=== PATIENT | female | born 1950 | race American Indian/Alaskan Native ===

== ENCOUNTER 2017-11-19 13:37 | Inpatient (IN) | payer MEDICARE ==
--- NOTE | 2017-11-19 14:22 | Emergency Department Report ---
History of Present Illness - General Chief Complaint: Psych Stated Complaint: POSS OVERDOSE Time Seen by Provider: 11/19/17 14:19 Source: patient Mode of arrival: Stretcher Limitations: Altered Mental Status - History of Present Illness Initial Comments: Patient is 67-year-old female presents to the emergency room with an overdose of venlafaxine. Patient currently hypotensive and altered mental status. Patient had A&O 1. Per ems patient took medications 2 days ago. Poison control toxicology called and discussed case with them. Recommendations received MD Complaint: intentional overdose -: Sudden How Overdose Was Discovered: called 911 (family called 911) Context: Intentional Overdose: relationship problems, financial issues Associated Symptoms: depression Treatments Prior to Arrival: oxygen - Related Data Allergies Allergy/AdvReac Type Severity Reaction Status Date / Time No Known Allergies Allergy Unverified 11/19/17 14:34 ED Review of Systems ROS: Stated complaint: POSS OVERDOSE Other details as noted in HPI Comment: Unobtainable due to pts medical conditions ED Past Medical Hx - Past Medical History Previous Medical History?: Yes Hx Psychiatric Treatment: Yes (depression) - Family History Family history: no significant - Social History Smoking Status: Never Smoker Substance Use Type: Other (unknown) ED Physical Exam - General Limitations: Altered Mental Status General appearance: alert, lethargic - Head Head exam: Present: atraumatic, normocephalic, normal inspection - Eye Eye exam: Present: normal appearance (arousable), PERRL Pupils: Present: normal accommodation - ENT ENT exam: Present: normal exam - Neck Neck exam: Present: normal inspection - Respiratory Respiratory exam: Present: normal lung sounds bilaterally. Absent: respiratory distress - Cardiovascular Cardiovascular Exam: Present: regular rate, normal rhythm. Absent: systolic murmur, diastolic murmur, rubs, gallop - GI/Abdominal GI/Abdominal exam: Present: soft, normal bowel sounds - Extremities Exam Extremities exam: Present: normal inspection - Back Exam Back exam: Present: normal inspection - Neurological Exam Neurological exam: Present: alert, oriented X3 - Psychiatric Psychiatric exam: Present: normal affect, normal mood - Skin Skin exam: Present: warm, dry, intact, normal color. Absent: rash ED Course Vital Signs 11/19/17 11/19/17 11/19/17 13:48 14:01 14:03 Temperature Pulse Rate 70 69 68 Respiratory 23 24 16 Rate Blood Pressure 60/23 70/43 O2 Sat by Pulse 95 96 Oximetry 11/19/17 11/19/17 11/19/17 14:30 14:35 15:00 Temperature 97.9 F Pulse Rate 68 81 Respiratory 20 14 Rate Blood Pressure 69/39 70/36 O2 Sat by Pulse 96 97 Oximetry 11/19/17 11/19/17 11/19/17 15:30 16:00 16:30 Temperature Pulse Rate 70 69 79 Respiratory 18 25 H 25 H Rate Blood Pressure 73/43 82/52 84/53 O2 Sat by Pulse 93 96 95 Oximetry 11/19/17 11/19/17 11/19/17 17:00 17:30 18:00 Temperature Pulse Rate 78 80 79 Respiratory 17 22 21 Rate Blood Pressure 71/53 81/50 72/47 O2 Sat by Pulse 97 96 97 Oximetry 11/19/17 11/19/17 18:30 19:00 Temperature Pulse Rate 79 87 Respiratory 25 H 28 H Rate Blood Pressure 79/48 88/55 O2 Sat by Pulse 97 94 Oximetry - Reevaluation(s) Reevaluation #1: Discussed with poison control and wet primer powder blender, Dr. Feliciano. Benjamin received and documented, orders placed 11/19/17 14:40 Reevaluation #2: Discussed case with Dr. Feliciano and patient unchanged. Epi drip to be added. Labs ordered 11/19/17 16:40 Reevaluation #3: BP improving. We'll keep map above 65 with epinephrine drip. We'll continue on bicarbonate drip in order to maintain a pH of 7.5-7.55 we'll be checked every [address] Feliciano's recommendations. Dr. Feliciano updated on case 11/19/17 19:00 Reevaluation #4: Social replaced due to multiple medications and drips. Central line placed without complication. We'll verify with x-ray 11/19/17 21:06 - Central Line Placement Right IJ Consent Obtained: verbal consent, emergent situation Time Out Performed: Yes Patient Placed on Monitor/Pulse Ox: Yes Prep: mask, gown, gloves Central Line Prep: Chlorhexidine scrub, sterile drapes applied Local Anesthesia Used: Lidocaine 1% Amount of Anesthesia Used (mls): 5 (mls) Ultrasound Used for Placement: Yes Central Line Lumen Inserted: triple Bloods Obtained for Lab: Yes Central Line Position: good blood return, all ports aspirated, flus, sutured in place with 2-0 Dressing Applied: Tegaderm Post Procedure X-Ray: tip of catheter in good p, other Patient Tolerated Procedure: well Complications: none Additional Comments: Line placed under sterile conditions with ultrasound without complication. ED Medical Decision Making - Lab Data Result diagrams: 11/19/17 17:02 11/19/17 15:15 - EKG Data -: EKG Interpreted by Me EKG shows normal: sinus rhythm Rate: normal - EKG Data Interpretation: other (prolonged QT and QRS) - Medical Decision Making Recommendations received from wet primer powder blender with poison control, Dr. Feliciano.. Dr. Feliciano recommends: epinephrine drip to support blood pressure. To assess of bicarbonate and repeat EKG. 2 g of mag sulfate. Check chemistry potassium low give potassium. Calcium low give calcium gluconate. After repeat EKG after 2 A of bicarbonate start a bicarbonate drip with 3 A of bicarbonate mixed in 1 L of D5 water at 150 mils per hour. Recommend ABG to be checked every 30 minutes and to keep the serum pH at 7.50-7.55... ICU admission. Per Dr. Feliciano Effexor cannot be dialyzed off @1800: Discussed case with hospitalist. Dr. Brown agreed to admit. All of wet primer powder blender recommendations given to Dr. Brown. Dr. Feliciano's contact info given to the hospitalist. - Differential Diagnosis od. [email or web address] Critical Care Time: Yes Critical care attestation.: If time is entered above; I have spent that time in minutes in the direct care of this critically ill patient, excluding procedure time. Critical Care Time: 90 minutes spent with patient for critical care time ED Disposition Clinical Impression: Hypotension, Overdose, Acute kidney failure, Hyperkalemia, Hypocalcemia Disposition: OP ADMIT IP TO THIS HOSP Is pt being admited?: Yes Does the pt Need Aspirin: No Condition: Critical Time of Disposition: 18:08
[2017-11-19] MEDS ORDERED: MAGNESIUM SULFATE 2GM/50ML 2 GM/50 ML BAG IV ONE (14:51)
[2017-11-19] MEDS ORDERED: SODIUM BICARBONATE IV ONE (15:00)
[2017-11-19 15:51] LABS: Albumin 3.1 g/dL (3.9-5); Calcium 7.8 mg/dL (8.4-10.2)
[2017-11-19] MEDS ORDERED: ADRENALIN ONE ×2 (17:18→20:30)
[2017-11-19 17:19] LABS: Basophils % (Auto) 0.1 % (0.0-1.8); Eosinophils % (Auto) 0.1 % (0.0-4.3); Hematocrit 33.9 % (30.3-42.9); Hemoglobin 11.2 gm/dl (10.1-14.3); Lymphocytes # (Auto) 0.4 K/mm3 (1.2-5.4); Mean Corpuscular HGB Conc 33 % (30-34); Mean Corpuscular Hemoglobin 30 pg (28-32); Mean Corpuscular Volume 90 fl (79-97); Monocytes # (Auto) 0.8 K/mm3 (0.0-0.8); Monocytes % (Auto) 7.8 % (0.0-7.3); Platelet Count 150 K/mm3 (140-440); Red Blood Count 3.78 M/mm3 (3.65-5.03); Red Cell Distribution Width 14.5 % (13.2-15.2)
[2017-11-19 17:26] LABS: Bilirubin,Urine NEG (Negative); Blood,Urine MOD (Negative); Color,Urine Yellow (Yellow); Hyaline Casts,Urine 9 /LPF; Mucus,Urine 1+ /HPF; Nitrite,Urine NEG (Negative); Urobilinogen,Urine < 2.0 mg/dL (<2.0)
[2017-11-19] MEDS ORDERED: ADRENALIN 8 MG in NACL 0.9% 250ML 242 ML IV ONE (17:30)
[2017-11-19] MEDS ORDERED: SODIUM BICARBONATE 150 MEQ in D5W 1,000 ML IV ONE (17:48)
[2017-11-19 17:59] LABS: Amphetamine Screen,Urine PRESUMPTIVE NEGATIVE; Benzodiazepines Screen,Urine PRESUMPTIVE NEGATIVE; Cannabinoid Screen,Urine PRESUMPTIVE NEGATIVE; Cocaine Screen,Urine PRESUMPTIVE NEGATIVE; Methadone Screen,Urine PRESUMPTIVE NEGATIVE; Opiate Screen,Urine PRESUMPTIVE NEGATIVE
[2017-11-19] MEDS ORDERED: CALCIUM GLUCONATE 1,000 MG in NACL 0.9% 100 ML IV ONE (18:30)
[2017-11-19] MEDS ORDERED: NACL 0.9% 1000 ML 1,000 ML IV ONE (19:03)
--- NOTE | 2017-11-19 19:56 | XRay Report ---
FINAL REPORT PROCEDURE: XR CHEST 1V AP TECHNIQUE: Chest radiograph anteroposterior view. CPT 89453 HISTORY: Medical Clearance Psych COMPARISON: No prior studies are available for comparison. FINDINGS: The heart is magnified although appears to be mildly enlarged. Diaphragms are elevated. There is hazy increased density overlying the lower half of the right lung. I suspect there is a layering effusion with adjacent atelectasis or infiltrate. There is some patchy alveolar density in the left base suggesting a small amount of atelectasis. Patient is rotated to the right. No acute bony abnormalities are seen. IMPRESSION: Abnormal increased density right hemithorax as described suggesting layering effusion with adjacent atelectasis or infiltrate. Small amount of atelectasis also suspected in the left base.. Mild cardiomegaly.
[2017-11-19] MEDS ORDERED: MILK OF MAGNESIA PO PRN ×2 (21:11)
[2017-11-19] MEDS ORDERED: ALUM-MAG HYDROX-SIMETH 200-200-20MG/5ML PO PRN (21:11)
[2017-11-19] MEDS ORDERED: DULCOLAX PR PRN ×2 (21:11)
[2017-11-19] MEDS ORDERED: MORPHINE IV PRN ×2 (21:11)
--- NOTE | 2017-11-19 21:11 | History and Physical Report ---
History of Present Illness Date of examination: 11/19/17 Date of admission: 11/19/17 Chief complaint: CC Effexor overdose History of present illness: History of Present Illness Patient is 67-year-old female presents to the emergency room with an overdose of venlafaxine. Patient currently hypotensive and altered mental status. Patient had A&O 1. Per ems patient took medications 2 days ago. Poison control toxicology called and discussed case with them. Recommendations received MD Complaint: intentional overdose -: Sudden How Overdose Was Discovered: called 911 (family called 911) Context: Intentional Overdose: relationship problems, financial issues Associated Symptoms: depression Treatments Prior to Arrival: oxygen ROS: Stated complaint: POSS OVERDOSE Other details as noted in HPI Comment: Unobtainable due to pts medical conditions - Past Medical History Previous Medical History?: Yes Hx Psychiatric Treatment: Yes (depression) - Family History Family history: no significant - Social History Smoking Status: Never Smoker Substance Use Type: Other (unknown) Medications and Allergies Allergies Allergy/AdvReac Type Severity Reaction Status Date / Time No Known Allergies Allergy Unverified 11/19/17 14:34 Active Meds: Active Medications Sodium Bicarbonate 150 meq/ (Dextrose) 1,150 mls @ 150 mls/hr IV ONCE.ED ONE Stop: 11/20/17 01:27 Last Admin: 11/19/17 19:02 Dose: 150 mls/hr Epinephrine 8 mg/ Sodium (Chloride) 250 mls @ 3.75 mls/hr IV ONCE.ED ONE; 2 MCG /MIN PRN Reason: Protocol Stop: 11/22/17 12:09 Last Admin: 11/19/17 18:26 Dose: 2 mcg/min, 3.75 mls/hr Exam - Constitutional Vitals: Temp Pulse Resp BP Pulse Ox 97.9 F 87 28 H 88/55 94 11/19/17 14:35 11/19/17 19:00 11/19/17 19:00 11/19/17 19:00 11/19/17 19:00 General appearance: Present: mild distress, well-nourished - EENT Eyes: Present: PERRL ENT: hearing intact, clear oral mucosa - Neck Neck: Present: supple, normal ROM - Respiratory Respiratory effort: normal Respiratory: bilateral: CTA - Cardiovascular Heart rate: 90 Rhythm: regular Heart Sounds: Present: S1 & S2. Absent: rub, click - Extremities Extremities: no ischemia, pulses intact, pulses symmetrical, No edema Peripheral Pulses: within normal limits - Abdominal General gastrointestinal: Present: soft, non-tender, non-distended, normal bowel sounds Female genitourinary: Present: normal - Integumentary Integumentary: Present: clear, warm, dry - Musculoskeletal Musculoskeletal: gait normal, strength equal bilaterally - Psychiatric Psychiatric: depressed, other (Altered sensorium) - Neurologic Neurologic: CNII-XII intact, moves all extremities Results - Labs CBC & Chem 7: 11/20/17 04:33 11/20/17 04:33 Labs: Laboratory Last Values WBC 9.9 K/mm3 (4.5-11.0) 11/19/17 17: RBC 3.78 M/mm3 (3.65-5.03) 11/19/17 17:02 Hgb 11.2 gm/dl (10.1-14.3) 11/19/17 17:02 Hct 33.9 % (30.3-42.9) 11/19/17 17:02 MCV 90 fl (79-97) 11/19/17 17:02 MCH 30 pg (28-32) 11/19/17 17:02 MCHC 33 % (30-34) 11/19/17 17:02 RDW 14.5 % (13.2-15.2) 11/19/17 17:02 Plt Count 150 K/mm3 (140-440) 11/19/17 17:02 Lymph % (Auto) 4.0 % (13.4-35.0) L 11/19/17 17:02 [place] % (Auto) 7.8 % (0.0-7.3) H 11/19/17 17:02 Eos % (Auto) 0.1 % (0.0-4.3) 11/19/17 17:02 Baso % (Auto) 0.1 % (0.0-1.8) 11/19/17 17:02 Lymph # 0.4 K/mm3 (1.2-5.4) L 11/19/17 17:02 [place] # 0.8 K/mm3 (0.0-0.8) 11/19/17 17:02 Eos # 0.0 K/mm3 (0.0-0.4) 11/19/17 17:02 Baso # 0.0 K/mm3 (0.0-0.1) 11/19/17 17:02 Seg Neutrophils % 88.0 % (40.0-70.0) H 11/19/17 17:02 Seg Neutrophils # 8.7 K/mm3 (1.8-7.7) H 11/19/17 17:02 POC ABG pH 7.330 (7.35-7.45) L 11/19/17 18:09 POC ABG pCO2 37.7 (35-45) 11/19/17 18:09 POC ABG pO2 88 (80-105) 11/19/17 18:09 POC ABG HCO3 19.9 11/19/17 18:09 POC ABG Total CO2 21 11/19/17 18:09 POC ABG O2 Sat 96 11/19/17 18:09 POC ABG Base Excess -6 11/19/17 18:09 VBG pH 7.286 (7.320-7.420) L 11/19/17 19:55 FiO2 3.5 % 11/19/17 18:09 Sodium 140 mmol/L (137-145) 11/19/17 15:15 Potassium 5.4 mmol/L (3.6-5.0) H 11/19/17 15:15 Chloride 100.0 mmol/L (98-107) 11/19/17 15:15 Carbon Dioxide 22 mmol/L (22-30) 11/19/17 15:15 Anion Gap 23 mmol/L 11/19/17 15:15 BUN 62 mg/dL (7-17) H 11/19/17 15:15 Creatinine 4.4 mg/dL (0.7-1.2) H 11/19/17 15:15 Estimated GFR 10 ml/min 11/19/17 15:15 BUN/Creatinine Ratio 14 % 11/19/17 15:15 Glucose 98 mg/dL (65-100) 11/19/17 15:15 Calcium 7.8 mg/dL (8.4-10.2) L 11/19/17 15:15 Total Bilirubin 0.20 mg/dL (0.1-1.2) 11/19/17 15:15 AST 21 units/L (5-40) 11/19/17 15:15 ALT 10 units/L (7-56) 11/19/17 15:15 Alkaline Phosphatase 109 units/L (35-129) 11/19/17 15:15 Total Protein 6.2 g/dL (6.3-8.2) L 11/19/17 15:15 Albumin 3.1 g/dL (3.9-5) L 11/19/17 15:15 Albumin/Globulin Ratio 1.0 % 11/19/17 15:15 Urine Color Yellow (Yellow) 11/19/17 16:45 Urine Turbidity Clear (Clear) 11/19/17 16:45 Urine pH 5.0 (5.0-7.0) 11/19/17 16:45 Ur Specific [place] 1.016 (1.003-1.030) 11/19/17 16:45 Urine Protein 30 mg/dl mg/dL (Negative) 11/19/17 16:45 Urine Glucose (UA) Neg mg/dL (Negative) 11/19/17 16:45 Urine Ketones Neg mg/dL (Negative) 11/19/17 16:45 Urine Blood Mod (Negative) 11/19/17 16:45 Urine Nitrite Neg (Negative) 11/19/17 16:45 Urine Bilirubin Neg (Negative) 11/19/17 16:45 Urine Urobilinogen < 2.0 mg/dL (<2.0) 11/19/17 16:45 Ur Leukocyte Esterase Neg (Negative) 11/19/17 16:45 Urine WBC (Auto) 1.0 /HPF (0.0-6.0) 11/19/17 16:45 Urine RBC (Auto) 1.0 /HPF (0.0-6.0) 11/19/17 16:45 U Epithel Cells (Auto) < 1.0 /HPF (0-13.0) 11/19/17 16:45 Hyaline Casts 9 /LPF 11/19/17 16:45 Urine Mucus 1+ /HPF 11/19/17 16:45 Salicylates < 0.3 mg/dL (2.8-20.0) L 11/19/17 15:15 Urine Opiates Screen Presumptive negative 11/19/17 16:45 Urine Methadone Screen Presumptive negative 11/19/17 16:45 Acetaminophen < 15.0 ug/mL (10.0-30.0) 01/26/18 15:15 Ur Barbiturates Screen Presumptive negative 11/19/17 16:45 Ur Phencyclidine Scrn Presumptive positive 11/19/17 16:45 Ur Amphetamines Screen Presumptive negative 11/19/17 16:45 U Benzodiazepines Scrn Presumptive negative 11/19/17 16:45 [place] 0.1 mmol/L (0.0-1.2) 11/19/17 15:15 Urine Cocaine Screen Presumptive negative 11/19/17 16:45 U Marijuana (THC) Screen Presumptive negative 11/19/17 16:45 Drugs of Abuse Note Disclamer 11/19/17 16:45 Plasma/Serum Alcohol < 0.01 gm% (0-0.07) 11/19/17 15:15 - Imaging and Cardiology EKG: report reviewed Chest x-ray: report reviewed (Abnl Rt opacity-effusion?) Assessment and Plan Assessment and plan: The high probability of a clinically significant, sudden or life threatening deterioration of the [Pulmonary, cadiac, renal] system(s) required my full and direct attention, intervention and personal management. The aggregate critical care time was [42] minutes. This time is in addition to time spent performing reported procedures but includes the following: [x] Data Review and interpretation [x] Patient assessment and monitoring of vital signs [x] Documentation [x] Medication orders and management Advance Directives: Yes (Full code) VTE prophylaxis?: Chemical Plan of care discussed with patient/family: Yes - Patient Problems (1) Overdose Current Visit: Yes Status: Acute Qualifiers: Encounter type: initial encounter Plan to address problem: Patient has taken unknown quantity of Effexor Poison control called Recommendations received from typesetting machine tender with poison control, Dr. Feliciano.. Dr. Feliciano recommends: epinephrine drip to support blood pressure. To assess of bicarbonate and repeat EKG. 2 g of mag sulfate. Check chemistry potassium low give potassium. Calcium low give calcium gluconate. After repeat EKG after 2 A of bicarbonate start a bicarbonate drip with 3 A of bicarbonate mixed in 1 L of D5 water at 150 mils per hour. Recommend ABG to be checked every 30 minutes and to keep the serum pH at 7.50-7.55... ICU admission. Per Dr. Feliciano Effexor cannot be dialyzed off (2) Acute kidney failure Current Visit: Yes Status: Acute Qualifiers: Acute renal failure type: with acute tubular necrosis Qualified Code(s): N17.0 - Acute kidney failure with tubular necrosis Plan to address problem: IV fluids for now (3) Hyperkalemia Current Visit: Yes Status: Acute Plan to address problem: Calcium gluconate and Bicarb given in ED,.Check Rpt K (4) Depression Current Visit: Yes Status: Chronic Qualifiers: Depression Type: major depressive disorder Active/Remission status: currently active Major depression episode severity: severe Psychotic features: without psychotic features Plan to address problem: Mental health consult (5) Suicide attempt by drug ingestion Current Visit: Yes Status: Acute Qualifiers: Encounter type: initial encounter Qualified Code(s): T50.902A - Poisoning by unspecified drugs, medicaments and biological substances, intentional self- harm, initial encounter Plan to address problem: MH/Psych consult (6) DVT prophylaxis Current Visit: Yes Status: Acute Plan to address problem: on Lovenox
[2017-11-19] MEDS ORDERED: SODIUM BICARBONATE FEEDTUBE PRN (21:21)
[2017-11-19] MEDS ORDERED: PANCREAZE DR 10,500 UNIT FEEDTUBE PRN (21:21)
[2017-11-19] MEDS ORDERED: SIMPLE SYRUP FEEDTUBE PRN ×2 (21:21)
--- NOTE | 2017-11-19 21:34 | XRay Report ---
FINAL REPORT PROCEDURE: XR CHEST 1V AP 2058 hours TECHNIQUE: Chest radiograph anteroposterior view. CPT 42261 HISTORY: line placement COMPARISON: Prior chest x-ray 11/19/2017 1945 hours FINDINGS: New right jugular central venous line in place. The tip projects in the mid SVC. There is no pneumothorax. Increased density in the right base suggesting layering effusion with adjacent atelectasis or infiltrate again visualize without interval change. A small amount of patchy alveolar density again seen in the left base. The heart is magnified although appears to be mildly enlarged. No acute bony abnormalities are seen. IMPRESSION: New right jugular central venous line. No evidence of pneumothorax. Stable pleural and parenchymal densities bilaterally. Stable mild cardiomegaly..
[2017-11-19 23:58] LABS: Calcium 7.2 mg/dL (8.4-10.2)
[2017-11-20] MEDS: PEPCID IV SCH ×2 (00:29→11:05)
[2017-11-20 05:19] LABS: Hematocrit 31.4 % (30.3-42.9); Hemoglobin 10.6 gm/dl (10.1-14.3); Lymphocytes # (Auto) 0.5 K/mm3 (1.2-5.4); Lymphocytes % (Auto) 4.5 % (13.4-35.0); Mean Corpuscular HGB Conc 34 % (30-34); Mean Corpuscular Hemoglobin 30 pg (28-32); Mean Corpuscular Volume 90 fl (79-97); Monocytes % (Auto) 9.2 % (0.0-7.3); Platelet Count 161 K/mm3 (140-440); Red Blood Count 3.49 M/mm3 (3.65-5.03)
[2017-11-20 05:27] LABS: Calcium 7.3 mg/dL (8.4-10.2)
[2017-11-20] MEDS ORDERED: SODIUM BICARBONATE 150 MEQ in D5W 1,000 ML IV SCH (08:00)
[2017-11-20] MEDS ORDERED: LOVENOX SUB-Q SCH (10:00)
--- NOTE | 2017-11-20 10:12 | Cat Scan Report ---
CT HEAD WITHOUT CONTRAST: 11/20/17 CLINICAL: Altered metal status. Medical clearance for psych. TECHNIQUE: 2.5-mm noncontrast scans. COMPARISON:None FINDINGS: The ventricles and sulci are normal for age.A 4 cm wedge-shaped hypodensity in the posterior right parietal lobe is consistent with chronic non-hemorrhagic infarct. However, minimal dilatation of the right occipital horn suggest that the infarct is probably a couple of months old. No other abnormal density. No hemorrhage, edema or extra-axial collection. The sinuses are clear. Normal orbits and soft tissues. The calvarium and skull base are intact. IMPRESSION: No acute change. Chronic right posterior parietal nonhemorrhagic infarct.
[2017-11-20] MEDS: LOVENOX SUB-Q SCH (11:04)
--- NOTE | 2017-11-20 11:44 | Consultation ---
History of Present Illness Consult date: 11/20/17 Requesting physician: JUAN CHENEY Reason for consult: other (Hypotensive, depression, overdose..critical care management) History of present illness: Patient is 67-year-old female presents to the emergency room with an overdose of venlafaxine. Patient currently hypotensive and altered mental status. Patient had A&O 1. Per ems patient took medications 2 days ago. Poison control toxicology called and discussed case with them. Recommendations received Patient was seen and examined. Vitals, labs, medications, chart reviewed. Currently on norepinephrine at 6mcg, right IJ CVC. She will moan and graon and will give monosyllabic answers, no eye contact. Complains of thirst. Complaint: intentional overdose -: Sudden How Overdose Was Discovered: called 911 (family called 911) Context: Intentional Overdose: relationship problems, financial issues Associated Symptoms: depression Treatments Prior to Arrival: oxygen ROS: Stated complaint: POSS OVERDOSE Comment: Unobtainable due to pts medical conditions - Past Medical History Previous Medical History?: Yes Hx Psychiatric Treatment: Yes (depression) - Family History Family history: no significant - Social History Smoking Status: Never Smoker Substance Use Type: Other (unknown) Medications and Allergies Allergies Allergy/AdvReac Type Severity Reaction Status Date / Time No Known Allergies Allergy Unverified 11/19/17 14:34 Home Medications Medication Instructions Recorded Confirmed Last Taken Type HYDROcodone/APAP 5-325 [[place] 1 - 2 each PO Q6HR PRN #15 tablet 01/09/15 Unknown Rx 5/325] Ibuprofen [Motrin 800 MG tab] 800 mg PO Q8H PRN #20 tablet 01/09/15 Unknown Rx Levofloxacin [Levaquin] 750 mg PO QDAY #10 tablet 01/09/15 Unknown Rx Promethazine [Phenergan] 25 mg PO Q6H PRN #20 tablet 01/09/15 Unknown Rx Active Meds: Active Medications Acetaminophen (Tylenol) 650 mg PO Q4H PRN PRN Reason: Pain MILD(1-3)/Fever >100.5/CHAO Al Hydrox/Mg Hydrox/Simethicone (Alum-Mag Hydrox-Simeth 803-370-85pb/5ml) 30 ml PO Q4H PRN PRN Reason: Indigestion Lipase/Protease/Amylase (Tatiana Rowell 10,500 Unit) 1 each FEEDTUBE PRN PRN PRN Reason: For Clogged Feeding Tube Bisacodyl (Dulcolax) 10 mg ND QDAY PRN PRN Reason: constipation unrelieved by MOM Enoxaparin Sodium (Lovenox) 30 mg SUB-Q QDAY ROM[place] Famotidine (Pepcid) 20 mg IV QDAY ROMAIN Last Admin: 11/20/17 00:29 Dose: 20 mg Epinephrine 8 mg/ Sodium (Chloride) 250 mls @ 3.75 mls/hr IV ONCE.ED ONE; 2 MCG /MIN PRN Reason: Protocol Stop: 11/22/17 12:09 Last Titration: 11/20/17 08:45 Dose: 3.2 mcg/min, 6 mls/hr Sodium Bicarbonate 150 meq/ (Dextrose) 1,150 mls @ 150 mls/hr IV DIRECT ROMAIN Stop: 11/21/17 11:00 Magnesium Hydroxide (Milk Of Magnesia) 30 ml PO Q4H PRN PRN Reason: Constipation Morphine Sulfate (Morphine) 2 mg IV Q4H PRN PRN Reason: Pain, Moderate (4-6) Ondansetron HCl (Zofran) 4 mg IV Q3H PRN PRN Reason: N/V unrelieved by Reglan Simple Syrup (Simple Syrup) 15 ml FEEDTUBE PRN PRN PRN Reason: Hypoglycemia Simple Syrup (Simple Syrup) 30 ml FEEDTUBE PRN PRN PRN Reason: Hypoglycemia Sodium Bicarbonate (Sodium Bicarbonate) 325 mg FEEDTUBE PRN PRN PRN Reason: For Clogged Feeding Tube Physical Examination Vital signs: Vital Signs Pulse Resp 70 23 11/19/17 13:48 11/19/17 13:48 General appearance: no acute distress, lethargic Eyes: non-icteric ENT: oropharynx dry Neck: supple, no lymphadenopathy, no JVD Effort: normal Ascultation: Bilateral: clear Cardiovascular: regular rate and rhythm Gastrointestinal: normoactive bowel sounds, soft, non-tender Integumentary: normal Extremities: no cyanosis, no edema, pink and warm, pulses normal, no ischemia or petechiae Musculoskeletal: no deformities non-focal exam, pupils equal and round depressed Results - Laboratory Findings CBC and BMP: 11/23/17 07:05 11/23/17 07:05 ABG POC ABG pH 7.330 (7.35-7.45) L 11/19/17 18:09 POC ABG pCO2 37.7 (35-45) 11/19/17 18:09 POC ABG pO2 88 (80-105) 11/19/17 18:09 POC ABG HCO3 19.9 11/19/17 18:09 POC ABG Total CO2 21 11/19/17 18:09 POC ABG O2 Sat 96 11/19/17 18:09 Abnormal lab findings: Abnormal Labs 11/19/17 11/19/17 11/19/17 15:15 15:15 17:02 RBC Lymph % (Auto) 4.0 L [place] % (Auto) 7.8 H Lymph # 0.4 L [place] # Seg Neutrophils % 88.0 H Seg Neutrophils # 8.7 H POC ABG pH VBG pH Potassium 5.4 H Carbon Dioxide BUN 62 H Creatinine 4.4 H Glucose Calcium 7.8 L Total Protein 6.2 L Albumin 3.1 L Salicylates < 0.3 L 11/19/17 11/19/17 11/19/17 18:09 19:55 23:31 RBC Lymph % (Auto) [place] % (Auto) Lymph # [place] # Seg Neutrophils % Seg Neutrophils # POC ABG pH 7.330 L VBG pH 7.286 L Potassium Carbon Dioxide BUN 61 H Creatinine 3.6 H Glucose 231 H Calcium 7.2 L Total Protein Albumin Salicylates 11/20/17 11/20/17 04:33 04:33 RBC 3.49 L Lymph % (Auto) 4.5 L [place] % (Auto) 9.2 H Lymph # 0.5 L [place] # 1.0 H Seg Neutrophils % 86.3 H Seg Neutrophils # 9.2 H POC ABG pH VBG pH Potassium Carbon Dioxide 21 L BUN 59 H Creatinine 3.1 H Glucose 247 H Calcium 7.3 L Total Protein 5.5 L Albumin 3.0 L Salicylates - Diagnostic Findings Chest x-ray: image reviewed (No acute infiltrates noted) Assessment and Plan - Patient Problems (1) Suicide attempt by drug ingestion Current Visit: Yes Status: Acute Qualifiers: Encounter type: initial encounter Qualified Code(s): T50.902A - Poisoning by unspecified drugs, medicaments and biological substances, intentional self- harm, initial encounter Plan to address problem: Monitor QT (2) Hypotension Current Visit: Yes Status: Acute Plan to address problem: Probably secondary to medication/overdose Volume resuscitate Get lactic acid levels Continue with vasopressor support, wean for MAP>65 (3) Acute kidney failure Current Visit: Yes Status: Acute Qualifiers: Acute renal failure type: with acute tubular necrosis Qualified Code(s): N17.0 - Acute kidney failure with tubular necrosis (4) Hyperkalemia Current Visit: Yes Status: Acute (5) Acute kidney injury Current Visit: Yes Status: Acute
[2017-11-20] MEDS ORDERED: PANCREAZE DR 10,500 UNIT FEEDTUBE PRN (12:10)
[2017-11-20] MEDS ORDERED: SODIUM BICARBONATE FEEDTUBE PRN (12:10)
[2017-11-20] MEDS ORDERED: SIMPLE SYRUP FEEDTUBE PRN ×2 (12:10)
--- NOTE | 2017-11-20 12:13 | Progress Note ---
Assessment and Plan Assessment and plan: SNRI Drug overdose. Patient has taken unknown quantity of Effexor. Poison control recommended epinephrine drip to support blood pressure. Bicarbonate drip. ABG should be checked every 30 minutes and to keep the serum pH at 7.50- 7.55. Magnesium and calcium were given. Hypotension. Etiology secondary to medication/overdose. Continued volume resuscitation and vasopressor support. Acute renal failure. Etiology secondary to ATN. Continue IV fluid hydration. Renal consultation pending. Hyperkalemia. Resolved. Follow-up BMP. Depression. Mental health consultation. Suicide attempt by drug ingestion. 1013. DVT prophylaxis. Continue Lovenox. History Interval history: Patient denies any complaints. Patient with flat affect Hospitalist Physical - Constitutional Vitals: Temp Pulse Resp BP Pulse Ox 97.9 F 87 22 88/55 94 11/19/17 14:35 11/19/17 19:00 11/19/17 21:30 11/19/17 19:00 11/19/17 19:00 General appearance: Present: no acute distress, well-nourished - EENT Eyes: Present: PERRL, EOM intact ENT: hearing intact, clear oral mucosa, dentition normal - Neck Neck: Present: supple, normal ROM - Respiratory Respiratory effort: normal Respiratory: bilateral: CTA - Cardiovascular Rhythm: regular Heart Sounds: Present: S1 & S2. Absent: gallop, rub - Extremities Extremities: no ischemia, No edema, Full ROM - Abdominal General gastrointestinal: soft, non-tender, non-distended, normal bowel sounds - Integumentary Integumentary: Present: clear, warm, dry - Neurologic Neurologic: CNII-XII intact, moves all extremities Results - Labs CBC & Chem 7: 11/20/17 04:33 11/20/17 04:33 Labs: Laboratory Last Values WBC 10.7 K/mm3 (4.5-11.0) 11/20/17 04:33 RBC 3.49 M/mm3 (3.65-5.03) L 11/20/17 04:33 Hgb 10.6 gm/dl (10.1-14.3) 11/20/17 04:33 Hct 31.4 % (30.3-42.9) 11/20/17 04:33 MCV 90 fl (79-97) 11/20/17 04:33 MCH 30 pg (28-32) 11/20/17 04:33 MCHC 34 % (30-34) 11/20/17 04:33 RDW 15.0 % (13.2-15.2) 11/20/17 04:33 Plt Count 161 K/mm3 (140-440) 11/20/17 04:33 Lymph % (Auto) 4.5 % (13.4-35.0) L 11/20/17 04:33 [place] % (Auto) 9.2 % (0.0-7.3) H 11/20/17 04:33 Eos % (Auto) 0.0 % (0.0-4.3) 11/20/17 04:33 Baso % (Auto) 0.0 % (0.0-1.8) 11/20/17 04:33 Lymph # 0.5 K/mm3 (1.2-5.4) L 11/20/17 04:33 [place] # 1.0 K/mm3 (0.0-0.8) H 11/20/17 04:33 Eos # 0.0 K/mm3 (0.0-0.4) 11/20/17 04:33 Baso # 0.0 K/mm3 (0.0-0.1) 11/20/17 04:33 Seg Neutrophils % 86.3 % (40.0-70.0) H 11/20/17 04:33 Seg Neutrophils # 9.2 K/mm3 (1.8-7.7) H 11/20/17 04:33 POC ABG pH 7.330 (7.35-7.45) L 11/19/17 18:09 POC ABG pCO2 37.7 (35-45) 11/19/17 18:09 POC ABG pO2 88 (80-105) 11/19/17 18:09 POC ABG HCO3 19.9 11/19/17 18:09 POC ABG Total CO2 21 11/19/17 18:09 POC ABG O2 Sat 96 11/19/17 18:09 POC ABG Base Excess -6 11/19/17 18:09 VBG pH 7.329 (7.320-7.420) 11/19/17 23:31 FiO2 3.5 % 11/19/17 18:09 Sodium 140 mmol/L (137-145) 11/20/17 04:33 Potassium 4.1 mmol/L (3.6-5.0) 11/20/17 04:33 Chloride 98.6 mmol/L (98-107) 11/20/17 04:33 Carbon Dioxide 21 mmol/L (22-30) L 11/20/17 04:33 Anion Gap 25 mmol/L 11/20/17 04:33 BUN 59 mg/dL (7-17) H 11/20/17 04:33 Creatinine 3.1 mg/dL (0.7-1.2) H 11/20/17 04:33 Estimated GFR 18 ml/min 11/20/17 04:33 BUN/Creatinine Ratio 19 % 11/20/17 04:33 Glucose 247 mg/dL (65-100) H 11/20/17 04:33 Calcium 7.3 mg/dL (8.4-10.2) L 11/20/17 04:33 Total Bilirubin 0.20 mg/dL (0.1-1.2) 11/20/17 04:33 AST 36 units/L (5-40) 11/20/17 04:33 ALT 13 units/L (7-56) 11/20/17 04:33 Alkaline Phosphatase 103 units/L (35-129) 11/20/17 04:33 Total Protein 5.5 g/dL (6.3-8.2) L 11/20/17 04:33 Albumin 3.0 g/dL (3.9-5) L 11/20/17 04:33 Albumin/Globulin Ratio 1.2 % 11/20/17 04:33 Urine Color Yellow (Yellow) 11/19/17 16:45 Urine Turbidity Clear (Clear) 11/19/17 16:45 Urine pH 5.0 (5.0-7.0) 11/19/17 16:45 Ur Specific [place] 1.016 (1.003-1.030) 11/19/17 16:45 Urine Protein 30 mg/dl mg/dL (Negative) 11/19/17 16:45 Urine Glucose (UA) Neg mg/dL (Negative) 11/19/17 16:45 Urine Ketones Neg mg/dL (Negative) 11/19/17 16:45 Urine Blood Mod (Negative) 11/19/17 16:45 Urine Nitrite Neg (Negative) 11/19/17 16:45 Urine Bilirubin Neg (Negative) 11/19/17 16:45 Urine Urobilinogen < 2.0 mg/dL (<2.0) 11/19/17 16:45 Ur Leukocyte Esterase Neg (Negative) 11/19/17 16:45 Urine WBC (Auto) 1.0 /HPF (0.0-6.0) 11/19/17 16:45 Urine RBC (Auto) 1.0 /HPF (0.0-6.0) 11/19/17 16:45 U Epithel Cells (Auto) < 1.0 /HPF (0-13.0) 11/19/17 16:45 Hyaline Casts 9 /LPF 11/19/17 16:45 Urine Mucus 1+ /HPF 11/19/17 16:45 Salicylates < 0.3 mg/dL (2.8-20.0) L 11/19/17 15:15 Urine Opiates Screen Presumptive negative 11/19/17 16:45 Urine Methadone Screen Presumptive negative 11/19/17 16:45 Acetaminophen < 15.0 ug/mL (10.0-30.0) 11/19/17 15:15 Ur Barbiturates Screen Presumptive negative 11/19/17 16:45 Ur Phencyclidine Scrn Presumptive positive 11/19/17 16:45 Ur Amphetamines Screen Presumptive negative 11/19/17 16:45 U Benzodiazepines Scrn Presumptive negative 11/19/17 16:45 [place] 0.1 mmol/L (0.0-1.2) 11/19/17 15:15 Urine Cocaine Screen Presumptive negative 11/19/17 16:45 U Marijuana (THC) Screen Presumptive negative 11/19/17 16:45 Drugs of Abuse Note Disclamer 11/19/17 16:45 Plasma/Serum Alcohol < 0.01 gm% (0-0.07) 11/19/17 15:15
--- NOTE | 2017-11-20 12:47 | Consultation ---
History of Present Illness - Reason for Consult Consult date: 11/20/17 acute renal failure, hypernatremia, metabolic acidosis - History of Present Illness The patient is 67-year-old AAF with unknown medical history presented to the emergency room with an overdose of venlafaxine. Patient is confused to give any history at this time. She is on epinephrine drip for hypotension. Per previous documentation patient took medication 2 days ago. Labs significant for potassium 5.4 and creatinine 4.4. Medications and Allergies Allergies Allergy/AdvReac Type Severity Reaction Status Date / Time No Known Allergies Allergy Unverified 11/19/17 14:34 Active Meds: Active Medications Acetaminophen (Tylenol) 650 mg PO Q4H PRN PRN Reason: Pain MILD(1-3)/Fever >100.5/CHAO Al Hydrox/Mg Hydrox/Simethicone (Alum-Mag Hydrox-Simeth [phone]/5ml) 30 ml PO Q4H PRN PRN Reason: Indigestion Lipase/Protease/Amylase (Pancremarisela Rowell 10,500 Unit) 1 each FEEDTUBE PRN PRN PRN Reason: For Clogged Feeding Tube Lipase/Protease/Amylase (Pancremarisela Dr 10,500 Unit) 1 each FEEDTUBE PRN PRN PRN Reason: For Clogged Feeding Tube Bisacodyl (Dulcolax) 10 mg SC QDAY PRN PRN Reason: constipation unrelieved by MOM Enoxaparin Sodium (Lovenox) 30 mg SUB-Q QDAY ROMAIN Famotidine (Pepcid) 20 mg IV QDAY ROMAIN Last Admin: 11/20/17 00:29 Dose: 20 mg Epinephrine 8 mg/ Sodium (Chloride) 250 mls @ 3.75 mls/hr IV ONCE.ED ONE; 2 MCG /MIN PRN Reason: Protocol Stop: 11/22/17 12:09 Last Titration: 11/20/17 08:45 Dose: 3.2 mcg/min, 6 mls/hr Sodium Bicarbonate 150 meq/ (Dextrose) 1,150 mls @ 150 mls/hr IV DIRECT ROMAIN Stop: 11/21/17 11:00 Sodium Chloride (Nacl 0.9% 1000 Ml) 1,000 mls @ 125 mls/hr IV DIRECT ROMAIN Magnesium Hydroxide (Milk Of Magnesia) 30 ml PO Q4H PRN PRN Reason: Constipation Morphine Sulfate (Morphine) 2 mg IV Q4H PRN PRN Reason: Pain, Moderate (4-6) Ondansetron HCl (Zofran) 4 mg IV Q3H PRN PRN Reason: N/V unrelieved by Reglan Simple Syrup (Simple Syrup) 15 ml FEEDTUBE PRN PRN PRN Reason: Hypoglycemia Simple Syrup (Simple Syrup) 30 ml FEEDTUBE PRN PRN PRN Reason: Hypoglycemia Simple Syrup (Simple Syrup) 15 ml FEEDTUBE PRN PRN PRN Reason: Hypoglycemia Simple Syrup (Simple Syrup) 30 ml FEEDTUBE PRN PRN PRN Reason: Hypoglycemia Sodium Bicarbonate (Sodium Bicarbonate) 325 mg FEEDTUBE PRN PRN PRN Reason: For Clogged Feeding Tube Sodium Bicarbonate (Sodium Bicarbonate) 325 mg FEEDTUBE PRN PRN PRN Reason: For Clogged Feeding Tube Review of Systems ROS unobtainable: due to mental status Exam - Vital Signs Vital signs: Vital Signs Pulse Resp 70 23 11/19/17 13:48 11/19/17 13:48 - General Appearance General appearance: well-developed, appears stated age, other (no distress) EENT: ATNC, PERRL, mucous membranes dry, hearing intact Neck: Present: neck supple, trachea midline Respiratory: Clear to Ascultation Heart: regular, S1S2, no murmurs Gastrointestinal: Present: normoactive bowel sounds. Absent: tenderness, distended Integumentary: no rash, warm and dry Neurologic: no focal deficit, no asterixis, confused, disoriented Musculoskeletal: Present: other (no edema) Results - Lab Results 11/21/17 05:34 11/21/17 05:34 Most recent lab results Calcium 7.3 mg/dL (8.4-10.2) L 11/20/17 04:33 - Image Kidney/bladder ultrasound: pending Assessment and Plan 1. Acute kdiney injury: Hemodynamically mediated ASHLEIGH in the setting of hypotension. Continue IV fluids. Urine studies and Renal US. 2. Hypotension: On Epinephrine infusion. 3. Hyperkalemia: Improved. 4. Drug overdose. 5. Suicidal attempt.
[2017-11-20] MEDS: NACL 0.9% 1000 ML 1,000 ML IV SCH (14:45)
[2017-11-20] MEDS ORDERED: MAGNESIUM SULFATE IV ONE (20:21)
[2017-11-20] MEDS ORDERED: CALCIUM GLUCONATE 2,000 MG in NACL 0.9% 100 ML IV ONE (20:58)
[2017-11-20] MEDS ORDERED: MAGNESIUM SULFATE 2GM/50ML 2 GM/50 ML BAG IV SCH (22:00)
[2017-11-21] MEDS ORDERED: CALCIUM CHLORIDE 2,000 MG in NACL 0.9% 100 ML IV ONE (04:55)
[2017-11-21 06:16] LABS: Hemoglobin 12.3 gm/dl (10.1-14.3); Mean Corpuscular HGB Conc 33 % (30-34); Mean Corpuscular Hemoglobin 29 pg (28-32); Mean Corpuscular Volume 87 fl (79-97); Platelet Count 149 K/mm3 (140-440); Red Blood Count 4.25 M/mm3 (3.65-5.03)
[2017-11-21 06:23] LABS: Magnesium 2.4 mg/dL (1.7-2.3)
[2017-11-21] MEDS: NACL 0.9% 1000 ML 1,000 ML IV SCH ×2 (07:45→22:42)
[2017-11-21 08:28] LABS: Band Neutrophils # (Manual) 3.4 K/mm3; Basophils % (Manual) 0 % (0.0-1.8); Eosinophils % (Manual) 0 % (0.0-4.3); Total Cells Counted 100
[2017-11-21 08:29] LABS: Platelet Estimate Consistent w Auto; Target Cells Few
--- NOTE | 2017-11-21 09:08 | Progress Note ---
Assessment and Plan 1. Acute kdiney injury: Hemodynamically mediated ASHLEIGH in the setting of hypotension. Continue IV fluids. Renal function is improving. Urine studies and Renal US. Baseline renal function is unknown. 2. Hypotension: BP is better. 3. Hyperkalemia: Improved. 4. Drug overdose. 5. Suicidal attempt. Subjective Date of service: 11/21/17 Interval history: Patient was seen and examined at the bedside. Objective - Vital Signs Vital signs: Vital Signs - 12hr 11/20/17 11/20/17 11/20/17 21:15 21:30 21:45 Pulse Rate 90 91 H 90 Respiratory 33 H 34 H 32 H Rate Blood Pressure 136/75 130/80 128/77 O2 Sat by Pulse 99 99 100 Oximetry 11/20/17 11/20/17 11/20/17 22:00 22:15 22:30 Pulse Rate 86 88 88 Respiratory 20 24 27 H Rate Blood Pressure 125/73 138/80 123/77 O2 Sat by Pulse 100 100 100 Oximetry 11/20/17 11/20/17 11/20/17 22:45 23:00 23:15 Pulse Rate 93 H 93 H 93 H Respiratory 28 H 24 24 Rate Blood Pressure 136/79 126/76 123/75 O2 Sat by Pulse 100 100 100 Oximetry 11/20/17 11/20/17 11/20/17 23:30 23:38 23:45 Pulse Rate 91 H 90 89 Respiratory 21 23 24 Rate Blood Pressure 129/77 120/72 O2 Sat by Pulse 99 92 96 Oximetry 11/21/17 11/21/17 11/21/17 00:00 00:15 00:30 Pulse Rate 87 90 92 H Respiratory 23 27 H 25 H Rate Blood Pressure 125/80 111/71 119/77 O2 Sat by Pulse 96 97 97 Oximetry 11/21/17 11/21/17 11/21/17 00:45 01:00 01:15 Pulse Rate 90 91 H 94 H Respiratory 26 H 29 H 22 Rate Blood Pressure 125/61 131/81 127/76 O2 Sat by Pulse 96 96 97 Oximetry 11/21/17 11/21/17 11/21/17 01:30 01:45 02:00 Pulse Rate 90 90 92 H Respiratory 24 23 26 H Rate Blood Pressure 129/82 134/77 135/77 O2 Sat by Pulse 98 96 96 Oximetry 11/21/17 11/21/1711/21/18 02:15 02:30 02:45 Pulse Rate 92 H 92 H 93 H Respiratory 29 H 19 25 H Rate Blood Pressure 131/75 133/77 127/78 O2 Sat by Pulse 97 96 97 Oximetry 11/21/17 11/21/17 11/21/17 03:00 03:15 03:30 Pulse Rate 92 H 90 91 H Respiratory 28 H 25 H 29 H Rate Blood Pressure 134/74 134/78 134/81 O2 Sat by Pulse 95 96 96 Oximetry 11/21/17 11/21/17 11/21/17 03:45 04:00 04:15 Pulse Rate 92 H 91 H 89 Respiratory 31 H 15 22 Rate Blood Pressure 130/68 132/82 130/83 O2 Sat by Pulse 97 97 98 Oximetry 11/21/17 11/21/17 11/21/17 04:30 04:45 05:00 Pulse Rate 88 91 H 90 Respiratory 20 14 15 Rate Blood Pressure 134/82 136/85 136/85 O2 Sat by Pulse 93 92 93 Oximetry 11/21/17 11/21/17 11/21/17 05:15 05:31 05:45 Pulse Rate 94 H 90 93 H Respiratory 21 23 16 Rate Blood Pressure 129/72 135/70 143/75 O2 Sat by Pulse 94 93 93 Oximetry 11/21/17 11/21/17 11/21/17 06:00 06:15 06:31 Pulse Rate 88 88 91 H Respiratory 22 22 13 Rate Blood Pressure 142/93 142/93 142/93 O2 Sat by Pulse 92 94 93 Oximetry - General Appearance General appearance: well-developed, appears stated age, other (no distress) EENT: ATNC, PERRL, mucous membranes dry, hearing intact Neck: supple Respiratory: Present: Clear to Ascultation Cardiology: regular, S1S2, no murmurs Gastrointestinal: normoactive bowel sounds, no tenderness, no distended Integumentary: no rash, warm and dry Neurologic: no focal deficit, no asterixis, confused, disoriented Musculoskeletal: other (no edema) - Lab 11/21/17 05:34 11/21/17 05:34 Most recent lab results Calcium 8.0 mg/dL (8.4-10.2) L 11/21/17 05:34 Phosphorus 2.90 mg/dL (2.5-4.5) 11/21/17 05:34 Magnesium 2.40 mg/dL (1.7-2.3) H 11/21/17 05:34
[2017-11-21] MEDS: ZOFRAN IV PRN ×2 (09:45→17:50)
[2017-11-21] MEDS: PEPCID IV SCH (11:00)
[2017-11-21] MEDS: LOVENOX SUB-Q SCH (11:00)
--- NOTE | 2017-11-21 11:57 | Ultrasound Report ---
FINAL REPORT EXAM: US RENAL BILAT HISTORY: Acute renal failure. TECHNIQUE: Renal ultrasound. PRIORS: None currently available. FINDINGS: RIGHT KIDNEY: 7.5 x 4.5 x 3.9 cm. Cortex measures 0.7 cm. Mildly echogenic no hydronephrosis. No distinct lesions. No stones. LEFT KIDNEY: 9.5 x 4.7 x 3.8 cm. Cortex measures 1.7 cm. Mildly echogenic no hydronephrosis. No distinct lesions. No stones. Spleen measures 10.5 x 9.1 x 7.2 cm and is hypoechoic with multiple echogenic foci. Fluid around the liver noted. Partially visualized liver is also heterogeneous. IMPRESSION: Mildly echogenic bilateral kidneys may be related to medical renal disease. Hypoechoic spleen with multiple echogenic foci. Nonspecific. Findings could represent chronic granulomatous disease or infiltrating lesion or edema. Small amount of ascites around the heterogeneous liver. Appearance of the liver could be related to hepatocellular disease or cirrhosis.
--- NOTE | 2017-11-21 13:23 | Progress Note ---
Assessment and Plan Assessment and plan: SNRI Drug overdose. Patient has taken unknown quantity of Effexor. Poison control recommended epinephrine drip to support blood pressure. Bicarbonate drip. ABG should be checked every 30 minutes and to keep the serum pH at 7.50- 7.55. Magnesium and calcium were given. Continue current plan as outlined by poison control Hypotension. Etiology secondary to medication/overdose. Continued volume resuscitation and vasopressor support. Acute renal failure. Improved. Etiology secondary to ASHLEIGH from hypertension. Continue IV fluid hydration. Nephrology following. Hyperkalemia. Resolved. Follow-up BMP. Depression. Mental health consultation. Suicide attempt by drug ingestion. 1013. DVT prophylaxis. Continue Lovenox. The high probability of a clinically significant, sudden or life threatening deterioration of the [hemodynamic and endocrine] system(s) required my full and direct attention, intervention and personal management. The aggregate critical care time was [32] minutes. This time is in addition to time spent performing reported procedures but includes the following: [x] Data Review and interpretation [x] Patient assessment and monitoring of vital signs [x] Documentation [x] Medication orders and management History Interval history: Patient denies any complaints. Patient with flat affect Hospitalist Physical - Constitutional Vitals: Temp Pulse Resp BP Pulse Ox 99.0 F 92 H 12 165/91 92 11/20/17 08:16 11/21/17 09:30 11/21/17 09:30 11/21/17 09:30 11/21/17 09:30 General appearance: Present: no acute distress, well-nourished - EENT Eyes: Present: PERRL, EOM intact ENT: hearing intact, clear oral mucosa, dentition normal - Neck Neck: Present: supple, normal ROM - Respiratory Respiratory effort: normal Respiratory: bilateral: CTA - Cardiovascular Rhythm: regular Heart Sounds: Present: S1 & S2. Absent: gallop, rub - Extremities Extremities: no ischemia, No edema, Full ROM - Abdominal General gastrointestinal: soft, non-tender, non-distended, normal bowel sounds - Integumentary Integumentary: Present: clear, warm, dry - Neurologic Neurologic: CNII-XII intact, moves all extremities Results - Labs CBC & Chem 7: 11/21/17 05:34 11/21/17 05:34 Labs: Laboratory Last Values WBC 5.3 K/mm3 (4.5-11.0) 11/21/17 05:34 RBC 4.25 M/mm3 (3.65-5.03) 11/21/17 05:34 Hgb 12.3 gm/dl (10.1-14.3) 11/21/17 05:34 Hct 37.0 % (30.3-42.9) 11/21/17 05:34 MCV 87 fl (79-97) 11/21/17 05:34 MCH 29 pg (28-32) 11/21/17 05:34 MCHC 33 % (30-34) 11/21/17 05:34 RDW 15.0 % (13.2-15.2) 11/21/17 05:34 Plt Count 149 K/mm3 (140-440) 11/21/17 05:34 Lymph % (Auto) 4.5 % (13.4-35.0) L 11/20/17 04:33 [place] % (Auto) Signal Intelligence/Electronic Warfare 11/21/17 05:34 Eos % (Auto) 0.0 % (0.0-4.3) 11/20/17 04:33 Baso % (Auto) 0.0 % (0.0-1.8) 11/20/17 04:33 Lymph # 0.5 K/mm3 (1.2-5.4) L 11/20/17 04:33 [place] # 1.0 K/mm3 (0.0-0.8) H 11/20/17 04:33 Eos # 0.0 K/mm3 (0.0-0.4) 11/20/17 04:33 Baso # 0.0 K/mm3 (0.0-0.1) 11/20/17 04:33 Add Manual Diff Complete 11/21/17 05:34 Total Counted 100 11/21/17 05:34 Seg Neutrophils % 86.3 % (40.0-70.0) H 11/20/17 04:33 Seg Neuts % (Manual) 19.0 % (40.0-70.0) L 11/21/17 05:34 Band Neutrophils % 65.0 % 11/21/17 05:34 Lymphocytes % (Manual) 5.0 % (13.4-35.0) L 11/21/17 05:34 Reactive Lymphs % (Man) 1.0 % 11/21/17 05:34 Monocytes % (Manual) 9.0 % (0.0-7.3) H 11/21/17 05:34 Eosinophils % (Manual) 0 % (0.0-4.3) 11/21/17 05:34 Basophils % (Manual) 0 % (0.0-1.8) 11/21/17 05:34 Metamyelocytes % 1.0 % 11/21/17 05:34 Myelocytes % 0 % 11/21/17 05:34 Promyelocytes % 0 % 11/21/17 05:34 Blast Cells % 0 % 11/21/17 05:34 Nucleated RBC % Not Reportable 11/21/17 05:34 Seg Neutrophils # 9.2 K/mm3 (1.8-7.7) H 11/20/17 04:33 Seg Neutrophils # Man 1.0 K/mm3 (1.8-7.7) L 11/21/17 05:34 Band Neutrophils # 3.4 K/mm3 11/21/17 05:34 Lymphocytes # (Manual) 0.3 K/mm3 (1.2-5.4) L 11/21/17 05:34 Abs React Lymphs (Man) 0.1 K/mm3 11/21/17 05:34 Monocytes # (Manual) 0.5 K/mm3 (0.0-0.8) 11/21/17 05:34 Eosinophils # (Manual) 0.0 K/mm3 (0.0-0.4) 11/21/17 05:34 Basophils # (Manual) 0.0 K/mm3 (0.0-0.1) 11/21/17 05:34 Metamyelocytes # 0.1 K/mm3 11/21/17 05:34 Myelocytes # 0.0 K/mm3 11/21/17 05:34 Promyelocytes # 0.0 K/mm3 11/21/17 05:34 Blast Cells # 0.0 K/mm3 11/21/17 05:34 WBC Morphology Not Reportable 11/21/17 05:34 Hypersegmented Neuts Not Reportable 11/21/17 05:34 Hyposegmented Neuts Not Reportable 11/21/17 05:34 Hypogranular Neuts Not Reportable 11/21/17 05:34 Smudge Cells Not Reportable 11/21/17 05:34 Toxic Granulation Not Reportable 11/21/17 05:34 Toxic Vacuolation Not Reportable 11/21/17 05:34 Dohle Bodies Not Reportable 11/21/17 05:34 Pelger-Huet Anomaly Not Reportable 11/21/17 05:34 [place] Rods Not Reportable 11/21/17 05:34 Platelet Estimate Consistent w auto 11/21/17 05:34 Clumped Platelets Not Reportable 11/21/17 05:34 Plt Clumps, EDTA Not Reportable 11/21/17 05:34 Large Platelets Not Reportable 11/21/17 05:34 Giant Platelets Not Reportable 11/21/17 05:34 Platelet Satelliting Not Reportable 11/21/17 05:34 Plt Morphology Comment Not Reportable 11/21/17 05:34 RBC Morphology Not Reportable 11/21/17 05:34 Dimorphic RBCs Not Reportable 11/21/17 05:34 Polychromasia Not Reportable 11/21/17 05:34 Hypochromasia Not Reportable 11/21/17 05:34 Poikilocytosis Not Reportable 11/21/17 05:34 Anisocytosis Not Reportable 11/21/17 05:34 Microcytosis Not Reportable 11/21/17 05:34 Macrocytosis Not Reportable 11/21/17 05:34 Spherocytes Not Reportable 11/21/17 05:34 Pappenheimer Bodies Not Reportable 11/21/17 05:34 Sickle Cells Not Reportable 11/21/17 05:34 Target Cells Few 11/21/17 05:34 Tear Drop Cells Not Reportable 11/21/17 05:34 Ovalocytes Not Reportable 11/21/17 05:34 Helmet Cells Not Reportable 11/21/17 05:34 [place] Bodies Not Reportable 11/21/17 05:34 [place] Rings Not Reportable 11/21/17 05:34 [place] Cells Not Reportable 11/21/17 05:34 Bite Cells Not Reportable 11/21/17 05:34 Crenated Cell Not Reportable 11/21/17 05:34 Elliptocytes Not Reportable 11/21/17 05:34 Acanthocytes (Spur) Not Reportable 11/21/17 05:34 Rouleaux Not Reportable 11/21/17 05:34 Hemoglobin C Crystals Not Reportable 11/21/17 05:34 Schistocytes Not Reportable 11/21/17 05:34 Malaria parasites Not Reportable 11/21/17 05:34 Bhupendra Bodies Not Reportable 11/21/17 05:34 Hem Pathologist Commnt No 11/21/17 05:34 POC ABG pH 7.330 (7.35-7.45) L 11/19/17 18:09 POC ABG pCO2 37.7 (35-45) 11/19/17 18:09 POC ABG pO2 88 (80-105) 11/19/17 18:09 POC ABG HCO3 19.9 11/19/17 18:09 POC ABG Total CO2 21 11/19/17 18:09 POC ABG O2 Sat 96 11/19/17 18:09 POC ABG Base Excess -6 11/19/17 18:09 VBG pH 7.329 (7.320-7.420) 11/19/17 23:31 FiO2 3.5 % 11/19/17 18:09 Sodium 141 mmol/L (137-145) 11/21/17 05:34 Potassium 4.2 mmol/L (3.6-5.0) 11/21/17 05:34 Chloride 99.1 mmol/L (98-107) 11/21/17 05:34 Carbon Dioxide 27 mmol/L (22-30) 11/21/17 05:34 Anion Gap 19 mmol/L 11/21/17 05:34 BUN 40 mg/dL (7-17) H 11/21/17 05:34 Creatinine 1.4 mg/dL (0.7-1.2) H D 11/21/17 05:34 Estimated GFR 46 ml/min 11/21/17 05:34 BUN/Creatinine Ratio 29 % 11/21/17 05:34 Glucose 91 mg/dL (65-100) 11/21/17 05:34 Osmolality 309 Mosm/kg 11/21/17 05:34 Calcium 8.0 mg/dL (8.4-10.2) L 11/21/17 05:34 Phosphorus 2.90 mg/dL (2.5-4.5) 11/21/17 05:34 Magnesium 2.40 mg/dL (1.7-2.3) H 11/21/17 05:34 Total Bilirubin 0.20 mg/dL (0.1-1.2) 11/20/17 04:33 AST 36 units/L (5-40) 11/20/17 04:33 ALT 13 units/L (7-56) 11/20/17 04:33 Alkaline Phosphatase 103 units/L (35-129) 11/20/17 04:33 Total Creatine Kinase 794 units/L (30-135) H 11/21/17 05:34 Total Protein 5.5 g/dL (6.3-8.2) L 11/20/17 04:33 Albumin 3.0 g/dL (3.9-5) L 11/20/17 04:33 Albumin/Globulin Ratio 1.2 % 11/20/17 04:33 Urine Color Yellow (Yellow) 11/19/17 16:45 Urine Turbidity Clear (Clear) 11/19/17 16:45 Urine pH 5.0 (5.0-7.0) 11/19/17 16:45 Ur Specific [place] 1.016 (1.003-1.030) 11/19/17 16:45 Urine Protein 30 mg/dl mg/dL (Negative) 11/19/17 16:45 Urine Glucose (UA) Neg mg/dL (Negative) 11/19/17 16:45 Urine Ketones Neg mg/dL (Negative) 11/19/17 16:45 Urine Blood Mod (Negative) 11/19/17 16:45 Urine Nitrite Neg (Negative) 11/19/17 16:45 Urine Bilirubin Neg (Negative) 11/19/17 16:45 Urine Urobilinogen < 2.0 mg/dL (<2.0) 11/19/17 16:45 Ur Leukocyte Esterase Neg (Negative) 11/19/17 16:45 Urine WBC (Auto) 1.0 /HPF (0.0-6.0) 11/19/17 16:45 Urine RBC (Auto) 1.0 /HPF (0.0-6.0) 11/19/17 16:45 U Epithel Cells (Auto) < 1.0 /HPF (0-13.0) 11/19/17 16:45 Hyaline Casts 9 /LPF 11/19/17 16:45 Urine Mucus 1+ /HPF 11/19/17 16:45 Salicylates < 0.3 mg/dL (2.8-20.0) L 11/19/17 15:15 Urine Opiates Screen Presumptive negative 11/19/17 16:45 Urine Methadone Screen Presumptive negative 11/19/17 16:45 Acetaminophen < 15.0 ug/mL (10.0-30.0) 11/19/17 15:15 Ur Barbiturates Screen Presumptive negative 11/19/17 16:45 Ur Phencyclidine Scrn Presumptive positive 11/19/17 16:45 Ur Amphetamines Screen Presumptive negative 11/19/17 16:45 U Benzodiazepines Scrn Presumptive negative 11/19/17 16:45 [place] 0.1 mmol/L (0.0-1.2) 11/19/17 15:15 Urine Cocaine Screen Presumptive negative 11/19/17 16:45 U Marijuana (THC) Screen Presumptive negative 11/19/17 16:45 Drugs of Abuse Note Disclamer 11/19/17 16:45 Plasma/Serum Alcohol < 0.01 gm% (0-0.07) 11/19/17 15:15
--- NOTE | 2017-11-21 17:04 | Progress Note ---
Assessment and Plan SNRI Drug overdose (Effexor). Hypotension Acute renal failure Hyperkalemia Depression Suicide attempt by drug ingestion - psych evaluation ongoing - continue volume resuscitation for ASHLEIGH - hypotension resolved - hyperkalemia resolved - GI & VTE prophylaxis ...re-evaluate in am & prn Subjective Date of service: 11/21/17 Principal diagnosis: Drug Overdose / Suicide Attempt; ASHLEIGH; Hyperkalemia Interval history: Patient seen today for: Drug Overdose / Suicide Attempt; ASHLEIGH; Hyperkalemia Seen and examined at bedside; 24 hour events reviewed; nursing and respiratory care staff consulted; no adverse overnight events reported to me; resting peacefully in bed; denbies acute chest pains or increased SOB; sitter in room; no emesis or overt aspiration Objective Vital Signs - 12hr 11/21/17 11/21/17 11/21/17 05:15 05:31 05:45 Pulse Rate 94 H 90 93 H Respiratory 21 23 16 Rate Blood Pressure 129/72 135/70 143/75 O2 Sat by Pulse 94 93 93 Oximetry 11/21/17 11/21/17 11/21/17 06:00 06:15 06:31 Pulse Rate 88 88 91 H Respiratory 22 22 13 Rate Blood Pressure 142/93 142/93 142/93 O2 Sat by Pulse 92 94 93 Oximetry 11/21/17 11/21/17 11/21/17 07:01 07:31 08:00 Pulse Rate 94 H 99 H 103 H Respiratory 20 17 16 Rate Blood Pressure 142/93 167/86 171/93 O2 Sat by Pulse 94 91 91 Oximetry 11/21/17 11/21/17 11/21/17 08:31 09:00 09:30 Pulse Rate 97 H 102 H 92 H Respiratory 21 26 H 12 Rate Blood Pressure 160/82 155/89 165/91 O2 Sat by Pulse 90 92 92 Oximetry 11/21/17 11/21/17 11/21/17 10:00 10:31 11:00 Pulse Rate 100 H 101 H 100 H Respiratory 13 16 21 Rate Blood Pressure 159/90 171/90 149/67 O2 Sat by Pulse 92 92 90 Oximetry 11/21/17 11/21/17 11/21/17 11:31 12:00 12:30 Pulse Rate 89 99 H 94 H Respiratory 25 H 27 H 22 Rate Blood Pressure 146/69 146/69 140/65 O2 Sat by Pulse 91 90 90 Oximetry 11/21/17 11/21/17 11/21/17 13:00 13:30 14:00 Pulse Rate 103 H 99 H 101 H Respiratory 25 H 26 H 23 Rate Blood Pressure 148/71 146/87 159/79 O2 Sat by Pulse 89 89 89 Oximetry 11/21/17 11/21/17 14:31 15:00 Pulse Rate 98 H 105 H Respiratory 20 23 Rate Blood Pressure 147/87 152/83 O2 Sat by Pulse 90 89 Oximetry Constitutional: no acute distress, alert Eyes: non-icteric ENT: oropharynx moist Neck: supple, no lymphadenopathy, no JVD, other (no thyromegaly) Effort: normal Ascultation: Bilateral: clear Percussion: Bilateral: not dull Cardiovascular: regular rate and rhythm Gastrointestinal: normoactive bowel sounds, soft, non-tender, non-distended Integumentary: normal Extremities: no cyanosis, no edema, pink and warm, pulses normal, no ischemia or petechiae Neurologic: normal mental status, non-focal exam, pupils equal and round, motor strength normal and Psychiatric: other (flat affect) CBC and BMP: 11/23/17 07:05 11/23/17 07:05 ABG, PT/INR, D-dimer: ABG POC ABG pH 7.330 (7.35-7.45) L 11/19/17 18:09 POC ABG pCO2 37.7 (35-45) 11/19/17 18:09 POC ABG pO2 88 (80-105) 11/19/17 18:09 POC ABG HCO3 19.9 11/19/17 18:09 POC ABG Total CO2 21 11/19/17 18:09 POC ABG O2 Sat 96 11/19/17 18:09 Abnormal lab findings: Abnormal Labs 11/19/17 11/19/17 11/19/17 15:15 15:15 17:02 RBC Lymph % (Auto) 4.0 L [place] % (Auto) 7.8 H Lymph # 0.4 L [place] # Seg Neutrophils % 88.0 H Seg Neuts % (Manual) Lymphocytes % (Manual) Monocytes % (Manual) Seg Neutrophils # 8.7 H Seg Neutrophils # Man Lymphocytes # (Manual) POC ABG pH VBG pH Potassium 5.4 H Carbon Dioxide BUN 62 H Creatinine 4.4 H Glucose Calcium 7.8 L Magnesium Total Creatine Kinase Total Protein 6.2 L Albumin 3.1 L Salicylates < 0.3 L 11/19/17 11/19/17 11/19/17 18:09 19:55 23:31 RBC Lymph % (Auto) [place] % (Auto) Lymph # [place] # Seg Neutrophils % Seg Neuts % (Manual) Lymphocytes % (Manual) Monocytes % (Manual) Seg Neutrophils # Seg Neutrophils # Man Lymphocytes # (Manual) POC ABG pH 7.330 L VBG pH 7.286 L Potassium Carbon Dioxide BUN 61 H Creatinine 3.6 H Glucose 231 H Calcium 7.2 L Magnesium Total Creatine Kinase Total Protein Albumin Salicylates 11/20/17 11/20/17 11/21/17 04:33 04:33 05:34 RBC 3.49 L Lymph % (Auto) 4.5 L [place] % (Auto) 9.2 H Lymph # 0.5 L [place] # 1.0 H Seg Neutrophils % 86.3 H Seg Neuts % (Manual) 19.0 L Lymphocytes % (Manual) 5.0 L Monocytes % (Manual) 9.0 H Seg Neutrophils # 9.2 H Seg Neutrophils # Man 1.0 L Lymphocytes # (Manual) 0.3 L POC ABG pH VBG pH Potassium Carbon Dioxide 21 L BUN 59 H Creatinine 3.1 H Glucose 247 H Calcium 7.3 L Magnesium Total Creatine Kinase Total Protein 5.5 L Albumin 3.0 L Salicylates 11/21/17 05:34 RBC Lymph % (Auto) [place] % (Auto) Lymph # [place] # Seg Neutrophils % Seg Neuts % (Manual) Lymphocytes % (Manual) Monocytes % (Manual) Seg Neutrophils # Seg Neutrophils # Man Lymphocytes # (Manual) POC ABG pH VBG pH Potassium Carbon Dioxide BUN 40 H Creatinine 1.4 H D Glucose Calcium 8.0 L Magnesium 2.40 H Total Creatine Kinase 794 H Total Protein Albumin Salicylates Chest x-ray: image reviewed
[2017-11-22] MEDS: ZOFRAN IV PRN ×2 (03:51→20:55)
[2017-11-22 05:52] LABS: Hematocrit 38.1 % (30.3-42.9); Hemoglobin 12.6 gm/dl (10.1-14.3); Mean Corpuscular HGB Conc 33 % (30-34); Mean Corpuscular Hemoglobin 29 pg (28-32); Mean Corpuscular Volume 89 fl (79-97); Platelet Count 151 K/mm3 (140-440); Red Cell Distribution Width 14.7 % (13.2-15.2)
[2017-11-22 06:03] LABS: Creatinine,Urine 103.7 mg/dL (0.1-20.0)
[2017-11-22 06:09] LABS: Albumin 2.9 g/dL (3.9-5); Calcium 8.5 mg/dL (8.4-10.2)
[2017-11-22 06:37] LABS: Anisocytosis 1+; Band Neutrophils # (Manual) 2.2 K/mm3; Basophils % (Manual) 0 % (0.0-1.8); Total Cells Counted 100
[2017-11-22 06:38] LABS: Dohle Bodies Rare; Large Platelets Rare; Ovalocytes Few; Stomatocytes Few
--- NOTE | 2017-11-22 09:10 | Progress Note ---
Assessment and Plan 1. Acute kdiney injury: Hemodynamically mediated ASHLEIGH in the setting of hypotension. Continue IV fluids. Renal function continue to improve. 2. Hypotension: BP is better. 3. Hyperkalemia: Improved. 4. Drug overdose. 5. Suicidal attempt. Subjective Date of service: 11/22/17 Interval history: Patient was seen and examined at the bedside. Objective - Vital Signs Vital signs: Vital Signs - 12hr 11/21/17 11/21/17 11/21/17 21:17 22:00 23:00 Temperature 98.3 F Pulse Rate 89 100 H Respiratory 20 18 Rate Blood Pressure 123/79 Blood Pressure [Left] O2 Sat by Pulse 90 96 Oximetry 11/22/17 11/22/17 11/22/17 00:21 04:51 08:31 Temperature 98.1 F 99.2 F 97.3 F L Pulse Rate 99 H 95 H 94 H Respiratory 20 20 18 Rate Blood Pressure 148/89 147/77 Blood Pressure 136/76 [Left] O2 Sat by Pulse 89 91 93 Oximetry - General Appearance General appearance: well-developed, appears stated age, other (no distress) EENT: ATNC, PERRL, mucous membranes dry, hearing intact, vision intact Neck: supple Respiratory: Present: Clear to Ascultation Cardiology: regular, S1S2, no murmurs Gastrointestinal: normoactive bowel sounds, no tenderness, no distended Integumentary: no rash, warm and dry Neurologic: no focal deficit, no asterixis, confused, disoriented Musculoskeletal: other (no edema) - Lab 11/22/17 Unknown 11/22/17 Unknown Most recent lab results Calcium 8.5 mg/dL (8.4-10.2) 11/22/17 Unknown Phosphorus 2.80 mg/dL (2.5-4.5) 11/22/17 Unknown Magnesium 2.40 mg/dL (1.7-2.3) H 11/21/17 05:34 Urine Creatinine 103.7 mg/dL (0.1-20.0) H 11/21/17 Unknown Urine Sodium 92 mmol/L 11/21/17 Unknown
--- NOTE | 2017-11-22 09:47 | Progress Note ---
Assessment and Plan Assessment and plan: SNRI Drug overdose. Patient has taken unknown quantity of Effexor. Hypotension. Resolved. Etiology secondary to medication/overdose. Acute renal failure. Improved. Etiology secondary to ASHLEIGH from hypertension. Continue IV fluid hydration. Nephrology following. Hyperkalemia. Resolved. Follow-up BMP. Depression. Mental health consultation. Suicide attempt by drug ingestion. 1013. Await psychiatric evaluation. DVT prophylaxis. Continue Lovenox. History Interval history: Patient denies any complaints. Patient with flat affect Hospitalist Physical - Constitutional Vitals: Temp Pulse Resp BP Pulse Ox 97.3 F L 94 H 18 136/76 93 11/22/17 08:31 11/22/17 08:31 11/22/17 08:31 11/22/17 08:31 11/22/17 08:31 General appearance: Present: no acute distress, well-nourished - EENT Eyes: Present: PERRL, EOM intact ENT: hearing intact, clear oral mucosa, dentition normal - Neck Neck: Present: supple, normal ROM - Respiratory Respiratory effort: normal Respiratory: bilateral: CTA - Cardiovascular Rhythm: regular Heart Sounds: Present: S1 & S2. Absent: gallop, rub - Extremities Extremities: no ischemia, No edema, Full ROM - Abdominal General gastrointestinal: soft, non-tender, non-distended, normal bowel sounds - Integumentary Integumentary: Present: clear, warm, dry - Neurologic Neurologic: CNII-XII intact, moves all extremities Results - Labs CBC & Chem 7: 11/22/17 Unknown 11/22/17 Unknown Labs: Laboratory Last Values WBC 5.4 K/mm3 (4.5-11.0) 11/22/17 Unknown RBC 4.30 M/mm3 (3.65-5.03) 11/22/17 Unknown Hgb 12.6 gm/dl (10.1-14.3) 11/22/17 Unknown Hct 38.1 % (30.3-42.9) 11/22/17 Unknown MCV 89 fl (79-97) 11/22/17 Unknown MCH 29 pg (28-32) 11/22/17 Unknown MCHC 33 % (30-34) 11/22/17 Unknown RDW 14.7 % (13.2-15.2) 11/22/17 Unknown Plt Count 151 K/mm3 (140-440) 11/22/17 Unknown Lymph % (Auto) 4.5 % (13.4-35.0) L 11/20/17 04:33 [place] % (Auto) Veterinary Livestock Inspector 11/21/17 05:34 Eos % (Auto) 0.0 % (0.0-4.3) 11/20/17 04:33 Baso % (Auto) 0.0 % (0.0-1.8) 11/20/17 04:33 Lymph # 0.5 K/mm3 (1.2-5.4) L 11/20/17 04:33 [place] # 1.0 K/mm3 (0.0-0.8) H 11/20/17 04:33 Eos # 0.0 K/mm3 (0.0-0.4) 11/20/17 04:33 Baso # 0.0 K/mm3 (0.0-0.1) 11/20/17 04:33 Add Manual Diff Complete 11/22/17 Unknown Total Counted 100 11/22/17 Unknown Seg Neutrophils % 86.3 % (40.0-70.0) H 11/20/17 04:33 Seg Neuts % (Manual) 41.0 % (40.0-70.0) 11/22/17 Unknown Band Neutrophils % 40.0 % 11/22/17 Unknown Lymphocytes % (Manual) 10.0 % (13.4-35.0) L 11/22/17 Unknown Reactive Lymphs % (Man) 0 % 11/22/17 Unknown Monocytes % (Manual) 6.0 % (0.0-7.3) 11/22/17 Unknown Eosinophils % (Manual) 2.0 % (0.0-4.3) 11/22/17 Unknown Basophils % (Manual) 0 % (0.0-1.8) 11/22/17 Unknown Metamyelocytes % 1.0 % 11/22/17 Unknown Myelocytes % 0 % 11/22/17 Unknown Promyelocytes % 0 % 11/22/17 Unknown Blast Cells % 0 % 11/22/17 Unknown Nucleated RBC % Not Reportable 11/22/17 Unknown Seg Neutrophils # 9.2 K/mm3 (1.8-7.7) H 11/20/17 04:33 Seg Neutrophils # Man 2.2 K/mm3 (1.8-7.7) 11/22/17 Unknown Band Neutrophils # 2.2 K/mm3 11/22/17 Unknown Lymphocytes # (Manual) 0.5 K/mm3 (1.2-5.4) L 11/22/17 Unknown Abs React Lymphs (Man) 0.0 K/mm3 11/22/17 Unknown Monocytes # (Manual) 0.3 K/mm3 (0.0-0.8) 11/22/17 Unknown Eosinophils # (Manual) 0.1 K/mm3 (0.0-0.4) 11/22/17 Unknown Basophils # (Manual) 0.0 K/mm3 (0.0-0.1) 11/22/17 Unknown Metamyelocytes # 0.1 K/mm3 11/22/17 Unknown Myelocytes # 0.0 K/mm3 11/22/17 Unknown Promyelocytes # 0.0 K/mm3 11/22/17 Unknown Blast Cells # 0.0 K/mm3 11/22/17 Unknown WBC Morphology Not Reportable 11/22/17 Unknown Hypersegmented Neuts Not Reportable 11/22/17 Unknown Hyposegmented Neuts Not Reportable 11/22/17 Unknown Hypogranular Neuts Not Reportable 11/22/17 Unknown Smudge Cells Not Reportable 11/22/17 Unknown Toxic Granulation Not Reportable 11/22/17 Unknown Toxic Vacuolation Not Reportable 11/22/17 Unknown Dohle Bodies Rare 11/22/17 Unknown Pelger-Huet Anomaly Not Reportable 11/22/17 Unknown Quinton Rods Not Reportable 11/22/17 Unknown Platelet Estimate Appears normal 11/22/17 Unknown Clumped Platelets Not Reportable 11/22/17 Unknown Plt Clumps, EDTA Not Reportable 11/22/17 Unknown Large Platelets Rare 11/22/17 Unknown Giant Platelets Not Reportable 11/22/17 Unknown Platelet Satelliting Not Reportable 11/22/17 Unknown Plt Morphology Comment Not Reportable 11/22/17 Unknown RBC Morphology Not Reportable 11/22/17 Unknown Dimorphic RBCs Not Reportable 11/22/17 Unknown Polychromasia Few 11/22/17 Unknown Hypochromasia Not Reportable 11/22/17 Unknown Poikilocytosis Not Reportable 11/22/17 Unknown Anisocytosis 1+ 11/22/17 Unknown Microcytosis Not Reportable 11/22/17 Unknown Macrocytosis Not Reportable 11/22/17 Unknown Spherocytes Not Reportable 11/22/17 Unknown Pappenheimer Bodies Not Reportable 11/22/17 Unknown Sickle Cells Not Reportable 11/22/17 Unknown Target Cells Not Reportable 11/22/17 Unknown Tear Drop Cells Not Reportable 11/22/17 Unknown Ovalocytes Few 11/22/17 Unknown Stomatocytes Few 11/22/17 Unknown Helmet Cells Not Reportable 11/22/17 Unknown Marquez-Channing Bodies Not Reportable 11/22/17 Unknown [place] Rings Not Reportable 11/22/17 Unknown Veteran Cells Not Reportable 11/22/17 Unknown Bite Cells Not Reportable 11/22/17 Unknown Crenated Cell Not Reportable 11/22/17 Unknown Elliptocytes Not Reportable 11/22/17 Unknown Acanthocytes (Spur) Not Reportable 11/22/17 Unknown Rouleaux Not Reportable 11/22/17 Unknown Hemoglobin C Crystals Not Reportable 11/22/17 Unknown Schistocytes Not Reportable 11/22/17 Unknown Malaria parasites Not Reportable 11/22/17 Unknown Bhupendra Bodies Not Reportable 11/22/17 Unknown Hem Pathologist Commnt No 11/22/17 Unknown POC ABG pH 7.330 (7.35-7.45) L 11/19/17 18:09 POC ABG pCO2 37.7 (35-45) 11/19/17 18:09 POC ABG pO2 88 (80-105) 11/19/17 18:09 POC ABG HCO3 19.9 11/19/17 18:09 POC ABG Total CO2 21 11/19/17 18:09 POC ABG O2 Sat 96 11/19/17 18:09 POC ABG Base Excess -6 11/19/17 18:09 VBG pH 7.329 (7.320-7.420) 11/19/17 23:31 FiO2 3.5 % 11/19/17 18:09 Sodium 145 mmol/L (137-145) 11/22/17 Unknown Potassium 4.0 mmol/L (3.6-5.0) 11/22/17 Unknown Chloride 100.4 mmol/L (98-107) 11/22/17 Unknown Carbon Dioxide 30 mmol/L (22-30) 11/22/17 Unknown Anion Gap 19 mmol/L 11/22/17 Unknown BUN 41 mg/dL (7-17) H 11/22/17 Unknown Creatinine 1.2 mg/dL (0.7-1.2) 11/22/17 Unknown Estimated GFR 55 ml/min 11/22/17 Unknown BUN/Creatinine Ratio 34 % 11/22/17 Unknown Glucose 91 mg/dL (65-100) 11/22/17 Unknown POC Glucose 89 (70-105) 11/21/17 17:15 Osmolality 309 Mosm/kg 11/21/17 05:34 Calcium 8.5 mg/dL (8.4-10.2) 11/22/17 Unknown Phosphorus 2.80 mg/dL (2.5-4.5) 11/22/17 Unknown Magnesium 2.40 mg/dL (1.7-2.3) H 11/21/17 05:34 Total Bilirubin 0.40 mg/dL (0.1-1.2) 11/22/17 Unknown AST 30 units/L (5-40) 11/22/17 Unknown ALT 18 units/L (7-56) 11/22/17 Unknown Alkaline Phosphatase 110 units/L (35-129) 11/22/17 Unknown Total Creatine Kinase 794 units/L (30-135) H 11/21/17 05:34 Total Protein 6.2 g/dL (6.3-8.2) L 11/22/17 Unknown Albumin 2.9 g/dL (3.9-5) L 11/22/17 Unknown Albumin/Globulin Ratio 0.9 % 11/22/17 Unknown Urine Color Yellow (Yellow) 11/19/17 16:45 Urine Turbidity Clear (Clear) 11/19/17 16:45 Urine pH 5.0 (5.0-7.0) 11/19/17 16:45 Ur Specific [place] 1.016 (1.003-1.030) 11/19/17 16:45 Urine Protein 30 mg/dl mg/dL (Negative) 11/19/17 16:45 Urine Glucose (UA) Neg mg/dL (Negative) 11/19/17 16:45 Urine Ketones Neg mg/dL (Negative) 11/19/17 16:45 Urine Blood Mod (Negative) 11/19/17 16:45 Urine Nitrite Neg (Negative) 11/19/17 16:45 Urine Bilirubin Neg (Negative) 11/19/17 16:45 Urine Urobilinogen < 2.0 mg/dL (<2.0) 11/19/17 16:45 Ur Leukocyte Esterase Neg (Negative) 11/19/17 16:45 Urine WBC (Auto) 1.0 /HPF (0.0-6.0) 11/19/17 16:45 Urine RBC (Auto) 1.0 /HPF (0.0-6.0) 11/19/17 16:45 U Epithel Cells (Auto) < 1.0 /HPF (0-13.0) 11/19/17 16:45 Hyaline Casts 9 /LPF 11/19/17 16:45 Urine Mucus 1+ /HPF 11/19/17 16:45 Urine Creatinine 103.7 mg/dL (0.1-20.0) H 11/21/17 Unknown Urine Sodium 92 mmol/L 11/21/17 Unknown Salicylates < 0.3 mg/dL (2.8-20.0) L 11/19/17 15:15 Urine Opiates Screen Presumptive negative 11/19/17 16:45 Urine Methadone Screen Presumptive negative 11/19/17 16:45 Acetaminophen < 15.0 ug/mL (10.0-30.0) 11/19/17 15:15 Ur Barbiturates Screen Presumptive negative 11/19/17 16:45 Ur Phencyclidine Scrn Presumptive positive 11/19/17 16:45 Ur Amphetamines Screen Presumptive negative 11/19/17 16:45 U Benzodiazepines Scrn Presumptive negative 11/19/17 16:45 [place] 0.1 mmol/L (0.0-1.2) 11/19/17 15:15 Urine Cocaine Screen Presumptive negative 11/19/17 16:45 U Marijuana (THC) Screen Presumptive negative 11/19/17 16:45 Drugs of Abuse Note Disclamer 11/19/17 16:45 Plasma/Serum Alcohol < 0.01 gm% (0-0.07) 11/19/17 15:15
--- NOTE | 2017-11-22 15:15 | Query- Renal Failure ---
Dear ____Noe Date:___11/22/17 Lactation Consultant/CDS:____Rohit Phone#:___[phone] Exercise your independent professional judgment when responding to query. Questions asked do not imply a particular answer is desired or expected. We greatly appreciate your clarification on this issue. Clinical Documentation States: 67 year old female was admitted on 11/19/17 The progress note (Dr. Liu) states " SNRI Drug overdose. Patient has taken unknown quantity of Effexor. Hypotension. Resolved. Etiology secondary to medication/overdose. Acute renal failure. Improved. Etiology secondary to ASHLEIGH from hypertension. Continue IV fluid hydration. Nephrology following. " The Nephrology progress note (Dr. Jack) " 1. Acute kdiney injury: Hemodynamically mediated ASHLEIGH in the setting of hypotension. " Clinical Findings Show: 11/19/17 11/21/17 11/22/17 Creatinine: 4.4 1.4 1.2 Please clarify if you mean: Acute Renal Failure with or due to: [ x] Tubular Necrosis [ ] Medullary Necrosis [ ] Vasomotor Nephropathy [ ] Shock Kidney [ ] Tubular Nephrosis [ ] Renal Tubular Stasis [ ] Cortical Necrosis [ ] Acute Renal Failure (unspecified) [ ] Lower Tubular Nephrosis [ ] Other: [ ] Not Applicable Present on Admission: [x ] Yes (Y) [ ] Clinically undeterminable (W) [ ] No (N) Please also document response in your Progress Notes and/or Discharge Summary and indicate if the condition was present on admission. MTDD
[2017-11-22] MEDS: LOVENOX SUB-Q SCH ×2 (18:14→18:15)
[2017-11-22] MEDS: PEPCID IV SCH (18:15)
--- NOTE | 2017-11-22 19:21 | Consultation ---
History of Present Illness - Reason for Consult Consult date: 11/22/17 Reason for consult: Mental Health Evaluation Requesting physician: MENG ARAMBULA III - Chief Complaint Chief complaint: "I did take Effexor to " - History of Present Psychiatric Illness Patient is 67-year-old AA female presents to the emergency room with an overdose of venlafaxine. Today the patient is calm during the assessment. She admitted to taking multiple Effexor pills to kill herself. She stated that she is still suicidal, but denies a plan. She stated that she is having life stressors, but was not willing to discuss with me. She was asked about previous suicide attempts, she stated, "I have attempted before." The patient was asked again about some of her stressors and she still refused not to discuss with me. She did rate her depression 10/10, with 10 being the worse. She stated being dx with depression years ago. She denies HI's and AVH's. She denies sleep disturbance and a poor appetite. She denies recreational drug use, but she is positive for PCP. She denies alcohol consumption (etoh). Medications and Allergies Allergies Allergy/AdvReac Type Severity Reaction Status Date / Time No Known Allergies Allergy Unverified 11/19/17 14:34 Active Meds: Active Medications Acetaminophen (Tylenol) 650 mg PO Q4H PRN PRN Reason: Pain MILD(1-3)/Fever >100.5/CHAO Al Hydrox/Mg Hydrox/Simethicone (Alum-Mag Hydrox-Simeth [phone]/5ml) 30 ml PO Q4H PRN PRN Reason: Indigestion Lipase/Protease/Amylase (Pancreazbrad Dr 10,500 Unit) 1 each FEEDTUBE PRN PRN PRN Reason: For Clogged Feeding Tube Bisacodyl (Dulcolax) 10 mg UT QDAY PRN PRN Reason: constipation unrelieved by MOM Enoxaparin Sodium (Lovenox) 40 mg SUB-Q QDAY@1000 [facility] Last Admin: 11/22/17 18:15 Dose: 40 mg Famotidine (Pepcid) 20 mg IV QDAY [facility] Last Admin: 11/22/17 18:15 Dose: 20 mg Sodium Chloride (Nacl 0.9% 1000 Ml) 1,000 mls @ 125 mls/hr IV DIRECT [facility] Last Admin: 11/21/17 22:42 Dose: 125 mls/hr Magnesium Hydroxide (Milk Of Magnesia) 30 ml PO Q4H PRN PRN Reason: Constipation Morphine Sulfate (Morphine) 2 mg IV Q4H PRN PRN Reason: Pain, Moderate (4-6) Ondansetron HCl (Zofran) 4 mg IV Q3H PRN PRN Reason: N/V unrelieved by Reglan Last Admin: 11/22/17 03:51 Dose: 4 mg Simple Syrup (Simple Syrup) 15 ml FEEDTUBE PRN PRN PRN Reason: Hypoglycemia Simple Syrup (Simple Syrup) 30 ml FEEDTUBE PRN PRN PRN Reason: Hypoglycemia Sodium Bicarbonate (Sodium Bicarbonate) 325 mg FEEDTUBE PRN PRN PRN Reason: For Clogged Feeding Tube Mental Status Exam - Vital signs Last Vital Signs Temp 98.9 F 11/22/17 15:27 Pulse 94 H 11/22/17 15:27 Resp 20 11/22/17 15:27 BP 137/73 11/22/17 15:27 Pulse Ox 92 11/22/17 15:27 - Exam Narrative exam: MSE: Appearance: calm Behavior: poor eye contact Speech: regular rate and tone Mood: "down" withdrawn Affect: congruent to mood Thought Process: limited Thought Content: denies HI's and AVH's Motor Activity: lying in bed Cognition: A/O x 3 Insight: variable Judgment: poor Results Result Diagrams: 11/22/17 Unknown 11/22/17 Unknown Abnormal lab results 11/21/17 11/22/17 11/22/17 Range/Units Unknown Unknown Unknown Lymphocytes % (Manual) 10.0 L (13.4-35.0) % Lymphocytes # (Manual) 0.5 L (1.2-5.4) K/mm3 BUN 41 H (7-17) mg/dL Total Protein 6.2 L (6.3-8.2) g/dL Albumin 2.9 L (3.9-5) g/dL Urine Creatinine 103.7 H (0.1-20.0) mg/dL All other labs normal. Assessment and Plan Assessment and plan: Impression: MDD, Severe Type. Today the patient is calm during the assessment. The patient endorses SI's. QTc 482 11/21/2017. DDx: R/O Bipolar DO Recommendation/Plan: Continue 1013 with placement to inpatient psy services once medically clear. Hold psychotropics medications at this time, the patient overdosed on Effexor prior to her admission.
[2017-11-22] MEDS: MORPHINE IV PRN (20:55)
[2017-11-23 07:45] LABS: Hematocrit 37.6 % (30.3-42.9); Hemoglobin 12.3 gm/dl (10.1-14.3); Mean Corpuscular HGB Conc 33 % (30-34); Mean Corpuscular Hemoglobin 30 pg (28-32); Mean Corpuscular Volume 91 fl (79-97); Platelet Count 134 K/mm3 (140-440); Red Blood Count 4.14 M/mm3 (3.65-5.03); Red Cell Distribution Width 14.5 % (13.2-15.2)
[2017-11-23 08:00] LABS: BUN/Creatinine Ratio 37; Blood Urea Nitrogen 33 mg/dL (7-17); Calcium 7.6 mg/dL (8.4-10.2); Hemolysis Index 7
--- NOTE | 2017-11-23 08:45 | Progress Note ---
Assessment and Plan 1. Acute kdiney injury: Hemodynamically mediated ASHLEIGH in the setting of hypotension. Renal function continue to improve. 2. Hypotension: BP is better. 3. Hyperkalemia: Improved. 4. Drug overdose. 5. Suicidal attempt. Subjective Date of service: 11/23/17 Interval history: Patient was seen and examined at the bedside. Objective - Vital Signs Vital signs: Vital Signs - 12hr 11/22/17 11/23/17 11/23/17 20:55 00:18 02:27 Temperature 97.7 F Pulse Rate 100 H 100 H Respiratory 20 13 Rate Blood Pressure 136/63 O2 Sat by Pulse 94 Oximetry 11/23/17 05:08 Temperature 97.8 F Pulse Rate 104 H Respiratory 16 Rate Blood Pressure 121/67 O2 Sat by Pulse 95 Oximetry - General Appearance General appearance: well-developed, appears stated age, other (no distress) EENT: ATNC, PERRL, mucous membranes moist Neck: supple Respiratory: Present: Clear to Ascultation Cardiology: regular, S1S2 Gastrointestinal: normoactive bowel sounds, no tenderness, no distended Integumentary: no rash, warm and dry Neurologic: no focal deficit, no asterixis, confused, disoriented Musculoskeletal: other (no edema) Psychiatric: cooperative - Lab 11/23/17 07:05 11/23/17 07:05 Most recent lab results Calcium 7.6 mg/dL (8.4-10.2) L 11/23/17 07:05 Phosphorus 2.80 mg/dL (2.5-4.5) 11/22/17 Unknown Magnesium 2.40 mg/dL (1.7-2.3) H 11/21/17 05:34 Urine Creatinine 103.7 mg/dL (0.1-20.0) H 11/21/17 Unknown Urine Sodium 92 mmol/L 11/21/17 Unknown
--- NOTE | 2017-11-23 10:06 | Progress Note ---
Subjective - Reason for Consult Consult date: 11/23/17 Reason for consult: Psychiatry Follow-up - Chief Complaint Chief complaint: "Chun" Patient is 67-year-old AA female presents to the emergency room with an overdose of venlafaxine. Today the patient is calm and cooperative during the assessment. She stated her reason for taking multiple Effexor pills "stem from" issues with her daughter and her boyfriend. She would only say, "I am tired of the situation." She admitted that she made a bad choice to take multiple pills. She denies SI/HI's and AVH's. Mental Status Exam - Vital signs Last Vital Signs Temp 97.8 F 11/23/17 05:08 Pulse 104 H 11/23/17 05:08 Resp 16 11/23/17 05:08 BP 121/67 11/23/17 05:08 Pulse Ox 95 11/23/17 05:08 - Exam Narrative exam: MSE: Appearance: calm, cooperative Behavior: regular eye contact Speech: regular rate and tone Mood: "okay" Affect: congruent to mood Thought Process: circumstantial Thought Content: denies SI/HI's and AVH's Motor Activity: lying in bed Cognition: A/O x 3 Insight: variable Judgment: variable Assessment and Plan Impression: MDD, Severe Type. Today the patient is calm during the assessment. The patient endorses SI's. QTc 482 11/21/2017. Possible family dynamic issues at home. DDx: R/O Bipolar DO Recommendation/Plan: Continue 1013 with placement to inpatient psy services once medically clear. Hold psychotropics medications at this time, the patient overdosed on Effexor prior to her admission. Discusses generalized coping skills with the patient.
--- NOTE | 2017-11-23 10:31 | Progress Note ---
Assessment and Plan Assessment and plan: SNRI Drug overdose. Patient took an unknown quantity of Effexor. Hypotension. Resolved. Etiology secondary to medication/overdose. Acute renal failure. Resolved. Etiology secondary to ASHLEIGH from hypotension. Continue IV fluid hydration. Nephrology following. Hyperkalemia. Resolved. Follow-up BMP. Depression. Psych following. Suicide attempt by drug ingestion. Continue 1013. Psych following. DVT prophylaxis. Continue Lovenox. History Interval history: Patient denies any complaints. Patient with flat affect Hospitalist Physical - Constitutional Vitals: Temp Pulse Resp BP Pulse Ox 97.8 F 104 H 16 121/67 95 11/23/17 05:08 11/23/17 05:08 11/23/17 05:08 11/23/17 05:08 11/23/17 05:08 General appearance: Present: no acute distress, well-nourished - EENT Eyes: Present: PERRL, EOM intact ENT: hearing intact, clear oral mucosa, dentition normal - Neck Neck: Present: supple, normal ROM - Respiratory Respiratory effort: normal Respiratory: bilateral: CTA - Cardiovascular Rhythm: regular Heart Sounds: Present: S1 & S2. Absent: gallop, rub - Extremities Extremities: no ischemia, No edema, Full ROM - Abdominal General gastrointestinal: soft, non-tender, non-distended, normal bowel sounds - Integumentary Integumentary: Present: clear, warm, dry - Neurologic Neurologic: CNII-XII intact, moves all extremities Results - Labs CBC & Chem 7: 11/23/17 07:05 11/23/17 07:05 Labs: Laboratory Last Values WBC 5.5 K/mm3 (4.5-11.0) 11/23/17 07:05 RBC 4.14 M/mm3 (3.65-5.03) 11/23/17 07:05 Hgb 12.3 gm/dl (10.1-14.3) 11/23/17 07:05 Hct 37.6 % (30.3-42.9) 11/23/17 07:05 MCV 91 fl (79-97) 11/23/17 07:05 MCH 30 pg (28-32) 11/23/17 07:05 MCHC 33 % (30-34) 11/23/17 07:05 RDW 14.5 % (13.2-15.2) 11/23/17 07:05 Plt Count 134 K/mm3 (140-440) L 11/23/17 07:05 Lymph % (Auto) 4.5 % (13.4-35.0) L 11/20/17 04:33 [place] % (Auto) [employer] 11/21/17 05:34 Eos % (Auto) 0.0 % (0.0-4.3) 11/20/17 04:33 Baso % (Auto) 0.0 % (0.0-1.8) 11/20/17 04:33 Lymph # 0.5 K/mm3 (1.2-5.4) L 11/20/17 04:33 [place] # 1.0 K/mm3 (0.0-0.8) H 11/20/17 04:33 Eos # 0.0 K/mm3 (0.0-0.4) 11/20/17 04:33 Baso # 0.0 K/mm3 (0.0-0.1) 11/20/17 04:33 Add Manual Diff Complete 11/22/17 Unknown Total Counted 100 11/22/17 Unknown Seg Neutrophils % 86.3 % (40.0-70.0) H 11/20/17 04:33 Seg Neuts % (Manual) 41.0 % (40.0-70.0) 11/22/17 Unknown Band Neutrophils % 40.0 % 11/22/17 Unknown Lymphocytes % (Manual) 10.0 % (13.4-35.0) L 11/22/17 Unknown Reactive Lymphs % (Man) 0 % 11/22/17 Unknown Monocytes % (Manual) 6.0 % (0.0-7.3) 11/22/17 Unknown Eosinophils % (Manual) 2.0 % (0.0-4.3) 11/22/17 Unknown Basophils % (Manual) 0 % (0.0-1.8) 11/22/17 Unknown Metamyelocytes % 1.0 % 11/22/17 Unknown Myelocytes % 0 % 11/22/17 Unknown Promyelocytes % 0 % 11/22/17 Unknown Blast Cells % 0 % 11/22/17 Unknown Nucleated RBC % Not Reportable 11/22/17 Unknown Seg Neutrophils # 9.2 K/mm3 (1.8-7.7) H 11/20/17 04:33 Seg Neutrophils # Man 2.2 K/mm3 (1.8-7.7) 11/22/17 Unknown Band Neutrophils # 2.2 K/mm3 11/22/17 Unknown Lymphocytes # (Manual) 0.5 K/mm3 (1.2-5.4) L 11/22/17 Unknown Abs React Lymphs (Man) 0.0 K/mm3 11/22/17 Unknown Monocytes # (Manual) 0.3 K/mm3 (0.0-0.8) 11/22/17 Unknown Eosinophils # (Manual) 0.1 K/mm3 (0.0-0.4) 11/22/17 Unknown Basophils # (Manual) 0.0 K/mm3 (0.0-0.1) 11/22/17 Unknown Metamyelocytes # 0.1 K/mm3 11/22/17 Unknown Myelocytes # 0.0 K/mm3 11/22/17 Unknown Promyelocytes # 0.0 K/mm3 11/22/17 Unknown Blast Cells # 0.0 K/mm3 11/22/17 Unknown WBC Morphology Not Reportable 11/22/17 Unknown Hypersegmented Neuts Not Reportable 11/22/17 Unknown Hyposegmented Neuts Not Reportable 11/22/17 Unknown Hypogranular Neuts Not Reportable 11/22/17 Unknown Smudge Cells Not Reportable 11/22/17 Unknown Toxic Granulation Not Reportable 11/22/17 Unknown Toxic Vacuolation Not Reportable 11/22/17 Unknown Dohle Bodies Rare 11/22/17 Unknown Pelger-Huet Anomaly Not Reportable 11/22/17 Unknown [place] Rods Not Reportable 11/22/17 Unknown Platelet Estimate Appears normal 11/22/17 Unknown Clumped Platelets Not Reportable 11/22/17 Unknown Plt Clumps, EDTA Not Reportable 11/22/17 Unknown Large Platelets Rare 11/22/17 Unknown Giant Platelets Not Reportable 11/22/17 Unknown Platelet Satelliting Not Reportable 11/22/17 Unknown Plt Morphology Comment Not Reportable 11/22/17 Unknown RBC Morphology Not Reportable 11/22/17 Unknown Dimorphic RBCs Not Reportable 11/22/17 Unknown Polychromasia Few 11/22/17 Unknown Hypochromasia Not Reportable 11/22/17 Unknown Poikilocytosis Not Reportable 11/22/17 Unknown Anisocytosis 1+ 11/22/17 Unknown Microcytosis Not Reportable 11/22/17 Unknown Macrocytosis Not Reportable 11/22/17 Unknown Spherocytes Not Reportable 11/22/17 Unknown Pappenheimer Bodies Not Reportable 11/22/17 Unknown Sickle Cells Not Reportable 11/22/17 Unknown Target Cells Not Reportable 11/22/17 Unknown Tear Drop Cells Not Reportable 11/22/17 Unknown Ovalocytes Few 11/22/17 Unknown Stomatocytes Few 11/22/17 Unknown Helmet Cells Not Reportable 11/22/17 Unknown [place] Bodies Not Reportable 11/22/17 Unknown [place] Rings Not Reportable 11/22/17 Unknown [place] Cells Not Reportable 11/22/17 Unknown Bite Cells Not Reportable 11/22/17 Unknown Crenated Cell Not Reportable 11/22/17 Unknown Elliptocytes Not Reportable 11/22/17 Unknown Acanthocytes (Spur) Not Reportable 11/22/17 Unknown Rouleaux Not Reportable 11/22/17 Unknown Hemoglobin C Crystals Not Reportable 11/22/17 Unknown Schistocytes Not Reportable 11/22/17 Unknown Malaria parasites Not Reportable 11/22/17 Unknown Bhupendra Bodies Not Reportable 11/22/17 Unknown Hem Pathologist Commnt No 11/22/17 Unknown POC ABG pH 7.330 (7.35-7.45) L 11/19/17 18:09 POC ABG pCO2 37.7 (35-45) 11/19/17 18:09 POC ABG pO2 88 (80-105) 11/19/17 18:09 POC ABG HCO3 19.9 11/19/17 18:09 POC ABG Total CO2 21 11/19/17 18:09 POC ABG O2 Sat 96 11/19/17 18:09 POC ABG Base Excess -6 11/19/17 18:09 VBG pH 7.329 (7.320-7.420) 11/19/17 23:31 FiO2 3.5 % 11/19/17 18:09 Sodium 146 mmol/L (137-145) H 11/23/17 07:05 Potassium 3.9 mmol/L (3.6-5.0) 11/23/17 07:05 Chloride 105.6 mmol/L (98-107) 11/23/17 07:05 Carbon Dioxide 26 mmol/L (22-30) 11/23/17 07:05 Anion Gap 18 mmol/L 11/23/17 07:05 BUN 33 mg/dL (7-17) H 11/23/17 07:05 Creatinine 0.9 mg/dL (0.7-1.2) 11/23/17 07:05 Estimated GFR > 60 ml/min 11/23/17 07:05 BUN/Creatinine Ratio 37 % 11/23/17 07:05 Glucose 78 mg/dL (65-100) 11/23/17 07:05 POC Glucose 89 (70-105) 11/21/17 17:15 Osmolality 309 Mosm/kg 11/21/17 05:34 Calcium 7.6 mg/dL (8.4-10.2) L 11/23/17 07:05 Phosphorus 2.80 mg/dL (2.5-4.5) 11/22/17 Unknown Magnesium 2.40 mg/dL (1.7-2.3) H 11/21/17 05:34 Total Bilirubin 0.40 mg/dL (0.1-1.2) 11/22/17 Unknown AST 30 units/L (5-40) 11/22/17 Unknown ALT 18 units/L (7-56) 11/22/17 Unknown Alkaline Phosphatase 110 units/L (35-129) 11/22/17 Unknown Total Creatine Kinase 794 units/L (30-135) H 11/21/17 05:34 Total Protein 6.2 g/dL (6.3-8.2) L 11/22/17 Unknown Albumin 2.9 g/dL (3.9-5) L 11/22/17 Unknown Albumin/Globulin Ratio 0.9 % 11/22/17 Unknown Urine Color Yellow (Yellow) 11/19/17 16:45 Urine Turbidity Clear (Clear) 11/19/17 16:45 Urine pH 5.0 (5.0-7.0) 11/19/17 16:45 Ur Specific [place] 1.016 (1.003-1.030) 11/19/17 16:45 Urine Protein 30 mg/dl mg/dL (Negative) 11/19/17 16:45 Urine Glucose (UA) Neg mg/dL (Negative) 11/19/17 16:45 Urine Ketones Neg mg/dL (Negative) 11/19/17 16:45 Urine Blood Mod (Negative) 11/19/17 16:45 Urine Nitrite Neg (Negative) 11/19/17 16:45 Urine Bilirubin Neg (Negative) 11/19/17 16:45 Urine Urobilinogen < 2.0 mg/dL (<2.0) 11/19/17 16:45 Ur Leukocyte Esterase Neg (Negative) 11/19/17 16:45 Urine WBC (Auto) 1.0 /HPF (0.0-6.0) 11/19/17 16:45 Urine RBC (Auto) 1.0 /HPF (0.0-6.0) 11/19/17 16:45 U Epithel Cells (Auto) < 1.0 /HPF (0-13.0) 11/19/17 16:45 Hyaline Casts 9 /LPF 11/19/17 16:45 Urine Mucus 1+ /HPF 11/19/17 16:45 Urine Creatinine 103.7 mg/dL (0.1-20.0) H 11/21/17 Unknown Urine Sodium 92 mmol/L 11/21/17 Unknown Salicylates < 0.3 mg/dL (2.8-20.0) L 11/19/17 15:15 Urine Opiates Screen Presumptive negative 11/19/17 16:45 Urine Methadone Screen Presumptive negative 11/19/17 16:45 Acetaminophen < 15.0 ug/mL (10.0-30.0) 11/19/17 15:15 Ur Barbiturates Screen Presumptive negative 11/19/17 16:45 Ur Phencyclidine Scrn Presumptive positive 11/19/17 16:45 Ur Amphetamines Screen Presumptive negative 11/19/17 16:45 U Benzodiazepines Scrn Presumptive negative 11/19/17 16:45 [place] 0.1 mmol/L (0.0-1.2) 11/19/17 15:15 Urine Cocaine Screen Presumptive negative 11/19/17 16:45 U Marijuana (THC) Screen Presumptive negative 11/19/17 16:45 Drugs of Abuse Note Disclamer 11/19/17 16:45 Plasma/Serum Alcohol < 0.01 gm% (0-0.07) 11/19/17 15:15
[2017-11-23 10:52] LABS: Basophils % (Manual) 0 % (0.0-1.8); Total Cells Counted 100
[2017-11-23 10:53] LABS: Band Neutrophils # (Manual) 0.6 K/mm3; Eosinophils % (Manual) 0 % (0.0-4.3)
[2017-11-23 10:55] LABS: Anisocytosis 1+
[2017-11-23] MEDS: LOVENOX SUB-Q SCH (11:47)
[2017-11-23] MEDS: NACL 0.45% 1000 ML 1,000 ML IV SCH (11:47)
[2017-11-23] MEDS: PEPCID IV SCH (11:48)
[2017-11-23] MEDS: MORPHINE IV PRN (18:08)
[2017-11-23] MEDS: ZOFRAN IV PRN (18:08)
--- NOTE | 2017-11-23 18:18 | Progress Note ---
Assessment and Plan SNRI Drug overdose (Effexor). Hypotension Acute renal failure Hyperkalemia Depression Suicide attempt by drug ingestion - psych evaluation ongoing - continue volume resuscitation for ASHLEIGH - hypotension resolved - hyperkalemia resolved - GI & VTE prophylaxis - Patient Problems (1) Suicide attempt by drug ingestion Current Visit: Yes Status: Acute Qualifiers: Encounter type: initial encounter Qualified Code(s): T50.902A - Poisoning by unspecified drugs, medicaments and biological substances, intentional self- harm, initial encounter (2) Hypotension Current Visit: Yes Status: Acute (3) Hyperkalemia Current Visit: Yes Status: Acute (4) Acute kidney injury Current Visit: Yes Status: Acute Subjective Date of service: 11/23/17 Principal diagnosis: Drug Overdose / Suicide Attempt; ASHLEIGH; Hyperkalemia Interval history: Patient seen today for: Drug Overdose / Suicide Attempt; ASHLEIGH; Hyperkalemia Seen and examined at bedside; 24 hour events reviewed; nursing and respiratory care staff consulted; no adverse overnight events reported to me; resting peacefully in bed; denies acute chest pains or increased SOB; sitter in room; no emesis or overt aspiration Objective - Exam Narrative Exam: Constitutional: no acute distress, alert Eyes: non-icteric ENT: oropharynx moist Neck: supple, no lymphadenopathy, no JVD, other (no thyromegaly) Effort: normal Ascultation: Bilateral: clear Percussion: Bilateral: not dull Cardiovascular: regular rate and rhythm Gastrointestinal: normoactive bowel sounds, soft, non-tender, non-distended Integumentary: normal Extremities: no cyanosis, no edema, pink and warm, pulses normal, no ischemia or petechiae Neurologic: normal mental status, non-focal exam, pupils equal and round, motor strength normal and Psychiatric: other (flat affect) Vital Signs - 12hr 11/23/17 11/23/17 09:21 10:00 Temperature 98.6 F Pulse Rate 102 H Pulse Rate [ 102 H Right Radial] Respiratory 18 18 Rate Blood Pressure 145/76 O2 Sat by Pulse 93 93 Oximetry Constitutional: no acute distress, lethargic Eyes: non-icteric ENT: oropharynx dry Neck: supple, no lymphadenopathy, no JVD Effort: normal Ascultation: Bilateral: clear Percussion: Bilateral: not dull Cardiovascular: regular rate and rhythm Gastrointestinal: normoactive bowel sounds, soft, non-tender Integumentary: normal Extremities: no cyanosis, no edema, pink and warm, pulses normal, no ischemia or petechiae Neurologic: non-focal exam, pupils equal and round Psychiatric: depressed CBC and BMP: 11/25/17 07:13 11/28/17 08:08 ABG, PT/INR, D-dimer: ABG POC ABG pH 7.330 (7.35-7.45) L 11/19/17 18:09 POC ABG pCO2 37.7 (35-45) 11/19/17 18:09 POC ABG pO2 88 (80-105) 11/19/17 18:09 POC ABG HCO3 19.9 11/19/17 18:09 POC ABG Total CO2 21 11/19/17 18:09 POC ABG O2 Sat 96 11/19/17 18:09 Abnormal lab findings: Abnormal Labs 11/19/17 11/19/17 11/19/17 15:15 15:15 17:02 RBC Plt Count Lymph % (Auto) 4.0 L [place] % (Auto) 7.8 H Lymph # 0.4 L [place] # Seg Neutrophils % 88.0 H Seg Neuts % (Manual) Lymphocytes % (Manual) Monocytes % (Manual) Seg Neutrophils # 8.7 H Seg Neutrophils # Man Lymphocytes # (Manual) POC ABG pH VBG pH Sodium Potassium 5.4 H Carbon Dioxide BUN 62 H Creatinine 4.4 H Glucose Calcium 7.8 L Magnesium Total Creatine Kinase Total Protein 6.2 L Albumin 3.1 L Urine Creatinine Salicylates < 0.3 L 11/19/17 11/19/17 11/19/17 18:09 19:55 23:31 RBC Plt Count Lymph % (Auto) [place] % (Auto) Lymph # [place] # Seg Neutrophils % Seg Neuts % (Manual) Lymphocytes % (Manual) Monocytes % (Manual) Seg Neutrophils # Seg Neutrophils # Man Lymphocytes # (Manual) POC ABG pH 7.330 L VBG pH 7.286 L Sodium Potassium Carbon Dioxide BUN 61 H Creatinine 3.6 H Glucose 231 H Calcium 7.2 L Magnesium Total Creatine Kinase Total Protein Albumin Urine Creatinine Salicylates 11/20/17 11/20/17 11/21/17 04:33 04:33 05:34 RBC 3.49 L Plt Count Lymph % (Auto) 4.5 L [place] % (Auto) 9.2 H Lymph # 0.5 L [place] # 1.0 H Seg Neutrophils % 86.3 H Seg Neuts % (Manual) 19.0 L Lymphocytes % (Manual) 5.0 L Monocytes % (Manual) 9.0 H Seg Neutrophils # 9.2 H Seg Neutrophils # Man 1.0 L Lymphocytes # (Manual) 0.3 L POC ABG pH VBG pH Sodium Potassium Carbon Dioxide 21 L BUN 59 H Creatinine 3.1 H Glucose 247 H Calcium 7.3 L Magnesium Total Creatine Kinase Total Protein 5.5 L Albumin 3.0 L Urine Creatinine Salicylates 11/21/17 11/21/17 11/22/17 05:34 Unknown Unknown RBC Plt Count Lymph % (Auto) [place] % (Auto) Lymph # [place] # Seg Neutrophils % Seg Neuts % (Manual) Lymphocytes % (Manual) 10.0 L Monocytes % (Manual) Seg Neutrophils # Seg Neutrophils # Man Lymphocytes # (Manual) 0.5 L POC ABG pH VBG pH Sodium Potassium Carbon Dioxide BUN 40 H Creatinine 1.4 H D Glucose Calcium 8.0 L Magnesium 2.40 H Total Creatine Kinase 794 H Total Protein Albumin Urine Creatinine 103.7 H Salicylates 11/22/17 11/23/17 11/23/17 Unknown 07:05 07:05 RBC Plt Count 134 L Lymph % (Auto) [place] % (Auto) Lymph # [place] # Seg Neutrophils % Seg Neuts % (Manual) 74.0 H Lymphocytes % (Manual) 13.0 L Monocytes % (Manual) Seg Neutrophils # Seg Neutrophils # Man Lymphocytes # (Manual) 0.7 L POC ABG pH VBG pH Sodium 146 H Potassium Carbon Dioxide BUN 41 H 33 H Creatinine Glucose Calcium 7.6 L Magnesium Total Creatine Kinase Total Protein 6.2 L Albumin 2.9 L Urine Creatinine Salicylates
[2017-11-24] MEDS: ZOFRAN IV PRN ×2 (00:40→17:50)
[2017-11-24] MEDS: NACL 0.45% 1000 ML 1,000 ML IV SCH ×2 (00:41→15:48)
[2017-11-24] MEDS: MORPHINE IV PRN ×2 (02:11→09:33)
[2017-11-24 06:26] LABS: Hematocrit 38.8 % (30.3-42.9); Hemoglobin 12.8 gm/dl (10.1-14.3); Mean Corpuscular HGB Conc 33 % (30-34); Mean Corpuscular Hemoglobin 30 pg (28-32); Mean Corpuscular Volume 90 fl (79-97); Platelet Count 120 K/mm3 (140-440); Red Blood Count 4.32 M/mm3 (3.65-5.03); Red Cell Distribution Width 14.6 % (13.2-15.2)
[2017-11-24 06:44] LABS: BUN/Creatinine Ratio 30; Blood Urea Nitrogen 24 mg/dL (7-17); Calcium 7.7 mg/dL (8.4-10.2); Hemolysis Index 5
[2017-11-24 08:47] LABS: Band Neutrophils # (Manual) 1.2 K/mm3; Basophils % (Manual) 0 % (0.0-1.8); Eosinophils % (Manual) 0 % (0.0-4.3); Total Cells Counted 100
[2017-11-24 08:48] LABS: Anisocytosis 1+; Platelet Estimate Consistent w Auto
--- NOTE | 2017-11-24 09:16 | Progress Note ---
Assessment and Plan 1. Acute kdiney injury: Hemodynamically mediated ASHLEIGH in the setting of hypotension. Renal function continue to improve. 2. Hypotension: BP is better. 3. Hyperkalemia: Improved. 4. Drug overdose. 5. Suicidal attempt. Subjective Date of service: 11/24/17 Principal diagnosis: Drug Overdose / Suicide Attempt; ASHLEIGH; Hyperkalemia Interval history: Patient was seen and examined at the bedside. Objective - Vital Signs Vital signs: Vital Signs - 12hr 11/23/17 11/23/17 11/24/17 22:00 23:56 02:11 Temperature 98.9 F Pulse Rate 108 H 60 Respiratory 18 20 Rate Blood Pressure 135/47 O2 Sat by Pulse 88 Oximetry 11/24/17 11/24/17 04:53 07:27 Temperature 98.1 F 100.5 F H Pulse Rate 57 L 89 Respiratory 18 20 Rate Blood Pressure 124/53 149/61 O2 Sat by Pulse 89 93 Oximetry - General Appearance General appearance: well-developed, appears stated age, other (no distress) EENT: ATNC, PERRL, hearing intact Neck: supple Respiratory: Present: Clear to Ascultation Cardiology: regular, S1S2, no murmurs Gastrointestinal: normoactive bowel sounds, no tenderness, no distended Integumentary: no rash, warm and dry Neurologic: no focal deficit, no asterixis, confused, disoriented Musculoskeletal: other (no edema) - Lab 11/24/17 05:38 11/24/17 05:38 Most recent lab results Calcium 7.7 mg/dL (8.4-10.2) L 11/24/17 05:38 Phosphorus 2.80 mg/dL (2.5-4.5) 11/22/17 Unknown Magnesium 2.40 mg/dL (1.7-2.3) H 11/21/17 05:34 Urine Creatinine 103.7 mg/dL (0.1-20.0) H 11/21/17 Unknown Urine Sodium 92 mmol/L 11/21/17 Unknown
[2017-11-24] MEDS: LOVENOX SUB-Q SCH (09:34)
[2017-11-24] MEDS: PEPCID IV SCH (09:34)
[2017-11-24] MEDS ORDERED: K-DUR PO NR (10:30)
--- NOTE | 2017-11-24 11:41 | Progress Note ---
Assessment and Plan Assessment and plan: Drug overdose. Patient took an unknown quantity of Effexor. Hypotension. Resolved. Etiology secondary to medication/overdose. Acute kidney injury, Resolved. Etiology secondary to ATN from hypotension. Continue IV fluid hydration. Nephrology following. Hyperkalemia. Resolved. Follow-up BMP. Depression. Psych following. Suicide attempt by drug ingestion. Continue 1013. Psych following. DVT prophylaxis. Continue Lovenox. History Interval history: suicidal, no chest pain Hospitalist Physical - Physical exam Narrative exam: GEN APPEARANCE : Not in acute distress, HEENT: Normocephalic, Atraumatic NECK : supple, no JVD LUNGS: Clear to auscultation bilaterally, no rales, no wheeze HEART: S1 and S2 regular, no murmurs, rubs or gallop, ABD: Soft, non tender, non distended, normal bowel sounds EXT:No edema, no clubbing, no cyanosis NEURO: Awake, alert, no focal signs Psych:depressed,suicidal - Constitutional Vitals: Temp Pulse Resp BP Pulse Ox 100.5 F H 89 20 149/61 93 11/24/17 07:27 11/24/17 07:27 11/24/17 07:27 11/24/17 07:27 11/24/17 07:27 General appearance: Present: no acute distress, well-nourished Results - Labs CBC & Chem 7: 11/24/17 05:38 11/24/17 05:38 Labs: Laboratory Last Values WBC 6.1 K/mm3 (4.5-11.0) 11/24/17 05:38 RBC 4.32 M/mm3 (3.65-5.03) 11/24/17 05:38 Hgb 12.8 gm/dl (10.1-14.3) 11/24/17 05:38 Hct 38.8 % (30.3-42.9) 11/24/17 05:38 MCV 90 fl (79-97) 11/24/17 05:38 MCH 30 pg (28-32) 11/24/17 05:38 MCHC 33 % (30-34) 11/24/17 05:38 RDW 14.6 % (13.2-15.2) 11/24/17 05:38 Plt Count 120 K/mm3 (140-440) L 11/24/17 05:38 Lymph % (Auto) 4.5 % (13.4-35.0) L 11/20/17 04:33 [place] % (Auto) [place] 11/21/17 05:34 Eos % (Auto) 0.0 % (0.0-4.3) 11/20/17 04:33 Baso % (Auto) 0.0 % (0.0-1.8) 11/20/17 04:33 Lymph # 0.5 K/mm3 (1.2-5.4) L 11/20/17 04:33 [place] # 1.0 K/mm3 (0.0-0.8) H 11/20/17 04:33 Eos # 0.0 K/mm3 (0.0-0.4) 11/20/17 04:33 Baso # 0.0 K/mm3 (0.0-0.1) 11/20/17 04:33 Add Manual Diff Complete 11/24/17 05:38 Total Counted 100 11/24/17 05:38 Seg Neutrophils % 86.3 % (40.0-70.0) H 11/20/17 04:33 Seg Neuts % (Manual) 72.0 % (40.0-70.0) H 11/24/17 05:38 Band Neutrophils % 19.0 % 11/24/17 05:38 Lymphocytes % (Manual) 4.0 % (13.4-35.0) L 11/24/17 05:38 Reactive Lymphs % (Man) 0 % 11/24/17 05:38 Monocytes % (Manual) 5.0 % (0.0-7.3) 11/24/17 05:38 Eosinophils % (Manual) 0 % (0.0-4.3) 11/24/17 05:38 Basophils % (Manual) 0 % (0.0-1.8) 11/24/17 05:38 Metamyelocytes % 0 % 11/24/17 05:38 Myelocytes % 0 % 11/24/17 05:38 Promyelocytes % 0 % 11/24/17 05:38 Blast Cells % 0 % 11/24/17 05:38 Nucleated RBC % Not Reportable 11/24/17 05:38 Seg Neutrophils # 9.2 K/mm3 (1.8-7.7) H 11/20/17 04:33 Seg Neutrophils # Man 4.4 K/mm3 (1.8-7.7) 11/24/17 05:38 Band Neutrophils # 1.2 K/mm3 11/24/17 05:38 Lymphocytes # (Manual) 0.2 K/mm3 (1.2-5.4) L 11/24/17 05:38 Abs React Lymphs (Man) 0.0 K/mm3 11/24/17 05:38 Monocytes # (Manual) 0.3 K/mm3 (0.0-0.8) 11/24/17 05:38 Eosinophils # (Manual) 0.0 K/mm3 (0.0-0.4) 11/24/17 05:38 Basophils # (Manual) 0.0 K/mm3 (0.0-0.1) 11/24/17 05:38 Metamyelocytes # 0.0 K/mm3 11/24/17 05:38 Myelocytes # 0.0 K/mm3 11/24/17 05:38 Promyelocytes # 0.0 K/mm3 11/24/17 05:38 Blast Cells # 0.0 K/mm3 11/24/17 05:38 WBC Morphology Not Reportable 11/24/17 05:38 Hypersegmented Neuts Not Reportable 11/24/17 05:38 Hyposegmented Neuts Not Reportable 11/24/17 05:38 Hypogranular Neuts Not Reportable 11/24/17 05:38 Smudge Cells Not Reportable 11/24/17 05:38 Toxic Granulation Not Reportable 11/24/17 05:38 Toxic Vacuolation Not Reportable 11/24/17 05:38 Dohle Bodies Not Reportable 11/24/17 05:38 Pelger-Huet Anomaly Not Reportable 11/24/17 05:38 [place] Rods Not Reportable 11/24/17 05:38 Platelet Estimate Consistent w auto 11/24/17 05:38 Clumped Platelets Not Reportable 11/24/17 05:38 Plt Clumps, EDTA Not Reportable 11/24/17 05:38 Large Platelets Not Reportable 11/24/17 05:38 Giant Platelets Not Reportable 11/24/17 05:38 Platelet Satelliting Not Reportable 11/24/17 05:38 Plt Morphology Comment Not Reportable 11/24/17 05:38 RBC Morphology Not Reportable 11/24/17 05:38 Dimorphic RBCs Not Reportable 11/24/17 05:38 Polychromasia Not Reportable 11/24/17 05:38 Hypochromasia Not Reportable 11/24/17 05:38 Poikilocytosis Not Reportable 11/24/17 05:38 Anisocytosis 1+ 11/24/17 05:38 Microcytosis Not Reportable 11/24/17 05:38 Macrocytosis Not Reportable 11/24/17 05:38 Spherocytes Not Reportable 11/24/17 05:38 Pappenheimer Bodies Not Reportable 11/24/17 05:38 Sickle Cells Not Reportable 11/24/17 05:38 Target Cells Not Reportable 11/24/17 05:38 Tear Drop Cells Not Reportable 11/24/17 05:38 Ovalocytes Not Reportable 11/24/17 05:38 Stomatocytes Few 11/22/17 Unknown Helmet Cells Not Reportable 11/24/17 05:38 [place] Bodies Not Reportable 11/24/17 05:38 [place] Rings Not Reportable 11/24/17 05:38 [place] Cells Not Reportable 11/24/17 05:38 Bite Cells Not Reportable 11/24/17 05:38 Crenated Cell Not Reportable 11/24/17 05:38 Elliptocytes Not Reportable 11/24/17 05:38 Acanthocytes (Spur) Not Reportable 11/24/17 05:38 Rouleaux Not Reportable 11/24/17 05:38 Hemoglobin C Crystals Not Reportable 11/24/17 05:38 Schistocytes Not Reportable 11/24/17 05:38 Malaria parasites Not Reportable 11/24/17 05:38 Bhupendra Bodies Not Reportable 11/24/17 05:38 Hem Pathologist Commnt No 11/24/17 05:38 POC ABG pH 7.330 (7.35-7.45) L 11/19/17 18:09 POC ABG pCO2 37.7 (35-45) 11/19/17 18:09 POC ABG pO2 88 (80-105) 11/19/17 18:09 POC ABG HCO3 19.9 11/19/17 18:09 POC ABG Total CO2 21 11/19/17 18:09 POC ABG O2 Sat 96 11/19/17 18:09 POC ABG Base Excess -6 11/19/17 18:09 VBG pH 7.329 (7.320-7.420) 11/19/17 23:31 FiO2 3.5 % 11/19/17 18:09 Sodium 141 mmol/L (137-145) 11/24/17 05:38 Potassium 3.6 mmol/L (3.6-5.0) 11/24/17 05:38 Chloride 99.0 mmol/L (98-107) 11/24/17 05:38 Carbon Dioxide 28 mmol/L (22-30) 11/24/17 05:38 Anion Gap 18 mmol/L 11/24/17 05:38 BUN 24 mg/dL (7-17) H 11/24/17 05:38 Creatinine 0.8 mg/dL (0.7-1.2) 11/24/17 05:38 Estimated GFR > 60 ml/min 11/24/17 05:38 BUN/Creatinine Ratio 30 % 11/24/17 05:38 Glucose 70 mg/dL (65-100) 11/24/17 05:38 POC Glucose 89 (70-105) 11/21/17 17:15 Osmolality 309 Mosm/kg 11/21/17 05:34 Calcium 7.7 mg/dL (8.4-10.2) L 11/24/17 05:38 Phosphorus 2.80 mg/dL (2.5-4.5) 11/22/17 Unknown Magnesium 2.40 mg/dL (1.7-2.3) H 11/21/17 05:34 Total Bilirubin 0.40 mg/dL (0.1-1.2) 11/22/17 Unknown AST 30 units/L (5-40) 11/22/17 Unknown ALT 18 units/L (7-56) 11/22/17 Unknown Alkaline Phosphatase 110 units/L (35-129) 11/22/17 Unknown Total Creatine Kinase 794 units/L (30-135) H 11/21/17 05:34 Total Protein 6.2 g/dL (6.3-8.2) L 11/22/17 Unknown Albumin 2.9 g/dL (3.9-5) L 11/22/17 Unknown Albumin/Globulin Ratio 0.9 % 11/22/17 Unknown Urine Color Yellow (Yellow) 11/19/17 16:45 Urine Turbidity Clear (Clear) 11/19/17 16:45 Urine pH 5.0 (5.0-7.0) 11/19/17 16:45 Ur Specific [place] 1.016 (1.003-1.030) 11/19/17 16:45 Urine Protein 30 mg/dl mg/dL (Negative) 11/19/17 16:45 Urine Glucose (UA) Neg mg/dL (Negative) 11/19/17 16:45 Urine Ketones Neg mg/dL (Negative) 11/19/17 16:45 Urine Blood Mod (Negative) 11/19/17 16:45 Urine Nitrite Neg (Negative) 11/19/17 16:45 Urine Bilirubin Neg (Negative) 11/19/17 16:45 Urine Urobilinogen < 2.0 mg/dL (<2.0) 11/19/17 16:45 Ur Leukocyte Esterase Neg (Negative) 11/19/17 16:45 Urine WBC (Auto) 1.0 /HPF (0.0-6.0) 11/19/17 16:45 Urine RBC (Auto) 1.0 /HPF (0.0-6.0) 11/19/17 16:45 U Epithel Cells (Auto) < 1.0 /HPF (0-13.0) 11/19/17 16:45 Hyaline Casts 9 /LPF 11/19/17 16:45 Urine Mucus 1+ /HPF 11/19/17 16:45 Urine Creatinine 103.7 mg/dL (0.1-20.0) H 11/21/17 Unknown Urine Sodium 92 mmol/L 11/21/17 Unknown Salicylates < 0.3 mg/dL (2.8-20.0) L 11/19/17 15:15 Urine Opiates Screen Presumptive negative 11/19/17 16:45 Urine Methadone Screen Presumptive negative 11/19/17 16:45 Acetaminophen < 15.0 ug/mL (10.0-30.0) 11/19/17 15:15 Ur Barbiturates Screen Presumptive negative 11/19/17 16:45 Ur Phencyclidine Scrn Presumptive positive 11/19/17 16:45 Ur Amphetamines Screen Presumptive negative 11/19/17 16:45 U Benzodiazepines Scrn Presumptive negative 11/19/17 16:45 [place] 0.1 mmol/L (0.0-1.2) 11/19/17 15:15 Urine Cocaine Screen Presumptive negative 11/19/17 16:45 U Marijuana (THC) Screen Presumptive negative 11/19/17 16:45 Drugs of Abuse Note Disclamer 11/19/17 16:45 Plasma/Serum Alcohol < 0.01 gm% (0-0.07) 11/19/17 15:15
[2017-11-24] MEDS: TYLENOL PO PRN ×2 (13:01→19:02)
[2017-11-24] MEDS ORDERED: CARDIZEM IV STA (14:47)
--- NOTE | 2017-11-24 14:48 | Event Note ---
Date: 11/24/17 Called to see for tachycardia. EKG shows rapid afib. Give Cardizem 20mg iv stat. Get echo. Consult cardiology. For fever , get blood cultures, UA, Urine culture
[2017-11-24 15:05] LABS: Bacteria,Urine 4+ /HPF (Negative); Bilirubin,Urine SM (Negative); Blood,Urine NEG (Negative); Color,Urine Yellow (Yellow); Mucus,Urine 3+ /HPF; Nitrite,Urine POS (Negative)
[2017-11-24 15:15] LABS: Ictotest,Urine Negative (Negative)
--- NOTE | 2017-11-24 15:42 | Consultation ---
History of Present Illness Consult date: 11/24/17 Consult reason: atrial fibrillation History of present illness: This is a 67yr old woman whom is admitted to this hospital 5 days ago with suicide attempt by drug overdose and acute kidney failure. Today, a cardiac consultation was requested for rapid tachycardia. A stat ECG demonstrates atrial flutter with a ventricular rate 182. Her blood pressure is stable. Patient denies a prior cardiac history. There is no prior cardiac workup. Patient denies chest pain, shortness of breath and palpitations. Patient also noted mildly febrile. WBC of 6.1. Medications and Allergies Allergies Allergy/AdvReac Type Severity Reaction Status Date / Time No Known Allergies Allergy Unverified 11/19/17 14:34 Home Medications Medication Instructions Recorded Confirmed Last Taken Type No Known Home Medications [No 11/24/17 11/24/17 Unknown History Reported Home Medications] Active Meds: Active Medications Acetaminophen (Tylenol) 650 mg PO Q4H PRN PRN Reason: Pain MILD(1-3)/Fever >100.5/CHAO Last Admin: 11/24/17 13:01 Dose: 650 mg Al Hydrox/Mg Hydrox/Simethicone (Alum-Mag Hydrox-Simeth [id number]/5ml) 30 ml PO Q4H PRN PRN Reason: Indigestion Last Admin: 11/22/17 20:55 Dose: 30 ml Lipase/Protease/Amylase (Pancreaze Dr 10,500 Unit) 1 each FEEDTUBE PRN PRN PRN Reason: For Clogged Feeding Tube Bisacodyl (Dulcolax) 10 mg [place] QDAY PRN PRN Reason: constipation unrelieved by MOM Enoxaparin Sodium (Lovenox) 40 mg SUB-Q QDAY@1000 [place] Last Admin: 11/24/17 09:34 Dose: 40 mg Famotidine (Pepcid) 20 mg PO DAILY [place] Sodium Chloride (Nacl 0.45% 1000 Ml) 1,000 mls @ 75 mls/hr IV DIRECT [place] Last Admin: 11/24/17 00:41 Dose: 75 mls/hr Diltiazem HCl (Cardizem/D5w 100mg/100ml) 100 mg in 100 mls @ 5 mls/hr IV TITR [place] PRN Reason: 5 MG/HR Magnesium Hydroxide (Milk Of Magnesia) 30 ml PO Q4H PRN PRN Reason: Constipation Morphine Sulfate (Morphine) 2 mg IV Q4H PRN PRN Reason: Pain, Moderate (4-6) Last Admin: 11/24/17 09:33 Dose: 2 mg Ondansetron HCl (Zofran) 4 mg IV Q3H PRN PRN Reason: N/V unrelieved by Reglan Last Admin: 11/24/17 00:40 Dose: 4 mg Simple Syrup (Simple Syrup) 15 ml FEEDTUBE PRN PRN PRN Reason: Hypoglycemia Simple Syrup (Simple Syrup) 30 ml FEEDTUBE PRN PRN PRN Reason: Hypoglycemia Sodium Bicarbonate (Sodium Bicarbonate) 325 mg FEEDTUBE PRN PRN PRN Reason: For Clogged Feeding Tube Physical Examination Vital Signs Pulse Resp 70 23 11/19/17 13:48 11/19/17 13:48 General appearance: no acute distress HEENT: Positive: PERRL Cardiac: Positive: irregularly irregular Lungs: Positive: Decreased Breath Sounds Neuro: Positive: Grossly Intact Results 11/24/17 05:38 11/24/17 05:38 CBC 11/24/17 Range/Units 05:38 WBC 6.1 (4.5-11.0) K/mm3 RBC 4.32 (3.65-5.03) M/mm3 Hgb 12.8 (10.1-14.3) gm/dl Hct 38.8 (30.3-42.9) % Plt Count 120 L (140-440) K/mm3 Comprehensive Metabolic Panel 11/24/17 Range/Units 05:38 Sodium 141 (137-145) mmol/L Potassium 3.6 (3.6-5.0) mmol/L Chloride 99.0 (98-107) mmol/L Carbon Dioxide 28 (22-30) mmol/L BUN 24 H (7-17) mg/dL Creatinine 0.8 (0.7-1.2) mg/dL Glucose 70 (65-100) mg/dL Calcium 7.7 L (8.4-10.2) mg/dL Assessment and Plan Rapid atrial flutter Suicide attempt by drug overdose Depression Acute renal failure UTI Plan: IV diltiazem for rate control. Check a TSH and Mag. Echocardiogram for LVEF assessment.
[2017-11-24] MEDS ORDERED: CARDIZEM/D5W 100MG/100ML 100 MG/100 ML BAG IV SCH (16:30)
--- NOTE | 2017-11-24 16:48 | Progress Note ---
Assessment and Plan SNRI Drug overdose (Effexor). Hypotension Acute renal failure Hyperkalemia Depression Suicide attempt by drug ingestion - psych evaluation ongoing - continue volume resuscitation for ASHLEIGH - hypotension resolved - hyperkalemia resolved - GI & VTE prophylaxis - Patient Problems (1) Suicide attempt by drug ingestion Current Visit: Yes Status: Acute Qualifiers: Encounter type: initial encounter Qualified Code(s): T50.902A - Poisoning by unspecified drugs, medicaments and biological substances, intentional self- harm, initial encounter (2) Hypotension Current Visit: Yes Status: Acute (3) Acute kidney failure Current Visit: Yes Status: Acute Qualifiers: Acute renal failure type: with acute tubular necrosis Qualified Code(s): N17.0 - Acute kidney failure with tubular necrosis (4) Hyperkalemia Current Visit: Yes Status: Acute (5) Acute kidney injury Current Visit: Yes Status: Acute Subjective Date of service: 11/24/17 Principal diagnosis: Drug Overdose / Suicide Attempt; ASHLEIGH; Hyperkalemia Interval history: Patient seen today for: Drug Overdose / Suicide Attempt; ASHLEIGH; Hyperkalemia Seen and examined at bedside; 24 hour events reviewed; nursing and respiratory care staff consulted; no adverse overnight events reported to me; resting peacefully in bed; denies acute chest pains or increased SOB; sitter in room; no emesis or overt aspiration Objective - Exam Narrative Exam: GEN APPEARANCE : Not in acute distress, HEENT: Normocephalic, Atraumatic NECK : supple, no JVD LUNGS: Clear to auscultation bilaterally, no rales, no wheeze HEART: S1 and S2 regular, no murmurs, rubs or gallop, ABD: Soft, non tender, non distended, normal bowel sounds EXT:No edema, no clubbing, no cyanosis NEURO: Awake, alert, no focal signs Vital Signs - 12hr 11/24/17 11/24/17 11/24/17 04:53 07:27 13:01 Temperature 98.1 F 100.5 F H Pulse Rate 57 L 89 Respiratory 18 20 22 Rate Blood Pressure 124/53 149/61 O2 Sat by Pulse 89 93 Oximetry 11/24/17 15:47 Temperature Pulse Rate 142 H Respiratory Rate Blood Pressure 141/78 O2 Sat by Pulse Oximetry Constitutional: no acute distress, lethargic Eyes: non-icteric ENT: oropharynx dry Neck: supple, no lymphadenopathy, no JVD Effort: normal Ascultation: Bilateral: clear Percussion: Bilateral: not dull Cardiovascular: regular rate and rhythm Gastrointestinal: normoactive bowel sounds, soft, non-tender Integumentary: normal Extremities: no cyanosis, no edema, pink and warm, pulses normal, no ischemia or petechiae Neurologic: non-focal exam, pupils equal and round Psychiatric: depressed CBC and BMP: 11/24/17 05:38 11/24/17 05:38 ABG, PT/INR, D-dimer: ABG POC ABG pH 7.330 (7.35-7.45) L 11/19/17 18:09 POC ABG pCO2 37.7 (35-45) 11/19/17 18:09 POC ABG pO2 88 (80-105) 11/19/17 18:09 POC ABG HCO3 19.9 11/19/17 18:09 POC ABG Total CO2 21 11/19/17 18:09 POC ABG O2 Sat 96 11/19/17 18:09 Abnormal lab findings: Abnormal Labs 11/19/17 11/19/17 11/19/17 15:15 15:15 17:02 RBC Plt Count Lymph % (Auto) 4.0 L [place] % (Auto) 7.8 H Lymph # 0.4 L [place] # Seg Neutrophils % 88.0 H Seg Neuts % (Manual) Lymphocytes % (Manual) Monocytes % (Manual) Seg Neutrophils # 8.7 H Seg Neutrophils # Man Lymphocytes # (Manual) POC ABG pH VBG pH Sodium Potassium 5.4 H Carbon Dioxide BUN 62 H Creatinine 4.4 H Glucose Calcium 7.8 L Magnesium Total Creatine Kinase Total Protein 6.2 L Albumin 3.1 L Urine WBC (Auto) Urine Creatinine Salicylates < 0.3 L 11/19/17 11/19/17 11/19/17 18:09 19:55 23:31 RBC Plt Count Lymph % (Auto) [place] % (Auto) Lymph # [place] # Seg Neutrophils % Seg Neuts % (Manual) Lymphocytes % (Manual) Monocytes % (Manual) Seg Neutrophils # Seg Neutrophils # Man Lymphocytes # (Manual) POC ABG pH 7.330 L VBG pH 7.286 L Sodium Potassium Carbon Dioxide BUN 61 H Creatinine 3.6 H Glucose 231 H Calcium 7.2 L Magnesium Total Creatine Kinase Total Protein Albumin Urine WBC (Auto) Urine Creatinine Salicylates 11/20/17 11/20/17 11/21/17 04:33 04:33 05:34 RBC 3.49 L Plt Count Lymph % (Auto) 4.5 L [place] % (Auto) 9.2 H Lymph # 0.5 L [place] # 1.0 H Seg Neutrophils % 86.3 H Seg Neuts % (Manual) 19.0 L Lymphocytes % (Manual) 5.0 L Monocytes % (Manual) 9.0 H Seg Neutrophils # 9.2 H Seg Neutrophils # Man 1.0 L Lymphocytes # (Manual) 0.3 L POC ABG pH VBG pH Sodium Potassium Carbon Dioxide 21 L BUN 59 H Creatinine 3.1 H Glucose 247 H Calcium 7.3 L Magnesium Total Creatine Kinase Total Protein 5.5 L Albumin 3.0 L Urine WBC (Auto) Urine Creatinine Salicylates 11/21/17 11/21/17 11/22/17 05:34 Unknown Unknown RBC Plt Count Lymph % (Auto) [place] % (Auto) Lymph # [place] # Seg Neutrophils % Seg Neuts % (Manual) Lymphocytes % (Manual) 10.0 L Monocytes % (Manual) Seg Neutrophils # Seg Neutrophils # Man Lymphocytes # (Manual) 0.5 L POC ABG pH VBG pH Sodium Potassium Carbon Dioxide BUN 40 H Creatinine 1.4 H D Glucose Calcium 8.0 L Magnesium 2.40 H Total Creatine Kinase 794 H Total Protein Albumin Urine WBC (Auto) Urine Creatinine 103.7 H Salicylates 11/22/17 11/23/17 11/23/17 Unknown 07:05 07:05 RBC Plt Count 134 L Lymph % (Auto) [place] % (Auto) Lymph # [place] # Seg Neutrophils % Seg Neuts % (Manual) 74.0 H Lymphocytes % (Manual) 13.0 L Monocytes % (Manual) Seg Neutrophils # Seg Neutrophils # Man Lymphocytes # (Manual) 0.7 L POC ABG pH VBG pH Sodium 146 H Potassium Carbon Dioxide BUN 41 H 33 H Creatinine Glucose Calcium 7.6 L Magnesium Total Creatine Kinase Total Protein 6.2 L Albumin 2.9 L Urine WBC (Auto) Urine Creatinine Salicylates 11/24/17 11/24/17 11/24/17 05:38 05:38 14:43 RBC Plt Count 120 L Lymph % (Auto) [place] % (Auto) Lymph # [place] # Seg Neutrophils % Seg Neuts % (Manual) 72.0 H Lymphocytes % (Manual) 4.0 L Monocytes % (Manual) Seg Neutrophils # Seg Neutrophils # Man Lymphocytes # (Manual) 0.2 L POC ABG pH VBG pH Sodium Potassium Carbon Dioxide BUN 24 H Creatinine Glucose Calcium 7.7 L Magnesium Total Creatine Kinase Total Protein Albumin Urine WBC (Auto) 10.0 H Urine Creatinine Salicylates
[2017-11-24] MEDS ORDERED: ROCEPHIN/NS 1 GM/50 ML 1 GM/50 ML BAG IV SCH (18:00)
[2017-11-24] MEDS ORDERED: LOPRESSOR IV PRN (18:09)
[2017-11-24] MEDS: cefTRIAXone 1 GM in NACL 0.9% 20 ML IV SCH (19:01)
[2017-11-24] MEDS ORDERED: CORDARONE 150 MG in D5W 100 ML IV ONE (19:09)
--- NOTE | 2017-11-24 23:19 | XRay Report ---
FINAL REPORT PROCEDURE: XR CHEST 1V AP TECHNIQUE: Chest radiograph anteroposterior view. CPT 01724 HISTORY: fever COMPARISON: 11/19/2017 FINDINGS: Heart: Normal. Mediastinum/Vessels: Normal. Lungs/Pleural space: Mild degree right pleural effusion is noted obscuring the underlying right lower lung. Subsegmental atelectatic changes noted in the left lung base. Left pleural space is clear.. Bony thorax: No acute osseous abnormality. Life support devices: A right jugular central line is noted terminating at the level of distal superior vena cava. IMPRESSION: Right pleural effusion obscuring right lower lung.
[2017-11-24] MEDS: CORDARONE PO SCH (23:40)
[2017-11-25] MEDS: TYLENOL PO PRN (00:38)
[2017-11-25] MEDS ORDERED: TYLENOL PO ONE (01:06)
[2017-11-25] MEDS: NACL 0.45% 1000 ML 1,000 ML IV SCH ×2 (05:35→22:45)
[2017-11-25] MEDS ORDERED: MAGNESIUM SULFATE 3 GM in NACL 0.9% 100 ML IV ONE (06:00)
[2017-11-25] MEDS: ZOFRAN IV PRN ×2 (06:56→12:08)
[2017-11-25 07:39] LABS: Hematocrit 37.2 % (30.3-42.9); Hemoglobin 12.3 gm/dl (10.1-14.3); Mean Corpuscular HGB Conc 33 % (30-34); Mean Corpuscular Hemoglobin 29 pg (28-32); Mean Corpuscular Volume 88 fl (79-97); Red Blood Count 4.23 M/mm3 (3.65-5.03); Red Cell Distribution Width 14.9 % (13.2-15.2)
[2017-11-25 07:48] LABS: Platelet Count 98 K/mm3 (140-440)
[2017-11-25 07:51] LABS: Calcium 7.5 mg/dL (8.4-10.2); Magnesium 1.5 mg/dL (1.7-2.3)
--- NOTE | 2017-11-25 08:58 | Progress Note ---
Assessment and Plan 1. Acute kdiney injury: Hemodynamically mediated ASHLEIGH in the setting of hypotension. New episode of ASHLEIGH is likely related to A.fib. Continue IV fluids. Monitor renal function. 2. Hypotension: BP is better. 3. Hyperkalemia: Improved. 4. Suicidal attempt with Drug overdose. 5. A.fib. Subjective Date of service: 11/25/17 Principal diagnosis: Drug Overdose / Suicide Attempt; ASHLEIGH; Hyperkalemia Interval history: Patient was seen and examined at the bedside. Developed A.fib with RVR. Objective - Vital Signs Vital signs: Vital Signs - 12hr 11/24/17 11/25/17 11/25/17 23:47 04:43 07:39 Temperature 102.9 F H 98.9 F 98.1 F Pulse Rate 77 64 Respiratory 24 22 18 Rate Blood Pressure 118/68 96/40 122/62 O2 Sat by Pulse 88 93 Oximetry - General Appearance General appearance: well-developed, well-nourished, appears stated age, other ( no distress) EENT: ATNC, PERRL, hearing intact, vision intact Neck: supple Respiratory: Present: Clear to Ascultation Cardiology: irregular, S1S2, no murmurs Gastrointestinal: normoactive bowel sounds, no tenderness, no distended Integumentary: no rash, warm and dry Neurologic: no focal deficit, no asterixis, disoriented Musculoskeletal: other (no edema) Psychiatric: mood/affect appropriate - Lab 11/25/17 07:13 11/26/17 04:00 Most recent lab results Calcium 7.5 mg/dL (8.4-10.2) L 11/25/17 07:13 Phosphorus 2.80 mg/dL (2.5-4.5) 11/22/17 Unknown Magnesium 1.50 mg/dL (1.7-2.3) L 11/25/17 07:13 Urine Creatinine 103.7 mg/dL (0.1-20.0) H 11/21/17 Unknown Urine Sodium 92 mmol/L 11/21/17 Unknown
[2017-11-25 09:48] LABS: Total Cells Counted 100
[2017-11-25 09:49] LABS: Basophils % (Manual) 0 % (0.0-1.8); Eosinophils % (Manual) 0 % (0.0-4.3)
[2017-11-25 09:50] LABS: Anisocytosis 1+; Band Neutrophils # (Manual) 2.2 K/mm3
[2017-11-25 09:51] LABS: Giant Platelets Rare; Large Platelets Few; Platelet Estimate Consistent w Auto
[2017-11-25 09:53] LABS: Basophilic Stippling Rare
[2017-11-25] MEDS ORDERED: VANCOMYCIN PHARMACY TO DOSE IV SCH (10:00)
[2017-11-25] MEDS: CORDARONE PO SCH ×2 (10:55→22:33)
[2017-11-25] MEDS: LOVENOX SUB-Q SCH (10:55)
[2017-11-25] MEDS: PEPCID PO SCH (10:55)
--- NOTE | 2017-11-25 11:54 | Progress Note ---
Assessment and Plan Paroxysmal atrial flutter, new onset reverted to sinus rhythm on oral amiodarone for suppression normal TSH Suicide attempt by drug overdose Depression Acute renal failure UTI Recommend: Replace magnesium Echocardiogram for LVEF assessment. Subjective Date of service: 11/25/17 Principal diagnosis: Drug Overdose / Suicide Attempt; ASHLEIGH; Hyperkalemia Interval history: Patient denies chest pain and shortness of breath. Objective Vital Signs Temp Pulse Pulse Resp BP Pulse Ox 11/25/17 07:39 98.1 F 64 18 122/62 93 11/25/17 04:43 98.9 F 77 22 96/40 88 11/24/17 23:47 102.9 F H 24 118/68 11/24/17 20:06 102.4 F H 69 22 120/76 96 11/24/17 16:39 102.0 F H 82 20 128/50 91 11/24/17 15:47 142 H 141/78 11/24/17 15:40 24 141/78 11/24/17 13:01 22 11/24/17 12:01 102.2 F H 121 H 20 153/74 89 11/24/17 12:00 120 H 121 H 24 93 11/24/17 11:57 102.2 F H 128 H 20 165/73 89 - Physical Examination General: No Apparent Distress HEENT: Positive: PERRL Neck: Positive: trachea midline Cardiac: Positive: Reg Rate and Rhythm Lungs: Positive: Decreased Breath Sounds Neuro: Positive: Grossly Intact Extremities: Absent: edema - Labs and Meds CBC 11/25/17 Range/Units 07:13 WBC 9.0 (4.5-11.0) K/mm3 RBC 4.23 (3.65-5.03) M/mm3 Hgb 12.3 (10.1-14.3) gm/dl Hct 37.2 (30.3-42.9) % Plt Count 98 L (140-440) K/mm3 Comprehensive Metabolic Panel 11/25/17 Range/Units 07:13 Sodium 137 (137-145) mmol/L Potassium 3.7 (3.6-5.0) mmol/L Chloride 94.3 L (98-107) mmol/L Carbon Dioxide 28 (22-30) mmol/L BUN 34 H (7-17) mg/dL Creatinine 1.7 H D (0.7-1.2) mg/dL Glucose 118 H (65-100) mg/dL Calcium 7.5 L (8.4-10.2) mg/dL - Imaging and Cardiology EKG: report reviewed
[2017-11-25] MEDS: VANCOMYCIN/NS 1 GM/250 ML 1 GM/250 ML BAG IV SCH (12:08)
--- NOTE | 2017-11-25 12:39 | Consultation ---
History of Present Illness - Reason for Consult Consult date: 11/25/17 fever Requesting physician: REJI MCCARTHY - History of Present Illness Patient is 67-year-old female presents to the emergency room with an overdose of venlafaxine. Now with fever and thrombocytopenia. Initial temperature was 97.9, HR 68, B/P 69/39, Cr 1.0, WBC 9.9, cr 4.4, Hgb 11.2, Plt 150 Microbiology: Blood cultures: 11/24 ngtd Urine cultures: 11/24 showed gram negative rods Current Antimicrobials: vancomycin 11/25 ceftriaxone 11/24 Previous Antimicrobials: Medications and Allergies Allergies Allergy/AdvReac Type Severity Reaction Status Date / Time clindamycin Allergy Rash Verified 11/25/17 13:29 Home Medications Medication Instructions Recorded Confirmed Last Taken Type No Known Home Medications [No 11/24/17 11/24/17 Unknown History Reported Home Medications] Active Meds: Active Medications Acetaminophen (Tylenol) 650 mg PO Q4H PRN PRN Reason: Pain MILD(1-3)/Fever >100.5/CHAO Last Admin: 11/25/17 00:38 Dose: 650 mg Al Hydrox/Mg Hydrox/Simethicone (Alum-Mag Hydrox-Simeth [phone]/5ml) 30 ml PO Q4H PRN PRN Reason: Indigestion Last Admin: 11/22/17 20:55 Dose: 30 ml Amiodarone HCl (Cordarone) 200 mg PO BID [facility] Last Admin: 11/25/17 10:55 Dose: 200 mg Lipase/Protease/Amylase (Pancreaze Dr 10,500 Unit) 1 each FEEDTUBE PRN PRN PRN Reason: For Clogged Feeding Tube Bisacodyl (Dulcolax) 10 mg [place] QDAY PRN PRN Reason: constipation unrelieved by MOM Enoxaparin Sodium (Lovenox) 40 mg SUB-Q QDAY@1000 [facility] Last Admin: 11/25/17 10:55 Dose: 40 mg Famotidine (Pepcid) 20 mg PO DAILY [facility] Last Admin: 11/25/17 10:55 Dose: 20 mg Sodium Chloride (Nacl 0.45% 1000 Ml) 1,000 mls @ 75 mls/hr IV DIRECT [facility] Last Admin: 11/25/17 05:35 Dose: 75 mls/hr Diltiazem HCl (Cardizem/D5w 100mg/100ml) 100 mg in 100 mls @ 5 mls/hr IV TITR [place] PRN Reason: 5 MG/HR Last Admin: 11/24/17 17:05 Dose: 5 mg/hr, 5 mls/hr Ceftriaxone Sodium 1 gm/ (Sodium Chloride) 20 mls @ 20 mls/10 min IV Q24H [facility] Last Admin: 11/24/17 19:01 Dose: 20 mls/10 min Vancomycin HCl (Vancomycin/Ns 1 Gm/250 Ml) 1 gm in 250 mls @ 125 mls/hr IV Q24H [facility] Last Admin: 11/25/17 12:08 Dose: 125 mls/hr Magnesium Hydroxide (Milk Of Magnesia) 30 ml PO Q4H PRN PRN Reason: Constipation Metoprolol Tartrate (Lopressor) 2.5 mg IV Q6HR PRN PRN Reason: HR>130 Morphine Sulfate (Morphine) 2 mg IV Q4H PRN PRN Reason: Pain, Moderate (4-6) Last Admin: 11/24/17 09:33 Dose: 2 mg Ondansetron HCl (Zofran) 4 mg IV Q3H PRN PRN Reason: N/V unrelieved by Reglan Last Admin: 11/25/17 12:08 Dose: 4 mg Simple Syrup (Simple Syrup) 15 ml FEEDTUBE PRN PRN PRN Reason: Hypoglycemia Simple Syrup (Simple Syrup) 30 ml FEEDTUBE PRN PRN PRN Reason: Hypoglycemia Sodium Bicarbonate (Sodium Bicarbonate) 325 mg FEEDTUBE PRN PRN PRN Reason: For Clogged Feeding Tube Vancomycin HCl (Vancomycin Pharmacy To Dose) 1 each IV PKCONSULT [facility] PRN Reason: Protocol Review of Systems All systems: negative Physical Examination - Physical Exam Narrative exam: General appearance: Alert in NAD, conversant Eyes: anicteric sclerae, moist conjunctivae; no lid-lag; PERRLA HENT: Atraumatic; oropharynx no thrush Neck: Trachea midline; supple, no thyromegaly or lymphadenopathy Lungs: CTAB CV: RRR s1 s2 Abdomen: Soft, non-tender; no masses or hepatosplenomegaly Extremities: No peripheral edema or extremity lymphadenopathy Skin: Normal temperature, turgor and texture; no rash, ulcers or subcutaneous nodules Psych: Deprssed, suicidal ideation Neuro: alert and oriented x 3. Moving all extermities Lines: No CVL / PICC - Constitutional Vitals: Vital Signs Temp Pulse Resp BP Pulse Ox 98.6 F 77 18 141/87 93 11/25/17 11:30 11/25/17 11:30 11/25/17 11:30 11/25/17 11:30 11/25/17 11:30 Temperature -Last 24 Hours Temperature 98.6 F Temperature 98.1 F Temperature 98.9 F Temperature 102.9 F Temperature 102.4 F Temperature 102.0 F Results - Labs CBC & Chem 7: 11/25/17 07:13 11/25/17 07:13 Labs: Abnormal lab results 11/24/17 11/24/17 11/25/17 Range/Units 14:43 17:37 07:13 Plt Count 98 L (140-440) K/mm3 Lymphocytes % (Manual) 3.0 L (13.4-35.0) % Nucleated RBC % 1.0 H (0.0-0.9) % Lymphocytes # (Manual) 0.3 L (1.2-5.4) K/mm3 Chloride (98-107) mmol/L BUN (7-17) mg/dL Creatinine (0.7-1.2) mg/dL Glucose (65-100) mg/dL Calcium (8.4-10.2) mg/dL Magnesium 1.40 L (1.7-2.3) mg/dL Urine WBC (Auto) 10.0 H (0.0-6.0) /HPF 11/25/17 Range/Units 07:13 Plt Count (140-440) K/mm3 Lymphocytes % (Manual) (13.4-35.0) % Nucleated RBC % (0.0-0.9) % Lymphocytes # (Manual) (1.2-5.4) K/mm3 Chloride 94.3 L (98-107) mmol/L BUN 34 H (7-17) mg/dL Creatinine 1.7 H D (0.7-1.2) mg/dL Glucose 118 H (65-100) mg/dL Calcium 7.5 L (8.4-10.2) mg/dL Magnesium 1.50 L (1.7-2.3) mg/dL Urine WBC (Auto) (0.0-6.0) /HPF Assessment and Plan Assessment: 1) SIRS: Not present on admission, manifested by fever, hypotension, tacycardis , and thrombocytopenis. Etiology ? Influenza ? asp pneumona 2) Presumed influenza: ? 3) Suicide attempt by drug ingestion. 4) Depression 5) ASHLEIGH; ?drug overdose 6) Paroxysmal atrial flutter: ?drug overdoes 7) Urine contamination - no overt UTI Plan: -if fever continues obtain CT chest r/o asp pna -follow-up blood cultures -check C-reactive protein (CRP) -check influenza antigen PCR in nasopharinx -continue ceftriaxone -start tamiflu -add zosyn -monitor fever -psych following, 1013 -droplet precaution to r/u influenza Thank you for your consultation Dr. Mccarthy, will follow up with you. Celso Diaz GAGGERMAN-C for Dr. Melanie Carpio MD Infectious Diseases Specialist [facility], [place], [facility] ([facility] [phone] O [phone]
[2017-11-25] MEDS ORDERED: CARDIZEM CD PO ONE (15:05)
--- NOTE | 2017-11-25 15:25 | Progress Note ---
Assessment and Plan Assessment and plan: Drug overdose. Patient took an unknown quantity of Effexor. Hypotension. Resolved. Etiology secondary to medication/overdose. Acute kidney injury, Resolved. Etiology secondary to ATN from hypotension. Continue IV fluid hydration. Nephrology following. Rapid afib. New onset afib. Started on Amiodarione, Cardizem. Cardiology following Hyperkalemia. Resolved. Follow-up BMP. Fever. Blood cultursdrawn. Started Ceftriaxone and Vancomycin. ID consulted Depression. Psych following. Suicide attempt by drug ingestion. Continue 1013. Psych following. DVT prophylaxis. Continue Lovenox. History Interval history: suicidal, no chest pain rapid afib 2 days ago fever Hospitalist Physical - Physical exam Narrative exam: GEN APPEARANCE : Not in acute distress, HEENT: Normocephalic, Atraumatic NECK : supple, no JVD LUNGS: Clear to auscultation bilaterally, no rales, no wheeze HEART: S1 and S2 regular, no murmurs, rubs or gallop, ABD: Soft, non tender, non distended, normal bowel sounds EXT:No edema, no clubbing, no cyanosis NEURO: Awake, alert, no focal signs Psych:depressed,suicidal - Constitutional Vitals: Temp Pulse Resp BP Pulse Ox 98.6 F 77 18 141/87 93 11/25/17 11:30 11/25/17 11:30 11/25/17 11:30 11/25/17 11:30 11/25/17 11:30 General appearance: Present: no acute distress, well-nourished Results - Labs CBC & Chem 7: 11/25/17 07:13 11/25/17 07:13 Labs: Laboratory Last Values WBC 9.0 K/mm3 (4.5-11.0) 11/25/17 07:13 RBC 4.23 M/mm3 (3.65-5.03) 11/25/17 07:13 Hgb 12.3 gm/dl (10.1-14.3) 11/25/17 07:13 Hct 37.2 % (30.3-42.9) 11/25/17 07:13 MCV 88 fl (79-97) 11/25/17 07:13 MCH 29 pg (28-32) 11/25/17 07:13 MCHC 33 % (30-34) 11/25/17 07:13 RDW 14.9 % (13.2-15.2) 11/25/17 07:13 Plt Count 98 K/mm3 (140-440) L 11/25/17 07:13 Lymph % (Auto) 4.5 % (13.4-35.0) L 11/20/17 04:33 [place] % (Auto) Business Analyst Intern 11/21/17 05:34 Eos % (Auto) 0.0 % (0.0-4.3) 11/20/17 04:33 Baso % (Auto) 0.0 % (0.0-1.8) 11/20/17 04:33 Lymph # 0.5 K/mm3 (1.2-5.4) L 11/20/17 04:33 [place] # 1.0 K/mm3 (0.0-0.8) H 11/20/17 04:33 Eos # 0.0 K/mm3 (0.0-0.4) 11/20/17 04:33 Baso # 0.0 K/mm3 (0.0-0.1) 11/20/17 04:33 Add Manual Diff Complete 11/24/17 05:38 Total Counted 100 11/25/17 07:13 Seg Neutrophils % 86.3 % (40.0-70.0) H 11/20/17 04:33 Seg Neuts % (Manual) 65 % (40.0-70.0) 11/25/17 07:13 Band Neutrophils % 25 % 11/25/17 07:13 Lymphocytes % (Manual) 3.0 % (13.4-35.0) L 11/25/17 07:13 Reactive Lymphs % (Man) 0 % 11/25/17 07:13 Monocytes % (Manual) 6.0 % (0.0-7.3) 11/25/17 07:13 Eosinophils % (Manual) 0 % (0.0-4.3) 11/25/17 07:13 Basophils % (Manual) 0 % (0.0-1.8) 11/25/17 07:13 Metamyelocytes % 1.0 % 11/25/17 07:13 Myelocytes % 0 % 11/25/17 07:13 Promyelocytes % 0 % 11/25/17 07:13 Blast Cells % 0 % 11/25/17 07:13 Nucleated RBC % 1.0 % (0.0-0.9) H 11/25/17 07:13 Seg Neutrophils # 9.2 K/mm3 (1.8-7.7) H 11/20/17 04:33 Seg Neutrophils # Man 5.8 K/mm3 (1.8-7.7) 11/25/17 07:13 Band Neutrophils # 2.2 K/mm3 11/25/17 07:13 Lymphocytes # (Manual) 0.3 K/mm3 (1.2-5.4) L 11/25/17 07:13 Abs React Lymphs (Man) 0.0 K/mm3 11/25/17 07:13 Monocytes # (Manual) 0.5 K/mm3 (0.0-0.8) 11/25/17 07:13 Eosinophils # (Manual) 0.0 K/mm3 (0.0-0.4) 11/25/17 07:13 Basophils # (Manual) 0.0 K/mm3 (0.0-0.1) 11/25/17 07:13 Metamyelocytes # 0.1 K/mm3 11/25/17 07:13 Myelocytes # 0.0 K/mm3 11/25/17 07:13 Promyelocytes # 0.0 K/mm3 11/25/17 07:13 Blast Cells # 0.0 K/mm3 11/25/17 07:13 WBC Morphology Not Reportable 11/25/17 07:13 Hypersegmented Neuts Not Reportable 11/25/17 07:13 Hyposegmented Neuts Not Reportable 11/25/17 07:13 Hypogranular Neuts Not Reportable 11/25/17 07:13 Smudge Cells Not Reportable 11/25/17 07:13 Toxic Granulation Not Reportable 11/25/17 07:13 Toxic Vacuolation Not Reportable 11/25/17 07:13 Dohle Bodies Not Reportable 11/25/17 07:13 Pelger-Huet Anomaly Not Reportable 11/25/17 07:13 [place]inton Rods Not Reportable 11/25/17 07:13 Platelet Estimate Consistent w auto 11/25/17 07:13 Clumped Platelets Not Reportable 11/25/17 07:13 Plt Clumps, EDTA Not Reportable 11/25/17 07:13 Large Platelets Few 11/25/17 07:13 Giant Platelets Rare 11/25/17 07:13 Platelet Satelliting Not Reportable 11/25/17 07:13 Plt Morphology Comment Not Reportable 11/25/17 07:13 RBC Morphology Not Reportable 11/25/17 07:13 Dimorphic RBCs Not Reportable 11/25/17 07:13 Polychromasia Few 11/25/17 07:13 Hypochromasia Not Reportable 11/25/17 07:13 Poikilocytosis Not Reportable 11/25/17 07:13 Basophilic Stippling Rare 11/25/17 07:13 Anisocytosis 1+ 11/25/17 07:13 Microcytosis Not Reportable 11/25/17 07:13 Macrocytosis Not Reportable 11/25/17 07:13 Spherocytes Not Reportable 11/25/17 07:13 Pappenheimer Bodies Not Reportable 11/25/17 07:13 Sickle Cells Not Reportable 11/25/17 07:13 Target Cells Not Reportable 11/25/17 07:13 Tear Drop Cells Not Reportable 11/25/17 07:13 Ovalocytes Not Reportable 11/25/17 07:13 Stomatocytes Few 11/22/17 Unknown Helmet Cells Not Reportable 11/25/17 07:13 [place] Bodies Not Reportable 11/25/17 07:13 Roby Rings Not Reportable 11/25/17 07:13 Elieser Cells Not Reportable 11/25/17 07:13 Bite Cells Not Reportable 11/25/17 07:13 Crenated Cell Not Reportable 11/25/17 07:13 Elliptocytes Not Reportable 11/25/17 07:13 Acanthocytes (Spur) Not Reportable 11/25/17 07:13 Rouleaux Not Reportable 11/25/17 07:13 Hemoglobin C Crystals Not Reportable 11/25/17 07:13 Schistocytes Not Reportable 11/25/17 07:13 Malaria parasites Not Reportable 11/25/17 07:13 Bhupendra Bodies Not Reportable 11/25/17 07:13 Hem Pathologist Commnt Not Reportable 11/25/17 07:13 POC ABG pH 7.330 (7.35-7.45) L 11/19/17 18:09 POC ABG pCO2 37.7 (35-45) 11/19/17 18:09 POC ABG pO2 88 (80-105) 11/19/17 18:09 POC ABG HCO3 19.9 11/19/17 18:09 POC ABG Total CO2 21 11/19/17 18:09 POC ABG O2 Sat 96 11/19/17 18:09 POC ABG Base Excess -6 11/19/17 18:09 VBG pH 7.329 (7.320-7.420) 11/19/17 23:31 FiO2 3.5 % 11/19/17 18:09 Sodium 137 mmol/L (137-145) 11/25/17 07:13 Potassium 3.7 mmol/L (3.6-5.0) 11/25/17 07:13 Chloride 94.3 mmol/L (98-107) L 11/25/17 07:13 Carbon Dioxide 28 mmol/L (22-30) 11/25/17 07:13 Anion Gap 18 mmol/L 11/25/17 07:13 BUN 34 mg/dL (7-17) H 11/25/17 07:13 Creatinine 1.7 mg/dL (0.7-1.2) H D 11/25/17 07:13 Estimated GFR 36 ml/min 11/25/17 07:13 BUN/Creatinine Ratio 20 % 11/25/17 07:13 Glucose 118 mg/dL (65-100) H 11/25/17 07:13 POC Glucose 89 (70-105) 11/21/17 17:15 Osmolality 309 Mosm/kg 11/21/17 05:34 Lactic Acid 1.40 mmol/L (0.7-2.0) 11/25/17 09:37 Calcium 7.5 mg/dL (8.4-10.2) L 11/25/17 07:13 Phosphorus 2.80 mg/dL (2.5-4.5) 11/22/17 Unknown Magnesium 1.50 mg/dL (1.7-2.3) L 11/25/17 07:13 Total Bilirubin 0.40 mg/dL (0.1-1.2) 11/22/17 Unknown AST 30 units/L (5-40) 11/22/17 Unknown ALT 18 units/L (7-56) 11/22/17 Unknown Alkaline Phosphatase 110 units/L (35-129) 11/22/17 Unknown Total Creatine Kinase 794 units/L (30-135) H 11/21/17 05:34 Total Protein 6.2 g/dL (6.3-8.2) L 11/22/17 Unknown Albumin 2.9 g/dL (3.9-5) L 11/22/17 Unknown Albumin/Globulin Ratio 0.9 % 11/22/17 Unknown TSH 1.290 mlU/mL (0.270-4.200) 11/24/17 17:37 Urine Color Yellow (Yellow) 11/24/17 14:43 Urine Turbidity Clear (Clear) 11/24/17 14:43 Urine pH 5.0 (5.0-7.0) 11/24/17 14:43 Ur Specific [place] 1.028 (1.003-1.030) 11/24/17 14:43 Urine Protein 100 mg/dl mg/dL (Negative) 11/24/17 14:43 Urine Glucose (UA) Neg mg/dL (Negative) 11/24/17 14:43 Urine Ketones 80 mg/dL (Negative) 11/24/17 14:43 Urine Blood Neg (Negative) 11/24/17 14:43 Urine Nitrite Pos (Negative) 11/24/17 14:43 Urine Bilirubin Sm (Negative) 11/24/17 14:43 Urine Ictotest Negative (Negative) 11/24/17 14:43 Urine Urobilinogen 2.0 mg/dL (<2.0) 11/24/17 14:43 Ur Leukocyte Esterase Tr (Negative) 11/24/17 14:43 Urine WBC (Auto) 10.0 /HPF (0.0-6.0) H 11/24/17 14:43 Urine RBC (Auto) 7.0 /HPF (0.0-6.0) 11/24/17 14:43 U Epithel Cells (Auto) 1.0 /HPF (0-13.0) 11/24/17 14:43 Urine Bacteria (Auto) 4+ /HPF (Negative) 11/24/17 14:43 Hyaline Casts 9 /LPF 11/19/17 16:45 Urine Mucus 3+ /HPF 11/24/17 14:43 Urine Creatinine 103.7 mg/dL (0.1-20.0) H 11/21/17 Unknown Urine Sodium 92 mmol/L 11/21/17 Unknown Salicylates < 0.3 mg/dL (2.8-20.0) L 11/19/17 15:15 Urine Opiates Screen Presumptive negative 11/19/17 16:45 Urine Methadone Screen Presumptive negative 11/19/17 16:45 Acetaminophen < 15.0 ug/mL (10.0-30.0) 11/19/17 15:15 Ur Barbiturates Screen Presumptive negative 11/19/17 16:45 Ur Phencyclidine Scrn Presumptive positive 11/19/17 16:45 Ur Amphetamines Screen Presumptive negative 11/19/17 16:45 U Benzodiazepines Scrn Presumptive negative 11/19/17 16:45 [place] 0.1 mmol/L (0.0-1.2) 11/19/17 15:15 Urine Cocaine Screen Presumptive negative 11/19/17 16:45 U Marijuana (THC) Screen Presumptive negative 11/19/17 16:45 Drugs of Abuse Note Disclamer 11/19/17 16:45 Plasma/Serum Alcohol < 0.01 gm% (0-0.07) 11/19/17 15:15
[2017-11-25] MEDS: XANAX PO PRN (16:16)
[2017-11-25] MEDS: cefTRIAXone 1 GM in NACL 0.9% 20 ML IV SCH (17:26)
[2017-11-25] MEDS: ZOSYN/NS 3.375GM/50ML 3.375 GM/50 ML BAG IV SCH (18:33)
--- NOTE | 2017-11-25 21:12 | Progress Note ---
Assessment and Plan Patient sleeping at this time.Not using her O2.Presently on room air . O2 saturation 93%. No acute respiratory distress. - Patient Problems (1) Hypotension Current Visit: Yes Status: Acute Plan to address problem: Blood pressure improved. Blood pressure at this time 121/72. (2) Overdose Current Visit: Yes Status: Acute Qualifiers: Encounter type: initial encounter Plan to address problem: Recommend to consult psychiatry. (3) Depression Current Visit: Yes Status: Acute Plan to address problem: Recommend to consult psychiatry (4) Acute kidney injury Current Visit: Yes Status: Acute Plan to address problem: Management as per nephrology. (5) Pleural effusion Current Visit: Yes Status: Acute Plan to address problem: Question of right pleural effusion. Obtaining ultrasound of chest. Subjective Date of service: 11/25/17 Principal diagnosis: Drug Overdose / Suicide Attempt; ASHLEIGH; Hyperkalemia Interval history: Patient sleeping at this time.Not using her O2.Presently on room air . O2 saturation 93%. No acute respiratory distress. Objective Vital Signs - 12hr 11/25/17 11/25/17 11/25/17 10:00 11:30 16:16 Temperature 98.6 F Pulse Rate 116 H 77 120 H Respiratory 18 Rate Blood Pressure 134/86 Blood Pressure 141/87 [Left] O2 Sat by Pulse 93 Oximetry 11/25/17 19:58 Temperature 98.9 F Pulse Rate 82 Respiratory 22 Rate Blood Pressure Blood Pressure 121/72 [Left] O2 Sat by Pulse Oximetry Constitutional: no acute distress, asleep Eyes: non-icteric ENT: oropharynx dry Neck: supple, no lymphadenopathy, no JVD Effort: normal Ascultation: Right: diminished breath sounds (Slightly diminished breath sounds right base.) Percussion: Bilateral: not dull Cardiovascular: regular rate and rhythm Gastrointestinal: normoactive bowel sounds, soft, non-tender Integumentary: normal Extremities: no cyanosis, no edema, pink and warm, pulses normal, no ischemia or petechiae Neurologic: non-focal exam, pupils equal and round Psychiatric: depressed CBC and BMP: 11/25/17 07:13 11/25/17 07:13 ABG, PT/INR, D-dimer: ABG POC ABG pH 7.330 (7.35-7.45) L 11/19/17 18:09 POC ABG pCO2 37.7 (35-45) 11/19/17 18:09 POC ABG pO2 88 (80-105) 11/19/17 18:09 POC ABG HCO3 19.9 11/19/17 18:09 POC ABG Total CO2 21 11/19/17 18:09 POC ABG O2 Sat 96 11/19/17 18:09 Abnormal lab findings: Abnormal Labs 11/19/17 11/19/17 11/19/17 15:15 15:15 17:02 RBC Plt Count Lymph % (Auto) 4.0 L [place] % (Auto) 7.8 H Lymph # 0.4 L [place] # Seg Neutrophils % 88.0 H Seg Neuts % (Manual) Lymphocytes % (Manual) Monocytes % (Manual) Nucleated RBC % Seg Neutrophils # 8.7 H Seg Neutrophils # Man Lymphocytes # (Manual) POC ABG pH VBG pH Sodium Potassium 5.4 H Chloride Carbon Dioxide BUN 62 H Creatinine 4.4 H Glucose Calcium 7.8 L Magnesium Total Creatine Kinase Total Protein 6.2 L Albumin 3.1 L Urine WBC (Auto) Urine Creatinine Salicylates < 0.3 L 11/19/17 11/19/17 11/19/17 18:09 19:55 23:31 RBC Plt Count Lymph % (Auto) [place] % (Auto) Lymph # [place] # Seg Neutrophils % Seg Neuts % (Manual) Lymphocytes % (Manual) Monocytes % (Manual) Nucleated RBC % Seg Neutrophils # Seg Neutrophils # Man Lymphocytes # (Manual) POC ABG pH 7.330 L VBG pH 7.286 L Sodium Potassium Chloride Carbon Dioxide BUN 61 H Creatinine 3.6 H Glucose 231 H Calcium 7.2 L Magnesium Total Creatine Kinase Total Protein Albumin Urine WBC (Auto) Urine Creatinine Salicylates 11/20/17 11/20/17 11/21/17 04:33 04:33 05:34 RBC 3.49 L Plt Count Lymph % (Auto) 4.5 L [place] % (Auto) 9.2 H Lymph # 0.5 L [place] # 1.0 H Seg Neutrophils % 86.3 H Seg Neuts % (Manual) 19.0 L Lymphocytes % (Manual) 5.0 L Monocytes % (Manual) 9.0 H Nucleated RBC % Seg Neutrophils # 9.2 H Seg Neutrophils # Man 1.0 L Lymphocytes # (Manual) 0.3 L POC ABG pH VBG pH Sodium Potassium Chloride Carbon Dioxide 21 L BUN 59 H Creatinine 3.1 H Glucose 247 H Calcium 7.3 L Magnesium Total Creatine Kinase Total Protein 5.5 L Albumin 3.0 L Urine WBC (Auto) Urine Creatinine Salicylates 11/21/17 11/21/17 11/22/17 05:34 Unknown Unknown RBC Plt Count Lymph % (Auto) [place] % (Auto) Lymph # [place] # Seg Neutrophils % Seg Neuts % (Manual) Lymphocytes % (Manual) 10.0 L Monocytes % (Manual) Nucleated RBC % Seg Neutrophils # Seg Neutrophils # Man Lymphocytes # (Manual) 0.5 L POC ABG pH VBG pH Sodium Potassium Chloride Carbon Dioxide BUN 40 H Creatinine 1.4 H D Glucose Calcium 8.0 L Magnesium 2.40 H Total Creatine Kinase 794 H Total Protein Albumin Urine WBC (Auto) Urine Creatinine 103.7 H Salicylates 11/22/17 11/23/17 11/23/17 Unknown 07:05 07:05 RBC Plt Count 134 L Lymph % (Auto) [place] % (Auto) Lymph # [place] # Seg Neutrophils % Seg Neuts % (Manual) 74.0 H Lymphocytes % (Manual) 13.0 L Monocytes % (Manual) Nucleated RBC % Seg Neutrophils # Seg Neutrophils # Man Lymphocytes # (Manual) 0.7 L POC ABG pH VBG pH Sodium 146 H Potassium Chloride Carbon Dioxide BUN 41 H 33 H Creatinine Glucose Calcium 7.6 L Magnesium Total Creatine Kinase Total Protein 6.2 L Albumin 2.9 L Urine WBC (Auto) Urine Creatinine Salicylates 11/24/17 11/24/17 11/24/17 05:38 05:38 14:43 RBC Plt Count 120 L Lymph % (Auto) [place] % (Auto) Lymph # [place] # Seg Neutrophils % Seg Neuts % (Manual) 72.0 H Lymphocytes % (Manual) 4.0 L Monocytes % (Manual) Nucleated RBC % Seg Neutrophils # Seg Neutrophils # Man Lymphocytes # (Manual) 0.2 L POC ABG pH VBG pH Sodium Potassium Chloride Carbon Dioxide BUN 24 H Creatinine Glucose Calcium 7.7 L Magnesium Total Creatine Kinase Total Protein Albumin Urine WBC (Auto) 10.0 H Urine Creatinine Salicylates 11/24/17 11/25/17 11/25/17 17:37 07:13 07:13 RBC Plt Count 98 L Lymph % (Auto) [place] % (Auto) Lymph # [place] # Seg Neutrophils % Seg Neuts % (Manual) Lymphocytes % (Manual) 3.0 L Monocytes % (Manual) Nucleated RBC % 1.0 H Seg Neutrophils # Seg Neutrophils # Man Lymphocytes # (Manual) 0.3 L POC ABG pH VBG pH Sodium Potassium Chloride 94.3 L Carbon Dioxide BUN 34 H Creatinine 1.7 H D Glucose 118 H Calcium 7.5 L Magnesium 1.40 L 1.50 L Total Creatine Kinase Total Protein Albumin Urine WBC (Auto) Urine Creatinine Salicylates Chest x-ray: report reviewed (Right pleural effusion.), image reviewed
[2017-11-25] MEDS ORDERED: ZOSYN/NS 4.5GM/100ML 4.5 GM/100 ML VIAL IV SCH (22:00)
[2017-11-25] MEDS: TAMIFLU PO SCH (22:33)
[2017-11-26] MEDS: ZOSYN/NS 3.375GM/50ML 3.375 GM/50 ML BAG IV SCH ×2 (02:16→10:13)
[2017-11-26 06:52] LABS: BUN/Creatinine Ratio 29; Blood Urea Nitrogen 32 mg/dL (7-17); Calcium 7.4 mg/dL (8.4-10.2); Hemolysis Index 6
--- NOTE | 2017-11-26 08:32 | Progress Note ---
Assessment and Plan 1. Acute kdiney injury: Recurrent ASHLEIGH. New episode of ASHLEIGH is likely related to A.fib and sepsis. Renal function is improving. Continue IV fluids. Monitor renal function. 2. Bacteremia. 3. Hypokalemia: Replete K. 4. Suicidal attempt with Drug overdose. 5. A.fib. Subjective Date of service: 11/26/17 Principal diagnosis: Drug Overdose / Suicide Attempt; ASHLEIGH; Hyperkalemia Interval history: Patient was seen and examined at the bedside. Feeling better. Objective - Vital Signs Vital signs: Vital Signs - 12hr 11/26/17 11/26/17 11/26/17 00:18 05:06 08:06 Temperature 98.2 F 98.4 F 97.9 F Pulse Rate 87 74 82 Respiratory 21 19 20 Rate Blood Pressure 119/69 Blood Pressure 132/83 116/62 [Left] O2 Sat by Pulse 94 98 93 Oximetry - General Appearance General appearance: well-developed, well-nourished, appears stated age, other ( no distress) EENT: ATNC, PERRL, mucous membranes moist, hearing intact, vision intact Neck: supple Respiratory: Present: Clear to Ascultation Cardiology: regular, S1S2, no murmurs Gastrointestinal: normoactive bowel sounds, no tenderness, no distended Integumentary: no rash, warm and dry Neurologic: no focal deficit, no asterixis, alert and oriented x3 Musculoskeletal: other (no edema) Psychiatric: mood/affect appropriate, cooperative - Lab 11/25/17 07:13 11/26/17 04:00 Most recent lab results Calcium 7.4 mg/dL (8.4-10.2) L 11/26/17 04:00 Phosphorus 2.80 mg/dL (2.5-4.5) 11/26/17 04:00 Magnesium 1.90 mg/dL (1.7-2.3) 11/26/17 04:00 Urine Creatinine 103.7 mg/dL (0.1-20.0) H 11/21/17 Unknown Urine Sodium 92 mmol/L 11/21/17 Unknown
[2017-11-26] MEDS: K-DUR PO SCH ×2 (10:11→14:30)
[2017-11-26] MEDS: CARDIZEM CD PO SCH (10:11)
[2017-11-26] MEDS: CORDARONE PO SCH ×2 (10:12→22:06)
[2017-11-26] MEDS: LOVENOX SUB-Q SCH (10:12)
[2017-11-26] MEDS: PEPCID PO SCH (10:12)
[2017-11-26] MEDS: MORPHINE IV PRN (10:12)
[2017-11-26] MEDS: TAMIFLU PO SCH (10:13)
--- NOTE | 2017-11-26 10:56 | Progress Note ---
Assessment and Plan Assessment and plan: Drug overdose. Patient took an unknown quantity of Effexor. Hypotension. Resolved. Etiology secondary to medication/overdose. Acute kidney injury, Resolved. Etiology secondary to ATN from hypotension. Continue IV fluid hydration. Nephrology following. Rapid afib. New onset afib. Started on Amiodarione, Cardizem. Cardiology following Hyperkalemia. Resolved. Follow-up BMP. Fever. Blood cultures drawn. Continue Zosyn, Ceftriaxone and Vancomycin. ID following. Sepsis. Blood cultures positive for Staph aureus Depression. Psych following. Suicide attempt by drug ingestion. Continue 1013. Psych following. DVT prophylaxis. Continue Lovenox. History Interval history: suicidal, no chest pain rapid afib few days ago fever subsiding Hospitalist Physical - Physical exam Narrative exam: GEN APPEARANCE : Not in acute distress, HEENT: Normocephalic, Atraumatic NECK : supple, no JVD LUNGS: Clear to auscultation bilaterally, no rales, no wheeze HEART: S1 and S2 regular, no murmurs, rubs or gallop, ABD: Soft, non tender, non distended, normal bowel sounds EXT:No edema, no clubbing, no cyanosis NEURO: Awake, alert, no focal signs Psych:depressed,suicidal - Constitutional Vitals: Temp Pulse Resp BP Pulse Ox 97.9 F 82 20 116/62 93 11/26/17 08:06 11/26/17 08:06 11/26/17 08:06 11/26/17 08:06 11/26/17 08:06 General appearance: Present: no acute distress, well-nourished Results - Labs CBC & Chem 7: 11/25/17 07:13 11/26/17 04:00 Labs: Laboratory Last Values WBC 9.0 K/mm3 (4.5-11.0) 11/25/17 07:13 RBC 4.23 M/mm3 (3.65-5.03) 11/25/17 07:13 Hgb 12.3 gm/dl (10.1-14.3) 11/25/17 07:13 Hct 37.2 % (30.3-42.9) 11/25/17 07:13 MCV 88 fl (79-97) 11/25/17 07:13 MCH 29 pg (28-32) 11/25/17 07:13 MCHC 33 % (30-34) 11/25/17 07:13 RDW 14.9 % (13.2-15.2) 11/25/17 07:13 Plt Count 98 K/mm3 (140-440) L 11/25/17 07:13 Lymph % (Auto) 4.5 % (13.4-35.0) L 11/20/17 04:33 [place] % (Auto) [place] 11/21/17 05:34 Eos % (Auto) 0.0 % (0.0-4.3) 11/20/17 04:33 Baso % (Auto) 0.0 % (0.0-1.8) 11/20/17 04:33 Lymph # 0.5 K/mm3 (1.2-5.4) L 11/20/17 04:33 [place] # 1.0 K/mm3 (0.0-0.8) H 11/20/17 04:33 Eos # 0.0 K/mm3 (0.0-0.4) 11/20/17 04:33 Baso # 0.0 K/mm3 (0.0-0.1) 11/20/17 04:33 Add Manual Diff Complete 11/24/17 05:38 Total Counted 100 11/25/17 07:13 Seg Neutrophils % 86.3 % (40.0-70.0) H 11/20/17 04:33 Seg Neuts % (Manual) 65 % (40.0-70.0) 11/25/17 07:13 Band Neutrophils % 25 % 11/25/17 07:13 Lymphocytes % (Manual) 3.0 % (13.4-35.0) L 11/25/17 07:13 Reactive Lymphs % (Man) 0 % 11/25/17 07:13 Monocytes % (Manual) 6.0 % (0.0-7.3) 11/25/17 07:13 Eosinophils % (Manual) 0 % (0.0-4.3) 11/25/17 07:13 Basophils % (Manual) 0 % (0.0-1.8) 11/25/17 07:13 Metamyelocytes % 1.0 % 11/25/17 07:13 Myelocytes % 0 % 11/25/17 07:13 Promyelocytes % 0 % 11/25/17 07:13 Blast Cells % 0 % 11/25/17 07:13 Nucleated RBC % 1.0 % (0.0-0.9) H 11/25/17 07:13 Seg Neutrophils # 9.2 K/mm3 (1.8-7.7) H 11/20/17 04:33 Seg Neutrophils # Man 5.8 K/mm3 (1.8-7.7) 11/25/17 07:13 Band Neutrophils # 2.2 K/mm3 11/25/17 07:13 Lymphocytes # (Manual) 0.3 K/mm3 (1.2-5.4) L 11/25/17 07:13 Abs React Lymphs (Man) 0.0 K/mm3 11/25/17 07:13 Monocytes # (Manual) 0.5 K/mm3 (0.0-0.8) 11/25/17 07:13 Eosinophils # (Manual) 0.0 K/mm3 (0.0-0.4) 11/25/17 07:13 Basophils # (Manual) 0.0 K/mm3 (0.0-0.1) 11/25/17 07:13 Metamyelocytes # 0.1 K/mm3 11/25/17 07:13 Myelocytes # 0.0 K/mm3 11/25/17 07:13 Promyelocytes # 0.0 K/mm3 11/25/17 07:13 Blast Cells # 0.0 K/mm3 11/25/17 07:13 WBC Morphology Not Reportable 11/25/17 07:13 Hypersegmented Neuts Not Reportable 11/25/17 07:13 Hyposegmented Neuts Not Reportable 11/25/17 07:13 Hypogranular Neuts Not Reportable 11/25/17 07:13 Smudge Cells Not Reportable 11/25/17 07:13 Toxic Granulation Not Reportable 11/25/17 07:13 Toxic Vacuolation Not Reportable 11/25/17 07:13 Dohle Bodies Not Reportable 11/25/17 07:13 Pelger-Huet Anomaly Not Reportable 11/25/17 07:13 [place] Rods Not Reportable 11/25/17 07:13 Platelet Estimate Consistent w auto 11/25/17 07:13 Clumped Platelets Not Reportable 11/25/17 07:13 Plt Clumps, EDTA Not Reportable 11/25/17 07:13 Large Platelets Few 11/25/17 07:13 Giant Platelets Rare 11/25/17 07:13 Platelet Satelliting Not Reportable 11/25/17 07:13 Plt Morphology Comment Not Reportable 11/25/17 07:13 RBC Morphology Not Reportable 11/25/17 07:13 Dimorphic RBCs Not Reportable 11/25/17 07:13 Polychromasia Few 11/25/17 07:13 Hypochromasia Not Reportable 11/25/17 07:13 Poikilocytosis Not Reportable 11/25/17 07:13 Basophilic Stippling Rare 11/25/17 07:13 Anisocytosis 1+ 11/25/17 07:13 Microcytosis Not Reportable 11/25/17 07:13 Macrocytosis Not Reportable 11/25/17 07:13 Spherocytes Not Reportable 11/25/17 07:13 Pappenheimer Bodies Not Reportable 11/25/17 07:13 Sickle Cells Not Reportable 11/25/17 07:13 Target Cells Not Reportable 11/25/17 07:13 Tear Drop Cells Not Reportable 11/25/17 07:13 Ovalocytes Not Reportable 11/25/17 07:13 Stomatocytes Few 11/22/17 Unknown Helmet Cells Not Reportable 11/25/17 07:13 Mar[place] Bodies Not Reportable 11/25/17 07:13 [place] Rings Not Reportable 11/25/17 07:13 Victor Cells Not Reportable 11/25/17 07:13 Bite Cells Not Reportable 11/25/17 07:13 Crenated Cell Not Reportable 11/25/17 07:13 Elliptocytes Not Reportable 11/25/17 07:13 Acanthocytes (Spur) Not Reportable 11/25/17 07:13 Rouleaux Not Reportable 11/25/17 07:13 Hemoglobin C Crystals Not Reportable 11/25/17 07:13 Schistocytes Not Reportable 11/25/17 07:13 Malaria parasites Not Reportable 11/25/17 07:13 Bhupendra Bodies Not Reportable 11/25/17 07:13 Hem Pathologist Commnt Not Reportable 11/25/17 07:13 POC ABG pH 7.330 (7.35-7.45) L 11/19/17 18:09 POC ABG pCO2 37.7 (35-45) 11/19/17 18:09 POC ABG pO2 88 (80-105) 11/19/17 18:09 POC ABG HCO3 19.9 11/19/17 18:09 POC ABG Total CO2 21 11/19/17 18:09 POC ABG O2 Sat 96 11/19/17 18:09 POC ABG Base Excess -6 11/19/17 18:09 VBG pH 7.329 (7.320-7.420) 11/19/17 23:31 FiO2 3.5 % 11/19/17 18:09 Sodium 138 mmol/L (137-145) 11/26/17 04:00 Potassium 3.2 mmol/L (3.6-5.0) L 11/26/17 04:00 Chloride 97.0 mmol/L (98-107) L 11/26/17 04:00 Carbon Dioxide 24 mmol/L (22-30) 11/26/17 04:00 Anion Gap 20 mmol/L 11/26/17 04:00 BUN 32 mg/dL (7-17) H 11/26/17 04:00 Creatinine 1.1 mg/dL (0.7-1.2) 11/26/17 04:00 Estimated GFR > 60 ml/min 11/26/17 04:00 BUN/Creatinine Ratio 29 % 11/26/17 04:00 Glucose 67 mg/dL (65-100) 11/26/17 04:00 POC Glucose 89 (70-105) 11/21/17 17:15 Osmolality 309 Mosm/kg 11/21/17 05:34 Lactic Acid 1.40 mmol/L (0.7-2.0) 11/25/17 09:37 Calcium 7.4 mg/dL (8.4-10.2) L 11/26/17 04:00 Phosphorus 2.80 mg/dL (2.5-4.5) 11/26/17 04:00 Magnesium 1.90 mg/dL (1.7-2.3) 11/26/17 04:00 Total Bilirubin 0.40 mg/dL (0.1-1.2) 11/22/17 Unknown AST 30 units/L (5-40) 11/22/17 Unknown ALT 18 units/L (7-56) 11/22/17 Unknown Alkaline Phosphatase 110 units/L (35-129) 11/22/17 Unknown Total Creatine Kinase 794 units/L (30-135) H 11/21/17 05:34 Total Protein 6.2 g/dL (6.3-8.2) L 11/22/17 Unknown Albumin 2.9 g/dL (3.9-5) L 11/22/17 Unknown Albumin/Globulin Ratio 0.9 % 11/22/17 Unknown TSH 1.290 mlU/mL (0.270-4.200) 11/24/17 17:37 Urine Color Yellow (Yellow) 11/24/17 14:43 Urine Turbidity Clear (Clear) 11/24/17 14:43 Urine pH 5.0 (5.0-7.0) 11/24/17 14:43 Ur Specific [place] 1.028 (1.003-1.030) 11/24/17 14:43 Urine Protein 100 mg/dl mg/dL (Negative) 11/24/17 14:43 Urine Glucose (UA) Neg mg/dL (Negative) 11/24/17 14:43 Urine Ketones 80 mg/dL (Negative) 11/24/17 14:43 Urine Blood Neg (Negative) 11/24/17 14:43 Urine Nitrite Pos (Negative) 11/24/17 14:43 Urine Bilirubin Sm (Negative) 11/24/17 14:43 Urine Ictotest Negative (Negative) 11/24/17 14:43 Urine Urobilinogen 2.0 mg/dL (<2.0) 11/24/17 14:43 Ur Leukocyte Esterase Tr (Negative) 11/24/17 14:43 Urine WBC (Auto) 10.0 /HPF (0.0-6.0) H 11/24/17 14:43 Urine RBC (Auto) 7.0 /HPF (0.0-6.0) 11/24/17 14:43 U Epithel Cells (Auto) 1.0 /HPF (0-13.0) 11/24/17 14:43 Urine Bacteria (Auto) 4+ /HPF (Negative) 11/24/17 14:43 Hyaline Casts 9 /LPF 11/19/17 16:45 Urine Mucus 3+ /HPF 11/24/17 14:43 Urine Creatinine 103.7 mg/dL (0.1-20.0) H 11/21/17 Unknown Urine Sodium 92 mmol/L 11/21/17 Unknown Salicylates < 0.3 mg/dL (2.8-20.0) L 11/19/17 15:15 Urine Opiates Screen Presumptive negative 11/19/17 16:45 Urine Methadone Screen Presumptive negative 11/19/17 16:45 Acetaminophen < 15.0 ug/mL (10.0-30.0) 11/19/17 15:15 Ur Barbiturates Screen Presumptive negative 11/19/17 16:45 Ur Phencyclidine Scrn Presumptive positive 11/19/17 16:45 Ur Amphetamines Screen Presumptive negative 11/19/17 16:45 U Benzodiazepines Scrn Presumptive negative 11/19/17 16:45 [place] 0.1 mmol/L (0.0-1.2) 11/19/17 15:15 Urine Cocaine Screen Presumptive negative 11/19/17 16:45 U Marijuana (THC) Screen Presumptive negative 11/19/17 16:45 Drugs of Abuse Note Disclamer 11/19/17 16:45 Plasma/Serum Alcohol < 0.01 gm% (0-0.07) 11/19/17 15:15
--- NOTE | 2017-11-26 11:20 | Progress Note ---
Assessment and Plan Paroxysmal atrial flutter, new onset reverted to sinus rhythm on oral amiodarone for suppression normal TSH Suicide attempt by drug overdose Depression Acute renal failure UTI Echocardiogram done today, results pending. Recommendations: Continue Cardizem and amiodarone for suppression of paroxysmal atrial fibrillation. Due to her depression, she appears to have poor understanding of her medical and cardiac status, and will be unreliable for long-term compliance with anticoagulation therapy. Subjective Date of service: 11/26/17 Principal diagnosis: Drug Overdose / Suicide Attempt; ASHLEIGH; Hyperkalemia Interval history: Patient denies chest pain and shortness of breath. Sinus rhythm on telemetry monitoring. Objective Vital Signs Temp Pulse Resp BP BP Pulse Ox 11/26/17 08:06 97.9 F 82 20 116/62 93 11/26/17 05:06 98.4 F 74 19 132/83 98 11/26/17 00:18 98.2 F 87 21 119/69 94 11/25/17 19:58 98.9 F 82 22 121/72 11/25/17 19:55 98.9 F 82 20 121/72 95 11/25/17 16:16 120 H 134/86 11/25/17 11:30 98.6 F 77 18 141/87 93 - Physical Examination General: No Apparent Distress Cardiac: Positive: Reg Rate and Rhythm Neuro: Positive: Grossly Intact Extremities: Absent: edema - Labs and Meds Comprehensive Metabolic Panel 11/26/17 Range/Units 04:00 Sodium 138 (137-145) mmol/L Potassium 3.2 L (3.6-5.0) mmol/L Chloride 97.0 L (98-107) mmol/L Carbon Dioxide 24 (22-30) mmol/L BUN 32 H (7-17) mg/dL Creatinine 1.1 (0.7-1.2) mg/dL Glucose 67 (65-100) mg/dL Calcium 7.4 L (8.4-10.2) mg/dL - Imaging and Cardiology EKG: report reviewed
--- NOTE | 2017-11-26 11:29 | Progress Note ---
Assessment and Plan Assessment: 1) Sepsis: Better. Etiology Staph septicemia 2) Staph aureus septicemia: ?source - central line ? MSSA or MSSA -blood cutures 11/24 showed Staph aureus 3) Suicide attempt by drug ingestion. 4) Depression 5) ASHLEIGH; ?drug overdose 6) Paroxysmal atrial flutter: ?drug overdoes 7) Urine contamination - no overt UTI Plan: -Remove central line -start vancomycin and cefazolin -stop ceftriaxone, tamiflu and zosyn -stop droplet precaution -start contact until MRSA is r/o I will round on Wednesday Thank you for your consultation Dr. Mccarthy, will follow up with you. ALEJANDRA UmanzorC for Dr. Melanie Carpio MD Infectious Diseases Specialist [facility] [phone] Subjective Date of service: 11/26/17 Principal diagnosis: Drug Overdose / Suicide Attempt; ASHLEIGH; Hyperkalemia Interval history: I want to go home, no fever Microbiology: Blood cultures: 11/24 staph aureus Urine cultures: 11/24 showed gram negative rods Current Antimicrobials: vancomycin 11/25 ceftriaxone 11/24 Previous Antimicrobials: Objective - Exam Narrative Exam: General appearance: Alert in NAD, conversant Eyes: anicteric sclerae, moist conjunctivae; no lid-lag; PERRLA HENT: Atraumatic; oropharynx no thrush Neck: Trachea midline; supple, no thyromegaly or lymphadenopathy Lungs: CTAB CV: RRR s1 s2 Abdomen: Soft, non-tender; no masses or hepatosplenomegaly Extremities: No peripheral edema or extremity lymphadenopathy Skin: Normal temperature, turgor and texture; no rash, ulcers or subcutaneous nodules Psych: Deprssed, suicidal ideation Neuro: alert and oriented x 3. Moving all extermities Lines: No CVL / PICC - Constitutional Vitals: Vital Signs Temp Pulse Resp BP Pulse Ox 97.9 F 82 20 116/62 93 11/26/17 08:06 11/26/17 08:06 11/26/17 08:06 11/26/17 08:06 11/26/17 08:06 Temperature -Last 24 Hours Temperature 97.9 F Temperature 98.4 F Temperature 98.2 F Temperature 98.9 F Temperature 98.9 F Temperature 98.6 F - Labs CBC & Chem 7: 11/25/17 07:13 11/26/17 04:00 Labs: Abnormal lab results 11/26/17 Range/Units 04:00 Potassium 3.2 L (3.6-5.0) mmol/L Chloride 97.0 L (98-107) mmol/L BUN 32 H (7-17) mg/dL Calcium 7.4 L (8.4-10.2) mg/dL
[2017-11-26] MEDS: VANCOMYCIN/NS 1 GM/250 ML 1 GM/250 ML BAG IV SCH (14:09)
[2017-11-26] MEDS ORDERED: ceFAZolin 2 GM in NACL 0.9% 100 ML IV SCH (15:15)
[2017-11-26] MEDS: ANCEF/STERILE WATER 2 GM/20 ML 2 GM/20 ML SYRINGE IV SCH ×2 (17:30→23:48)
[2017-11-26] MEDS ORDERED: ZOSYN/NS 3.375GM/50ML 3.375 GM/50 ML BAG IV SCH (18:00)
--- NOTE | 2017-11-26 18:00 | Progress Note ---
Assessment and Plan Patient awake, weak. Patient is on 3 litres O2. O2 saturation 94%. Still complaining some shortness of breath. - Patient Problems (1) Hypotension Current Visit: Yes Status: Acute Plan to address problem: Blood pressure improved. Blood pressure at this time 107/64. (2) Overdose Current Visit: Yes Status: Acute Qualifiers: Encounter type: initial encounter Plan to address problem: Recommend to consult psychiatry. (3) Depression Current Visit: Yes Status: Acute Plan to address problem: Recommend to consult psychiatry (4) Acute kidney injury Current Visit: Yes Status: Acute Plan to address problem: Management as per nephrology. (5) Pleural effusion Current Visit: Yes Status: Acute Plan to address problem: Question of right pleural effusion. Ultrasound of chest results pending. Subjective Date of service: 11/26/17 Principal diagnosis: Drug Overdose / Suicide Attempt; ASHLEIGH; Hyperkalemia Interval history: Patient awake, weak. Patient is on 3 litres O2. O2 saturation 94%. Still complaining some shortness of breath. Objective Vital Signs - 12hr 11/26/17 11/26/17 11/26/17 08:06 10:00 11:38 Temperature 97.9 F 98.4 F Pulse Rate 82 79 79 Respiratory 20 20 Rate Blood Pressure 114/69 Blood Pressure 116/62 [Left] O2 Sat by Pulse 93 94 Oximetry 11/26/17 15:34 Temperature 98.0 F Pulse Rate 74 Respiratory 20 Rate Blood Pressure 107/64 Blood Pressure [Left] O2 Sat by Pulse 94 Oximetry Constitutional: no acute distress, asleep Eyes: non-icteric ENT: oropharynx dry Neck: supple, no lymphadenopathy, no JVD Effort: normal Ascultation: Right: diminished breath sounds (Slightly diminished breath sounds right base.) Percussion: Bilateral: not dull Cardiovascular: regular rate and rhythm Gastrointestinal: normoactive bowel sounds, soft, non-tender Integumentary: normal Extremities: no cyanosis, no edema, pink and warm, pulses normal, no ischemia or petechiae Neurologic: non-focal exam, pupils equal and round Psychiatric: depressed CBC and BMP: 11/25/17 07:13 11/26/17 04:00 ABG, PT/INR, D-dimer: ABG POC ABG pH 7.330 (7.35-7.45) L 11/19/17 18:09 POC ABG pCO2 37.7 (35-45) 11/19/17 18:09 POC ABG pO2 88 (80-105) 11/19/17 18:09 POC ABG HCO3 19.9 11/19/17 18:09 POC ABG Total CO2 21 11/19/17 18:09 POC ABG O2 Sat 96 11/19/17 18:09 Abnormal lab findings: Abnormal Labs 11/19/17 11/19/17 11/19/17 15:15 15:15 17:02 RBC Plt Count Lymph % (Auto) 4.0 L [place] % (Auto) 7.8 H Lymph # 0.4 L [place] # Seg Neutrophils % 88.0 H Seg Neuts % (Manual) Lymphocytes % (Manual) Monocytes % (Manual) Nucleated RBC % Seg Neutrophils # 8.7 H Seg Neutrophils # Man Lymphocytes # (Manual) POC ABG pH VBG pH Sodium Potassium 5.4 H Chloride Carbon Dioxide BUN 62 H Creatinine 4.4 H Glucose Calcium 7.8 L Magnesium Total Creatine Kinase C-Reactive Protein Total Protein 6.2 L Albumin 3.1 L Urine WBC (Auto) Urine Creatinine Salicylates < 0.3 L 11/19/17 11/19/17 11/19/17 18:09 19:55 23:31 RBC Plt Count Lymph % (Auto) [place] % (Auto) Lymph # [place] # Seg Neutrophils % Seg Neuts % (Manual) Lymphocytes % (Manual) Monocytes % (Manual) Nucleated RBC % Seg Neutrophils # Seg Neutrophils # Man Lymphocytes # (Manual) POC ABG pH 7.330 L VBG pH 7.286 L Sodium Potassium Chloride Carbon Dioxide BUN 61 H Creatinine 3.6 H Glucose 231 H Calcium 7.2 L Magnesium Total Creatine Kinase C-Reactive Protein Total Protein Albumin Urine WBC (Auto) Urine Creatinine Salicylates 11/20/17 11/20/17 11/21/17 04:33 04:33 05:34 RBC 3.49 L Plt Count Lymph % (Auto) 4.5 L [place] % (Auto) 9.2 H Lymph # 0.5 L [place] # 1.0 H Seg Neutrophils % 86.3 H Seg Neuts % (Manual) 19.0 L Lymphocytes % (Manual) 5.0 L Monocytes % (Manual) 9.0 H Nucleated RBC % Seg Neutrophils # 9.2 H Seg Neutrophils # Man 1.0 L Lymphocytes # (Manual) 0.3 L POC ABG pH VBG pH Sodium Potassium Chloride Carbon Dioxide 21 L BUN 59 H Creatinine 3.1 H Glucose 247 H Calcium 7.3 L Magnesium Total Creatine Kinase C-Reactive Protein Total Protein 5.5 L Albumin 3.0 L Urine WBC (Auto) Urine Creatinine Salicylates 11/21/17 11/21/17 11/22/17 05:34 Unknown Unknown RBC Plt Count Lymph % (Auto) [place] % (Auto) Lymph # [place] # Seg Neutrophils % Seg Neuts % (Manual) Lymphocytes % (Manual) 10.0 L Monocytes % (Manual) Nucleated RBC % Seg Neutrophils # Seg Neutrophils # Man Lymphocytes # (Manual) 0.5 L POC ABG pH VBG pH Sodium Potassium Chloride Carbon Dioxide BUN 40 H Creatinine 1.4 H D Glucose Calcium 8.0 L Magnesium 2.40 H Total Creatine Kinase 794 H C-Reactive Protein Total Protein Albumin Urine WBC (Auto) Urine Creatinine 103.7 H Salicylates 11/22/17 11/23/17 11/23/17 Unknown 07:05 07:05 RBC Plt Count 134 L Lymph % (Auto) [place] % (Auto) Lymph # [place] # Seg Neutrophils % Seg Neuts % (Manual) 74.0 H Lymphocytes % (Manual) 13.0 L Monocytes % (Manual) Nucleated RBC % Seg Neutrophils # Seg Neutrophils # Man Lymphocytes # (Manual) 0.7 L POC ABG pH VBG pH Sodium 146 H Potassium Chloride Carbon Dioxide BUN 41 H 33 H Creatinine Glucose Calcium 7.6 L Magnesium Total Creatine Kinase C-Reactive Protein Total Protein 6.2 L Albumin 2.9 L Urine WBC (Auto) Urine Creatinine Salicylates 11/24/17 11/24/17 11/24/17 05:38 05:38 14:43 RBC Plt Count 120 L Lymph % (Auto) [place] % (Auto) Lymph # [place] # Seg Neutrophils % Seg Neuts % (Manual) 72.0 H Lymphocytes % (Manual) 4.0 L Monocytes % (Manual) Nucleated RBC % Seg Neutrophils # Seg Neutrophils # Man Lymphocytes # (Manual) 0.2 L POC ABG pH VBG pH Sodium Potassium Chloride Carbon Dioxide BUN 24 H Creatinine Glucose Calcium 7.7 L Magnesium Total Creatine Kinase C-Reactive Protein Total Protein Albumin Urine WBC (Auto) 10.0 H Urine Creatinine Salicylates 11/24/17 11/25/17 11/25/17 17:37 07:13 07:13 RBC Plt Count 98 L Lymph % (Auto) [place] % (Auto) Lymph # [place] # Seg Neutrophils % Seg Neuts % (Manual) Lymphocytes % (Manual) 3.0 L Monocytes % (Manual) Nucleated RBC % 1.0 H Seg Neutrophils # Seg Neutrophils # Man Lymphocytes # (Manual) 0.3 L POC ABG pH VBG pH Sodium Potassium Chloride 94.3 L Carbon Dioxide BUN 34 H Creatinine 1.7 H D Glucose 118 H Calcium 7.5 L Magnesium 1.40 L 1.50 L Total Creatine Kinase C-Reactive Protein Total Protein Albumin Urine WBC (Auto) Urine Creatinine Salicylates 11/26/17 11/26/17 04:00 04:00 RBC Plt Count Lymph % (Auto) [place] % (Auto) Lymph # [place] # Seg Neutrophils % Seg Neuts % (Manual) Lymphocytes % (Manual) Monocytes % (Manual) Nucleated RBC % Seg Neutrophils # Seg Neutrophils # Man Lymphocytes # (Manual) POC ABG pH VBG pH Sodium Potassium 3.2 L Chloride 97.0 L Carbon Dioxide BUN 32 H Creatinine Glucose Calcium 7.4 L Magnesium Total Creatine Kinase C-Reactive Protein 40.90 H Total Protein Albumin Urine WBC (Auto) Urine Creatinine Salicylates
[2017-11-26] MEDS: NACL 0.45% 1000 ML 1,000 ML IV SCH (18:23)
[2017-11-27 05:52] LABS: BUN/Creatinine Ratio 26; Blood Urea Nitrogen 18 mg/dL (7-17); Calcium 7.5 mg/dL (8.4-10.2); Hemolysis Index 9
[2017-11-27] MEDS ORDERED: SODIUM PHOSPHATE 30 MMOL in NACL 0.9% 500 ML 500 ML IV ONE (08:27)
[2017-11-27] MEDS ORDERED: MAGNESIUM SULFATE 3 GM in NACL 0.9% 100 ML IV ONE (08:27)
--- NOTE | 2017-11-27 09:30 | Ultrasound Report ---
ULTRASOUND CHEST History: Right pleural effusion. Findings: Grayscale ultrasound was utilized to evaluate for a right pleural effusion. The images demonstrate no evidence for pleural effusion on the right side. A small left pleural effusion is identified and estimated at 200 cc. Impression: Small left pleural effusion. No right pleural fluid is identified.
[2017-11-27] MEDS: ANCEF/STERILE WATER 2 GM/20 ML 2 GM/20 ML SYRINGE IV SCH ×2 (10:29→19:02)
[2017-11-27] MEDS: LOVENOX SUB-Q SCH (10:30)
[2017-11-27] MEDS: CORDARONE PO SCH ×2 (10:31→22:20)
[2017-11-27] MEDS: CARDIZEM CD PO SCH (10:32)
[2017-11-27] MEDS: PEPCID PO SCH (10:33)
--- NOTE | 2017-11-27 12:08 | Progress Note ---
Assessment and Plan Paroxysmal atrial flutter, new onset reverted to sinus rhythm on oral amiodarone for suppression normal TSH Suicide attempt by drug overdose Depression Acute renal failure UTI Recommendations: Continue Cardizem and amiodarone for suppression of paroxysmal atrial fibrillation - amiodarone can be stopped at time of hospital discharge. Due to her depression, she appears to have poor understanding of her medical and cardiac status, and will be unreliable for long-term compliance with anticoagulation therapy. Subjective Date of service: 11/27/17 Principal diagnosis: Drug Overdose / Suicide Attempt; ASHLEIGH; Hyperkalemia Interval history: No cardiac complaints Objective Vital Signs Temp Pulse Resp BP Pulse Ox 11/27/17 10:32 144/86 11/27/17 04:17 98.0 F 74 19 115/66 97 11/27/17 00:01 98.3 F 73 21 119/70 99 11/26/17 22:00 69 11/26/17 20:06 75 134/67 97 11/26/17 19:51 98.4 F 75 19 112/52 99 11/26/17 15:34 98.0 F 74 20 107/64 94 - Physical Examination General: No Apparent Distress HEENT: Positive: PERRL Neck: Positive: trachea midline Cardiac: Positive: Reg Rate and Rhythm Lungs: Positive: clear to auscultation Abdomen: Positive: Soft, Active Bowel Sounds Skin: Positive: Clear Extremities: Absent: edema - Labs and Meds Comprehensive Metabolic Panel 11/27/17 Range/Units 04:50 Sodium 137 (137-145) mmol/L Potassium 3.7 (3.6-5.0) mmol/L Chloride 98.8 (98-107) mmol/L Carbon Dioxide 23 (22-30) mmol/L BUN 18 H (7-17) mg/dL Creatinine 0.7 (0.7-1.2) mg/dL Glucose 63 L (65-100) mg/dL Calcium 7.5 L (8.4-10.2) mg/dL - Imaging and Cardiology EKG: report reviewed
--- NOTE | 2017-11-27 13:24 | Progress Note ---
Assessment and Plan SNRI Drug overdose (Effexor). Hypotension Acute renal failure Hyperkalemia Depression Suicide attempt by drug ingestion - psych evaluation ongoing - continue volume resuscitation for ASHLEIGH - hypotension resolved - hyperkalemia resolved - GI & VTE prophylaxis ...re-evaluate in am & prn Subjective Date of service: 11/27/17 Principal diagnosis: Drug Overdose / Suicide Attempt; ASHLEIGH; Hyperkalemia Interval history: Patient seen today for: Drug Overdose / Suicide Attempt; ASHLEIGH; Hyperkalemia Seen and examined at bedside; 24 hour events reviewed; nursing and respiratory care staff consulted; no adverse overnight events reported to me; resting peacefully in bed Objective Vital Signs - 12hr 11/27/17 11/27/17 04:17 10:32 Temperature 98.0 F Pulse Rate 74 Respiratory 19 Rate Blood Pressure 115/66 144/86 O2 Sat by Pulse 97 Oximetry Constitutional: no acute distress, asleep Eyes: non-icteric ENT: oropharynx dry Neck: supple, no lymphadenopathy, no JVD Effort: normal Ascultation: Right: diminished breath sounds (Slightly diminished breath sounds right base.), Bilateral: clear Percussion: Bilateral: not dull Cardiovascular: regular rate and rhythm Gastrointestinal: normoactive bowel sounds, soft, non-tender Integumentary: normal Extremities: no cyanosis, no edema, pink and warm, pulses normal, no ischemia or petechiae Neurologic: non-focal exam, pupils equal and round Psychiatric: depressed CBC and BMP: 11/25/17 07:13 11/27/17 04:50 ABG, PT/INR, D-dimer: ABG POC ABG pH 7.330 (7.35-7.45) L 11/19/17 18:09 POC ABG pCO2 37.7 (35-45) 11/19/17 18:09 POC ABG pO2 88 (80-105) 11/19/17 18:09 POC ABG HCO3 19.9 11/19/17 18:09 POC ABG Total CO2 21 11/19/17 18:09 POC ABG O2 Sat 96 11/19/17 18:09 Abnormal lab findings: Abnormal Labs 11/19/17 11/19/17 11/19/17 15:15 15:15 17:02 RBC Plt Count Lymph % (Auto) 4.0 L Armstrong % (Auto) 7.8 H Lymph # 0.4 L Armstrong # Seg Neutrophils % 88.0 H Seg Neuts % (Manual) Lymphocytes % (Manual) Monocytes % (Manual) Nucleated RBC % Seg Neutrophils # 8.7 H Seg Neutrophils # Man Lymphocytes # (Manual) POC ABG pH VBG pH Sodium Potassium 5.4 H Chloride Carbon Dioxide BUN 62 H Creatinine 4.4 H Glucose Calcium 7.8 L Phosphorus Magnesium Total Creatine Kinase C-Reactive Protein Total Protein 6.2 L Albumin 3.1 L Urine WBC (Auto) Urine Creatinine Salicylates < 0.3 L 11/19/17 11/19/17 11/19/17 18:09 19:55 23:31 RBC Plt Count Lymph % (Auto) [place] % (Auto) Lymph # Armstrong # Seg Neutrophils % Seg Neuts % (Manual) Lymphocytes % (Manual) Monocytes % (Manual) Nucleated RBC % Seg Neutrophils # Seg Neutrophils # Man Lymphocytes # (Manual) POC ABG pH 7.330 L VBG pH 7.286 L Sodium Potassium Chloride Carbon Dioxide BUN 61 H Creatinine 3.6 H Glucose 231 H Calcium 7.2 L Phosphorus Magnesium Total Creatine Kinase C-Reactive Protein Total Protein Albumin Urine WBC (Auto) Urine Creatinine Salicylates 11/20/17 11/20/17 11/21/17 04:33 04:33 05:34 RBC 3.49 L Plt Count Lymph % (Auto) 4.5 L [place] % (Auto) 9.2 H Lymph # 0.5 L Armstrong # 1.0 H Seg Neutrophils % 86.3 H Seg Neuts % (Manual) 19.0 L Lymphocytes % (Manual) 5.0 L Monocytes % (Manual) 9.0 H Nucleated RBC % Seg Neutrophils # 9.2 H Seg Neutrophils # Man 1.0 L Lymphocytes # (Manual) 0.3 L POC ABG pH VBG pH Sodium Potassium Chloride Carbon Dioxide 21 L BUN 59 H Creatinine 3.1 H Glucose 247 H Calcium 7.3 L Phosphorus Magnesium Total Creatine Kinase C-Reactive Protein Total Protein 5.5 L Albumin 3.0 L Urine WBC (Auto) Urine Creatinine Salicylates 11/21/17 11/21/17 11/22/17 05:34 Unknown Unknown RBC Plt Count Lymph % (Auto) [place] % (Auto) Lymph # Armstrong # Seg Neutrophils % Seg Neuts % (Manual) Lymphocytes % (Manual) 10.0 L Monocytes % (Manual) Nucleated RBC % Seg Neutrophils # Seg Neutrophils # Man Lymphocytes # (Manual) 0.5 L POC ABG pH VBG pH Sodium Potassium Chloride Carbon Dioxide BUN 40 H Creatinine 1.4 H D Glucose Calcium 8.0 L Phosphorus Magnesium 2.40 H Total Creatine Kinase 794 H C-Reactive Protein Total Protein Albumin Urine WBC (Auto) Urine Creatinine 103.7 H Salicylates 11/22/17 11/23/17 11/23/17 Unknown 07:05 07:05 RBC Plt Count 134 L Lymph % (Auto) [place] % (Auto) Lymph # Armstrong # Seg Neutrophils % Seg Neuts % (Manual) 74.0 H Lymphocytes % (Manual) 13.0 L Monocytes % (Manual) Nucleated RBC % Seg Neutrophils # Seg Neutrophils # Man Lymphocytes # (Manual) 0.7 L POC ABG pH VBG pH Sodium 146 H Potassium Chloride Carbon Dioxide BUN 41 H 33 H Creatinine Glucose Calcium 7.6 L Phosphorus Magnesium Total Creatine Kinase C-Reactive Protein Total Protein 6.2 L Albumin 2.9 L Urine WBC (Auto) Urine Creatinine Salicylates 11/24/17 11/24/17 11/24/17 05:38 05:38 14:43 RBC Plt Count 120 L Lymph % (Auto) [place] % (Auto) Lymph # Armstrong # Seg Neutrophils % Seg Neuts % (Manual) 72.0 H Lymphocytes % (Manual) 4.0 L Monocytes % (Manual) Nucleated RBC % Seg Neutrophils # Seg Neutrophils # Man Lymphocytes # (Manual) 0.2 L POC ABG pH VBG pH Sodium Potassium Chloride Carbon Dioxide BUN 24 H Creatinine Glucose Calcium 7.7 L Phosphorus Magnesium Total Creatine Kinase C-Reactive Protein Total Protein Albumin Urine WBC (Auto) 10.0 H Urine Creatinine Salicylates 11/24/17 11/25/17 11/25/17 17:37 07:13 07:13 RBC Plt Count 98 L Lymph % (Auto) [place] % (Auto) Lymph # Armstrong # Seg Neutrophils % Seg Neuts % (Manual) Lymphocytes % (Manual) 3.0 L Monocytes % (Manual) Nucleated RBC % 1.0 H Seg Neutrophils # Seg Neutrophils # Man Lymphocytes # (Manual) 0.3 L POC ABG pH VBG pH Sodium Potassium Chloride 94.3 L Carbon Dioxide BUN 34 H Creatinine 1.7 H D Glucose 118 H Calcium 7.5 L Phosphorus Magnesium 1.40 L 1.50 L Total Creatine Kinase C-Reactive Protein Total Protein Albumin Urine WBC (Auto) Urine Creatinine Salicylates 11/26/17 11/26/17 11/27/17 04:00 04:00 04:50 RBC Plt Count Lymph % (Auto) [place] % (Auto) Lymph # Armstrong # Seg Neutrophils % Seg Neuts % (Manual) Lymphocytes % (Manual) Monocytes % (Manual) Nucleated RBC % Seg Neutrophils # Seg Neutrophils # Man Lymphocytes # (Manual) POC ABG pH VBG pH Sodium Potassium 3.2 L Chloride 97.0 L Carbon Dioxide BUN 32 H 18 H Creatinine Glucose 63 L Calcium 7.4 L 7.5 L Phosphorus 2.00 L D Magnesium 1.40 L Total Creatine Kinase C-Reactive Protein 40.90 H Total Protein Albumin Urine WBC (Auto) Urine Creatinine Salicylates
--- NOTE | 2017-11-27 13:37 | Progress Note ---
Assessment and Plan ASHLEIGH - Resolved Prerenal Azotemia Lytes - Stable Vitals - Stable A fib - Mx per Cardiology Will sign off at this time. Thanks Subjective Date of service: 11/27/17 Principal diagnosis: Drug Overdose / Suicide Attempt; ASHLEIGH; Hyperkalemia Objective - Vital Signs Vital signs: Vital Signs - 12hr 11/27/17 11/27/17 04:17 10:32 Temperature 98.0 F Pulse Rate 74 Respiratory 19 Rate Blood Pressure 115/66 144/86 O2 Sat by Pulse 97 Oximetry - General Appearance General appearance: other (Awake & alert) Neck: no JVD Respiratory: Present: Clear to Ascultation Cardiology: regular, S1S2 Gastrointestinal: normal - Lab 11/25/17 07:13 11/27/17 04:50 Most recent lab results Calcium 7.5 mg/dL (8.4-10.2) L 11/27/17 04:50 Phosphorus 2.00 mg/dL (2.5-4.5) L D 11/27/17 04:50 Magnesium 1.40 mg/dL (1.7-2.3) L 11/27/17 04:50 Urine Creatinine 103.7 mg/dL (0.1-20.0) H 11/21/17 Unknown Urine Sodium 92 mmol/L 11/21/17 Unknown
--- NOTE | 2017-11-27 14:58 | Progress Note ---
Assessment and Plan Assessment and plan: Drug overdose. Patient took an unknown quantity of Effexor. She is on suicidal watch, 1:1 sitter. Hypotension. Resolved. Etiology secondary to medication/overdose. Acute kidney injury, Resolved. Etiology secondary to ATN from hypotension. Continue IV fluid hydration. Nephrology following. Rapid afib. New onset afib. Started on Amiodarione, Cardizem. Cardiology following Hyperkalemia. Resolved. Follow-up BMP. Hypophosphatemia. Replace IV and recheck tomorrow morning. Hypomagnesemia. Replace IV and recheck Fever. Blood cultures drawn. Continue Zosyn, Ceftriaxone and Vancomycin. ID following. Sepsis. Blood cultures positive for Staph aureus Depression. Psych following. Suicide attempt by drug ingestion. Continue 1013. Psych following. DVT prophylaxis. Continue Lovenox. History Interval history: suicidal, no chest pain rapid afib few days ago now converted to NSR no more fever x 2 days Hospitalist Physical - Physical exam Narrative exam: GEN APPEARANCE : Not in acute distress, HEENT: Normocephalic, Atraumatic NECK : supple, no JVD LUNGS: Clear to auscultation bilaterally, no rales, no wheeze HEART: S1 and S2 regular, no murmurs, rubs or gallop, ABD: Soft, non tender, non distended, normal bowel sounds EXT:No edema, no clubbing, no cyanosis NEURO: Awake, alert, no focal signs Psych:depressed,suicidal - Constitutional Vitals: Temp Pulse Resp BP Pulse Ox 98.0 F 74 19 144/86 97 11/27/17 04:17 11/27/17 04:17 11/27/17 04:17 11/27/17 10:32 11/27/17 04:17 General appearance: Present: no acute distress Results - Labs CBC & Chem 7: 11/25/17 07:13 11/27/17 04:50 Labs: Laboratory Last Values WBC 9.0 K/mm3 (4.5-11.0) 11/25/17 07:13 RBC 4.23 M/mm3 (3.65-5.03) 11/25/17 07:13 Hgb 12.3 gm/dl (10.1-14.3) 11/25/17 07:13 Hct 37.2 % (30.3-42.9) 11/25/17 07:13 MCV 88 fl (79-97) 11/25/17 07:13 MCH 29 pg (28-32) 11/25/17 07:13 MCHC 33 % (30-34) 11/25/17 07:13 RDW 14.9 % (13.2-15.2) 11/25/17 07:13 Plt Count 98 K/mm3 (140-440) L 11/25/17 07:13 Lymph % (Auto) 4.5 % (13.4-35.0) L 11/20/17 04:33 [place] % (Auto) Orthotics Prosthetics Technician 11/21/17 05:34 Eos % (Auto) 0.0 % (0.0-4.3) 11/20/17 04:33 Baso % (Auto) 0.0 % (0.0-1.8) 11/20/17 04:33 Lymph # 0.5 K/mm3 (1.2-5.4) L 11/20/17 04:33 [place] # 1.0 K/mm3 (0.0-0.8) H 11/20/17 04:33 Eos # 0.0 K/mm3 (0.0-0.4) 11/20/17 04:33 Baso # 0.0 K/mm3 (0.0-0.1) 11/20/17 04:33 Add Manual Diff Complete 11/24/17 05:38 Total Counted 100 11/25/17 07:13 Seg Neutrophils % 86.3 % (40.0-70.0) H 11/20/17 04:33 Seg Neuts % (Manual) 65 % (40.0-70.0) 11/25/17 07:13 Band Neutrophils % 25 % 11/25/17 07:13 Lymphocytes % (Manual) 3.0 % (13.4-35.0) L 11/25/17 07:13 Reactive Lymphs % (Man) 0 % 11/25/17 07:13 Monocytes % (Manual) 6.0 % (0.0-7.3) 11/25/17 07:13 Eosinophils % (Manual) 0 % (0.0-4.3) 11/25/17 07:13 Basophils % (Manual) 0 % (0.0-1.8) 11/25/17 07:13 Metamyelocytes % 1.0 % 11/25/17 07:13 Myelocytes % 0 % 11/25/17 07:13 Promyelocytes % 0 % 11/25/17 07:13 Blast Cells % 0 % 11/25/17 07:13 Nucleated RBC % 1.0 % (0.0-0.9) H 11/25/17 07:13 Seg Neutrophils # 9.2 K/mm3 (1.8-7.7) H 11/20/17 04:33 Seg Neutrophils # Man 5.8 K/mm3 (1.8-7.7) 11/25/17 07:13 Band Neutrophils # 2.2 K/mm3 11/25/17 07:13 Lymphocytes # (Manual) 0.3 K/mm3 (1.2-5.4) L 11/25/17 07:13 Abs React Lymphs (Man) 0.0 K/mm3 11/25/17 07:13 Monocytes # (Manual) 0.5 K/mm3 (0.0-0.8) 11/25/17 07:13 Eosinophils # (Manual) 0.0 K/mm3 (0.0-0.4) 11/25/17 07:13 Basophils # (Manual) 0.0 K/mm3 (0.0-0.1) 11/25/17 07:13 Metamyelocytes # 0.1 K/mm3 11/25/17 07:13 Myelocytes # 0.0 K/mm3 11/25/17 07:13 Promyelocytes # 0.0 K/mm3 11/25/17 07:13 Blast Cells # 0.0 K/mm3 11/25/17 07:13 WBC Morphology Not Reportable 11/25/17 07:13 Hypersegmented Neuts Not Reportable 11/25/17 07:13 Hyposegmented Neuts Not Reportable 11/25/17 07:13 Hypogranular Neuts Not Reportable 11/25/17 07:13 Smudge Cells Not Reportable 11/25/17 07:13 Toxic Granulation Not Reportable 11/25/17 07:13 Toxic Vacuolation Not Reportable 11/25/17 07:13 Dohle Bodies Not Reportable 11/25/17 07:13 Pelger-Huet Anomaly Not Reportable 11/25/17 07:13 [place] Rods Not Reportable 11/25/17 07:13 Platelet Estimate Consistent w auto 11/25/17 07:13 Clumped Platelets Not Reportable 11/25/17 07:13 Plt Clumps, EDTA Not Reportable 11/25/17 07:13 Large Platelets Few 11/25/17 07:13 Giant Platelets Rare 11/25/17 07:13 Platelet Satelliting Not Reportable 11/25/17 07:13 Plt Morphology Comment Not Reportable 11/25/17 07:13 RBC Morphology Not Reportable 11/25/17 07:13 Dimorphic RBCs Not Reportable 11/25/17 07:13 Polychromasia Few 11/25/17 07:13 Hypochromasia Not Reportable 11/25/17 07:13 Poikilocytosis Not Reportable 11/25/17 07:13 Basophilic Stippling Rare 11/25/17 07:13 Anisocytosis 1+ 11/25/17 07:13 Microcytosis Not Reportable 11/25/17 07:13 Macrocytosis Not Reportable 11/25/17 07:13 Spherocytes Not Reportable 11/25/17 07:13 Pappenheimer Bodies Not Reportable 11/25/17 07:13 Sickle Cells Not Reportable 11/25/17 07:13 Target Cells Not Reportable 11/25/17 07:13 Tear Drop Cells Not Reportable 11/25/17 07:13 Ovalocytes Not Reportable 11/25/17 07:13 Stomatocytes Few 11/22/17 Unknown Helmet Cells Not Reportable 11/25/17 07:13 [place] Bodies Not Reportable 11/25/17 07:13 [place] Rings Not Reportable 11/25/17 07:13 Elieser Cells Not Reportable 11/25/17 07:13 Bite Cells Not Reportable 11/25/17 07:13 Crenated Cell Not Reportable 11/25/17 07:13 Elliptocytes Not Reportable 11/25/17 07:13 Acanthocytes (Spur) Not Reportable 11/25/17 07:13 Rouleaux Not Reportable 11/25/17 07:13 Hemoglobin C Crystals Not Reportable 11/25/17 07:13 Schistocytes Not Reportable 11/25/17 07:13 Malaria parasites Not Reportable 11/25/17 07:13 Bhupendra Bodies Not Reportable 11/25/17 07:13 Hem Pathologist Commnt Not Reportable 11/25/17 07:13 POC ABG pH 7.330 (7.35-7.45) L 11/19/17 18:09 POC ABG pCO2 37.7 (35-45) 11/19/17 18:09 POC ABG pO2 88 (80-105) 11/19/17 18:09 POC ABG HCO3 19.9 11/19/17 18:09 POC ABG Total CO2 21 11/19/17 18:09 POC ABG O2 Sat 96 11/19/17 18:09 POC ABG Base Excess -6 11/19/17 18:09 VBG pH 7.329 (7.320-7.420) 11/19/17 23:31 FiO2 3.5 % 11/19/17 18:09 Sodium 137 mmol/L (137-145) 11/27/17 04:50 Potassium 3.7 mmol/L (3.6-5.0) 11/27/17 04:50 Chloride 98.8 mmol/L (98-107) 11/27/17 04:50 Carbon Dioxide 23 mmol/L (22-30) 11/27/17 04:50 Anion Gap 19 mmol/L 11/27/17 04:50 BUN 18 mg/dL (7-17) H 11/27/17 04:50 Creatinine 0.7 mg/dL (0.7-1.2) 11/27/17 04:50 Estimated GFR > 60 ml/min 11/27/17 04:50 BUN/Creatinine Ratio 26 % 11/27/17 04:50 Glucose 63 mg/dL (65-100) L 11/27/17 04:50 POC Glucose 89 (70-105) 11/21/17 17:15 Osmolality 309 Mosm/kg 11/21/17 05:34 Lactic Acid 1.40 mmol/L (0.7-2.0) 11/25/17 09:37 Calcium 7.5 mg/dL (8.4-10.2) L 11/27/17 04:50 Phosphorus 2.00 mg/dL (2.5-4.5) L D 11/27/17 04:50 Magnesium 1.40 mg/dL (1.7-2.3) L 11/27/17 04:50 Total Bilirubin 0.40 mg/dL (0.1-1.2) 11/22/17 Unknown AST 30 units/L (5-40) 11/22/17 Unknown ALT 18 units/L (7-56) 11/22/17 Unknown Alkaline Phosphatase 110 units/L (35-129) 11/22/17 Unknown Total Creatine Kinase 48 units/L (30-135) 11/27/17 04:50 C-Reactive Protein 40.90 mg/dL (0.00-1.30) H 11/26/17 04:00 Total Protein 6.2 g/dL (6.3-8.2) L 11/22/17 Unknown Albumin 2.9 g/dL (3.9-5) L 11/22/17 Unknown Albumin/Globulin Ratio 0.9 % 11/22/17 Unknown TSH 1.290 mlU/mL (0.270-4.200) 11/24/17 17:37 Urine Color Yellow (Yellow) 11/24/17 14:43 Urine Turbidity Clear (Clear) 11/24/17 14:43 Urine pH 5.0 (5.0-7.0) 11/24/17 14:43 Ur Specific [place] 1.028 (1.003-1.030) 11/24/17 14:43 Urine Protein 100 mg/dl mg/dL (Negative) 11/24/17 14:43 Urine Glucose (UA) Neg mg/dL (Negative) 11/24/17 14:43 Urine Ketones 80 mg/dL (Negative) 11/24/17 14:43 Urine Blood Neg (Negative) 11/24/17 14:43 Urine Nitrite Pos (Negative) 11/24/17 14:43 Urine Bilirubin Sm (Negative) 11/24/17 14:43 Urine Ictotest Negative (Negative) 11/24/17 14:43 Urine Urobilinogen 2.0 mg/dL (<2.0) 11/24/17 14:43 Ur Leukocyte Esterase Tr (Negative) 11/24/17 14:43 Urine WBC (Auto) 10.0 /HPF (0.0-6.0) H 11/24/17 14:43 Urine RBC (Auto) 7.0 /HPF (0.0-6.0) 11/24/17 14:43 U Epithel Cells (Auto) 1.0 /HPF (0-13.0) 11/24/17 14:43 Urine Bacteria (Auto) 4+ /HPF (Negative) 11/24/17 14:43 Hyaline Casts 9 /LPF 11/19/17 16:45 Urine Mucus 3+ /HPF 11/24/17 14:43 Urine Creatinine 103.7 mg/dL (0.1-20.0) H 11/21/17 Unknown Urine Sodium 92 mmol/L 11/21/17 Unknown Salicylates < 0.3 mg/dL (2.8-20.0) L 11/19/17 15:15 Urine Opiates Screen Presumptive negative 11/19/17 16:45 Urine Methadone Screen Presumptive negative 11/19/17 16:45 Acetaminophen < 15.0 ug/mL (10.0-30.0) 11/19/17 15:15 Ur Barbiturates Screen Presumptive negative 11/19/17 16:45 Ur Phencyclidine Scrn Presumptive positive 11/19/17 16:45 Ur Amphetamines Screen Presumptive negative 11/19/17 16:45 U Benzodiazepines Scrn Presumptive negative 11/19/17 16:45 [place] 0.1 mmol/L (0.0-1.2) 11/19/17 15:15 Urine Cocaine Screen Presumptive negative 11/19/17 16:45 U Marijuana (THC) Screen Presumptive negative 11/19/17 16:45 Drugs of Abuse Note Disclamer 11/19/17 16:45 Plasma/Serum Alcohol < 0.01 gm% (0-0.07) 11/19/17 15:15
[2017-11-28] MEDS: XANAX PO PRN (00:55)
[2017-11-28] MEDS: ANCEF/STERILE WATER 2 GM/20 ML 2 GM/20 ML SYRINGE IV SCH ×3 (00:55→17:00)
[2017-11-28] MEDS: NACL 0.45% 1000 ML 1,000 ML IV SCH ×2 (01:08→14:37)
[2017-11-28 08:59] LABS: BUN/Creatinine Ratio 15; Blood Urea Nitrogen 9 mg/dL (7-17); Calcium 7.5 mg/dL (8.4-10.2); Hemolysis Index 40
[2017-11-28] MEDS ORDERED: MAGNESIUM SULFATE 4GM/100ML 4 GM/100 ML BAG IV ONE (09:22)
[2017-11-28] MEDS: PEPCID PO SCH (10:00)
[2017-11-28] MEDS: LOVENOX SUB-Q SCH (10:00)
[2017-11-28] MEDS ORDERED: K-DUR PO SCH (10:00)
[2017-11-28] MEDS: CORDARONE PO SCH ×2 (10:00→21:28)
[2017-11-28] MEDS: CARDIZEM CD PO SCH (10:00)
[2017-11-28] MEDS: VANCOMYCIN/NS 1 GM/250 ML 1 GM/250 ML BAG IV SCH (13:00)
--- NOTE | 2017-11-28 13:28 | Progress Note ---
Assessment and Plan Assessment and plan: Drug overdose. Patient took an unknown quantity of Effexor. She is on suicidal watch, 1:1 sitter. Hypotension. Resolved. Etiology secondary to medication/overdose. Acute kidney injury, Resolved. Etiology secondary to ATN from hypotension. Continue IV fluid hydration. Nephrology following. Rapid afib. New onset afib. Now converted to NSR. Cont Amiodarione, Cardizem. Cardiology following Hyperkalemia. Resolved. Follow-up BMP. Hypophosphatemia. Resolved after replacement. Hypomagnesemia. Replace IV and recheck Fever due to sepsis. No more fever x 4 days. Continue Zosyn, Ceftriaxone and Vancomycin. ID following. Sepsis. Blood cultures positive for Staph aureus. On Cefazolin and Vancomycin Depression. Psych following. Suicide attempt by drug ingestion. Continue 1013. Psych following. DVT prophylaxis. Continue Lovenox. History Interval history: suicidal, no chest pain rapid afib few days ago now converted to NSR no more fever for several days Hospitalist Physical - Physical exam Narrative exam: GEN APPEARANCE : Not in acute distress, HEENT: Normocephalic, Atraumatic NECK : supple, no JVD LUNGS: Clear to auscultation bilaterally, no rales, no wheeze HEART: S1 and S2 regular, no murmurs, rubs or gallop, ABD: Soft, non tender, non distended, normal bowel sounds EXT:No edema, no clubbing, no cyanosis NEURO: Awake, alert, no focal signs Psych:depressed,suicidal - Constitutional Vitals: Temp Pulse Resp BP Pulse Ox 98.4 F 74 18 138/84 100 11/28/17 08:43 11/28/17 10:00 11/28/17 08:43 11/28/17 10:00 11/28/17 08:43 General appearance: Present: no acute distress Results - Labs CBC & Chem 7: 11/25/17 07:13 11/28/17 08:08 Labs: Laboratory Last Values WBC 9.0 K/mm3 (4.5-11.0) 11/25/17 07:13 RBC 4.23 M/mm3 (3.65-5.03) 11/25/17 07:13 Hgb 12.3 gm/dl (10.1-14.3) 11/25/17 07:13 Hct 37.2 % (30.3-42.9) 11/25/17 07:13 MCV 88 fl (79-97) 11/25/17 07:13 MCH 29 pg (28-32) 11/25/17 07:13 MCHC 33 % (30-34) 11/25/17 07:13 RDW 14.9 % (13.2-15.2) 11/25/17 07:13 Plt Count 98 K/mm3 (140-440) L 11/25/17 07:13 Lymph % (Auto) 4.5 % (13.4-35.0) L 11/20/17 04:33 [place] % (Auto) [employer] Examiner 11/21/17 05:34 Eos % (Auto) 0.0 % (0.0-4.3) 11/20/17 04:33 Baso % (Auto) 0.0 % (0.0-1.8) 11/20/17 04:33 Lymph # 0.5 K/mm3 (1.2-5.4) L 11/20/17 04:33 [place] # 1.0 K/mm3 (0.0-0.8) H 11/20/17 04:33 Eos # 0.0 K/mm3 (0.0-0.4) 11/20/17 04:33 Baso # 0.0 K/mm3 (0.0-0.1) 11/20/17 04:33 Add Manual Diff Complete 11/24/17 05:38 Total Counted 100 11/25/17 07:13 Seg Neutrophils % 86.3 % (40.0-70.0) H 11/20/17 04:33 Seg Neuts % (Manual) 65 % (40.0-70.0) 11/25/17 07:13 Band Neutrophils % 25 % 11/25/17 07:13 Lymphocytes % (Manual) 3.0 % (13.4-35.0) L 11/25/17 07:13 Reactive Lymphs % (Man) 0 % 11/25/17 07:13 Monocytes % (Manual) 6.0 % (0.0-7.3) 11/25/17 07:13 Eosinophils % (Manual) 0 % (0.0-4.3) 11/25/17 07:13 Basophils % (Manual) 0 % (0.0-1.8) 11/25/17 07:13 Metamyelocytes % 1.0 % 11/25/17 07:13 Myelocytes % 0 % 11/25/17 07:13 Promyelocytes % 0 % 11/25/17 07:13 Blast Cells % 0 % 11/25/17 07:13 Nucleated RBC % 1.0 % (0.0-0.9) H 11/25/17 07:13 Seg Neutrophils # 9.2 K/mm3 (1.8-7.7) H 11/20/17 04:33 Seg Neutrophils # Man 5.8 K/mm3 (1.8-7.7) 11/25/17 07:13 Band Neutrophils # 2.2 K/mm3 11/25/17 07:13 Lymphocytes # (Manual) 0.3 K/mm3 (1.2-5.4) L 11/25/17 07:13 Abs React Lymphs (Man) 0.0 K/mm3 11/25/17 07:13 Monocytes # (Manual) 0.5 K/mm3 (0.0-0.8) 11/25/17 07:13 Eosinophils # (Manual) 0.0 K/mm3 (0.0-0.4) 11/25/17 07:13 Basophils # (Manual) 0.0 K/mm3 (0.0-0.1) 11/25/17 07:13 Metamyelocytes # 0.1 K/mm3 11/25/17 07:13 Myelocytes # 0.0 K/mm3 11/25/17 07:13 Promyelocytes # 0.0 K/mm3 11/25/17 07:13 Blast Cells # 0.0 K/mm3 11/25/17 07:13 WBC Morphology Not Reportable 11/25/17 07:13 Hypersegmented Neuts Not Reportable 11/25/17 07:13 Hyposegmented Neuts Not Reportable 11/25/17 07:13 Hypogranular Neuts Not Reportable 11/25/17 07:13 Smudge Cells Not Reportable 11/25/17 07:13 Toxic Granulation Not Reportable 11/25/17 07:13 Toxic Vacuolation Not Reportable 11/25/17 07:13 Dohle Bodies Not Reportable 11/25/17 07:13 Pelger-Huet Anomaly Not Reportable 11/25/17 07:13 Quinton Rods Not Reportable 11/25/17 07:13 Platelet Estimate Consistent w auto 11/25/17 07:13 Clumped Platelets Not Reportable 11/25/17 07:13 Plt Clumps, EDTA Not Reportable 11/25/17 07:13 Large Platelets Few 11/25/17 07:13 Giant Platelets Rare 11/25/17 07:13 Platelet Satelliting Not Reportable 11/25/17 07:13 Plt Morphology Comment Not Reportable 11/25/17 07:13 RBC Morphology Not Reportable 11/25/17 07:13 Dimorphic RBCs Not Reportable 11/25/17 07:13 Polychromasia Few 11/25/17 07:13 Hypochromasia Not Reportable 11/25/17 07:13 Poikilocytosis Not Reportable 11/25/17 07:13 Basophilic Stippling Rare 11/25/17 07:13 Anisocytosis 1+ 11/25/17 07:13 Microcytosis Not Reportable 11/25/17 07:13 Macrocytosis Not Reportable 11/25/17 07:13 Spherocytes Not Reportable 11/25/17 07:13 Pappenheimer Bodies Not Reportable 11/25/17 07:13 Sickle Cells Not Reportable 11/25/17 07:13 Target Cells Not Reportable 11/25/17 07:13 Tear Drop Cells Not Reportable 11/25/17 07:13 Ovalocytes Not Reportable 11/25/17 07:13 Stomatocytes Few 11/22/17 Unknown Helmet Cells Not Reportable 11/25/17 07:13 Marquez-Lotsee Bodies Not Reportable 11/25/17 07:13 Miranda Rings Not Reportable 11/25/17 07:13 Elieser Cells Not Reportable 11/25/17 07:13 Bite Cells Not Reportable 11/25/17 07:13 Crenated Cell Not Reportable 11/25/17 07:13 Elliptocytes Not Reportable 11/25/17 07:13 Acanthocytes (Spur) Not Reportable 11/25/17 07:13 Rouleaux Not Reportable 11/25/17 07:13 Hemoglobin C Crystals Not Reportable 11/25/17 07:13 Schistocytes Not Reportable 11/25/17 07:13 Malaria parasites Not Reportable 11/25/17 07:13 Bhupendra Bodies Not Reportable 11/25/17 07:13 Hem Pathologist Commnt Not Reportable 11/25/17 07:13 POC ABG pH 7.330 (7.35-7.45) L 11/19/17 18:09 POC ABG pCO2 37.7 (35-45) 11/19/17 18:09 POC ABG pO2 88 (80-105) 11/19/17 18:09 POC ABG HCO3 19.9 11/19/17 18:09 POC ABG Total CO2 21 11/19/17 18:09 POC ABG O2 Sat 96 11/19/17 18:09 POC ABG Base Excess -6 11/19/17 18:09 VBG pH 7.329 (7.320-7.420) 11/19/17 23:31 FiO2 3.5 % 11/19/17 18:09 Sodium 140 mmol/L (137-145) 11/28/17 08:08 Potassium 3.5 mmol/L (3.6-5.0) L 11/28/17 08:08 Chloride 102.0 mmol/L (98-107) 11/28/17 08:08 Carbon Dioxide 23 mmol/L (22-30) 11/28/17 08:08 Anion Gap 19 mmol/L 11/28/17 08:08 BUN 9 mg/dL (7-17) 11/28/17 08:08 Creatinine 0.6 mg/dL (0.7-1.2) L 11/28/17 08:08 Estimated GFR > 60 ml/min 11/28/17 08:08 BUN/Creatinine Ratio 15 % 11/28/17 08:08 Glucose 105 mg/dL (65-100) H 11/28/17 08:08 POC Glucose 89 (70-105) 11/21/17 17:15 Osmolality 309 Mosm/kg 11/21/17 05:34 Lactic Acid 1.40 mmol/L (0.7-2.0) 11/25/17 09:37 Calcium 7.5 mg/dL (8.4-10.2) L 11/28/17 08:08 Phosphorus 2.70 mg/dL (2.5-4.5) D 11/28/17 08:08 Magnesium 1.10 mg/dL (1.7-2.3) L 11/28/17 08:08 Total Bilirubin 0.40 mg/dL (0.1-1.2) 11/22/17 Unknown AST 30 units/L (5-40) 11/22/17 Unknown ALT 18 units/L (7-56) 11/22/17 Unknown Alkaline Phosphatase 110 units/L (35-129) 11/22/17 Unknown Total Creatine Kinase 48 units/L (30-135) 11/27/17 04:50 C-Reactive Protein 40.90 mg/dL (0.00-1.30) H 11/26/17 04:00 Total Protein 6.2 g/dL (6.3-8.2) L 11/22/17 Unknown Albumin 2.9 g/dL (3.9-5) L 11/22/17 Unknown Albumin/Globulin Ratio 0.9 % 11/22/17 Unknown TSH 1.290 mlU/mL (0.270-4.200) 11/24/17 17:37 Urine Color Yellow (Yellow) 11/24/17 14:43 Urine Turbidity Clear (Clear) 11/24/17 14:43 Urine pH 5.0 (5.0-7.0) 11/24/17 14:43 Ur Specific [place] 1.028 (1.003-1.030) 11/24/17 14:43 Urine Protein 100 mg/dl mg/dL (Negative) 11/24/17 14:43 Urine Glucose (UA) Neg mg/dL (Negative) 11/24/17 14:43 Urine Ketones 80 mg/dL (Negative) 11/24/17 14:43 Urine Blood Neg (Negative) 11/24/17 14:43 Urine Nitrite Pos (Negative) 11/24/17 14:43 Urine Bilirubin Sm (Negative) 11/24/17 14:43 Urine Ictotest Negative (Negative) 11/24/17 14:43 Urine Urobilinogen 2.0 mg/dL (<2.0) 11/24/17 14:43 Ur Leukocyte Esterase Tr (Negative) 11/24/17 14:43 Urine WBC (Auto) 10.0 /HPF (0.0-6.0) H 11/24/17 14:43 Urine RBC (Auto) 7.0 /HPF (0.0-6.0) 11/24/17 14:43 U Epithel Cells (Auto) 1.0 /HPF (0-13.0) 11/24/17 14:43 Urine Bacteria (Auto) 4+ /HPF (Negative) 11/24/17 14:43 Hyaline Casts 9 /LPF 11/19/17 16:45 Urine Mucus 3+ /HPF 11/24/17 14:43 Urine Creatinine 103.7 mg/dL (0.1-20.0) H 11/21/17 Unknown Urine Sodium 92 mmol/L 11/21/17 Unknown Salicylates < 0.3 mg/dL (2.8-20.0) L 11/19/17 15:15 Urine Opiates Screen Presumptive negative 11/19/17 16:45 Urine Methadone Screen Presumptive negative 11/19/17 16:45 Acetaminophen < 15.0 ug/mL (10.0-30.0) 11/19/17 15:15 Ur Barbiturates Screen Presumptive negative 11/19/17 16:45 Ur Phencyclidine Scrn Presumptive positive 11/19/17 16:45 Ur Amphetamines Screen Presumptive negative 11/19/17 16:45 U Benzodiazepines Scrn Presumptive negative 11/19/17 16:45 [place] 0.1 mmol/L (0.0-1.2) 11/19/17 15:15 Urine Cocaine Screen Presumptive negative 11/19/17 16:45 U Marijuana (THC) Screen Presumptive negative 11/19/17 16:45 Drugs of Abuse Note Disclamer 11/19/17 16:45 Plasma/Serum Alcohol < 0.01 gm% (0-0.07) 11/19/17 15:15
--- NOTE | 2017-11-28 13:45 | Progress Note ---
Assessment and Plan Paroxysmal atrial flutter, new onset reverted to sinus rhythm on oral amiodarone for suppression normal TSH Suicide attempt by drug overdose Depression Acute renal failure UTI Recommendations: Continue Cardizem and amiodarone for suppression of paroxysmal atrial fibrillation - amiodarone can be stopped at time of hospital discharge. Due to her depression, she appears to have poor understanding of her medical and cardiac status, and will be unreliable for long-term compliance with anticoagulation therapy. Subjective Date of service: 11/28/17 Principal diagnosis: Drug Overdose / Suicide Attempt; ASHLEIGH; Hyperkalemia Interval history: No cardiac complaints Objective Vital Signs Temp Pulse Pulse Resp BP Pulse Ox 11/28/17 10:00 74 138/84 11/28/17 08:43 98.4 F 74 18 138/84 100 11/28/17 05:46 97.6 F 74 22 153/87 95 11/28/17 00:32 98.1 F 74 18 154/86 100 11/27/17 23:53 77 11/27/17 22:00 74 20 99 11/27/17 20:27 97.9 F 74 20 141/78 99 - Physical Examination General: No Apparent Distress HEENT: Positive: PERRL Neck: Positive: trachea midline Cardiac: Positive: Regular Rhythm. Negative: Audible Murmur Lungs: Positive: clear to auscultation, Normal Breath Sounds Abdomen: Positive: Soft, Active Bowel Sounds Skin: Positive: Clear Extremities: Absent: edema - Labs and Meds Comprehensive Metabolic Panel 11/28/17 Range/Units 08:08 Sodium 140 (137-145) mmol/L Potassium 3.5 L (3.6-5.0) mmol/L Chloride 102.0 (98-107) mmol/L Carbon Dioxide 23 (22-30) mmol/L BUN 9 (7-17) mg/dL Creatinine 0.6 L (0.7-1.2) mg/dL Glucose 105 H (65-100) mg/dL Calcium 7.5 L (8.4-10.2) mg/dL - Imaging and Cardiology EKG: report reviewed
--- NOTE | 2017-11-28 16:37 | Progress Note ---
Assessment and Plan Sepsis SNRI Drug overdose (Effexor). Hypotension( resolved) Acute renal failure( resolved) Hyperkalemia(resolved) Depression Suicide attempt by drug ingestion -complete antibiotics per ID -ccontinue to monitor hemodynamics closely -Psychiatry following -continue all supportive care - VTE prophylaxis - Patient Problems (1) Suicide attempt by drug ingestion Current Visit: Yes Status: Acute Qualifiers: Encounter type: initial encounter Qualified Code(s): T50.902A - Poisoning by unspecified drugs, medicaments and biological substances, intentional self- harm, initial encounter (2) Hypotension Current Visit: Yes Status: Acute (3) Hyperkalemia Current Visit: Yes Status: Acute (4) Acute kidney injury Current Visit: Yes Status: Acute Subjective Date of service: 11/28/17 Principal diagnosis: Drug Overdose / Suicide Attempt; ASHLEIGH; Hyperkalemia Interval history: Patient seen today for: Drug Overdose / Suicide Attempt; ASHLEIGH; Hyperkalemia Seen and examined at bedside; 24 hour events reviewed; nursing and respiratory care staff consulted; no adverse overnight events reported to me; resting peacefully in bed; denies acute chest pains or increased SOB; sitter in room; no emesis or overt aspiration Objective Vital Signs - 12hr 11/28/17 11/28/17 11/28/17 05:46 08:43 10:00 Temperature 97.6 F 98.4 F Pulse Rate 74 74 74 Respiratory 22 18 Rate Blood Pressure 153/87 138/84 138/84 O2 Sat by Pulse 95 100 Oximetry Constitutional: no acute distress, lethargic Eyes: non-icteric ENT: oropharynx dry Neck: supple, no lymphadenopathy, no JVD Effort: normal Ascultation: Right: diminished breath sounds (Slightly diminished breath sounds right base.), Bilateral: clear Percussion: Bilateral: not dull Cardiovascular: regular rate and rhythm Gastrointestinal: normoactive bowel sounds, soft, non-tender Integumentary: normal Extremities: no cyanosis, no edema, pink and warm, pulses normal, no ischemia or petechiae Neurologic: non-focal exam, pupils equal and round Psychiatric: depressed CBC and BMP: 11/25/17 07:13 11/28/17 08:08 ABG, PT/INR, D-dimer: ABG POC ABG pH 7.330 (7.35-7.45) L 11/19/17 18:09 POC ABG pCO2 37.7 (35-45) 11/19/17 18:09 POC ABG pO2 88 (80-105) 11/19/17 18:09 POC ABG HCO3 19.9 11/19/17 18:09 POC ABG Total CO2 21 11/19/17 18:09 POC ABG O2 Sat 96 11/19/17 18:09 Abnormal lab findings: Abnormal Labs 11/19/17 11/19/17 11/19/17 15:15 15:15 17:02 RBC Plt Count Lymph % (Auto) 4.0 L [place] % (Auto) 7.8 H Lymph # 0.4 L [place] # Seg Neutrophils % 88.0 H Seg Neuts % (Manual) Lymphocytes % (Manual) Monocytes % (Manual) Nucleated RBC % Seg Neutrophils # 8.7 H Seg Neutrophils # Man Lymphocytes # (Manual) POC ABG pH VBG pH Sodium Potassium 5.4 H Chloride Carbon Dioxide BUN 62 H Creatinine 4.4 H Glucose Calcium 7.8 L Phosphorus Magnesium Total Creatine Kinase C-Reactive Protein Total Protein 6.2 L Albumin 3.1 L Urine WBC (Auto) Urine Creatinine Salicylates < 0.3 L 11/19/17 11/19/17 11/19/17 18:09 19:55 23:31 RBC Plt Count Lymph % (Auto) [place] % (Auto) Lymph # [place] # Seg Neutrophils % Seg Neuts % (Manual) Lymphocytes % (Manual) Monocytes % (Manual) Nucleated RBC % Seg Neutrophils # Seg Neutrophils # Man Lymphocytes # (Manual) POC ABG pH 7.330 L VBG pH 7.286 L Sodium Potassium Chloride Carbon Dioxide BUN 61 H Creatinine 3.6 H Glucose 231 H Calcium 7.2 L Phosphorus Magnesium Total Creatine Kinase C-Reactive Protein Total Protein Albumin Urine WBC (Auto) Urine Creatinine Salicylates 11/20/17 11/20/17 11/21/17 04:33 04:33 05:34 RBC 3.49 L Plt Count Lymph % (Auto) 4.5 L [place] % (Auto) 9.2 H Lymph # 0.5 L [place] # 1.0 H Seg Neutrophils % 86.3 H Seg Neuts % (Manual) 19.0 L Lymphocytes % (Manual) 5.0 L Monocytes % (Manual) 9.0 H Nucleated RBC % Seg Neutrophils # 9.2 H Seg Neutrophils # Man 1.0 L Lymphocytes # (Manual) 0.3 L POC ABG pH VBG pH Sodium Potassium Chloride Carbon Dioxide 21 L BUN 59 H Creatinine 3.1 H Glucose 247 H Calcium 7.3 L Phosphorus Magnesium Total Creatine Kinase C-Reactive Protein Total Protein 5.5 L Albumin 3.0 L Urine WBC (Auto) Urine Creatinine Salicylates 11/21/17 11/21/17 11/22/17 05:34 Unknown Unknown RBC Plt Count Lymph % (Auto) [place] % (Auto) Lymph # [place] # Seg Neutrophils % Seg Neuts % (Manual) Lymphocytes % (Manual) 10.0 L Monocytes % (Manual) Nucleated RBC % Seg Neutrophils # Seg Neutrophils # Man Lymphocytes # (Manual) 0.5 L POC ABG pH VBG pH Sodium Potassium Chloride Carbon Dioxide BUN 40 H Creatinine 1.4 H D Glucose Calcium 8.0 L Phosphorus Magnesium 2.40 H Total Creatine Kinase 794 H C-Reactive Protein Total Protein Albumin Urine WBC (Auto) Urine Creatinine 103.7 H Salicylates 11/22/17 11/23/17 11/23/17 Unknown 07:05 07:05 RBC Plt Count 134 L Lymph % (Auto) [place] % (Auto) Lymph # [place] # Seg Neutrophils % Seg Neuts % (Manual) 74.0 H Lymphocytes % (Manual) 13.0 L Monocytes % (Manual) Nucleated RBC % Seg Neutrophils # Seg Neutrophils # Man Lymphocytes # (Manual) 0.7 L POC ABG pH VBG pH Sodium 146 H Potassium Chloride Carbon Dioxide BUN 41 H 33 H Creatinine Glucose Calcium 7.6 L Phosphorus Magnesium Total Creatine Kinase C-Reactive Protein Total Protein 6.2 L Albumin 2.9 L Urine WBC (Auto) Urine Creatinine Salicylates 11/24/17 11/24/17 11/24/17 05:38 05:38 14:43 RBC Plt Count 120 L Lymph % (Auto) [place] % (Auto) Lymph # [place] # Seg Neutrophils % Seg Neuts % (Manual) 72.0 H Lymphocytes % (Manual) 4.0 L Monocytes % (Manual) Nucleated RBC % Seg Neutrophils # Seg Neutrophils # Man Lymphocytes # (Manual) 0.2 L POC ABG pH VBG pH Sodium Potassium Chloride Carbon Dioxide BUN 24 H Creatinine Glucose Calcium 7.7 L Phosphorus Magnesium Total Creatine Kinase C-Reactive Protein Total Protein Albumin Urine WBC (Auto) 10.0 H Urine Creatinine Salicylates 11/24/17 11/25/17 11/25/17 17:37 07:13 07:13 RBC Plt Count 98 L Lymph % (Auto) [place] % (Auto) Lymph # [place] # Seg Neutrophils % Seg Neuts % (Manual) Lymphocytes % (Manual) 3.0 L Monocytes % (Manual) Nucleated RBC % 1.0 H Seg Neutrophils # Seg Neutrophils # Man Lymphocytes # (Manual) 0.3 L POC ABG pH VBG pH Sodium Potassium Chloride 94.3 L Carbon Dioxide BUN 34 H Creatinine 1.7 H D Glucose 118 H Calcium 7.5 L Phosphorus Magnesium 1.40 L 1.50 L Total Creatine Kinase C-Reactive Protein Total Protein Albumin Urine WBC (Auto) Urine Creatinine Salicylates 11/26/17 11/26/17 11/27/17 04:00 04:00 04:50 RBC Plt Count Lymph % (Auto) [place] % (Auto) Lymph # [place] # Seg Neutrophils % Seg Neuts % (Manual) Lymphocytes % (Manual) Monocytes % (Manual) Nucleated RBC % Seg Neutrophils # Seg Neutrophils # Man Lymphocytes # (Manual) POC ABG pH VBG pH Sodium Potassium 3.2 L Chloride 97.0 L Carbon Dioxide BUN 32 H 18 H Creatinine Glucose 63 L Calcium 7.4 L 7.5 L Phosphorus 2.00 L D Magnesium 1.40 L Total Creatine Kinase C-Reactive Protein 40.90 H Total Protein Albumin Urine WBC (Auto) Urine Creatinine Salicylates 11/28/17 08:08 RBC Plt Count Lymph % (Auto) [place] % (Auto) Lymph # [place] # Seg Neutrophils % Seg Neuts % (Manual) Lymphocytes % (Manual) Monocytes % (Manual) Nucleated RBC % Seg Neutrophils # Seg Neutrophils # Man Lymphocytes # (Manual) POC ABG pH VBG pH Sodium Potassium 3.5 L Chloride Carbon Dioxide BUN Creatinine 0.6 L Glucose 105 H Calcium 7.5 L Phosphorus Magnesium 1.10 L Total Creatine Kinase C-Reactive Protein Total Protein Albumin Urine WBC (Auto) Urine Creatinine Salicylates
[2017-11-29] MEDS: ANCEF/STERILE WATER 2 GM/20 ML 2 GM/20 ML SYRINGE IV SCH ×3 (00:30→18:25)
[2017-11-29] MEDS: VANCOMYCIN/NS 1 GM/250 ML 1 GM/250 ML BAG IV SCH ×2 (00:35→21:20)
[2017-11-29 06:31] LABS: BUN/Creatinine Ratio 10; Blood Urea Nitrogen 7 mg/dL (7-17); Calcium 7.6 mg/dL (8.4-10.2); Hemolysis Index 18
--- NOTE | 2017-11-29 10:37 | Progress Note ---
Assessment and Plan Paroxysmal atrial flutter, new onset reverted to sinus rhythm on oral diltiazem, aspirin and amiodarone. normal TSH Suicide attempt by drug overdose Depression Acute renal failure UTI Echocardiogram: normal LVEF with mild to moderate AR. Recommendations: Continue Cardizem and amiodarone for suppression of paroxysmal atrial fibrillation. Amiodarone can be stopped at time of hospital discharge. Due to her depression, she appears to have poor understanding of her medical and cardiac status, and will be unreliable for long-term compliance with anticoagulation therapy. Subjective Date of service: 11/29/17 Principal diagnosis: Drug Overdose / Suicide Attempt; ASHLEIGH; Hyperkalemia Interval history: Patient denies chest pain and shortness of breath. Sinus rhythm on telemetry monitoring. Objective Vital Signs Temp Pulse Resp BP BP BP Pulse Ox 11/29/17 08:30 97.5 F L 68 18 138/80 100 11/29/17 04:30 97.6 F 67 18 142/76 142/76 100 11/29/17 04:05 73 142/76 100 11/29/17 00:30 98.9 F 79 18 149/78 99 11/28/17 23:39 78 149/78 100 11/28/17 19:48 97.9 F 74 18 133/84 99 11/28/17 19:02 75 133/84 99 11/28/17 18:51 71 11/28/17 15:22 97.4 F L 77 18 126/81 98 - Physical Examination General: No Apparent Distress HEENT: Positive: PERRL Cardiac: Positive: Reg Rate and Rhythm Neuro: Positive: Grossly Intact Extremities: Absent: edema - Labs and Meds Comprehensive Metabolic Panel 11/29/17 Range/Units 05:10 Sodium 142 (137-145) mmol/L Potassium 3.5 L (3.6-5.0) mmol/L Chloride 103.1 (98-107) mmol/L Carbon Dioxide 24 (22-30) mmol/L BUN 7 (7-17) mg/dL Creatinine 0.7 (0.7-1.2) mg/dL Glucose 84 (65-100) mg/dL Calcium 7.6 L (8.4-10.2) mg/dL - Imaging and Cardiology EKG: report reviewed
--- NOTE | 2017-11-29 11:38 | Progress Note ---
Assessment and Plan Assessment: 1) Sepsis: Better. Etiology Staph septicemia 2) Staph aureus septicemia: ?source - central line ? MSSA or MSSA -blood cutures 11/24 showed Staph aureus -influenza A & B antigen negative -repeat blood cx 11/26 ngtd 3) Suicide attempt by drug ingestion. 4) Depression 5) ASHLEIGH; ?drug overdose 6) Paroxysmal atrial flutter: ?drug overdoes 7) Urine contamination - no overt UTI Plan: -continue vancomycin and cefazolin -start contact until MRSA is r/o -continue contact isolation Thank you for your consultation Dr. Mccarthy, will follow up with you. Celso Diaz NP-C for Dr. Melanie Carpio MD Infectious Diseases Specialist [facility] [phone] Subjective Date of service: 11/29/17 Principal diagnosis: Drug Overdose / Suicide Attempt; ASHLEIGH; Hyperkalemia Interval history: when can I go home, no fever Microbiology: Blood cultures: 11/24 staph aureus 11/26/ ngtd Urine cultures: 11/24 showed gram negative rods Current Antimicrobials: vancomycin 11/25 ceftriaxone 11/24 Previous Antimicrobials: Objective - Exam Narrative Exam: General appearance: Alert in NAD, conversant Eyes: anicteric sclerae, moist conjunctivae; no lid-lag; PERRLA HENT: Atraumatic; oropharynx no thrush Neck: Trachea midline; supple, no thyromegaly or lymphadenopathy Lungs: CTAB CV: RRR s1 s2 Abdomen: Soft, non-tender; no masses or hepatosplenomegaly Extremities: No peripheral edema or extremity lymphadenopathy Skin: Normal temperature, turgor and texture; no rash, ulcers or subcutaneous nodules Psych: Deprssed, suicidal ideation Neuro: alert and oriented x 3. Moving all extermities Lines: No CVL / PICC - Constitutional Vitals: Vital Signs Temp Pulse Resp BP Pulse Ox 97.5 F L 68 18 138/80 100 11/29/17 08:30 11/29/17 08:30 11/29/17 08:30 11/29/17 08:30 11/29/17 08:30 Temperature -Last 24 Hours Temperature 97.5 F Temperature 97.6 F Temperature 98.9 F Temperature 97.9 F Temperature 97.4 F - Labs CBC & Chem 7: 11/25/17 07:13 11/29/17 05:10 Labs: Abnormal lab results 11/29/17 Range/Units 05:10 Potassium 3.5 L (3.6-5.0) mmol/L Calcium 7.6 L (8.4-10.2) mg/dL
[2017-11-29] MEDS: CARDIZEM CD PO SCH (12:22)
[2017-11-29] MEDS: K-DUR PO SCH ×2 (12:22→18:27)
[2017-11-29] MEDS: LOVENOX SUB-Q SCH (12:23)
[2017-11-29] MEDS: CORDARONE PO SCH ×2 (12:24→21:34)
[2017-11-29] MEDS: PEPCID PO SCH (12:24)
--- NOTE | 2017-11-29 12:57 | Progress Note ---
Assessment and Plan Assessment and plan: Drug overdose. Patient took an unknown quantity of Effexor. She is on suicidal watch, 1:1 sitter. Hypotension. Resolved. Etiology secondary to medication/overdose. Acute kidney injury, Resolved. Etiology secondary to ATN from hypotension. Continue IV fluid hydration. Nephrology following. Rapid afib. New onset afib. Now converted to NSR. Cont Amiodarione, Cardizem. Cardiology following Hyperkalemia. Resolved. Follow-up BMP. Hypophosphatemia. Resolved after replacement. Hypomagnesemia. Replace IV and recheck Hypokalemia. Replace and recheck. Fever due to sepsis. No more fever x 4 days. Continue Zosyn, Ceftriaxone and Vancomycin. ID following. Sepsis. Blood cultures positive for Staph aureus. On Cefazolin and Vancomycin Depression. Psych following. Suicide attempt by drug ingestion. Continue 1013. Psych following. Generalized Weakness. Consult physical therapist. DVT prophylaxis. Continue Lovenox. History Interval history: suicidal, no chest pain rapid afib few days ago now converted to NSR no more fever for several days, Gen weakness Hospitalist Physical - Physical exam Narrative exam: GEN APPEARANCE : Not in acute distress, HEENT: Normocephalic, Atraumatic NECK : supple, no JVD LUNGS: Clear to auscultation bilaterally, no rales, no wheeze HEART: S1 and S2 regular, no murmurs, rubs or gallop, ABD: Soft, non tender, non distended, normal bowel sounds EXT:No edema, no clubbing, no cyanosis NEURO: Awake, alert, no focal signs Psych:depressed,suicidal - Constitutional Vitals: Temp Pulse Resp BP Pulse Ox 97.5 F L 68 18 138/80 100 11/29/17 08:30 11/29/17 08:30 11/29/17 08:30 11/29/17 08:30 11/29/17 08:30 General appearance: Present: no acute distress Results - Labs CBC & Chem 7: 11/25/17 07:13 11/29/17 05:10 Labs: Laboratory Last Values WBC 9.0 K/mm3 (4.5-11.0) 11/25/17 07:13 RBC 4.23 M/mm3 (3.65-5.03) 11/25/17 07:13 Hgb 12.3 gm/dl (10.1-14.3) 11/25/17 07:13 Hct 37.2 % (30.3-42.9) 11/25/17 07:13 MCV 88 fl (79-97) 11/25/17 07:13 MCH 29 pg (28-32) 11/25/17 07:13 MCHC 33 % (30-34) 11/25/17 07:13 RDW 14.9 % (13.2-15.2) 11/25/17 07:13 Plt Count 98 K/mm3 (140-440) L 11/25/17 07:13 Lymph % (Auto) 4.5 % (13.4-35.0) L 11/20/17 04:33 [place] % (Auto) Legal Editor 11/21/17 05:34 Eos % (Auto) 0.0 % (0.0-4.3) 11/20/17 04:33 Baso % (Auto) 0.0 % (0.0-1.8) 11/20/17 04:33 Lymph # 0.5 K/mm3 (1.2-5.4) L 11/20/17 04:33 [place] # 1.0 K/mm3 (0.0-0.8) H 11/20/17 04:33 Eos # 0.0 K/mm3 (0.0-0.4) 11/20/17 04:33 Baso # 0.0 K/mm3 (0.0-0.1) 11/20/17 04:33 Add Manual Diff Complete 11/24/17 05:38 Total Counted 100 11/25/17 07:13 Seg Neutrophils % 86.3 % (40.0-70.0) H 11/20/17 04:33 Seg Neuts % (Manual) 65 % (40.0-70.0) 11/25/17 07:13 Band Neutrophils % 25 % 11/25/17 07:13 Lymphocytes % (Manual) 3.0 % (13.4-35.0) L 11/25/17 07:13 Reactive Lymphs % (Man) 0 % 11/25/17 07:13 Monocytes % (Manual) 6.0 % (0.0-7.3) 11/25/17 07:13 Eosinophils % (Manual) 0 % (0.0-4.3) 11/25/17 07:13 Basophils % (Manual) 0 % (0.0-1.8) 11/25/17 07:13 Metamyelocytes % 1.0 % 11/25/17 07:13 Myelocytes % 0 % 11/25/17 07:13 Promyelocytes % 0 % 11/25/17 07:13 Blast Cells % 0 % 11/25/17 07:13 Nucleated RBC % 1.0 % (0.0-0.9) H 11/25/17 07:13 Seg Neutrophils # 9.2 K/mm3 (1.8-7.7) H 11/20/17 04:33 Seg Neutrophils # Man 5.8 K/mm3 (1.8-7.7) 11/25/17 07:13 Band Neutrophils # 2.2 K/mm3 11/25/17 07:13 Lymphocytes # (Manual) 0.3 K/mm3 (1.2-5.4) L 11/25/17 07:13 Abs React Lymphs (Man) 0.0 K/mm3 11/25/17 07:13 Monocytes # (Manual) 0.5 K/mm3 (0.0-0.8) 11/25/17 07:13 Eosinophils # (Manual) 0.0 K/mm3 (0.0-0.4) 11/25/17 07:13 Basophils # (Manual) 0.0 K/mm3 (0.0-0.1) 11/25/17 07:13 Metamyelocytes # 0.1 K/mm3 11/25/17 07:13 Myelocytes # 0.0 K/mm3 11/25/17 07:13 Promyelocytes # 0.0 K/mm3 11/25/17 07:13 Blast Cells # 0.0 K/mm3 11/25/17 07:13 WBC Morphology Not Reportable 11/25/17 07:13 Hypersegmented Neuts Not Reportable 11/25/17 07:13 Hyposegmented Neuts Not Reportable 11/25/17 07:13 Hypogranular Neuts Not Reportable 11/25/17 07:13 Smudge Cells Not Reportable 11/25/17 07:13 Toxic Granulation Not Reportable 11/25/17 07:13 Toxic Vacuolation Not Reportable 11/25/17 07:13 Dohle Bodies Not Reportable 11/25/17 07:13 Pelger-Huet Anomaly Not Reportable 11/25/17 07:13 [place] Rods Not Reportable 11/25/17 07:13 Platelet Estimate Consistent w auto 11/25/17 07:13 Clumped Platelets Not Reportable 11/25/17 07:13 Plt Clumps, EDTA Not Reportable 11/25/17 07:13 Large Platelets Few 11/25/17 07:13 Giant Platelets Rare 11/25/17 07:13 Platelet Satelliting Not Reportable 11/25/17 07:13 Plt Morphology Comment Not Reportable 11/25/17 07:13 RBC Morphology Not Reportable 11/25/17 07:13 Dimorphic RBCs Not Reportable 11/25/17 07:13 Polychromasia Few 11/25/17 07:13 Hypochromasia Not Reportable 11/25/17 07:13 Poikilocytosis Not Reportable 11/25/17 07:13 Basophilic Stippling Rare 11/25/17 07:13 Anisocytosis 1+ 11/25/17 07:13 Microcytosis Not Reportable 11/25/17 07:13 Macrocytosis Not Reportable 11/25/17 07:13 Spherocytes Not Reportable 11/25/17 07:13 Pappenheimer Bodies Not Reportable 11/25/17 07:13 Sickle Cells Not Reportable 11/25/17 07:13 Target Cells Not Reportable 11/25/17 07:13 Tear Drop Cells Not Reportable 11/25/17 07:13 Ovalocytes Not Reportable 11/25/17 07:13 Stomatocytes Few 11/22/17 Unknown Helmet Cells Not Reportable 11/25/17 07:13 Marquez-[place] Bodies Not Reportable 11/25/17 07:13 [place] Rings Not Reportable 11/25/17 07:13 [place] Cells Not Reportable 11/25/17 07:13 Bite Cells Not Reportable 11/25/17 07:13 Crenated Cell Not Reportable 11/25/17 07:13 Elliptocytes Not Reportable 11/25/17 07:13 Acanthocytes (Spur) Not Reportable 11/25/17 07:13 Rouleaux Not Reportable 11/25/17 07:13 Hemoglobin C Crystals Not Reportable 11/25/17 07:13 Schistocytes Not Reportable 11/25/17 07:13 Malaria parasites Not Reportable 11/25/17 07:13 Bhupendra Bodies Not Reportable 11/25/17 07:13 Hem Pathologist Commnt Not Reportable 11/25/17 07:13 POC ABG pH 7.330 (7.35-7.45) L 11/19/17 18:09 POC ABG pCO2 37.7 (35-45) 11/19/17 18:09 POC ABG pO2 88 (80-105) 11/19/17 18:09 POC ABG HCO3 19.9 11/19/17 18:09 POC ABG Total CO2 21 11/19/17 18:09 POC ABG O2 Sat 96 11/19/17 18:09 POC ABG Base Excess -6 11/19/17 18:09 VBG pH 7.329 (7.320-7.420) 11/19/17 23:31 FiO2 3.5 % 11/19/17 18:09 Sodium 142 mmol/L (137-145) 11/29/17 05:10 Potassium 3.5 mmol/L (3.6-5.0) L 11/29/17 05:10 Chloride 103.1 mmol/L (98-107) 11/29/17 05:10 Carbon Dioxide 24 mmol/L (22-30) 11/29/17 05:10 Anion Gap 18 mmol/L 11/29/17 05:10 BUN 7 mg/dL (7-17) 11/29/17 05:10 Creatinine 0.7 mg/dL (0.7-1.2) 11/29/17 05:10 Estimated GFR > 60 ml/min 11/29/17 05:10 BUN/Creatinine Ratio 10 % 11/29/17 05:10 Glucose 84 mg/dL (65-100) 11/29/17 05:10 POC Glucose 89 (70-105) 11/21/17 17:15 Osmolality 309 Mosm/kg 11/21/17 05:34 Lactic Acid 1.40 mmol/L (0.7-2.0) 11/25/17 09:37 Calcium 7.6 mg/dL (8.4-10.2) L 11/29/17 05:10 Phosphorus 2.60 mg/dL (2.5-4.5) 11/29/17 05:10 Magnesium 1.80 mg/dL (1.7-2.3) 11/29/17 05:10 Total Bilirubin 0.40 mg/dL (0.1-1.2) 11/22/17 Unknown AST 30 units/L (5-40) 11/22/17 Unknown ALT 18 units/L (7-56) 11/22/17 Unknown Alkaline Phosphatase 110 units/L (35-129) 11/22/17 Unknown Total Creatine Kinase 48 units/L (30-135) 11/27/17 04:50 C-Reactive Protein 40.90 mg/dL (0.00-1.30) H 11/26/17 04:00 Total Protein 6.2 g/dL (6.3-8.2) L 11/22/17 Unknown Albumin 2.9 g/dL (3.9-5) L 11/22/17 Unknown Albumin/Globulin Ratio 0.9 % 11/22/17 Unknown TSH 1.290 mlU/mL (0.270-4.200) 11/24/17 17:37 Urine Color Yellow (Yellow) 11/24/17 14:43 Urine Turbidity Clear (Clear) 11/24/17 14:43 Urine pH 5.0 (5.0-7.0) 11/24/17 14:43 Ur Specific [place] 1.028 (1.003-1.030) 11/24/17 14:43 Urine Protein 100 mg/dl mg/dL (Negative) 11/24/17 14:43 Urine Glucose (UA) Neg mg/dL (Negative) 11/24/17 14:43 Urine Ketones 80 mg/dL (Negative) 11/24/17 14:43 Urine Blood Neg (Negative) 11/24/17 14:43 Urine Nitrite Pos (Negative) 11/24/17 14:43 Urine Bilirubin Sm (Negative) 11/24/17 14:43 Urine Ictotest Negative (Negative) 11/24/17 14:43 Urine Urobilinogen 2.0 mg/dL (<2.0) 11/24/17 14:43 Ur Leukocyte Esterase Tr (Negative) 11/24/17 14:43 Urine WBC (Auto) 10.0 /HPF (0.0-6.0) H 11/24/17 14:43 Urine RBC (Auto) 7.0 /HPF (0.0-6.0) 11/24/17 14:43 U Epithel Cells (Auto) 1.0 /HPF (0-13.0) 11/24/17 14:43 Urine Bacteria (Auto) 4+ /HPF (Negative) 11/24/17 14:43 Hyaline Casts 9 /LPF 11/19/17 16:45 Urine Mucus 3+ /HPF 11/24/17 14:43 Urine Creatinine 103.7 mg/dL (0.1-20.0) H 11/21/17 Unknown Urine Sodium 92 mmol/L 11/21/17 Unknown Salicylates < 0.3 mg/dL (2.8-20.0) L 11/19/17 15:15 Urine Opiates Screen Presumptive negative 11/19/17 16:45 Urine Methadone Screen Presumptive negative 11/19/17 16:45 Acetaminophen < 15.0 ug/mL (10.0-30.0) 11/19/17 15:15 Ur Barbiturates Screen Presumptive negative 11/19/17 16:45 Ur Phencyclidine Scrn Presumptive positive 11/19/17 16:45 Ur Amphetamines Screen Presumptive negative 11/19/17 16:45 U Benzodiazepines Scrn Presumptive negative 11/19/17 16:45 [place] 0.1 mmol/L (0.0-1.2) 11/19/17 15:15 Urine Cocaine Screen Presumptive negative 11/19/17 16:45 U Marijuana (THC) Screen Presumptive negative 11/19/17 16:45 Drugs of Abuse Note Disclamer 11/19/17 16:45 Plasma/Serum Alcohol < 0.01 gm% (0-0.07) 11/19/17 15:15
[2017-11-29] MEDS ORDERED: FLEXERIL PO ONE (19:00)
[2017-11-29] MEDS: XANAX PO PRN (21:33)
[2017-11-30] MEDS: ANCEF/STERILE WATER 2 GM/20 ML 2 GM/20 ML SYRINGE IV SCH ×4 (00:42→23:32)
[2017-11-30] MEDS: CARDIZEM CD PO SCH (10:16)
[2017-11-30] MEDS: ECOTRIN PO SCH (10:16)
[2017-11-30] MEDS: LOVENOX SUB-Q SCH (10:18)
[2017-11-30] MEDS: PEPCID PO SCH (10:18)
[2017-11-30] MEDS: CORDARONE PO SCH ×2 (10:18→23:28)
--- NOTE | 2017-11-30 11:49 | Progress Note ---
Assessment and Plan Assessment: 1) Sepsis: Better. Etiology Staph septicemia 2) MSSA septicemia: ?source - central line ? -blood cutures 11/24 showed Staph aureus -influenza A & B antigen negative -repeat blood cx 11/26 neg 3) Suicide attempt by drug ingestion. 4) Depression 5) ASHLEIGH; ?drug overdose 6) Paroxysmal atrial flutter: ?drug overdoes 7) Urine contamination - no overt UTI Plan: -continue cefazolin -stop vancomycin -stop contact isolation -upon discharge will do cefazoline 2gm iv q 8hrs untill 12/09 -place PICC line we will sign off Thank you for your consultation Dr. Mccarthy, will follow up with you. MILTON Umanzor for Dr. Melanie Carpio MD Infectious Diseases Specialist [facility] ([facility]) M [phone] O [phone] Subjective Date of service: 11/30/17 Principal diagnosis: Drug Overdose / Suicide Attempt; ASHLEIGH; Hyperkalemia Interval history: I want to go home, no fever Microbiology: Blood cultures: 11/24 staph aureus 2/ ngtd Urine cultures: 11/24 showed gram negative rods Current Antimicrobials: vancomycin 11/25 ceftriaxone 11/24 Previous Antimicrobials: Objective - Exam Narrative Exam: General appearance: Alert in NAD, conversant Eyes: anicteric sclerae, moist conjunctivae; no lid-lag; PERRLA HENT: Atraumatic; oropharynx no thrush Neck: Trachea midline; supple, no thyromegaly or lymphadenopathy Lungs: CTAB CV: RRR s1 s2 Abdomen: Soft, non-tender; no masses or hepatosplenomegaly Extremities: Right AC very tender to touch with some swelling Skin: Normal temperature, turgor and texture; no rash, ulcers or subcutaneous nodules Psych: Deprssed, suicidal ideation Neuro: alert and oriented x 3. Moving all extermities Lines: No CVL / PICC - Constitutional Vitals: Vital Signs Temp Pulse Resp BP Pulse Ox 97.9 F 72 22 123/84 99 11/30/17 03:54 11/30/17 10:16 11/30/17 03:54 11/30/17 10:16 11/30/17 03:54 Temperature -Last 24 Hours Temperature 97.9 F Temperature 98.4 F Temperature 98.8 F Temperature 97.9 F Temperature 97.8 F - Labs CBC & Chem 7: 11/25/17 07:13 11/29/17 05:10
--- NOTE | 2017-11-30 12:52 | Progress Note ---
Assessment and Plan Assessment and plan: Drug overdose. Patient took an unknown quantity of Effexor. She is on suicidal watch, 1:1 sitter. Hypotension. Resolved. Etiology secondary to medication/overdose +/-sepsis. Acute kidney injury, Resolved. Etiology secondary to ATN from hypotension. Continue IV fluid hydration. Nephrology following. Rapid afib. New onset afib. Now converted to NSR. Cont Amiodarione, Cardizem. Cardiology following Hyperkalemia. Resolved. Follow-up BMP. Hypophosphatemia. Resolved after replacement. Hypomagnesemia. Replace IV and recheck Hypokalemia. Replace and recheck. Sepsis. Staph aureus septicemia. On Cefazolin and Vancomycin. -blood cutures 11/24 showed Staph aureus -influenza A & B antigen negative -repeat blood cx 11/26 ngtd Depression. Psych following. Suicide attempt by drug ingestion. Continue 1013. Psych following. Generalized Weakness. Consult physical therapist. DVT prophylaxis. Continue Lovenox. History Interval history: Patient denies any complaints. Patient with flat affect Hospitalist Physical - Constitutional Vitals: Temp Pulse Resp BP Pulse Ox 97.9 F 72 22 123/84 99 11/30/17 03:54 11/30/17 10:16 11/30/17 03:54 11/30/17 10:16 11/30/17 03:54 General appearance: Present: no acute distress - EENT Eyes: Present: PERRL, EOM intact ENT: hearing intact, clear oral mucosa, dentition normal - Neck Neck: Present: supple, normal ROM - Respiratory Respiratory effort: normal Respiratory: bilateral: CTA - Cardiovascular Rhythm: regular Heart Sounds: Present: S1 & S2. Absent: gallop, rub - Extremities Extremities: no ischemia, No edema, Full ROM - Abdominal General gastrointestinal: soft, non-tender, non-distended, normal bowel sounds - Integumentary Integumentary: Present: clear, warm, dry - Neurologic Neurologic: CNII-XII intact, moves all extremities Results - Labs CBC & Chem 7: 11/25/17 07:13 11/29/17 05:10 Labs: Laboratory Last Values WBC 9.0 K/mm3 (4.5-11.0) 11/25/17 07:13 RBC 4.23 M/mm3 (3.65-5.03) 11/25/17 07:13 Hgb 12.3 gm/dl (10.1-14.3) 11/25/17 07:13 Hct 37.2 % (30.3-42.9) 11/25/17 07:13 MCV 88 fl (79-97) 11/25/17 07:13 MCH 29 pg (28-32) 11/25/17 07:13 MCHC 33 % (30-34) 11/25/17 07:13 RDW 14.9 % (13.2-15.2) 11/25/17 07:13 Plt Count 98 K/mm3 (140-440) L 11/25/17 07:13 Lymph % (Auto) 4.5 % (13.4-35.0) L 11/20/17 04:33 [place] % (Auto) Pouncing Lathe Operator 11/21/17 05:34 Eos % (Auto) 0.0 % (0.0-4.3) 11/20/17 04:33 Baso % (Auto) 0.0 % (0.0-1.8) 11/20/17 04:33 Lymph # 0.5 K/mm3 (1.2-5.4) L 11/20/17 04:33 [place] # 1.0 K/mm3 (0.0-0.8) H 11/20/17 04:33 Eos # 0.0 K/mm3 (0.0-0.4) 11/20/17 04:33 Baso # 0.0 K/mm3 (0.0-0.1) 11/20/17 04:33 Add Manual Diff Complete 11/24/17 05:38 Total Counted 100 11/25/17 07:13 Seg Neutrophils % 86.3 % (40.0-70.0) H 11/20/17 04:33 Seg Neuts % (Manual) 65 % (40.0-70.0) 11/25/17 07:13 Band Neutrophils % 25 % 11/25/17 07:13 Lymphocytes % (Manual) 3.0 % (13.4-35.0) L 11/25/17 07:13 Reactive Lymphs % (Man) 0 % 11/25/17 07:13 Monocytes % (Manual) 6.0 % (0.0-7.3) 11/25/17 07:13 Eosinophils % (Manual) 0 % (0.0-4.3) 11/25/17 07:13 Basophils % (Manual) 0 % (0.0-1.8) 11/25/17 07:13 Metamyelocytes % 1.0 % 11/25/17 07:13 Myelocytes % 0 % 11/25/17 07:13 Promyelocytes % 0 % 11/25/17 07:13 Blast Cells % 0 % 11/25/17 07:13 Nucleated RBC % 1.0 % (0.0-0.9) H 11/25/17 07:13 Seg Neutrophils # 9.2 K/mm3 (1.8-7.7) H 11/20/17 04:33 Seg Neutrophils # Man 5.8 K/mm3 (1.8-7.7) 11/25/17 07:13 Band Neutrophils # 2.2 K/mm3 11/25/17 07:13 Lymphocytes # (Manual) 0.3 K/mm3 (1.2-5.4) L 11/25/17 07:13 Abs React Lymphs (Man) 0.0 K/mm3 11/25/17 07:13 Monocytes # (Manual) 0.5 K/mm3 (0.0-0.8) 11/25/17 07:13 Eosinophils # (Manual) 0.0 K/mm3 (0.0-0.4) 11/25/17 07:13 Basophils # (Manual) 0.0 K/mm3 (0.0-0.1) 11/25/17 07:13 Metamyelocytes # 0.1 K/mm3 11/25/17 07:13 Myelocytes # 0.0 K/mm3 11/25/17 07:13 Promyelocytes # 0.0 K/mm3 11/25/17 07:13 Blast Cells # 0.0 K/mm3 11/25/17 07:13 WBC Morphology Not Reportable 11/25/17 07:13 Hypersegmented Neuts Not Reportable 11/25/17 07:13 Hyposegmented Neuts Not Reportable 11/25/17 07:13 Hypogranular Neuts Not Reportable 11/25/17 07:13 Smudge Cells Not Reportable 11/25/17 07:13 Toxic Granulation Not Reportable 11/25/17 07:13 Toxic Vacuolation Not Reportable 11/25/17 07:13 Dohle Bodies Not Reportable 11/25/17 07:13 Pelger-Huet Anomaly Not Reportable 11/25/17 07:13 [place] Rods Not Reportable 11/25/17 07:13 Platelet Estimate Consistent w auto 11/25/17 07:13 Clumped Platelets Not Reportable 11/25/17 07:13 Plt Clumps, EDTA Not Reportable 11/25/17 07:13 Large Platelets Few 11/25/17 07:13 Giant Platelets Rare 11/25/17 07:13 Platelet Satelliting Not Reportable 11/25/17 07:13 Plt Morphology Comment Not Reportable 11/25/17 07:13 RBC Morphology Not Reportable 11/25/17 07:13 Dimorphic RBCs Not Reportable 11/25/17 07:13 Polychromasia Few 11/25/17 07:13 Hypochromasia Not Reportable 11/25/17 07:13 Poikilocytosis Not Reportable 11/25/17 07:13 Basophilic Stippling Rare 11/25/17 07:13 Anisocytosis 1+ 11/25/17 07:13 Microcytosis Not Reportable 11/25/17 07:13 Macrocytosis Not Reportable 11/25/17 07:13 Spherocytes Not Reportable 11/25/17 07:13 Pappenheimer Bodies Not Reportable 11/25/17 07:13 Sickle Cells Not Reportable 11/25/17 07:13 Target Cells Not Reportable 11/25/17 07:13 Tear Drop Cells Not Reportable 11/25/17 07:13 Ovalocytes Not Reportable 11/25/17 07:13 Stomatocytes Few 11/22/17 Unknown Helmet Cells Not Reportable 11/25/17 07:13 [place] Bodies Not Reportable 11/25/17 07:13 [place] Rings Not Reportable 11/25/17 07:13 [place] Cells Not Reportable 11/25/17 07:13 Bite Cells Not Reportable 11/25/17 07:13 Crenated Cell Not Reportable 11/25/17 07:13 Elliptocytes Not Reportable 11/25/17 07:13 Acanthocytes (Spur) Not Reportable 11/25/17 07:13 Rouleaux Not Reportable 11/25/17 07:13 Hemoglobin C Crystals Not Reportable 11/25/17 07:13 Schistocytes Not Reportable 11/25/17 07:13 Malaria parasites Not Reportable 11/25/17 07:13 Bhupendra Bodies Not Reportable 11/25/17 07:13 Hem Pathologist Commnt Not Reportable 11/25/17 07:13 POC ABG pH 7.330 (7.35-7.45) L 11/19/17 18:09 POC ABG pCO2 37.7 (35-45) 11/19/17 18:09 POC ABG pO2 88 (80-105) 11/19/17 18:09 POC ABG HCO3 19.9 11/19/17 18:09 POC ABG Total CO2 21 11/19/17 18:09 POC ABG O2 Sat 96 11/19/17 18:09 POC ABG Base Excess -6 11/19/17 18:09 VBG pH 7.329 (7.320-7.420) 11/19/17 23:31 FiO2 3.5 % 11/19/17 18:09 Sodium 142 mmol/L (137-145) 11/29/17 05:10 Potassium 3.5 mmol/L (3.6-5.0) L 11/29/17 05:10 Chloride 103.1 mmol/L (98-107) 11/29/17 05:10 Carbon Dioxide 24 mmol/L (22-30) 11/29/17 05:10 Anion Gap 18 mmol/L 11/29/17 05:10 BUN 7 mg/dL (7-17) 11/29/17 05:10 Creatinine 0.7 mg/dL (0.7-1.2) 11/29/17 05:10 Estimated GFR > 60 ml/min 11/29/17 05:10 BUN/Creatinine Ratio 10 % 11/29/17 05:10 Glucose 84 mg/dL (65-100) 11/29/17 05:10 POC Glucose 89 (70-105) 11/21/17 17:15 Osmolality 309 Mosm/kg 11/21/17 05:34 Lactic Acid 1.40 mmol/L (0.7-2.0) 11/25/17 09:37 Calcium 7.6 mg/dL (8.4-10.2) L 11/29/17 05:10 Phosphorus 2.60 mg/dL (2.5-4.5) 11/29/17 05:10 Magnesium 1.80 mg/dL (1.7-2.3) 11/29/17 05:10 Total Bilirubin 0.40 mg/dL (0.1-1.2) 11/22/17 Unknown AST 30 units/L (5-40) 11/22/17 Unknown ALT 18 units/L (7-56) 11/22/17 Unknown Alkaline Phosphatase 110 units/L (35-129) 11/22/17 Unknown Total Creatine Kinase 48 units/L (30-135) 11/27/17 04:50 C-Reactive Protein 40.90 mg/dL (0.00-1.30) H 11/26/17 04:00 Total Protein 6.2 g/dL (6.3-8.2) L 11/22/17 Unknown Albumin 2.9 g/dL (3.9-5) L 11/22/17 Unknown Albumin/Globulin Ratio 0.9 % 11/22/17 Unknown TSH 1.290 mlU/mL (0.270-4.200) 11/24/17 17:37 Urine Color Yellow (Yellow) 11/24/17 14:43 Urine Turbidity Clear (Clear) 11/24/17 14:43 Urine pH 5.0 (5.0-7.0) 11/24/17 14:43 Ur Specific [place] 1.028 (1.003-1.030) 11/24/17 14:43 Urine Protein 100 mg/dl mg/dL (Negative) 11/24/17 14:43 Urine Glucose (UA) Neg mg/dL (Negative) 11/24/17 14:43 Urine Ketones 80 mg/dL (Negative) 11/24/17 14:43 Urine Blood Neg (Negative) 11/24/17 14:43 Urine Nitrite Pos (Negative) 11/24/17 14:43 Urine Bilirubin Sm (Negative) 11/24/17 14:43 Urine Ictotest Negative (Negative) 11/24/17 14:43 Urine Urobilinogen 2.0 mg/dL (<2.0) 11/24/17 14:43 Ur Leukocyte Esterase Tr (Negative) 11/24/17 14:43 Urine WBC (Auto) 10.0 /HPF (0.0-6.0) H 11/24/17 14:43 Urine RBC (Auto) 7.0 /HPF (0.0-6.0) 11/24/17 14:43 U Epithel Cells (Auto) 1.0 /HPF (0-13.0) 11/24/17 14:43 Urine Bacteria (Auto) 4+ /HPF (Negative) 11/24/17 14:43 Hyaline Casts 9 /LPF 11/19/17 16:45 Urine Mucus 3+ /HPF 11/24/17 14:43 Urine Creatinine 103.7 mg/dL (0.1-20.0) H 11/21/17 Unknown Urine Sodium 92 mmol/L 11/21/17 Unknown Salicylates < 0.3 mg/dL (2.8-20.0) L 11/19/17 15:15 Urine Opiates Screen Presumptive negative 11/19/17 16:45 Urine Methadone Screen Presumptive negative 11/19/17 16:45 Acetaminophen < 15.0 ug/mL (10.0-30.0) 11/19/17 15:15 Ur Barbiturates Screen Presumptive negative 11/19/17 16:45 Ur Phencyclidine Scrn Presumptive positive 11/19/17 16:45 Ur Amphetamines Screen Presumptive negative 11/19/17 16:45 U Benzodiazepines Scrn Presumptive negative 11/19/17 16:45 [place] 0.1 mmol/L (0.0-1.2) 11/19/17 15:15 Urine Cocaine Screen Presumptive negative 11/19/17 16:45 U Marijuana (THC) Screen Presumptive negative 11/19/17 16:45 Drugs of Abuse Note Disclamer 11/19/17 16:45 Plasma/Serum Alcohol < 0.01 gm% (0-0.07) 11/19/17 15:15
--- NOTE | 2017-11-30 12:52 | Progress Note ---
Subjective - Reason for Consult Consult date: 11/30/17 Reason for consult: Psychiatry Follow-up - Chief Complaint Chief complaint: "How are you" Patient is 67-year-old AA female presents to the emergency room with an overdose of venlafaxine. Today the patient is calm and cooperative during the assessment. She stated she plan to follow up with her psychiatrist Dr Jeronimo once discharged. She stated that she made a "stupid" decision when she took multiple pills. She stated that she has much to live for. She denies SI/HI's and AVH's. She stated that her daughter along with her boyfriend plan to move out before she is discharged from the hospital. She stated that her daughter and her boyfriend is her issue (family dynamics). Mental Status Exam - Vital signs Last Vital Signs Temp 97.9 F 11/30/17 03:54 Pulse 72 11/30/17 10:16 Resp 22 11/30/17 03:54 BP 123/84 11/30/17 10:16 Pulse Ox 99 11/30/17 03:54 - Exam Narrative exam: MSE: Appearance: calm, cooperative Behavior: regular eye contact Speech: regular rate and tone Mood: "okay" Affect: congruent to mood Thought Process: linear Thought Content: denies SI/HI's and AVH's Motor Activity: lying in bed Cognition: A/O x 3 Insight: appropriate Judgment: appropriate Assessment and Plan Impression: MDD, Severe Type. Today the patient is calm during the assessment. Possible family dynamic issues at home. The patient is no threat to self. DDx: R/O Bipolar DO I. This screening and assessment is based on information collected from the following sources: II. SUICIDE RISK SCREENING (within last 30 days): A.) Suicidal thoughts/behaviors: yes SUICIDE RISK ASSESSMENT III. FACTORS THAT INCREASE RISK: A.) Demographic and Substance Use Factors: Recreational drugs use "sometimes." B.) Current/Recent Factors (within past 3 months): Psychosocial/Environmental Factors: Family Dynamics Physical Illness: Other Medical Comorbidities Cognitive/Psychological Factors: None C.) Historical Factors: None D.) Diagnostic/Symptom/Treatment Factors: None E.) Acute Risk Factor Severity (DESC; MILD/MOD/SEVERE): Mild Other factors for this individual that increase risk: None IV. FACTORS THAT DECREASE RISK: Resilience/Protective Factors: Patient want to decrease her stress reference her family Other factors for this individual that decrease risk: Patient denies a desire to harm self V. Clinician's Formulation of Risk and Determination of level of Care: This is a 67-year-old female who was experiencing family dynamic issues. The patient took multiple Effexor pills to ease her stress. She stated that she wanted to kill herself to get away from all the stress she was experiencing with her family. She stated that she should have handled the situation differently. She stated that she will follow-up with outpatient/rehab services once discharged. She stated that her recreational dug use and coping with stress is a priority. Since being hospitalized the patient has consistently denied the desire to harm herself. Additionally, she has become insightful about how to better address her current issues. Patient is not impaired by substance. She is able to take care of her ADLs and is not at imminent risk of harm to self or others. Consequently, it is the opinion of the treatment team that the patient is at low risk of suicide and does not meet criteria to continue an involuntary psychiatric hold. Estimation of Imminent Risk: Low due to the above explanation. Determination of Level of Care based on Suicide Risk: Outpatient follow-up. Narrative description of clinical reasoning. (This must be completed on all patients): . Plan and Interventions based on Suicide Risk: This patient will likely be stepped down to an outpatient mental health center in the community upon discharge and follow-up within 7 days of her discharge from the hospital. VII. Discharge/After Hours Support Plan: Patient can return back to the ER, call 911 or crisis line if symptoms of depression, anxiety, suicidality return. Recommendation/Plan: The 1013 has and will not be extended. The patient can follow-up with her psychiatrist Dr Jeronimo for outpatient psy services. Discussed the importance to abstain from recreational drug use. Discussed generalized coping skills with the patient.
--- NOTE | 2017-11-30 14:30 | Progress Note ---
Assessment and Plan Paroxysmal atrial flutter, new onset reverted to sinus rhythm on oral diltiazem, aspirin and amiodarone. Determined not a candidate for long-term oral anticoagulation due to depression and suicidal ideation. normal TSH Suicide attempt by drug overdose Depression Acute renal failure UTI Echocardiogram: normal LVEF with mild to moderate AR. Recommendations: Continue Cardizem and amiodarone for suppression of paroxysmal atrial fibrillation. Amiodarone can be stopped at time of hospital discharge. Stable cardiac garrett. Subjective Date of service: 11/30/17 Principal diagnosis: Drug Overdose / Suicide Attempt; ASHLEIGH; Hyperkalemia Interval history: Patient denies chest pain and shortness of breath. Sinus rhythm on telemetry monitoring. Objective Vital Signs Temp Pulse Resp BP BP Pulse Ox 11/30/17 10:16 72 123/84 11/30/17 03:54 97.9 F 72 22 123/84 99 11/30/17 00:28 98.4 F 80 22 140/70 100 11/29/17 22:00 80 11/29/17 19:26 98.8 F 82 20 166/77 97 11/29/17 16:44 97.9 F 71 18 157/89 100 - Physical Examination General: No Apparent Distress HEENT: Positive: PERRL Neck: Positive: trachea midline Cardiac: Positive: Reg Rate and Rhythm Neuro: Positive: Grossly Intact Extremities: Absent: edema - Imaging and Cardiology EKG: report reviewed
[2017-11-30] MEDS: XANAX PO PRN (20:09)
[2017-12-01] MEDS: MORPHINE IV PRN (04:30)
[2017-12-01] MEDS: CARDIZEM CD PO SCH (10:21)
[2017-12-01] MEDS: ECOTRIN PO SCH (10:21)
[2017-12-01] MEDS: PEPCID PO SCH (10:22)
[2017-12-01] MEDS: CORDARONE PO SCH ×2 (10:22→21:45)
[2017-12-01] MEDS: LOVENOX SUB-Q SCH (10:22)
--- NOTE | 2017-12-01 12:42 | Progress Note ---
Assessment and Plan Assessment: 1) Sepsis: resolved. Etiology Staph septicemia 2) MSSA septicemia: ?source - central line ? -blood cutures 11/24 showed MSSA -influenza A & B antigen negative -repeat blood cx 11/26 neg 3) Suicide attempt by drug ingestion. 4) Depression 5) ASHLEIGH; ?drug overdose - resolved 6) Paroxysmal atrial flutter: ?drug overdoes 7) Urine contamination - no overt UTI Plan: -continue cefazolin -upon discharge will do cefazolin 2gm iv q 8hrs untill 12/09. manager target orders placed -place PICC line will sign off Thank you for your consultation Dr Liu, will follow up with you Melanie Angulo Subjective Date of service: 12/01/17 Principal diagnosis: Drug Overdose / Suicide Attempt; ASHLEIGH; Hyperkalemia Interval history: Microbiology: Blood cultures: 11/24 MSSA 11/26 neg Urine cultures: 11/24 E coli resis to cipro/lev Current Antimicrobials: cefazolin Previous Antimicrobials: vancomycin 11/25 ceftriaxone 11/24 Objective - Exam Narrative Exam: General appearance: Alert in NAD, conversant Eyes: anicteric sclerae, moist conjunctivae; no lid-lag; PERRLA HENT: Atraumatic; oropharynx clear with moist mucous membranes and no mucosal ulcerations/no oral thrush; normal hard and soft palate. Normal external ears. Neck: Trachea midline; supple, no thyromegaly or lymphadenopathy Lungs: CTA CV: RRR, no murmurs Abdomen: Soft, non-tender; no masses or hepatosplenomegaly Extremities: left arm AC fossa tenderness and erythema Skin: Normal temperature, turgor and texture; no rash, ulcers or subcutaneous nodules Psych: Appropriate affect, alert and oriented to person, place and time. Neuro: alert and oriented x 3. Moving all extermities Lines: No CVL / PICC - Constitutional Vitals: Vital Signs Temp Pulse Resp BP Pulse Ox 98.0 F 72 20 117/51 97 12/01/17 03:57 12/01/17 04:37 12/01/17 03:57 12/01/17 03:57 12/01/17 03:57 Temperature -Last 24 Hours Temperature 98.0 F Temperature 98.4 F Temperature 98.3 F Temperature 98.2 F - Labs CBC & Chem 7: 11/25/17 07:13 11/29/17 05:10
--- NOTE | 2017-12-01 13:49 | XRay Report ---
AP CHEST: HISTORY: Right arm PICC placement A right arm PICC has been inserted which terminates at the cavoatrial junction. Hazy opacity overlying the right lung base could represent atelectasis or effusion. The right upper lobe and left lung are clear. Heart size is within normal limits. IMPRESSION: Adequate placement of a right arm PICC.
[2017-12-01] MEDS: XANAX PO PRN (21:45)
--- NOTE | 2017-12-02 11:08 | Discharge Summary ---
Providers - Providers Date of Admission: 11/19/17 21:11 Date of discharge: 12/02/17 Attending physician: NEHA BROWN 11/19/17 21:11 Consult to Dietitian/Nutrition [CONS] Routine Physician Instructions: Reason For Exam: Reason for Consult: Write/Manage Tube Feeding Consult to Physician [CONS] Routine Consulting Provider: DISHA SALGUERO Reason For Exam: Overdose Place consult to:: Dr. Salguero Notified:: Answering Service Phone number called:: [phone] Was contact made?: Yes If yes, spoke with:: Dr. Salguero Time called:: 00:19 11/19/17 21:21 Consult to Dietitian/Nutrition [CONS] Routine Physician Instructions: Assess nutrtn needs, initiate, modify, manage TF Reason For Exam: Reason for Consult: Write/Manage Tube Feeding Reason for Consult: Write/Manage Tube Feeding 11/20/17 07:57 Consult to Mental Health [CONS] Routine Reason For Exam: overdose-effexor Place consult to:: anders Notified:: margret Time called:: 08:29 11/20/17 08:05 Consult to Physician [CONS] Routine Consulting Provider: KYM MARIN Reason For Exam: ASHLEIGH Place consult to:: nephrology Notified:: y If yes, spoke with:: LAMONTE Dinero Time called:: 08:25 11/22/17 09:47 Speech Therapy Evaluation and Treat [CONS] Urgent Reason For Exam: failed swallow screen in ED 11/25/17 07:53 Consult to Physician [CONS] Routine Consulting Provider: MELANIE FLORES Reason For Exam: fever Place consult to:: Dr. Angulo Notified:: Preet RN Phone number called:: Was contact made?: Yes If yes, spoke with:: Guillaume service Time called:: 09:46 11/29/17 09:45 Physical Therapy Evaluation and Treat [CONS] Routine Comment: Reason For Exam: Gen weakness 11/30/17 14:26 Consult to PICC Line RN [CONS] Stat Reason For Exam: IV antibiotics Type Line:: PICC 11/30/17 14:27 Consult to Case Management [CONS] Stat Services Needed at Discharge: Other Notified:: enterprise application analyst Additional Physician Instructions: [facility]- NPI# [id number] ([facility]) Melanie Angulo MD M [phone] O [phone] OUTPATIENT PARENTERAL ANTIBIOTIC THERAPY ORDERS Diagnoses:MSSA septicemia Antimicrobial administration: cefazolin 2gm iv q 8hrs until 12/09 Lines: PICC Lab monitoring: CBC, CMP, CRP once a week preferly on Wednesday morning. Please fax results to [phone] and call [phone] for critical lab results. Melanie Angulo Date: 11/30/17 Primary care physician: IT SALES REPRESENTATIVE Hospitalization Reason for admission: drug od Condition: Critical Hospital course: The patient is 67-year-old AAF with unknown medical history presented to the emergency room with an overdose of venlafaxine. Patient was confused on admission. Pt. was admitted with shock secondary to OD and +/- sepsis etiology. Pt. also with dx of ASHLEIGH/ARf --Etiology secondary to ATN from hypotension. She was treated with epinephrine drip and IVF hydration for hypotension which was later weaned off. Admission labs significant for potassium 5.4 and creatinine 4.4. Renal function returned to ml throughout hospitalization. Pt. was seen by critical care, nephrology, and psychiatry on admission. Pt. also had other complications during hospital stay with dx of afib with RVR evaluated by Cardiology. Patient's atrial flutter resolved on amiodarone and Cardizem and she is now in a stable sinus rhythm. Cards layton thart Due to her depression, she appears to have poor understanding of her medical and cardiac status, and will be unreliable for long-term compliance with anticoagulation therapy. Pt. also seen later by ID for Sepsis Not present on admission, manifested by fever, hypotension, tacycardia, and thrombocytopenia. Etiology ? Influenza ? asp pneumona. Sepsis later resolved and etiology was noted to be secondary to Staph septicemia. Blood cutures 11/24 showed MSSA, influenza A & B antigen negative and then repeat blood cx 11/26 negative. ID recommended cefazolin 2gm iv q 8hrs untill 12/09. CM arranged for abx. With regards to suicidal attempt, the 1013 has and was not extended by psychiatry. The patient can follow-up with her psychiatrist Dr Jeronimo for outpatient psy services per Psych recommendations. Psych services discussed the importance to abstain from recreational drug use. Discussed generalized coping skills with the patient. Dedicated d/c time 48 minutes Disposition: DC-01 TO HOME OR SELFCARE Time spent for discharge: 48 - Discharge Diagnoses (1) Afib Status: Acute (2) Sepsis Status: Acute (3) Staphylococcus aureus bacteremia Status: Acute (4) Acute kidney injury Status: Acute (5) Depression Status: Acute (6) Hypotension Status: Acute (7) Overdose Status: Acute Qualifiers: Encounter type: initial encounter (8) Suicide attempt by drug ingestion Status: Acute Qualifiers: Encounter type: initial encounter Qualified Code(s): T50.902A - Poisoning by unspecified drugs, medicaments and biological substances, intentional self- harm, initial encounter (9) Depression Status: Chronic Qualifiers: Depression Type: major depressive disorder Active/Remission status: currently active Major depression episode severity: severe Psychotic features: without psychotic features Core Measure Documentation - Palliative Care Palliative Care/ Comfort Measures: Not Applicable - Core Measures Any of the following diagnoses?: none Exam - Constitutional Vitals: Temp Pulse Resp BP Pulse Ox 98.3 F 84 18 129/66 96 12/02/17 04:51 12/01/17 23:34 12/02/17 04:51 12/02/17 04:51 12/01/17 23:34 General appearance: Present: no acute distress, well-nourished - EENT Eyes: Present: PERRL ENT: hearing intact, clear oral mucosa - Neck Neck: Present: supple, normal ROM - Respiratory Respiratory effort: normal Respiratory: bilateral: CTA - Cardiovascular Heart Sounds: Present: S1 & S2. Absent: rub, click - Extremities Extremities: pulses symmetrical, No edema Peripheral Pulses: within normal limits - Abdominal General gastrointestinal: Present: soft, non-tender, non-distended, normal bowel sounds Female genitourinary: Present: normal - Integumentary Integumentary: Present: clear, warm, dry - Musculoskeletal Musculoskeletal: gait normal, strength equal bilaterally - Psychiatric Psychiatric: appropriate mood/affect, intact judgment & insight - Neurologic Neurologic: CNII-XII intact, moves all extremities Plan Activity: no restrictions Weight Bearing Status: Full Weight Bearing Diet: regular Special Instructions: home health RN Follow up with: PRIMARY CARE, [Primary Care Provider] - 7 Days MELANIE FLORES MD [Staff Physician] - 7 Days DAVIDE EDWARDS MD [Staff Physician] - 7 Days KYM MARIN MD [Staff Physician] - 7 Days Prescriptions: ALPRAZolam [Xanax TAB] 0.25 mg PO Q8H PRN #30 tablet PRN Reason: Anxiety Aspirin EC [Aspirin Enteric Coated TAB] 325 mg PO QDAY #30 tablet ceFAZolin SODIUM IN 0.9 % NACL [Cefazolin 2 G/100 ml-0.9% NaCl] 2 gm IV Q8HR 7 Days #21 plast..bag Diltiazem Cd [Cardizem CD] 120 mg PO QDAY #30 capsule Famotidine [Pepcid] 20 mg PO DAILY #30 tablet
[2017-12-02] MEDS: CARDIZEM CD PO SCH (12:07)
[2017-12-02] MEDS: ECOTRIN PO SCH (12:07)
[2017-12-02] MEDS: PEPCID PO SCH (12:07)
[2017-12-02] MEDS: LOVENOX SUB-Q SCH (12:13)
[2017-12-02] MEDS: ANCEF/STERILE WATER 2 GM/20 ML 2 GM/20 ML SYRINGE IV SCH ×4 (12:13→21:35)
--- NOTE | 2017-12-02 14:57 | Progress Note ---
Assessment and Plan Patient awake, resting on room air.. O2 saturation 98%. No acute respiratory distress. - Patient Problems (1) Hypotension Current Visit: Yes Status: Acute Plan to address problem: Blood pressure improved. Blood pressure at this time 150/90. (2) Overdose Current Visit: Yes Status: Acute Qualifiers: Encounter type: initial encounter Plan to address problem: Recommend to consult psychiatry. (3) Depression Current Visit: Yes Status: Acute Plan to address problem: Recommend to consult psychiatry (4) Acute kidney injury Current Visit: Yes Status: Acute Plan to address problem: Management as per nephrology. (5) Pleural effusion Current Visit: Yes Status: Acute Plan to address problem: Ultrasound of chest reported no right pleural effusion. Small left pleural effusion. Subjective Date of service: 12/02/17 Principal diagnosis: Drug Overdose / Suicide Attempt; ASHLEIGH; Hyperkalemia Interval history: Patient awake, resting on room air.. O2 saturation 98%. No acute respiratory distress. Objective Vital Signs - 12hr 12/02/17 12/02/17 12/02/17 04:51 07:49 11:12 Temperature 98.3 F 98.0 F 98.2 F Pulse Rate 82 81 Respiratory 18 20 18 Rate Blood Pressure 129/66 101/62 151/90 O2 Sat by Pulse 95 98 Oximetry 12/02/17 12:07 Temperature Pulse Rate 90 Respiratory Rate Blood Pressure 151/90 O2 Sat by Pulse Oximetry Constitutional: no acute distress, alert Eyes: non-icteric ENT: oropharynx dry Neck: supple, no lymphadenopathy, no JVD Effort: normal Ascultation: Right: diminished breath sounds (Slightly diminished breath sounds right base.) Percussion: Bilateral: not dull Cardiovascular: regular rate and rhythm Gastrointestinal: normoactive bowel sounds, soft, non-tender Integumentary: normal Extremities: no cyanosis, no edema, pink and warm, pulses normal, no ischemia or petechiae Neurologic: non-focal exam, pupils equal and round Psychiatric: depressed CBC and BMP: 11/25/17 07:13 11/29/17 05:10 ABG, PT/INR, D-dimer: ABG POC ABG pH 7.330 (7.35-7.45) L 11/19/17 18:09 POC ABG pCO2 37.7 (35-45) 11/19/17 18:09 POC ABG pO2 88 (80-105) 11/19/17 18:09 POC ABG HCO3 19.9 11/19/17 18:09 POC ABG Total CO2 21 11/19/17 18:09 POC ABG O2 Sat 96 11/19/17 18:09 Abnormal lab findings: Abnormal Labs 11/19/17 11/19/17 11/19/17 15:15 15:15 17:02 RBC Plt Count Lymph % (Auto) 4.0 L Kaufman % (Auto) 7.8 H Lymph # 0.4 L Kaufman # Seg Neutrophils % 88.0 H Seg Neuts % (Manual) Lymphocytes % (Manual) Monocytes % (Manual) Nucleated RBC % Seg Neutrophils # 8.7 H Seg Neutrophils # Man Lymphocytes # (Manual) POC ABG pH VBG pH Sodium Potassium 5.4 H Chloride Carbon Dioxide BUN 62 H Creatinine 4.4 H Glucose Calcium 7.8 L Phosphorus Magnesium Total Creatine Kinase C-Reactive Protein Total Protein 6.2 L Albumin 3.1 L Urine WBC (Auto) Urine Creatinine Salicylates < 0.3 L 11/19/17 11/19/17 11/19/17 18:09 19:55 23:31 RBC Plt Count Lymph % (Auto) Kaufman % (Auto) Lymph # [place]man # Seg Neutrophils % Seg Neuts % (Manual) Lymphocytes % (Manual) Monocytes % (Manual) Nucleated RBC % Seg Neutrophils # Seg Neutrophils # Man Lymphocytes # (Manual) POC ABG pH 7.330 L VBG pH 7.286 L Sodium Potassium Chloride Carbon Dioxide BUN 61 H Creatinine 3.6 H Glucose 231 H Calcium 7.2 L Phosphorus Magnesium Total Creatine Kinase C-Reactive Protein Total Protein Albumin Urine WBC (Auto) Urine Creatinine Salicylates 11/20/17 11/20/17 11/21/17 04:33 04:33 05:34 RBC 3.49 L Plt Count Lymph % (Auto) 4.5 L Kaufman % (Auto) 9.2 H Lymph # 0.5 L [place]aufman # 1.0 H Seg Neutrophils % 86.3 H Seg Neuts % (Manual) 19.0 L Lymphocytes % (Manual) 5.0 L Monocytes % (Manual) 9.0 H Nucleated RBC % Seg Neutrophils # 9.2 H Seg Neutrophils # Man 1.0 L Lymphocytes # (Manual) 0.3 L POC ABG pH VBG pH Sodium Potassium Chloride Carbon Dioxide 21 L BUN 59 H Creatinine 3.1 H Glucose 247 H Calcium 7.3 L Phosphorus Magnesium Total Creatine Kinase C-Reactive Protein Total Protein 5.5 L Albumin 3.0 L Urine WBC (Auto) Urine Creatinine Salicylates 11/21/17 11/21/17 11/22/17 05:34 Unknown Unknown RBC Plt Count Lymph % (Auto) Kaufman % (Auto) Lymph # [place]man # Seg Neutrophils % Seg Neuts % (Manual) Lymphocytes % (Manual) 10.0 L Monocytes % (Manual) Nucleated RBC % Seg Neutrophils # Seg Neutrophils # Man Lymphocytes # (Manual) 0.5 L POC ABG pH VBG pH Sodium Potassium Chloride Carbon Dioxide BUN 40 H Creatinine 1.4 H D Glucose Calcium 8.0 L Phosphorus Magnesium 2.40 H Total Creatine Kinase 794 H C-Reactive Protein Total Protein Albumin Urine WBC (Auto) Urine Creatinine 103.7 H Salicylates 11/22/17 11/23/17 11/23/17 Unknown 07:05 07:05 RBC Plt Count 134 L Lymph % (Auto) Kaufman % (Auto) Lymph # [place]man # Seg Neutrophils % Seg Neuts % (Manual) 74.0 H Lymphocytes % (Manual) 13.0 L Monocytes % (Manual) Nucleated RBC % Seg Neutrophils # Seg Neutrophils # Man Lymphocytes # (Manual) 0.7 L POC ABG pH VBG pH Sodium 146 H Potassium Chloride Carbon Dioxide BUN 41 H 33 H Creatinine Glucose Calcium 7.6 L Phosphorus Magnesium Total Creatine Kinase C-Reactive Protein Total Protein 6.2 L Albumin 2.9 L Urine WBC (Auto) Urine Creatinine Salicylates 11/24/17 11/24/17 11/24/17 05:38 05:38 14:43 RBC Plt Count 120 L Lymph % (Auto) Kaufman % (Auto) Lymph # [place] # Seg Neutrophils % Seg Neuts % (Manual) 72.0 H Lymphocytes % (Manual) 4.0 L Monocytes % (Manual) Nucleated RBC % Seg Neutrophils # Seg Neutrophils # Man Lymphocytes # (Manual) 0.2 L POC ABG pH VBG pH Sodium Potassium Chloride Carbon Dioxide BUN 24 H Creatinine Glucose Calcium 7.7 L Phosphorus Magnesium Total Creatine Kinase C-Reactive Protein Total Protein Albumin Urine WBC (Auto) 10.0 H Urine Creatinine Salicylates 11/24/17 11/25/17 11/25/17 17:37 07:13 07:13 RBC Plt Count 98 L Lymph % (Auto) K[place]man % (Auto) Lymph # [place] # Seg Neutrophils % Seg Neuts % (Manual) Lymphocytes % (Manual) 3.0 L Monocytes % (Manual) Nucleated RBC % 1.0 H Seg Neutrophils # Seg Neutrophils # Man Lymphocytes # (Manual) 0.3 L POC ABG pH VBG pH Sodium Potassium Chloride 94.3 L Carbon Dioxide BUN 34 H Creatinine 1.7 H D Glucose 118 H Calcium 7.5 L Phosphorus Magnesium 1.40 L 1.50 L Total Creatine Kinase C-Reactive Protein Total Protein Albumin Urine WBC (Auto) Urine Creatinine Salicylates 11/26/17 11/26/17 11/27/17 04:00 04:00 04:50 RBC Plt Count Lymph % (Auto) K[place]man % (Auto) Lymph # [place] # Seg Neutrophils % Seg Neuts % (Manual) Lymphocytes % (Manual) Monocytes % (Manual) Nucleated RBC % Seg Neutrophils # Seg Neutrophils # Man Lymphocytes # (Manual) POC ABG pH VBG pH Sodium Potassium 3.2 L Chloride 97.0 L Carbon Dioxide BUN 32 H 18 H Creatinine Glucose 63 L Calcium 7.4 L 7.5 L Phosphorus 2.00 L D Magnesium 1.40 L Total Creatine Kinase C-Reactive Protein 40.90 H Total Protein Albumin Urine WBC (Auto) Urine Creatinine Salicylates 11/28/17 11/29/17 08:08 05:10 RBC Plt Count Lymph % (Auto) [place]man % (Auto) Lymph # [place] # Seg Neutrophils % Seg Neuts % (Manual) Lymphocytes % (Manual) Monocytes % (Manual) Nucleated RBC % Seg Neutrophils # Seg Neutrophils # Man Lymphocytes # (Manual) POC ABG pH VBG pH Sodium Potassium 3.5 L 3.5 L Chloride Carbon Dioxide BUN Creatinine 0.6 L Glucose 105 H Calcium 7.5 L 7.6 L Phosphorus Magnesium 1.10 L Total Creatine Kinase C-Reactive Protein Total Protein Albumin Urine WBC (Auto) Urine Creatinine Salicylates Chest x-ray: report reviewed (Repoted right pleural effusion or atelectasis.), image reviewed
[2017-12-02] MEDS: XANAX PO PRN (22:22)
[2017-12-02] MEDS: ceFAZolin 2 GM in NACL 0.9% 20 ML IV SCH (23:06)
--- NOTE | 2017-12-03 10:01 | Event Note ---
Date: 12/03/17 The pt. d/c was held because of questionable suicide ideations per Nursing.
--- NOTE | 2017-12-03 10:05 | Discharge Summary ---
Providers - Providers Date of Admission: 11/19/17 21:11 Date of discharge: 12/03/17 Attending physician: NEHA BROWN 11/19/17 21:11 Consult to Dietitian/Nutrition [CONS] Routine Physician Instructions: Reason For Exam: Reason for Consult: Write/Manage Tube Feeding Consult to Physician [CONS] Routine Consulting Provider: DISHA SALGUERO Reason For Exam: Overdose Place consult to:: Dr. Salguero Notified:: Answering Service Phone number called:: [phone] Was contact made?: Yes If yes, spoke with:: Dr. Salguero Time called:: 00:19 11/19/17 21:21 Consult to Dietitian/Nutrition [CONS] Routine Physician Instructions: Assess nutrtn needs, initiate, modify, manage TF Reason For Exam: Reason for Consult: Write/Manage Tube Feeding Reason for Consult: Write/Manage Tube Feeding 11/20/17 07:57 Consult to Mental Health [CONS] Routine Reason For Exam: overdose-effexor Place consult to:: anders Notified:: margret Time called:: 08:29 11/20/17 08:05 Consult to Physician [CONS] Routine Consulting Provider: KYM MARIN Reason For Exam: ASHLEIGH Place consult to:: nephrology Notified:: y If yes, spoke with:: LAMONTE Dinero Time called:: 08:25 11/22/17 09:47 Speech Therapy Evaluation and Treat [CONS] Urgent Reason For Exam: failed swallow screen in ED 11/25/17 07:53 Consult to Physician [CONS] Routine Consulting Provider: MELANIE FLORES Reason For Exam: fever Place consult to:: Dr. Angulo Notified:: Preet RN Phone number called:: Was contact made?: Yes If yes, spoke with:: Bevanswering service Time called:: 09:46 11/29/17 09:45 Physical Therapy Evaluation and Treat [CONS] Routine Comment: Reason For Exam: Gen weakness 11/30/17 14:26 Consult to PICC Line RN [CONS] Stat Reason For Exam: IV antibiotics Type Line:: PICC 11/30/17 14:27 Consult to Case Management [CONS] Stat Services Needed at Discharge: Other Notified:: coupon collection clerk Additional Physician Instructions: [facility]- NPI# [id number] ([facility]) Melanie Angulo MD M [phone] O [phone] OUTPATIENT PARENTERAL ANTIBIOTIC THERAPY ORDERS Diagnoses:MSSA septicemia Antimicrobial administration: cefazolin 2gm iv q 8hrs until 12/09 Lines: PICC Lab monitoring: CBC, CMP, CRP once a week preferly on Wednesday morning. Please fax results to [phone] and call [phone] for critical lab results. Melanie Angulo Date: 11/30/17 Primary care physician: RETAIL REPRESENTATIVE Hospitalization Condition: Critical Hospital course: The patient is 67-year-old AAF with unknown medical history presented to the emergency room with an overdose of venlafaxine. Patient was confused on admission. Pt. was admitted with shock secondary to OD and +/- sepsis etiology. Pt. also with dx of ASHLEIGH/ARf --Etiology secondary to ATN from hypotension. She was treated with epinephrine drip and IVF hydration for hypotension which was later weaned off. Admission labs significant for potassium 5.4 and creatinine 4.4. Renal function returned to ml throughout hospitalization. Pt. was seen by critical care, nephrology, and psychiatry on admission. Pt. also had other complications during hospital stay with dx of afib with RVR evaluated by Cardiology. Patient's atrial flutter resolved on amiodarone and Cardizem and she is now in a stable sinus rhythm. Cards layton thart Due to her depression, she appears to have poor understanding of her medical and cardiac status, and will be unreliable for long-term compliance with anticoagulation therapy. Pt. also seen later by ID for Sepsis Not present on admission, manifested by fever, hypotension, tacycardia, and thrombocytopenia. Etiology ? Influenza ? asp pneumona. Sepsis later resolved and etiology was noted to be secondary to Staph septicemia. Blood cutures 11/24 showed MSSA, influenza A & B antigen negative and then repeat blood cx 11/26 negative. ID recommended cefazolin 2gm iv q 8hrs untill 12/09. CM arranged for abx. With regards to suicidal attempt, the 1013 has and was not extended by psychiatry. The patient can follow-up with her psychiatrist Dr Jeronimo for outpatient psy services per Psych recommendations. Psych services discussed the importance to abstain from recreational drug use. Discussed generalized coping skills with the patient. The d/c was held on 12/02 for questionable suidide ideations per Nursing. Pt. re-evaluated by Psych and per their report-- Pt presented arrogant and agitated; Pt stated that she told the nurse that she felt like dying because sometimes she does; she gets tired of life but she doesn 't have any intent to self harm. Pt reports regretting going home; she's very angry. Psych Explained to pt that she has to deal with her life issues head-on and make an appt to see Dr. Jaime elkins, otherwise, pt is malingering to avoid discharging. Pt should be discharged once medically cleared. SDM--per Psych recommendations. Therefore d/c today. D/C time 32 minutes Disposition: - TO HOME OR SELFCARE - Discharge Diagnoses (1) Afib Status: Acute (2) Sepsis Status: Acute (3) Staphylococcus aureus bacteremia Status: Acute (4) Acute kidney injury Status: Acute (5) Depression Status: Acute (6) Hypotension Status: Acute (7) Overdose Status: Acute Qualifiers: Encounter type: initial encounter (8) Suicide attempt by drug ingestion Status: Acute Qualifiers: Encounter type: initial encounter Qualified Code(s): T50.902A - Poisoning by unspecified drugs, medicaments and biological substances, intentional self- harm, initial encounter (9) Depression Status: Chronic Qualifiers: Depression Type: major depressive disorder Active/Remission status: currently active Major depression episode severity: severe Psychotic features: without psychotic features Core Measure Documentation - Palliative Care Palliative Care/ Comfort Measures: Not Applicable - Core Measures Any of the following diagnoses?: none Exam - Constitutional Vitals: Temp Pulse Resp BP Pulse Ox 98.0 F 82 18 114/68 100 12/03/17 05:01 12/03/17 05:01 12/03/17 05:01 12/03/17 05:01 12/03/17 05:01 General appearance: Present: no acute distress, well-nourished - EENT Eyes: Present: PERRL ENT: hearing intact, clear oral mucosa - Neck Neck: Present: supple, normal ROM - Respiratory Respiratory effort: normal Respiratory: bilateral: CTA - Cardiovascular Heart Sounds: Present: S1 & S2. Absent: rub, click - Extremities Extremities: pulses symmetrical, No edema Peripheral Pulses: within normal limits - Abdominal General gastrointestinal: Present: soft, non-tender, non-distended, normal bowel sounds Female genitourinary: Present: normal - Integumentary Integumentary: Present: clear, warm, dry - Musculoskeletal Musculoskeletal: gait normal, strength equal bilaterally - Psychiatric Psychiatric: appropriate mood/affect, intact judgment & insight - Neurologic Neurologic: CNII-XII intact, moves all extremities Plan Activity: no restrictions Weight Bearing Status: Full Weight Bearing Follow up with: DAVIDE EDWARDS MD [Staff Physician] - 7 Days MELANIE FLORES MD [Staff Physician] - 7 Days PRIMARY CARE, [Primary Care Provider] - 7 Days KYM MARIN MD [Staff Physician] - 7 Days Prescriptions: ALPRAZolam [Xanax TAB] 0.25 mg PO Q8H PRN #30 tablet PRN Reason: Anxiety Aspirin EC [Aspirin Enteric Coated TAB] 325 mg PO QDAY #30 tablet ceFAZolin SODIUM IN 0.9 % NACL [Cefazolin 2 G/100 ml-0.9% NaCl] 2 gm IV Q8HR 7 Days #21 plast..bag Diltiazem Cd [Cardizem CD] 120 mg PO QDAY #30 capsule Famotidine [Pepcid] 20 mg PO DAILY #30 tablet
[2017-12-03] MEDS: ceFAZolin 2 GM in NACL 0.9% 20 ML IV SCH (11:44)
[2017-12-03] MEDS: LOVENOX SUB-Q SCH (11:47)
[2017-12-03] MEDS: PEPCID PO SCH (11:48)
[2017-12-03] MEDS: CARDIZEM CD PO SCH (11:48)
[2017-12-03] MEDS: ECOTRIN PO SCH (11:49)
[2017-12-03 11:51] VITALS: BP 124/72
== END 2017-12-03 16:45 | disposition home or self-care (01) | DRG 917 ==
LOC: ED 13:37 → CC1 21:11 → EEVIPCON 21:11 → 4A 11-21 19:48
PROVIDERS: ADMIT Internal Medicine; ATTEND Hospitalist
PROC: 4A033R1 Measurement of Arterial Saturation, Peripheral, Percutaneous Approach (ICD-10-PCS; principal; 2017-11-19)
PROC: 05HM33Z Insertion of Infusion Device into Right Internal Jugular Vein, Percutaneous Approach (ICD-10-PCS; 2017-11-19)
PROC: B543ZZA Ultrasonography of Right Jugular Veins, Guidance (ICD-10-PCS; 2017-11-19)
DX: T43.212A Poisoning by selective serotonin and norepinephrine reuptake inhibitors, intentional self-harm, initial encounter (principal); A41.9 Sepsis, unspecified organism; N17.0 Acute kidney failure with tubular necrosis; I48.92 Unspecified atrial flutter; N39.0 Urinary tract infection, site not specified; J90 Pleural effusion, not elsewhere classified; E87.5 Hyperkalemia; T14.91XA Suicide attempt, initial encounter; Z88.8 Allergy status to other drugs, medicaments and biological substances; F32.9 Major depressive disorder, single episode, unspecified; E83.51 Hypocalcemia; E83.42 Hypomagnesemia; E83.39 Other disorders of phosphorus metabolism; I48.91 Unspecified atrial fibrillation; Y92.89 Other specified places as the place of occurrence of the external cause
CPT/HCPCS: 36415; 70450; 71045; 76604; 76770; 80048; 80053; 80178; 80307; 80320; 81001; 82140; 82550; 82570; 82803; 82805; 82962; 83735; 83930; 84100; 84300; 84443; 85007; 85025; 86140; 86403; 87040; 87076; 87086; 87186; 87400; 93005; 93010; 93306; 96365; 96375; 99291; 99292; G0480; G8978-GP; G8979-GP; G8996-GN; G8997-GN; G8998-GN; J0171; J0282; J0610; J0690; J0696; J1650; J2270; J2405; J2543; J3370; J3475; J7030; J7040; J7050; J7070

== ENCOUNTER 2018-02-15 16:55 | Inpatient (IN) | payer MEDICARE ==
[2018-02-15 20:13] LABS: Hemoglobin 7.2 gm/dl (10.1-14.3); Mean Corpuscular HGB Conc 29 % (30-34); Mean Corpuscular Hemoglobin 28 pg (28-32); Mean Corpuscular Volume 98 fl (79-97); Platelet Count 262 K/mm3 (140-440); Red Blood Count 2.55 M/mm3 (3.65-5.03); Red Cell Distribution Width 18.5 % (13.2-15.2)
[2018-02-15 21:09] LABS: Alanine Aminotransferase 7 units/L (7-56); BUN/Creatinine Ratio 32; Blood Urea Nitrogen 73 mg/dL (7-17); Hemolysis Index 0
[2018-02-15 21:13] LABS: Basophils % (Manual) 0 % (0.0-1.8); Myelocytes # (Manual) 0.1 K/mm3; Total Cells Counted 100
[2018-02-15 21:14] LABS: Anisocytosis Few; Platelet Estimate Consistent w Auto; Poikilocytosis Few
[2018-02-15] MEDS ORDERED: NACL 0.9% 1000 ML 1,000 ML ONE (21:32)
[2018-02-15] MEDS ORDERED: NACL 0.9% 1000 ML 1,000 ML IV ONE ×2 (21:43→22:59)
--- NOTE | 2018-02-15 21:53 | Cat Scan Report ---
FINAL REPORT PROCEDURE: CT HEAD/BRAIN WO CON TECHNIQUE: Computerized tomography of the head was performed without contrast material. HISTORY: Dizziness COMPARISON: No prior studies are available for comparison. FINDINGS: There is encephalomalacia in the right posterior parietal lobe. There is no CT evidence of intracranial mass, hemorrhage, acute territorial infarction, or hydrocephalus. The intracranial arteries are symmetric in density. Calvarium is intact. Visualized paranasal sinuses and mastoids are aerated. IMPRESSION: No CT evidence of acute intracranial abnormality. There is encephalomalacia in the right posterior parietal lobe, compatible with chronic ischemia
[2018-02-15] MEDS ORDERED: NACL 0.9% 500 ML 500 ML IV ONE (23:15)
--- NOTE | 2018-02-15 23:18 | Emergency Department Report ---
HPI - General Chief Complaint: Weakness Time Seen by Provider: 02/15/18 22:27 - HPI HPI: The patient's is a 67-year-old female who presents for evaluation of generalized weakness. The patient reports constant severe generalized weakness since this morning, greater than 8 hours prior to my evaluation, exacerbated with activity or exertion, improved with rest. The patient denies fever, headache, neck pain, chest pain, hematemesis, vaginal bleeding, blood in the stool, paresthesias, focal motor weakness, blurry vision, ear pain, tinnitus, hemoptysis, dyspnea, abdominal pain. ED Past Medical Hx - Past Medical History Hx Hypertension: Yes (non-compliant w/ meds) Hx Diabetes: Yes (non-compliant w/ meds) Hx Deep Vein Thrombosis: No Hx Arthritis: Yes Hx Seizures: Yes Hx Psychiatric Treatment: Yes (suicidal) Hx COPD: Yes Additional medical history: recently had PICC line removed - Surgical History Hx Pacemaker: No Hx Internal Defibrillator: No Additional Surgical History: Knee surgery, hip surgery - Social History Smoking Status: Current Every Day Smoker - Medications Home Medications: Home Medications Medication Instructions Recorded Confirmed Last Taken Type Quetiapine Fumarate [Seroquel] 2 tab PO QHS 11/05/17 01/31/18 Unknown History Venlafaxine [Effexor] 75 mg PO BID 11/05/17 01/31/18 Unknown History Rivaroxaban [Xarelto] 20 mg PO QDAY #185 tab 11/06/17 01/31/18 Unknown Rx ALPRAZolam [Xanax TAB] 0.25 mg PO Q8H PRN #30 tablet 12/02/17 01/31/18 Unknown Rx Aspirin EC [Aspirin Enteric Coated 325 mg PO QDAY #30 tablet 12/02/17 01/31/18 Unknown Rx TAB] Diltiazem Cd [Cardizem CD] 120 mg PO QDAY #30 capsule 12/02/17 01/31/18 Unknown Rx Famotidine [Pepcid] 20 mg PO DAILY #30 tablet 12/02/17 01/31/18 Unknown Rx ED Review of Systems ROS: Stated complaint: LIGHT HEADED/DIZZY Other details as noted in HPI Constitutional: reports weakness denies: fever ENT: denies: throat or neck pain Respiratory: denies: cough, shortness of breath Cardiovascular: denies: chest pain Endocrine: denies unexplained weight loss or gain Gastrointestinal: denies: abdominal pain, nausea Genitourinary: denies: dysuria Musculoskeletal: denies: leg swelling Skin: denies: rash Neurological: denies: headache Hematological/Lymphatic: denies: easy bleeding or easy bruising Psych: denies sadness or hopelessness Physical Exam - Physical Exam Vital Signs: Vital Signs 02/15/18 02/15/18 16:59 21:09 Temperature 98.9 F Pulse Rate 70 92 H Respiratory 18 18 Rate Blood Pressure 155/111 Blood Pressure 80/46 [Left] O2 Sat by Pulse 98 99 Oximetry Physical Exam: General: well-nourished, well-developed, no acute distress Head: Normocephalic, atraumatic Eyes: normal sclera ENT: Mucous membranes are pale and dry Neck: No neck stiffness, no cervical adenopathy Respiratory: Breath sounds equal bilaterally, no wheezing, rales, or rhonchi Cardio: S1 and S2 present, no murmurs, rubs, gallops, capillary refill is delayed Abdomen: Normoactive bowel sounds, soft abdomen, no rigidity, no guarding or rebound tenderness Chest WALL/Back: No tenderness to palpation of the chest wall, no CVA tenderness with percussion : no blood on rectal exam Musc: No pitting edema Skin: No rash Neuro: no facial drooping, normal speech Psych: Normal affect ED Course Vital Signs 02/15/18 02/15/18 16:59 21:09 Temperature 98.9 F Pulse Rate 70 92 H Respiratory 18 18 Rate Blood Pressure 155/111 Blood Pressure 80/46 [Left] O2 Sat by Pulse 98 99 Oximetry ED Medical Decision Making - Lab Data Result diagrams: 02/15/18 19:54 02/15/18 19:54 - Medical Decision Making The patient was seen and examined by myself. The patient is placed on a mid level provider and continuous pulse ox. On initial evaluation, the patient was found to be in no distress. Evaluation orders were placed. The patient is given 1 L normal saline fluid bolus. Lab results revealed elevated BUN of 70, elevated creatinine of 3.2, mildly elevated potassium level of 5.1, and low hemoglobin of 7.2, decreased from patient baseline of 10. Fecal occult is negative. As patient's tachycardia with a significant drop in hemoglobin, the patient received blood transfusion. One unit of PRBCs is ordered. The on-call hospitalist service was contacted. They agreed to admit the patient for further treatment and close monitoring. The ED admit order was placed. The patient was admitted in guarded condition. Critical care attestation.: If time is entered above; I have spent that time in minutes in the direct care of this critically ill patient, excluding procedure time. ED Disposition Clinical Impression: Acute blood loss anemia, Severe anemia, Anemia requiring transfusions, Hypovolemic shock, Generalized weakness, Acute hyperkalemia Acute on chronic kidney failure Qualifiers: Acute renal failure type: unspecified Chronic kidney disease stage: unspecified stage Qualified Code(s): N17.9 - Acute kidney failure, unspecified; N18.9 - Chronic kidney disease, unspecified Disposition: -09 OP ADMIT IP TO THIS HOSP Is pt being admited?: Yes Does the pt Need Aspirin: Yes Condition: Serious Referrals: PRIMARY CARE, [Primary Care Provider] - 3-5 Days Time of Disposition: 22:42
--- NOTE | 2018-02-15 23:58 | History and Physical Report ---
History of Present Illness Date of examination: 02/15/18 History of present illness: 8-year-old woman with a history of hypertension, seizure, depression comes emergency room because today she felt weak and dizzy. An hour ago she started having pain in her epigastric area which she stayed his gas because she ate some cabbage. She describes the pain as sharp, intermittent in nature lasting for a few minutes, intensity 3/10, no radiation, no nausea vomiting, diaphoresis , palpitation or shortness of breath. No NSAID use, black stool or hematochezia. Recent admission reviewed, patient had acute renal failure, her hemoglobin dropped but rebounded Review of systems Constitutional: no weight loss, chills Ears, eyes, nose, mouth and throat: no nasal congestion, no nasal discharge, no sinus pressure, no vision change, no red eye. Neck: No neck pain or rigidity. Cardiovascular: no chest pain, palpitations Respiratory: No cough, shortness of breath Gastrointestinal: no abdominal pain, hematochezia Genitourinary : no dysuria, frequency , no hematuria Musculoskeletal: no joint swelling or muscle ache Integumentary: no rash, no pruritis Neurological: no parathesias, no numbness, no focal weakness Endocrine: no cold or heat intolerance, no polyuria or polydipsia Hematologic/Lymphatic: no easy bruising, no easy bleeding, no gland swelling Allergic/Immunologic: no urticaria, no angioedema. PAST MEDICAL HISTORY: hypertension, seizure, depression PAST SURGICAL HISTORY: None SOCIAL HISTORY: Smokes half pack a day, no alcohol or drugs FAMILY HISTORY: Hypertension Medications and Allergies Allergies Allergy/AdvReac Type Severity Reaction Status Date / Time clindamycin AdvReac Unknown Verified 02/15/18 16:59 Home Medications Medication Instructions Recorded Confirmed Last Taken Type Quetiapine Fumarate [Seroquel] 2 tab PO QHS 11/05/17 01/31/18 Unknown History Venlafaxine [Effexor] 75 mg PO BID 11/05/17 01/31/18 Unknown History Rivaroxaban [Xarelto] 20 mg PO QDAY #185 tab 11/06/17 01/31/18 Unknown Rx ALPRAZolam [Xanax TAB] 0.25 mg PO Q8H PRN #30 tablet 12/02/17 01/31/18 Unknown Rx Aspirin EC [Aspirin Enteric Coated 325 mg PO QDAY #30 tablet 12/02/17 01/31/18 Unknown Rx TAB] Diltiazem Cd [Cardizem CD] 120 mg PO QDAY #30 capsule 12/02/17 01/31/18 Unknown Rx Famotidine [Pepcid] 20 mg PO DAILY #30 tablet 12/02/17 01/31/18 Unknown Rx Active Meds: Active Medications Sodium Chloride (Nacl 0.9% 1000 Ml) 1,000 mls @ 999 mls/hr IV BOLUS ONE Stop: 02/15/18 23:59 Last Admin: 02/15/18 23:02 Dose: 999 mls/hr Exam - Physical Exam Narrative exam: Gen. appearance: Patient lying in bed, no apparent distress HEENT: Normocephalic, atraumatic, pupils equally round and reactive to light, extraocular movement intact, and no sclericterus,. No JVD or thyromegaly or nodule,neck supple, no carotid bruit ,mucous membranes moist, no exudate or erythema Heart: S1, S2, regular rate and rhythm Lungs: Clear to auscultation bilaterally, breathing comfortable Abdomen: Positive bowel sounds, nontender, nondistended, no organomegaly Extremity: No edema, cyanosis, clubbing Skin: No rash, nodules, warm, dry Neuro: Oriented 3, cranial nerves II-12 intact, speech is fluent, motor and sensory intact Rectal: Brown stool, heme negative - Constitutional Vitals: Temp Pulse Resp BP Pulse Ox 98.9 F 92 H 18 80/46 99 02/15/18 16:59 02/15/18 21:09 02/15/18 21:09 02/15/18 21:09 02/15/18 21:09 Results - Labs CBC & Chem 7: 02/15/18 19:54 02/15/18 19:54 Labs: Abnormal lab results 02/15/18 02/15/18 Range/Units 19:54 19:54 RBC 2.55 L (3.65-5.03) M/mm3 Hgb 7.2 L (10.1-14.3) gm/dl Hct 25.0 L (30.3-42.9) % MCV 98 H (79-97) fl MCHC 29 L (30-34) % RDW 18.5 H (13.2-15.2) % Sodium 135 L (137-145) mmol/L Potassium 5.1 H (3.6-5.0) mmol/L Carbon Dioxide 19 L (22-30) mmol/L BUN 73 H (7-17) mg/dL Creatinine 2.3 H (0.7-1.2) mg/dL - Imaging and Cardiology CT Scan - head: report reviewed Assessment and Plan Assessment Acute renal failure Blood loss anemia Hypertension Depression plan Admit to medicine Start IV fluid, monitor kidney function, check urinalysis Consult renal, transfuse pack red blood cells DVT prophylaxis, check cardiac enzymes, ultrasound kidneys
[2018-02-16] MEDS ORDERED: ALUM-MAG HYDROX-SIMETH 200-200-20MG/5ML PO ONE (00:20)
[2018-02-16] MEDS ORDERED: ZOFRAN IV PRN (00:44)
[2018-02-16] MEDS ORDERED: TYLENOL PO PRN (00:44)
[2018-02-16] MEDS ORDERED: SODIUM CHLORIDE FLUSH SYRINGE 10 ML IV PRN (00:44)
[2018-02-16] MEDS ORDERED: NACL 0.9% 1000 ML 1,000 ML ONE (01:55)
[2018-02-16] MEDS: NACL 0.9% 1000 ML 1,000 ML IV SCH (02:00)
[2018-02-16] MEDS ORDERED: NACL 0.9% 500 ML 500 ML ONE (02:57)
[2018-02-16 05:39] LABS: Creatine Kinase MB 1.3 ng/mL (0.0-4.0)
--- NOTE | 2018-02-16 08:31 | Ultrasound Report ---
ULTRASOUND RENAL BILATERAL HISTORY: Acute renal failure. COMPARISON: 02/01/18. TECHNIQUE: transabdominal ultrasound with color Doppler interrogation. FINDINGS: The right kidney measures 8.8cm. Right renal cortex: 1.0cm. The left kidney measures 9.5cm. Left renal cortex: 1.6cm. The right kidney is mildly atrophic and echogenic consistent with chronic renal parenchymal disease. The left kidney is normal size and echogenicity. There is no evidence for cystic disease, mass, calculus or hydronephrosis. The bladder is empty. IMPRESSION: Slightly atrophic right kidney as described. Unremarkable left kidney. No change since 02/01/18.
--- NOTE | 2018-02-16 09:06 | Consultation ---
History of Present Illness - Reason for Consult Consult date: 02/16/18 acute renal failure, hyperkalemia - History of Present Illness The patient is a 67 YO AAF with history significant for HTN, Type 2 DM, OA, Seizure Disorder, COPD, Bipolar Disorder, Tobacco use and Medical noncompliance who presented to ER with dizziness and feeling weakness for the past few days. Patient is poor historian. Dizziness is mostly orthostatic. She also reports epigastric pain, decreased appetite and decreased PO intake. In the ER she was hypotensive with systolic BP in the 80's. She was found to have Acute kidney injury with creatinine of 2.3 and anemia with Hb 7.2. Patient denies fever, chills, CP, N, V, D, dysuria, hematuria, skin rash or cough. She continues to smoke about 1/2 pack of cigarettes. Of note she was treated for ASHLEIGH in Oct 2017 and 2 weeks ago. Past History Past Medical History: diabetes, hypertension Medications and Allergies Allergies Allergy/AdvReac Type Severity Reaction Status Date / Time clindamycin AdvReac Unknown Verified 02/15/18 16:59 Home Medications Medication Instructions Recorded Confirmed Last Taken Type Quetiapine Fumarate [Seroquel] 2 tab PO QHS 11/05/17 02/16/18 02/15/18 History Rivaroxaban [Xarelto] 20 mg PO QDAY #185 tab 11/06/17 02/16/18 02/15/18 Rx Aspirin EC [Aspirin Enteric Coated 325 mg PO QDAY #30 tablet 12/02/17 02/16/18 02/15/18 Rx TAB] Albuterol Sulfate [Ventolin HFA] 2 puff IH Q4H PRN 02/16/18 02/16/18 02/15/18 History Lisinopril/Hydrochlorothiazide 1 tab PO QDAY 02/16/18 02/16/18 02/15/18 History [Zestoretic 10-12.5 mg] OXcarbazepine [Trileptal] 150 mg PO BID 02/16/18 02/16/18 02/15/18 History Venlafaxine HCl [Effexor Xr] 300 mg PO QAM 02/16/18 02/16/18 02/15/18 History Active Meds: Active Medications Acetaminophen (Tylenol) 650 mg PO Q4H PRN PRN Reason: Pain MILD(1-3)/Fever >100.5/CHAO Sodium Chloride (Nacl 0.9% 1000 Ml) 1,000 mls @ 150 mls/hr IV DIRECT ROMAIN Last Admin: 02/16/18 02:00 Dose: 150 mls/hr Ondansetron HCl (Zofran) 4 mg IV Q8H PRN PRN Reason: Nausea And Vomiting Sodium Chloride (Sodium Chloride Flush Syringe 10 Ml) 10 ml IV BID ROMAIN Sodium Chloride (Sodium Chloride Flush Syringe 10 Ml) 10 ml IV PRN PRN PRN Reason: LINE FLUSH Review of Systems Constitutional: weight loss, anorexia, weakness, poor appetite, no weight gain, no fever, no chills Ears, nose, mouth and throat: no epistaxis Breasts: deferred Cardiovascular: high blood pressure, no chest pain, no orthopnea, no edema, no syncope, no lightheadedness, no shortness of breath, no leg edema Respiratory: no cough, no hemoptysis, no shortness of breath, no dyspnea on exertion, no home oxygen Gastrointestinal: abdominal pain, no nausea, no vomiting, no diarrhea, no hematemesis, no melena, no jaundice Genitourinary Female: no dysuria, no hematuria Rectal: no bleeding Musculoskeletal: muscle weakness, no redness of joints, no muscle cramps Integumentary: no rash, no wounds Neurological: no seizures, no syncope, no convulsions, no double vision, no loss of vision, no paralysis Psychiatric: change in appetite Endocrine: weight change Exam - Vital Signs Vital signs: Vital Signs Temp Pulse Resp BP Pulse Ox 98.9 F 70 18 155/111 98 02/15/18 16:59 02/15/18 16:59 02/15/18 16:59 02/15/18 16:59 02/15/18 16:59 - General Appearance General appearance: well-developed, appears stated age, other (no distress) EENT: ATNC, PERRL, mucous membranes moist, hearing intact, vision intact Neck: Present: neck supple, trachea midline Respiratory: Clear to Ascultation Heart: regular, S1S2, no murmurs Gastrointestinal: Present: normoactive bowel sounds. Absent: tenderness, distended Integumentary: no rash, warm and dry Neurologic: no focal deficit, no asterixis, alert and oriented x3 Musculoskeletal: Present: other (no edema) Psychiatric: mood/affect appropriate, cooperative Results - Lab Results 02/16/18 14:53 02/16/18 13:00 Most recent lab results Calcium 9.0 mg/dL (8.4-10.2) 02/15/18 19:54 - Image Kidney/bladder ultrasound: pending Assessment and Plan 1. Acute kidney injury: Vasomotor / hemodynamically mediated ASHLEIGH in the setting of volume depletion / hypotension. Renal function is better. Continue IV fluids. 2. Mild hyperkalemia: Kayexalate ordered. 3. Volume depletion. 4. Anemia.
[2018-02-16] MEDS ORDERED: PROAIR IH PRN (13:07)
--- NOTE | 2018-02-16 13:07 | Progress Note ---
Assessment and Plan Assessment and plan: --Anemia; probably secondary to coagulopathy due to Xeralto Received 1 unit PRBC transfusion, repeat hemoglobin 6.5 Transfuse 2 additional PRBC, stool for occult blood GI consultation --Acute kidney injury; secondary to vasomotor nephropathy Closely monitor renal function, avoid nephrotoxic medications, nephrology consulted --Hypertension; well controlled, continue current antihypertensives When necessary medications --History of DVT on Xeralto Hold Xeralto in view of anemia --Paroxysmal A. fib; now patient is in sinus Continue to monitor,hold xeralto --DVT prophylaxis; SCDs Plan of care discussed with the patient and her nurse We'll downgrade the patient to [facility] unit History Interval history: Patient seen and examined, medical records reviewed Admitted with symptomatic anemia, with hemoglobin of 7.2 received 1 unit of PRBC, post transfusion hemoglobin 6.5 No external evidence of bleeding The patient is on Xeralto for lower extremity DVT Patient complains of mild dizziness weakness Vital signs reviewed Hospitalist Physical - Constitutional Vitals: Temp Pulse Resp BP Pulse Ox 98.5 F 88 16 102/62 98 02/16/18 03:15 02/16/18 06:16 02/16/18 07:01 02/16/18 06:16 02/16/18 07:01 General appearance: Present: no acute distress, well-nourished, other (pale) - EENT Eyes: Present: PERRL, EOM intact - Neck Neck: Present: supple, normal ROM - Respiratory Respiratory effort: normal Respiratory: bilateral: diminished, negative: rales, rhonchi, wheezing - Cardiovascular Rhythm: regular Heart Sounds: Present: S1 & S2 - Extremities Extremities: no ischemia, No edema - Abdominal General gastrointestinal: soft, non-tender, non-distended, normal bowel sounds - Integumentary Integumentary: Present: clear, warm - Psychiatric Psychiatric: appropriate mood/affect, cooperative - Neurologic Neurologic: CNII-XII intact, moves all extremities Results - Labs CBC & Chem 7: 02/16/18 14:53 02/16/18 13:00 Labs: Laboratory Last Values WBC 7.4 K/mm3 (4.5-11.0) 02/15/18 19:54 RBC 2.55 M/mm3 (3.65-5.03) L 02/15/18 19:54 Hgb 7.2 gm/dl (10.1-14.3) L 02/15/18 19:54 Hct 25.0 % (30.3-42.9) L 02/15/18 19:54 MCV 98 fl (79-97) H 02/15/18 19:54 MCH 28 pg (28-32) 02/15/18 19:54 MCHC 29 % (30-34) L 02/15/18 19:54 RDW 18.5 % (13.2-15.2) H 02/15/18 19:54 Plt Count 262 K/mm3 (140-440) 02/15/18 19:54 Add Manual Diff Complete 02/15/18 19:54 Total Counted 100 02/15/18 19:54 Seg Neuts % (Manual) 64.0 % (40.0-70.0) 02/15/18 19:54 Band Neutrophils % 0 % 02/15/18 19:54 Lymphocytes % (Manual) 29.0 % (13.4-35.0) 02/15/18 19:54 Reactive Lymphs % (Man) 0 % 02/15/18 19:54 Monocytes % (Manual) 4.0 % (0.0-7.3) 02/15/18 19:54 Eosinophils % (Manual) 1.0 % (0.0-4.3) 02/15/18 19:54 Basophils % (Manual) 0 % (0.0-1.8) 02/15/18 19:54 Metamyelocytes % 0 % 02/15/18 19:54 Myelocytes % 2.0 % 02/15/18 19:54 Promyelocytes % 0 % 02/15/18 19:54 Blast Cells % 0 % 02/15/18 19:54 Nucleated RBC % Not Reportable 02/15/18 19:54 Seg Neutrophils # Man 4.7 K/mm3 (1.8-7.7) 02/15/18 19:54 Band Neutrophils # 0.0 K/mm3 02/15/18 19:54 Lymphocytes # (Manual) 2.1 K/mm3 (1.2-5.4) 02/15/18 19:54 Abs React Lymphs (Man) 0.0 K/mm3 02/15/18 19:54 Monocytes # (Manual) 0.3 K/mm3 (0.0-0.8) 02/15/18 19:54 Eosinophils # (Manual) 0.1 K/mm3 (0.0-0.4) 02/15/18 19:54 Basophils # (Manual) 0.0 K/mm3 (0.0-0.1) 02/15/18 19:54 Metamyelocytes # 0.0 K/mm3 02/15/18 19:54 Myelocytes # 0.1 K/mm3 02/15/18 19:54 Promyelocytes # 0.0 K/mm3 02/15/18 19:54 Blast Cells # 0.0 K/mm3 02/15/18 19:54 WBC Morphology Not Reportable 02/15/18 19:54 Hypersegmented Neuts Not Reportable 02/15/18 19:54 Hyposegmented Neuts Not Reportable 02/15/18 19:54 Hypogranular Neuts Not Reportable 02/15/18 19:54 Smudge Cells Not Reportable 02/15/18 19:54 Toxic Granulation Not Reportable 02/15/18 19:54 Toxic Vacuolation Not Reportable 02/15/18 19:54 Dohle Bodies Not Reportable 02/15/18 19:54 Pelger-Huet Anomaly Not Reportable 02/15/18 19:54 [place] Rods Not Reportable 02/15/18 19:54 Platelet Estimate Consistent w auto 02/15/18 19:54 Clumped Platelets Not Reportable 02/15/18 19:54 Plt Clumps, EDTA Not Reportable 02/15/18 19:54 Large Platelets Not Reportable 02/15/18 19:54 Giant Platelets Not Reportable 02/15/18 19:54 Platelet Satelliting Not Reportable 02/15/18 19:54 Plt Morphology Comment Not Reportable 02/15/18 19:54 RBC Morphology Not Reportable 02/15/18 19:54 Dimorphic RBCs Not Reportable 02/15/18 19:54 Polychromasia Not Reportable 02/15/18 19:54 Hypochromasia Not Reportable 02/15/18 19:54 Poikilocytosis Few 02/15/18 19:54 Anisocytosis Few 02/15/18 19:54 Microcytosis Not Reportable 02/15/18 19:54 Macrocytosis Not Reportable 02/15/18 19:54 Spherocytes Not Reportable 02/15/18 19:54 Pappenheimer Bodies Not Reportable 02/15/18 19:54 Sickle Cells Not Reportable 02/15/18 19:54 Target Cells Not Reportable 02/15/18 19:54 Tear Drop Cells Not Reportable 02/15/18 19:54 Ovalocytes Not Reportable 02/15/18 19:54 Helmet Cells Not Reportable 02/15/18 19:54 Marquez-[place] Bodies Not Reportable 02/15/18 19:54 [place] Rings Not Reportable 02/15/18 19:54 [place] Cells Not Reportable 02/15/18 19:54 Bite Cells Not Reportable 02/15/18 19:54 Crenated Cell Not Reportable 02/15/18 19:54 Elliptocytes Not Reportable 02/15/18 19:54 Acanthocytes (Spur) Not Reportable 02/15/18 19:54 Rouleaux Not Reportable 02/15/18 19:54 Hemoglobin C Crystals Not Reportable 02/15/18 19:54 Schistocytes Not Reportable 02/15/18 19:54 Malaria parasites Not Reportable 02/15/18 19:54 Bhupendra Bodies Not Reportable 02/15/18 19:54 Hem Pathologist Commnt No 02/15/18 19:54 Sodium 135 mmol/L (137-145) L 02/15/18 19:54 Potassium 5.1 mmol/L (3.6-5.0) H 02/15/18 19:54 Chloride 99.2 mmol/L (98-107) 02/15/18 19:54 Carbon Dioxide 19 mmol/L (22-30) L 02/15/18 19:54 Anion Gap 22 mmol/L 02/15/18 19:54 BUN 73 mg/dL (7-17) H 02/15/18 19:54 Creatinine 2.3 mg/dL (0.7-1.2) H 02/15/18 19:54 Estimated GFR 26 ml/min 02/15/18 19:54 BUN/Creatinine Ratio 32 % 02/15/18 19:54 Glucose 93 mg/dL (65-100) 02/15/18 19:54 Calcium 9.0 mg/dL (8.4-10.2) 02/15/18 19:54 Total Bilirubin < 0.20 mg/dL (0.1-1.2) 02/15/18 19:54 AST 12 units/L (5-40) 02/15/18 19:54 ALT 7 units/L (7-56) 02/15/18 19:54 Alkaline Phosphatase 110 units/L (35-129) 02/15/18 19:54 Total Creatine Kinase 48 units/L (30-135) 02/16/18 04:27 CK-MB (CK-2) 1.3 ng/mL (0.0-4.0) 02/16/18 04:27 CK-MB (CK-2) Rel Index 2.7 (0-4) 02/16/18 04:27 Troponin T < 0.010 ng/mL (0.00-0.029) 02/16/18 04:27 NT-Pro-B Natriuret Pep 257.4 pg/mL (0-900) 02/15/18 19:54 Total Protein 6.5 g/dL (6.3-8.2) 02/15/18 19:54 Albumin 4.0 g/dL (3.9-5) 02/15/18 19:54 Albumin/Globulin Ratio 1.6 % 02/15/18 19:54 Blood Type O POSITIVE 02/15/18 23:01 Antibody Screen Negative 02/15/18 23:01 Crossmatch See Detail 02/15/18 23:01
[2018-02-16] MEDS ORDERED: PROVENTIL IH PRN (13:16)
[2018-02-16 13:53] LABS: BUN/Creatinine Ratio 49; Blood Urea Nitrogen 54 mg/dL (7-17); Calcium 7.6 mg/dL (8.4-10.2); Hemolysis Index 43
[2018-02-16 13:54] LABS: Creatine Kinase MB 1.5 ng/mL (0.0-4.0)
[2018-02-16 15:05] LABS: Hematocrit 20.1 % (30.3-42.9); Hemoglobin 6.5 gm/dl (10.1-14.3)
[2018-02-16] MEDS ORDERED: D50W (25GM) Syringe IV ONE (15:12)
[2018-02-16] MEDS ORDERED: KIONEX PO ONE (16:00)
[2018-02-16] MEDS ORDERED: NACL 0.9% 500 ML 500 ML IV ONE (17:00)
[2018-02-16] MEDS ORDERED: NACL 0.9% 500 ML 500 ML IV SCH (17:00)
[2018-02-16] MEDS ORDERED: EFFEXOR XR PO ONE (17:39)
[2018-02-16] MEDS ORDERED: EFFEXOR ONE (17:55)
[2018-02-16] MEDS ORDERED: KIONEX ONE (17:56)
[2018-02-16] MEDS: SODIUM CHLORIDE FLUSH SYRINGE 10 ML IV SCH ×2 (18:40→23:10)
[2018-02-16] MEDS ORDERED: ALUM-MAG HYDROX-SIMETH 200-200-20MG/5ML PO PRN (19:51)
[2018-02-16] MEDS ORDERED: QUETIAPINE FUMARATE PO SCH (22:00)
[2018-02-16] MEDS: PROTONIX IV SCH (23:09)
[2018-02-16] MEDS: TRILEPTAL PO SCH (23:10)
[2018-02-17] MEDS ORDERED: NACL 0.9% 1000 ML 1,000 ML IV ONE (02:26)
--- NOTE | 2018-02-17 06:00 | Progress Note ---
Assessment and Plan 1. Acute kidney injury: Vasomotor / hemodynamically mediated ASHLEIGH in the setting of volume depletion / hypotension. Renal function is better. Continue IV fluids. 2. Mild hyperkalemia: Improved. 3. Volume depletion. 4. Anemia: PRBC. Subjective Date of service: 02/17/18 Interval history: Patient was seen and examined at the bedside. Doing ok. Objective - Vital Signs Vital signs: Vital Signs - 12hr 02/16/18 02/16/18 02/17/18 20:20 21:39 01:18 Temperature 99.2 F 98.2 F Pulse Rate 105 H 96 H Respiratory 20 18 20 Rate Blood Pressure 74/41 Blood Pressure 123/45 [Left] O2 Sat by Pulse 98 96 Oximetry 02/17/18 02/17/18 02/17/18 01:33 02:03 02:33 Temperature 98.2 F 98.3 F 98.3 F Pulse Rate 95 H 96 H 91 H Respiratory 20 20 20 Rate Blood Pressure 77/43 76/43 83/49 Blood Pressure [Left] O2 Sat by Pulse Oximetry 02/17/18 02/17/18 03:03 03:33 Temperature 99.0 F 98.8 F Pulse Rate 99 H 88 Respiratory 20 20 Rate Blood Pressure 97/52 78/42 Blood Pressure [Left] O2 Sat by Pulse Oximetry - General Appearance General appearance: well-developed, appears stated age, other (no distress) EENT: ATNC, PERRL, mucous membranes dry, hearing intact, vision intact Neck: supple Respiratory: Present: Clear to Ascultation Cardiology: regular, S1S2, no murmurs Gastrointestinal: normoactive bowel sounds, no tenderness, no distended Integumentary: no rash, warm and dry Neurologic: no focal deficit, no asterixis Musculoskeletal: other (no edema) Psychiatric: mood/affect appropriate, cooperative - Lab 02/19/18 10:54 02/19/18 05:28 Most recent lab results Calcium 7.6 mg/dL (8.4-10.2) L D 02/16/18 13:00
[2018-02-17 08:23] LABS: Mucus,Urine FEW /HPF
[2018-02-17 08:29] LABS: Bacteria,Urine 1+ /HPF (Negative); Bilirubin,Urine NEG (Negative); Blood,Urine LG (Negative); Color,Urine Yellow (Yellow); Protein,Urine <15 mg/dL mg/dL (Negative); Urobilinogen,Urine < 2.0 mg/dL (<2.0)
[2018-02-17] MEDS: EFFEXOR XR PO SCH (09:37)
[2018-02-17] MEDS: TRILEPTAL PO SCH ×2 (09:39→21:33)
[2018-02-17] MEDS: SODIUM CHLORIDE FLUSH SYRINGE 10 ML IV SCH ×2 (09:40→21:32)
[2018-02-17] MEDS: PROTONIX IV SCH ×2 (09:40→21:33)
[2018-02-17] MEDS ORDERED: NON-FORMULARY (Lisinopril/Hydrochlorothiazide [Zestoretic 10-12.5 Mg] 1 TAB) PO SCH (10:00)
[2018-02-17] MEDS ORDERED: ZESTRIL PO SCH (10:00)
[2018-02-17] MEDS ORDERED: VENLAFAXINE HCL 300 MG PO SCH (10:00)
[2018-02-17] MEDS ORDERED: HCTZ PO SCH (10:00)
--- NOTE | 2018-02-17 10:12 | Gastroenterology Consultation ---
History of Present Illness - Reason for Consult Consult date: 02/17/18 anemia Requesting physician: SHIVANI VILLAREAL - History of Present Illness Patient is a 67 y/o female with PMH of HTN, DM, arthritis, seizure, bipolar disorder, COPD, medication non-compliance, and hx of DVT (on xarelto at home with last dose 2 days ago) who presented to ED with c/o weakness and dizziness. She was found to be anemic on admission with H/H 7.2/25.0 to which GI has been consulted. This morning pt was resting in bed w/o acute distress and family at bedside. She reports no previous hx of anemia. Has had no active signs of bleeding such as hematemesis, melena, or hematochezia. BM yesterday with brown stool. Admits to a recent increase in burping/gas and a gradual wt loss of approximately 30lbs over the past year due to family stress but denies fever, CP , SOB, abd pain, N/V, heartburn, regurgitation, dysphagia, odynophagia, diarrhea , or constipation. Takes daily ASA. No hx of PUD. No previous EGD/colonoscopy. No Fhx of GI cancers. Past History Past Medical History: arthritis, COPD, diabetes, hypertension, seizures, other ( bipolar disorder) Past Surgical History: Other (hip, knee) Social history: smoking Family history: diabetes, hypertension Medications and Allergies Allergies Allergy/AdvReac Type Severity Reaction Status Date / Time clindamycin AdvReac Unknown Verified 02/15/18 16:59 Home Medications Medication Instructions Recorded Confirmed Last Taken Type Quetiapine Fumarate [Seroquel] 2 tab PO QHS 11/05/17 02/16/18 02/15/18 History Rivaroxaban [Xarelto] 20 mg PO QDAY #185 tab 11/06/17 02/16/18 02/15/18 Rx Aspirin EC [Aspirin Enteric Coated 325 mg PO QDAY #30 tablet 12/02/17 02/16/18 02/15/18 Rx TAB] Albuterol Sulfate [Ventolin HFA] 2 puff IH Q4H PRN 02/16/18 02/16/18 02/15/18 History Lisinopril/Hydrochlorothiazide 1 tab PO QDAY 02/16/18 02/16/18 02/15/18 History [Zestoretic 10-12.5 mg] OXcarbazepine [Trileptal] 150 mg PO BID 02/16/18 02/16/18 02/15/18 History Venlafaxine HCl [Effexor Xr] 300 mg PO QAM 02/16/18 02/16/18 02/15/18 History Active Meds: Active Medications Acetaminophen (Tylenol) 650 mg PO Q4H PRN PRN Reason: Pain MILD(1-3)/Fever >100.5/CHAO Al Hydrox/Mg Hydrox/Simethicone (Alum-Mag Hydrox-Simeth [id number]/5ml) 15 ml PO Q4H PRN PRN Reason: Indigestion Last Admin: 02/16/18 20:18 Dose: 15 ml Albuterol (Proventil) 2.5 mg IH Q4HRT PRN PRN Reason: Shortness Of Breath Sodium Chloride (Nacl 0.9% 1000 Ml) 1,000 mls @ 150 mls/hr IV DIRECT [facility] Last Admin: 02/16/18 02:00 Dose: 150 mls/hr Ondansetron HCl (Zofran) 4 mg IV Q8H PRN PRN Reason: Nausea And Vomiting Oxcarbazepine (Trileptal) 150 mg PO BID [facility] Last Admin: 02/17/18 09:39 Dose: 150 mg Pantoprazole Sodium (Protonix) 40 mg IV BID [facility] Last Admin: 02/17/18 09:40 Dose: 40 mg Quetiapine Fumarate (Seroquel) 600 mg PO QHS [facility] Last Admin: 02/16/18 23:09 Dose: 600 mg Sodium Chloride (Sodium Chloride Flush Syringe 10 Ml) 10 ml IV BID [facility] Last Admin: 02/17/18 09:40 Dose: 10 ml Sodium Chloride (Sodium Chloride Flush Syringe 10 Ml) 10 ml IV PRN PRN PRN Reason: LINE FLUSH Venlafaxine HCl (Effexor Xr) 150 mg PO QDAY [facility] Last Admin: 02/17/18 09:37 Dose: 150 mg Review of Systems - Review of Systems All systems: negative Constitutional: weight loss, weakness, other (dizziness) Gastrointestinal: belching, excessive gas Exam - Constitutional Vital Signs: Temp Pulse Resp BP Pulse Ox 98.8 F 88 16 110/58 99 02/17/18 07:10 02/17/18 07:10 02/17/18 07:10 02/17/18 07:10 02/17/18 07:10 General appearance: no acute distress - EENT Eyes: PERRL, EOM intact ENT: hearing intact - Respiratory Respiratory: bilateral: CTA - Cardiovascular Rhythm: regular Heart Sounds: Present: S1 & S2 - Gastrointestinal General gastrointestinal: Present: soft, non-tender, non-distended, normal bowel sounds - Integumentary Integumentary: Present: warm, dry - Neurologic Neurological: alert and oriented x3 - Labs CBC & Chem 7: 02/16/18 14:53 02/16/18 13:00 Lab Results: Laboratory Results - last 24 hr 02/15/18 02/16/18 02/16/18 23:01 13:00 13:00 Hgb Hct Sodium 135 L Potassium 5.2 H Chloride 106.4 Carbon Dioxide 18 L Anion Gap 16 BUN 54 H Creatinine 1.1 D Estimated GFR > 60 BUN/Creatinine Ratio 49 Glucose 90 Calcium 7.6 L D Total Creatine Kinase 51 CK-MB (CK-2) 1.5 CK-MB (CK-2) Rel Index 2.9 Troponin T < 0.010 Urine Color Urine Turbidity Urine pH Ur Specific [place] Urine Protein Urine Glucose (UA) Urine Ketones Urine Blood Urine Nitrite Ur Reducing Substances Urine Bilirubin Urine Ictotest Urine Urobilinogen Ur Leukocyte Esterase Urine WBC (Auto) Urine RBC (Auto) U Epithel Cells (Auto) Urine Bacteria (Auto) Urine Mucus Blood Type O POSITIVE Antibody Screen Negative Crossmatch See Detail 02/16/18 02/17/18 14:53 07:49 Hgb 6.5 L Hct 20.1 L Sodium Potassium Chloride Carbon Dioxide Anion Gap BUN Creatinine Estimated GFR BUN/Creatinine Ratio Glucose Calcium Total Creatine Kinase CK-MB (CK-2) CK-MB (CK-2) Rel Index Troponin T Urine Color Yellow Urine Turbidity Clear Urine pH 7.0 Ur Specific [place] 1.006 Urine Protein <15 mg/dl Urine Glucose (UA) >=500 Urine Ketones Neg Urine Blood Lg Urine Nitrite Neg Ur Reducing Substances Not Reportable Urine Bilirubin Neg Urine Ictotest Not Reportable Urine Urobilinogen < 2.0 Ur Leukocyte Esterase Tr Urine WBC (Auto) 2.0 Urine RBC (Auto) 1.0 U Epithel Cells (Auto) 2.0 Urine Bacteria (Auto) 1+ Urine Mucus Few Blood Type Antibody Screen Crossmatch Assessment and Plan 1.anemia -HGB 6.5 (trending down)- 1 unit PRBCs transfusing -continue to monitor H/H and transfuse as needed -hold blood thinning medications (last dose of xarelto 2 days ago) -pt is currently HD stable with no active signs of bleeding -etiology unclear -will schedule for an EGD/colonoscopy tomorrow -clear liquid diet then NPO after MN -INR in am -continue PPI and supportive care -will follow
[2018-02-17] MEDS ORDERED: GOLYTELY PO NR (11:30)
[2018-02-17 15:46] LABS: Basophils % (Auto) 0.4 % (0.0-1.8); Eosinophils % (Auto) 0.7 % (0.0-4.3); Hematocrit 28.8 % (30.3-42.9); Hemoglobin 9.4 gm/dl (10.1-14.3); Lymphocytes # (Auto) 1.3 K/mm3 (1.2-5.4); Lymphocytes % (Auto) 22.2 % (13.4-35.0); Mean Corpuscular HGB Conc 33 % (30-34); Mean Corpuscular Hemoglobin 29 pg (28-32); Mean Corpuscular Volume 89 fl (79-97); Monocytes # (Auto) 0.4 K/mm3 (0.0-0.8); Monocytes % (Auto) 6.7 % (0.0-7.3); Platelet Count 179 K/mm3 (140-440); Red Blood Count 3.26 M/mm3 (3.65-5.03); Red Cell Distribution Width 15.7 % (13.2-15.2)
[2018-02-17 16:06] LABS: BUN/Creatinine Ratio 43; Blood Urea Nitrogen 43 mg/dL (7-17); Hemolysis Index 25
--- NOTE | 2018-02-17 18:40 | Progress Note ---
Assessment and Plan Assessment and plan: --Anemia; probably secondary to coagulopathy due to Xeralto Xeralto held, received total of 3 units of PRBC, Hb improved to 9.4 Heme-positive stool, GI consulted for possible endoscopy --Acute kidney injury; secondary to vasomotor nephropathy; resolved Closely monitor renal function, avoid nephrotoxic medications, nephrology consulted --Hypertension; well controlled, continue current antihypertensives When necessary medications --History of DVT on Xeralto Hold Xeralto in view of anemia --Paroxysmal A. fib; now patient is in sinus Continue to monitor,hold xeralto --DVT prophylaxis; SCDs, no pharmacologic anticoagulation in view of anemia Heme-positive stool Follow GI evaluation and recommendations Plan of care discussed with the patient and her nurse History Interval history: Patient seen and examined medical records reviewed Patient received total of 3 units of PRBC Heme positive stool, requested GI consultation Patient complains of generalized weakness No external evidence of bleeding Vital signs reviewed Hospitalist Physical - Constitutional Vitals: Temp Pulse Resp BP Pulse Ox 99.8 F H 105 H 18 117/45 100 02/17/18 14:39 02/17/18 15:00 02/17/18 14:39 02/17/18 14:39 02/17/18 14:39 General appearance: Present: no acute distress, well-nourished, other (pale) - EENT Eyes: Present: PERRL, EOM intact - Neck Neck: Present: supple, normal ROM - Respiratory Respiratory effort: normal Respiratory: negative: rales, rhonchi, wheezing - Cardiovascular Rhythm: regular Heart Sounds: Present: S1 & S2 - Extremities Extremities: no ischemia, No edema - Abdominal General gastrointestinal: soft, non-tender, non-distended, normal bowel sounds - Integumentary Integumentary: Present: clear, warm - Psychiatric Psychiatric: appropriate mood/affect, cooperative - Neurologic Neurologic: moves all extremities Results - Labs CBC & Chem 7: 02/17/18 15:32 02/17/18 15:32 Labs: Laboratory Last Values WBC 5.9 K/mm3 (4.5-11.0) 02/17/18 15:32 RBC 3.26 M/mm3 (3.65-5.03) L 02/17/18 15:32 Hgb 9.4 gm/dl (10.1-14.3) L 02/17/18 15:32 Hct 28.8 % (30.3-42.9) L D 02/17/18 15:32 MCV 89 fl (79-97) 02/17/18 15:32 MCH 29 pg (28-32) 02/17/18 15:32 MCHC 33 % (30-34) 02/17/18 15:32 RDW 15.7 % (13.2-15.2) H 02/17/18 15:32 Plt Count 179 K/mm3 (140-440) 02/17/18 15:32 Lymph % (Auto) 22.2 % (13.4-35.0) 02/17/18 15:32 [place] % (Auto) 6.7 % (0.0-7.3) 02/17/18 15:32 Eos % (Auto) 0.7 % (0.0-4.3) 02/17/18 15:32 Baso % (Auto) 0.4 % (0.0-1.8) 02/17/18 15:32 Lymph # 1.3 K/mm3 (1.2-5.4) 02/17/18 15:32 [place] # 0.4 K/mm3 (0.0-0.8) 02/17/18 15:32 Eos # 0.0 K/mm3 (0.0-0.4) 02/17/18 15:32 Baso # 0.0 K/mm3 (0.0-0.1) 02/17/18 15:32 Add Manual Diff Complete 02/15/18 19:54 Total Counted 100 02/15/18 19:54 Seg Neutrophils % 70.0 % (40.0-70.0) 02/17/18 15:32 Seg Neuts % (Manual) 64.0 % (40.0-70.0) 02/15/18 19:54 Band Neutrophils % 0 % 02/15/18 19:54 Lymphocytes % (Manual) 29.0 % (13.4-35.0) 02/15/18 19:54 Reactive Lymphs % (Man) 0 % 02/15/18 19:54 Monocytes % (Manual) 4.0 % (0.0-7.3) 02/15/18 19:54 Eosinophils % (Manual) 1.0 % (0.0-4.3) 02/15/18 19:54 Basophils % (Manual) 0 % (0.0-1.8) 02/15/18 19:54 Metamyelocytes % 0 % 02/15/18 19:54 Myelocytes % 2.0 % 02/15/18 19:54 Promyelocytes % 0 % 02/15/18 19:54 Blast Cells % 0 % 02/15/18 19:54 Nucleated RBC % Not Reportable 02/15/18 19:54 Seg Neutrophils # 4.1 K/mm3 (1.8-7.7) 02/17/18 15:32 Seg Neutrophils # Man 4.7 K/mm3 (1.8-7.7) 02/15/18 19:54 Band Neutrophils # 0.0 K/mm3 02/15/18 19:54 Lymphocytes # (Manual) 2.1 K/mm3 (1.2-5.4) 02/15/18 19:54 Abs React Lymphs (Man) 0.0 K/mm3 02/15/18 19:54 Monocytes # (Manual) 0.3 K/mm3 (0.0-0.8) 02/15/18 19:54 Eosinophils # (Manual) 0.1 K/mm3 (0.0-0.4) 02/15/18 19:54 Basophils # (Manual) 0.0 K/mm3 (0.0-0.1) 02/15/18 19:54 Metamyelocytes # 0.0 K/mm3 02/15/18 19:54 Myelocytes # 0.1 K/mm3 02/15/18 19:54 Promyelocytes # 0.0 K/mm3 02/15/18 19:54 Blast Cells # 0.0 K/mm3 02/15/18 19:54 WBC Morphology Not Reportable 02/15/18 19:54 Hypersegmented Neuts Not Reportable 02/15/18 19:54 Hyposegmented Neuts Not Reportable 02/15/18 19:54 Hypogranular Neuts Not Reportable 02/15/18 19:54 Smudge Cells Not Reportable 02/15/18 19:54 Toxic Granulation Not Reportable 02/15/18 19:54 Toxic Vacuolation Not Reportable 02/15/18 19:54 Dohle Bodies Not Reportable 02/15/18 19:54 Pelger-Huet Anomaly Not Reportable 02/15/18 19:54 Quinton Rods Not Reportable 02/15/18 19:54 Platelet Estimate Consistent w auto 02/15/18 19:54 Clumped Platelets Not Reportable 02/15/18 19:54 Plt Clumps, EDTA Not Reportable 02/15/18 19:54 Large Platelets Not Reportable 02/15/18 19:54 Giant Platelets Not Reportable 02/15/18 19:54 Platelet Satelliting Not Reportable 02/15/18 19:54 Plt Morphology Comment Not Reportable 02/15/18 19:54 RBC Morphology Not Reportable 02/15/18 19:54 Dimorphic RBCs Not Reportable 02/15/18 19:54 Polychromasia Not Reportable 02/15/18 19:54 Hypochromasia Not Reportable 02/15/18 19:54 Poikilocytosis Few 02/15/18 19:54 Anisocytosis Few 02/15/18 19:54 Microcytosis Not Reportable 02/15/18 19:54 Macrocytosis Not Reportable 02/15/18 19:54 Spherocytes Not Reportable 02/15/18 19:54 Pappenheimer Bodies Not Reportable 02/15/18 19:54 Sickle Cells Not Reportable 02/15/18 19:54 Target Cells Not Reportable 02/15/18 19:54 Tear Drop Cells Not Reportable 02/15/18 19:54 Ovalocytes Not Reportable 02/15/18 19:54 Helmet Cells Not Reportable 02/15/18 19:54 [place] Bodies Not Reportable 02/15/18 19:54 [place] Rings Not Reportable 02/15/18 19:54 [place] Cells Not Reportable 02/15/18 19:54 Bite Cells Not Reportable 02/15/18 19:54 Crenated Cell Not Reportable 02/15/18 19:54 Elliptocytes Not Reportable 02/15/18 19:54 Acanthocytes (Spur) Not Reportable 02/15/18 19:54 Rouleaux Not Reportable 02/15/18 19:54 Hemoglobin C Crystals Not Reportable 02/15/18 19:54 Schistocytes Not Reportable 02/15/18 19:54 Malaria parasites Not Reportable 02/15/18 19:54 Bhupendra Bodies Not Reportable 02/15/18 19:54 Hem Pathologist Commnt No 02/15/18 19:54 Sodium 139 mmol/L (137-145) 02/17/18 15:32 Potassium 4.6 mmol/L (3.6-5.0) 02/17/18 15:32 Chloride 108.1 mmol/L (98-107) H 02/17/18 15:32 Carbon Dioxide 19 mmol/L (22-30) L 02/17/18 15:32 Anion Gap 17 mmol/L 02/17/18 15:32 BUN 43 mg/dL (7-17) H 02/17/18 15:32 Creatinine 1.0 mg/dL (0.7-1.2) 02/17/18 15:32 Estimated GFR > 60 ml/min 02/17/18 15:32 BUN/Creatinine Ratio 43 % 02/17/18 15:32 Glucose 104 mg/dL (65-100) H 02/17/18 15:32 Calcium 8.0 mg/dL (8.4-10.2) L 02/17/18 15:32 Total Bilirubin < 0.20 mg/dL (0.1-1.2) 02/15/18 19:54 AST 12 units/L (5-40) 02/15/18 19:54 ALT 7 units/L (7-56) 02/15/18 19:54 Alkaline Phosphatase 110 units/L (35-129) 02/15/18 19:54 Total Creatine Kinase 51 units/L (30-135) 02/16/18 13:00 CK-MB (CK-2) 1.5 ng/mL (0.0-4.0) 02/16/18 13:00 CK-MB (CK-2) Rel Index 2.9 (0-4) 02/16/18 13:00 Troponin T < 0.010 ng/mL (0.00-0.029) 02/16/18 13:00 NT-Pro-B Natriuret Pep 257.4 pg/mL (0-900) 02/15/18 19:54 Total Protein 6.5 g/dL (6.3-8.2) 02/15/18 19:54 Albumin 4.0 g/dL (3.9-5) 02/15/18 19:54 Albumin/Globulin Ratio 1.6 % 02/15/18 19:54 Urine Color Yellow (Yellow) 02/17/18 07:49 Urine Turbidity Clear (Clear) 02/17/18 07:49 Urine pH 7.0 (5.0-7.0) 02/17/18 07:49 Ur Specific [place] 1.006 (1.003-1.030) 02/17/18 07:49 Urine Protein <15 mg/dl mg/dL (Negative) 02/17/18 07:49 Urine Glucose (UA) >=500 mg/dL (Negative) 02/17/18 07:49 Urine Ketones Neg mg/dL (Negative) 02/17/18 07:49 Urine Blood Lg (Negative) 02/17/18 07:49 Urine Nitrite Neg (Negative) 02/17/18 07:49 Ur Reducing Substances Not Reportable 02/17/18 07:49 Urine Bilirubin Neg (Negative) 02/17/18 07:49 Urine Ictotest Not Reportable 02/17/18 07:49 Urine Urobilinogen < 2.0 mg/dL (<2.0) 02/17/18 07:49 Ur Leukocyte Esterase Tr (Negative) 02/17/18 07:49 Urine WBC (Auto) 2.0 /HPF (0.0-6.0) 02/17/18 07:49 Urine RBC (Auto) 1.0 /HPF (0.0-6.0) 02/17/18 07:49 U Epithel Cells (Auto) 2.0 /HPF (0-13.0) 02/17/18 07:49 Urine Bacteria (Auto) 1+ /HPF (Negative) 02/17/18 07:49 Urine Mucus Few /HPF 02/17/18 07:49 Blood Type O POSITIVE 02/15/18 23:01 Antibody Screen Negative 02/15/18 23:01 Crossmatch See Detail 02/15/18 23:01
[2018-02-18 07:49] LABS: INR 1.04 (0.87-1.13)
[2018-02-18] MEDS: PROTONIX IV SCH (09:16)
[2018-02-18] MEDS: SODIUM CHLORIDE FLUSH SYRINGE 10 ML IV SCH ×2 (09:16→22:07)
[2018-02-18] MEDS: EFFEXOR XR PO SCH (09:22)
[2018-02-18] MEDS: TRILEPTAL PO SCH ×2 (09:22→22:08)
--- NOTE | 2018-02-18 12:30 | Progress Note ---
Assessment and Plan [facility]SHLE[facility] - Continue IVF & f/u resolving Prenal Azotemia Hypotension - F/u off BP meds Lytes - F/u labs Subjective Date of service: 02/18/18 Interval history: Pt for Colonoscopy today Objective - Vital Signs Vital signs: Vital Signs - 12hr 02/18/18 02/18/18 02/18/18 07:00 07:03 10:00 Temperature 98.6 F Pulse Rate 94 H 92 H Respiratory 16 16 Rate Blood Pressure 118/61 [Left] O2 Sat by Pulse 97 Oximetry - General Appearance General appearance: other (Awake & alert) EENT: PERRL Neck: no JVD Respiratory: Present: Clear to Ascultation Cardiology: regular, S1S2 Gastrointestinal: normal Neurologic: no focal deficit Psychiatric: mood/affect appropriate - Lab 02/17/18 15:32 02/17/18 15:32 Most recent lab results Calcium 8.0 mg/dL (8.4-10.2) L 02/17/18 15:32
[2018-02-18] MEDS ORDERED: WATER FOR IRRIG STERILE ONE (13:02)
[2018-02-18] MEDS ORDERED: WATER FOR IRRIG STERILE IR ONE (13:02)
--- NOTE | 2018-02-18 13:37 | Anesthesia Consultation ---
Anesthesia Consult and Med Hx Date of service: 02/18/18 - Airway Anesthetic Teeth Evaluation: Poor (broken back tooth), Caps (#8) ROM Head & Neck: Adequate Mental/Hyoid Distance: Adequate Mallampati Class: Class II Intubation Access Assessment: Probably Good - Pre-Operative Health Status ASA Pre-Surgery Classification: ASA3 Proposed Anesthetic Plan: MAC - Pulmonary Hx Smoking: Yes (1/2 pack/day) COPD: Yes - Cardiovascular System Hx Hypertension: Yes (non-compliant w/ meds) Hx Pacemaker: No Hx Internal Defibrillator: No Hx Peripheral Vascular Disease: Yes (h/o DVT) - Central Nervous System Hx Seizures: Yes (last over 1 year ago) Hx Psychiatric Problems: Yes (schizophrenea, suicidal thoughts, depression) - Gastrointestinal Hx Ulcer: No (acute blood loss) - Hematic Hx Anemia: Yes - Other Systems Hx Substance Use: Yes
--- NOTE | 2018-02-18 13:40 | Anesthesia Day of Surgery ---
Anesthesia Day of Surgery - Day of Surgery Patient Examined: Yes Patient H&P Reviewed: Yes Patient is NPO: Yes
[2018-02-18] MEDS ORDERED: DIPRIVAN 10 MG/ML IV ONE ×2 (14:13)
[2018-02-18] MEDS ORDERED: NACL 0.9% 1000 ML 1,000 ML ONE (14:18)
[2018-02-18] MEDS ORDERED: INFANTS' GAS RELIEF PO ONE ×2 (14:35→14:37)
--- NOTE | 2018-02-18 14:53 | Post Operative Note ---
Pre-op diagnosis: Blood loss anemia Post-op diagnosis: other (Gastritis, hiatal hernia, hemorrhoids, fair prep) Findings: 1. Moderate erosive gastritis (cold bx) 2. Medium hiatal hernia 3. Upper GI tract otherwise normal 4. Fair prep of the colon with semi-liquid stool residue throughout 5. Internal hemorrhoids, Grade II Procedure: EGD with cold biopsy, Colonoscopy Anesthesia: MAC Surgeon: ALTAGRACIA GALDAMEZ Estimated blood loss: minimal Pathology: list (1. Gastric antrum) Specimen disposition: to lab Condition: stable Disposition: floor (Recs: 1. Protonix and MVI daily therapy. 2. D/C daily aspirin. 3. Hold xarelto until 02/21/2018. 4. Advance diet, and OK to d/c if hct stable. 5. Patient should avoid all other NSAIDs as an outpatient. 6. Consider repeat colonoscopy +/- capsule as an outpatient.)
[2018-02-18] MEDS ORDERED: PROTONIX PO SCH (15:00)
[2018-02-18] MEDS ORDERED: THERAGRAN-M Tab PO SCH (15:00)
[2018-02-18] MEDS: THERAGRAN-M Tab PO SCH (16:23)
[2018-02-18] MEDS: NACL 0.9% 1000 ML 1,000 ML IV SCH (16:24)
--- NOTE | 2018-02-18 19:41 | Progress Note ---
Assessment and Plan Assessment and plan: --Heme positive stool/anemia s/p EGD and colonoscopy; 1. Moderate erosive gastritis (cold bx) 2. Medium hiatal hernia 3. Upper GI tract otherwise normal 4. Fair prep of the colon with semi-liquid stool residue throughout 5. Internal hemorrhoids, Grade II Advised no NSAIDs, continue to hold Xeralto until 02/21/2018, follow GI upon discharge --Anemia; due to GI bleeding, probably due to see Dr. Diop held, received total of 3 units of PRBC, Hb improved to 9.4 --Acute kidney injury; secondary to vasomotor nephropathy; resolved Closely monitor renal function, avoid nephrotoxic medications, nephrology consulted --Hypertension; well controlled, continue current antihypertensives When necessary medications --History of DVT on Xeralto Hold Xeralto until 02/21/2018 --Paroxysmal A. fib; now patient is in sinus Continue to monitor,hold xeralto --Ongoing tobacco use; smoking cessation counseling done, advised nicotine patch as needed --DVT prophylaxis; SCDs Possible discharge tomorrow if stable History Interval history: Patient seen and examined medical records reviewed Patient status post EGD, findings noted No new episodes of bleeding Alert awake oriented 3 Vital signs reviewed Hospitalist Physical - Constitutional Vitals: Temp Pulse Resp BP Pulse Ox 98.2 F 87 13 139/83 100 02/18/18 14:43 02/18/18 15:23 02/18/18 15:23 02/18/18 15:23 02/18/18 15:23 General appearance: Present: no acute distress, well-nourished - EENT Eyes: Present: PERRL, EOM intact - Neck Neck: Present: supple, normal ROM - Respiratory Respiratory effort: normal Respiratory: negative: rales, rhonchi, wheezing - Cardiovascular Rhythm: regular Heart Sounds: Present: S1 & S2 - Extremities Extremities: no ischemia, No edema - Abdominal General gastrointestinal: soft, non-tender, non-distended, normal bowel sounds - Integumentary Integumentary: Present: clear, warm - Psychiatric Psychiatric: appropriate mood/affect, cooperative - Neurologic Neurologic: CNII-XII intact, moves all extremities Results - Labs CBC & Chem 7: 02/17/18 15:32 02/17/18 15:32 Labs: Laboratory Last Values WBC 5.9 K/mm3 (4.5-11.0) 02/17/18 15:32 RBC 3.26 M/mm3 (3.65-5.03) L 02/17/18 15:32 Hgb 9.4 gm/dl (10.1-14.3) L 02/17/18 15:32 Hct 28.8 % (30.3-42.9) L D 02/17/18 15: MCV 89 fl (79-97) 02/17/18 15: MCH 29 pg (28-32) 02/17/18 15: MCHC 33 % (30-34) 02/17/18 15: RDW 15.7 % (13.2-15.2) H 02/17/18 15:32 Plt Count 179 K/mm3 (140-440) 02/17/18 15:32 Lymph % (Auto) 22.2 % (13.4-35.0) 02/17/18 15:32 [place] % (Auto) 6.7 % (0.0-7.3) 02/17/18 15: Eos % (Auto) 0.7 % (0.0-4.3) 02/17/18 15:32 Baso % (Auto) 0.4 % (0.0-1.8) 02/17/18 15:32 Lymph # 1.3 K/mm3 (1.2-5.4) 02/17/18 15:32 [place] # 0.4 K/mm3 (0.0-0.8) 02/17/18 15: Eos # 0.0 K/mm3 (0.0-0.4) 02/17/18 15: Baso # 0.0 K/mm3 (0.0-0.1) 02/17/18 15:32 Add Manual Diff Complete 02/15/18 19:54 Total Counted 100 02/15/18 19:54 Seg Neutrophils % 70.0 % (40.0-70.0) 02/17/18 15:32 Seg Neuts % (Manual) 64.0 % (40.0-70.0) 02/15/18 19:54 Band Neutrophils % 0 % 02/15/18 19:54 Lymphocytes % (Manual) 29.0 % (13.4-35.0) 02/15/18 19:54 Reactive Lymphs % (Man) 0 % 02/15/18 19:54 Monocytes % (Manual) 4.0 % (0.0-7.3) 02/15/18 19:54 Eosinophils % (Manual) 1.0 % (0.0-4.3) 02/15/18 19:54 Basophils % (Manual) 0 % (0.0-1.8) 02/15/18 19:54 Metamyelocytes % 0 % 02/15/18 19:54 Myelocytes % 2.0 % 02/15/18 19:54 Promyelocytes % 0 % 02/15/18 19:54 Blast Cells % 0 % 02/15/18 19:54 Nucleated RBC % Not Reportable 02/15/18 19:54 Seg Neutrophils # 4.1 K/mm3 (1.8-7.7) 02/17/18 15:32 Seg Neutrophils # Man 4.7 K/mm3 (1.8-7.7) 02/15/18 19:54 Band Neutrophils # 0.0 K/mm3 02/15/18 19:54 Lymphocytes # (Manual) 2.1 K/mm3 (1.2-5.4) 02/15/18 19:54 Abs React Lymphs (Man) 0.0 K/mm3 02/15/18 19:54 Monocytes # (Manual) 0.3 K/mm3 (0.0-0.8) 02/15/18 19:54 Eosinophils # (Manual) 0.1 K/mm3 (0.0-0.4) 02/15/18 19:54 Basophils # (Manual) 0.0 K/mm3 (0.0-0.1) 02/15/18 19:54 Metamyelocytes # 0.0 K/mm3 02/15/18 19:54 Myelocytes # 0.1 K/mm3 02/15/18 19:54 Promyelocytes # 0.0 K/mm3 02/15/18 19:54 Blast Cells # 0.0 K/mm3 02/15/18 19:54 WBC Morphology Not Reportable 02/15/18 19:54 Hypersegmented Neuts Not Reportable 02/15/18 19:54 Hyposegmented Neuts Not Reportable 02/15/18 19:54 Hypogranular Neuts Not Reportable 02/15/18 19:54 Smudge Cells Not Reportable 02/15/18 19:54 Toxic Granulation Not Reportable 02/15/18 19:54 Toxic Vacuolation Not Reportable 02/15/18 19:54 Dohle Bodies Not Reportable 02/15/18 19:54 Pelger-Huet Anomaly Not Reportable 02/15/18 19:54 [place] Rods Not Reportable 02/15/18 19:54 Platelet Estimate Consistent w auto 02/15/18 19:54 Clumped Platelets Not Reportable 02/15/18 19:54 Plt Clumps, EDTA Not Reportable 02/15/18 19:54 Large Platelets Not Reportable 02/15/18 19:54 Giant Platelets Not Reportable 02/15/18 19:54 Platelet Satelliting Not Reportable 02/15/18 19:54 Plt Morphology Comment Not Reportable 02/15/18 19:54 RBC Morphology Not Reportable 02/15/18 19:54 Dimorphic RBCs Not Reportable 02/15/18 19:54 Polychromasia Not Reportable 02/15/18 19:54 Hypochromasia Not Reportable 02/15/18 19:54 Poikilocytosis Few 02/15/18 19:54 Anisocytosis Few 02/15/18 19:54 Microcytosis Not Reportable 02/15/18 19:54 Macrocytosis Not Reportable 02/15/18 19:54 Spherocytes Not Reportable 02/15/18 19:54 Pappenheimer Bodies Not Reportable 02/15/18 19:54 Sickle Cells Not Reportable 02/15/18 19:54 Target Cells Not Reportable 02/15/18 19:54 Tear Drop Cells Not Reportable 02/15/18 19:54 Ovalocytes Not Reportable 02/15/18 19:54 Helmet Cells Not Reportable 02/15/18 19:54 [place] Bodies Not Reportable 02/15/18 19:54 [place] Rings Not Reportable 02/15/18 19:54 [place] Cells Not Reportable 02/15/18 19:54 Bite Cells Not Reportable 02/15/18 19:54 Crenated Cell Not Reportable 02/15/18 19:54 Elliptocytes Not Reportable 02/15/18 19:54 Acanthocytes (Spur) Not Reportable 02/15/18 19:54 Rouleaux Not Reportable 02/15/18 19:54 Hemoglobin C Crystals Not Reportable 02/15/18 19:54 Schistocytes Not Reportable 02/15/18 19:54 Malaria parasites Not Reportable 02/15/18 19:54 Bhupendra Bodies Not Reportable 02/15/18 19:54 Hem Pathologist Commnt No 02/15/18 19:54 PT 14.1 Sec. (12.2-14.9) 02/18/18 07:18 INR 1.04 (0.87-1.13) 02/18/18 07:18 Sodium 139 mmol/L (137-145) 02/17/18 15:32 Potassium 4.6 mmol/L (3.6-5.0) 02/17/18 15:32 Chloride 108.1 mmol/L (98-107) H 02/17/18 15:32 Carbon Dioxide 19 mmol/L (22-30) L 02/17/18 15:32 Anion Gap 17 mmol/L 02/17/18 15:32 BUN 43 mg/dL (7-17) H 02/17/18 15:32 Creatinine 1.0 mg/dL (0.7-1.2) 02/17/18 15:32 Estimated GFR > 60 ml/min 02/17/18 15:32 BUN/Creatinine Ratio 43 % 02/17/18 15:32 Glucose 104 mg/dL (65-100) H 02/17/18 15:32 Calcium 8.0 mg/dL (8.4-10.2) L 02/17/18 15:32 Total Bilirubin < 0.20 mg/dL (0.1-1.2) 02/15/18 19:54 AST 12 units/L (5-40) 02/15/18 19:54 ALT 7 units/L (7-56) 02/15/18 19:54 Alkaline Phosphatase 110 units/L (35-129) 02/15/18 19:54 Total Creatine Kinase 51 units/L (30-135) 02/16/18 13:00 CK-MB (CK-2) 1.5 ng/mL (0.0-4.0) 02/16/18 13:00 CK-MB (CK-2) Rel Index 2.9 (0-4) 02/16/18 13:00 Troponin T < 0.010 ng/mL (0.00-0.029) 02/16/18 13:00 NT-Pro-B Natriuret Pep 257.4 pg/mL (0-900) 02/15/18 19:54 Total Protein 6.5 g/dL (6.3-8.2) 02/15/18 19:54 Albumin 4.0 g/dL (3.9-5) 02/15/18 19:54 Albumin/Globulin Ratio 1.6 % 02/15/18 19:54 Urine Color Yellow (Yellow) 02/17/18 07:49 Urine Turbidity Clear (Clear) 02/17/18 07:49 Urine pH 7.0 (5.0-7.0) 02/17/18 07:49 Ur Specific [place] 1.006 (1.003-1.030) 02/17/18 07:49 Urine Protein <15 mg/dl mg/dL (Negative) 02/17/18 07:49 Urine Glucose (UA) >=500 mg/dL (Negative) 02/17/18 07:49 Urine Ketones Neg mg/dL (Negative) 02/17/18 07:49 Urine Blood Lg (Negative) 02/17/18 07:49 Urine Nitrite Neg (Negative) 02/17/18 07:49 Ur Reducing Substances Not Reportable 02/17/18 07:49 Urine Bilirubin Neg (Negative) 02/17/18 07:49 Urine Ictotest Not Reportable 02/17/18 07:49 Urine Urobilinogen < 2.0 mg/dL (<2.0) 02/17/18 07:49 Ur Leukocyte Esterase Tr (Negative) 02/17/18 07:49 Urine WBC (Auto) 2.0 /HPF (0.0-6.0) 02/17/18 07:49 Urine RBC (Auto) 1.0 /HPF (0.0-6.0) 02/17/18 07:49 U Epithel Cells (Auto) 2.0 /HPF (0-13.0) 02/17/18 07:49 Urine Bacteria (Auto) 1+ /HPF (Negative) 02/17/18 07:49 Urine Mucus Few /HPF 02/17/18 07:49 Blood Type O POSITIVE 02/15/18 23:01 Antibody Screen Negative 02/15/18 23:01 Crossmatch See Detail 02/15/18 23:01
--- NOTE | 2018-02-18 21:13 | Operative Report ---
PROCEDURE PERFORMED: Esophagogastroduodenoscopy with cold biopsy and colonoscopy. PREOPERATIVE DIAGNOSES: Symptomatic anemia and heme positive stools. POSTOPERATIVE DIAGNOSES: Gastritis, hiatal hernia, fair preparation of the colon, hemorrhoids. ENDOSCOPIST: Reynold Christie M.D. INSTRUMENT: V[employer] video endoscope. MEDICATIONS: MAC anesthesia by [facility]. COMPLICATIONS: No apparent complications. ESTIMATED BLOOD LOSS: Minimal. SPECIMENS: Gastric antrum to rule out gastritis. IMPLANTS: None. ASSISTANTS: None. CONDITION AT COMPLETION: Stable. TECHNIQUE: The patient was informed of the risks and benefits of the procedure. She signed the informed consent to proceed. She was placed in left lateral decubitus position. The above sedative medications were given. Her vital signs remained stable throughout the procedure. The endoscope was advanced from the mouth to the second portion of the duodenum under direct visualization. At that point, the bowel was insufflated and the endoscope was slowly withdrawn. The bed was then rotated and the colonoscope was advanced from the anus to the cecum under direct visualization. The cecum was identified by the appendiceal orifice and the ileocecal valve. At that point, the bowel was insufflated and the endoscope was slowly withdrawn. The quality of preparation was only fair and there was a moderate amount of semi-liquid stool throughout the entire colon. FINDINGS: 1. Moderate erosive gastritis, status post cold biopsy of the antrum. 2. Medium size hiatal hernia. 3. Otherwise, normal upper gastrointestinal tract. 4. Fair preparation only of the colon with semi-liquid stool residue throughout. 5. Internal hemorrhoids, grade 2. RECOMMENDATIONS: 1. Protonix and multivitamin daily therapy. 2. Discontinue daily aspirin. 3. Hold Xarelto until 02/21/2018. 4. The patient should avoid all other nonsteroidal anti-inflammatory drugs as an outpatient. 5. Advance diet and okay to discharge home if the patient's hematocrit is stable. 6. Consider a repeat colonoscopy and/or a capsule endoscopy as an outpatient, pending her laboratory results. JOB# [id number] SAVANNAH/NTS
[2018-02-19 06:00] LABS: BUN/Creatinine Ratio 25; Blood Urea Nitrogen 20 mg/dL (7-17); Calcium 8.4 mg/dL (8.4-10.2); Hemolysis Index 2
[2018-02-19] MEDS ORDERED: MAGNESIUM SULFATE 4GM/100ML 4 GM/100 ML BAG IV ONE (09:01)
[2018-02-19] MEDS: EFFEXOR XR PO SCH (09:25)
[2018-02-19] MEDS: SODIUM CHLORIDE FLUSH SYRINGE 10 ML IV SCH (09:25)
[2018-02-19] MEDS: TRILEPTAL PO SCH (09:25)
[2018-02-19] MEDS: THERAGRAN-M Tab PO SCH (09:26)
[2018-02-19] MEDS ORDERED: PROTONIX PO SCH (10:00)
--- NOTE | 2018-02-19 11:03 | Gastroenterology Progress Note ---
Assessment and Plan GI"stable overnight w/o GI complaints - GD w/ gastritis, colon benign - awaiting h/h today - if h/h stable ok to d/c from GI standpoint on PPI qd and restart anti- platelet agents - f/u 1-2 wks as outpt - will sign off call if needed Subjective Date of service: 02/19/18 Interval history: - no GI complaints overnight Objective - Constitutional Vitals: Temp Pulse Resp BP Pulse Ox 98.9 F 88 20 103/63 99 02/19/18 07:23 02/19/18 07:23 02/19/18 07:23 02/19/18 07:23 02/19/18 07:23 General appearance: no acute distress - Respiratory Respiratory: bilateral: CTA - Gastrointestinal General gastrointestinal: Present: soft, non-tender, non-distended - Labs CBC & Chem 7: 02/17/18 15:32 02/19/18 05:28 Labs: Laboratory Results - last 24 hr 02/19/18 05:28 Sodium 138 Potassium 4.5 Chloride 105.2 Carbon Dioxide 23 Anion Gap 14 BUN 20 H Creatinine 0.8 Estimated GFR > 60 BUN/Creatinine Ratio 25 Glucose 84 Calcium 8.4 Phosphorus 3.40 Magnesium 1.30 L
--- NOTE | 2018-02-19 12:56 | Progress Note ---
Assessment and Plan ASHLEIGH - Resolved Prenal Azotemia, d/c IVF Hypotension - F/u off BP meds Lytes - Replenish Mg Will sign off at this time. Thanks Subjective Date of service: 02/19/18 Interval history: Feeling fine. No complaint Objective - Vital Signs Vital signs: Vital Signs - 12hr 02/19/18 02/19/18 02:26 07:23 Temperature 98.7 F 98.9 F Pulse Rate 92 H 88 Respiratory 18 20 Rate Blood Pressure 107/53 103/63 O2 Sat by Pulse 97 99 Oximetry - General Appearance General appearance: other (Awake & alert) EENT: PERRL Neck: no JVD Respiratory: Present: Clear to Ascultation Cardiology: regular, S1S2 Gastrointestinal: normal - Lab 02/17/18 15:32 02/19/18 05:28 Most recent lab results Calcium 8.4 mg/dL (8.4-10.2) 02/19/18 05:28 Phosphorus 3.40 mg/dL (2.5-4.5) 02/19/18 05:28 Magnesium 1.30 mg/dL (1.7-2.3) L 02/19/18 05:28
[2018-02-19 13:15] LABS: Hematocrit 21.6 % (30.3-42.9); Hemoglobin 7.3 gm/dl (10.1-14.3)
[2018-02-19 15:26] VITALS: BP 132/59
--- NOTE | 2018-02-19 16:05 | Discharge Summary ---
Providers - Providers Date of Admission: 02/15/18 23:57 Date of discharge: 02/19/18 Attending physician: SHIVANI VILLAREAL 02/16/18 00:44 Consult to Physician [CONS] Routine Comment: spoke to Kunal @ [facility] @ 08:42- [facility] Consulting Provider: KYM MARIN Physician Instructions: Reason For Exam: arf 02/16/18 16:39 Consult to Physician [CONS] Routine Comment: Consulting Provider: ALTAGRACIA GALDAMEZ Physician Instructions: Reason For Exam: symptomatic severe anemia/on xeralto Primary care physician: [employer] Hospitalization Condition: Serious Hospital course: --Heme positive stool/anemia s/p EGD and colonoscopy; 1. Moderate erosive gastritis (cold bx) 2. Medium hiatal hernia 3. Upper GI tract otherwise normal 4. Fair prep of the colon with semi-liquid stool residue throughout 5. Internal hemorrhoids, Grade II Advised no NSAIDs, continue to hold Xeralto until 02/21/2018, follow GI upon discharge --Anemia; due to GI bleeding, probably due to see Dr. Diop held, received total of 3 units of PRBC, Hb improved to 9.4 --Acute kidney injury; secondary to vasomotor nephropathy; resolved Closely monitor renal function, avoid nephrotoxic medications, nephrology consulted --Hypertension; well controlled, continue current antihypertensives When necessary medications --History of DVT on Xeralto Hold Xeralto until 02/21/2018 --Paroxysmal A. fib; now patient is in sinus Continue to monitor,hold xeralto --Ongoing tobacco use; smoking cessation counseling done, advised nicotine patch as needed Disposition: - TO HOME OR SELFCARE Time spent for discharge: 32 min Core Measure Documentation - Palliative Care Palliative Care/ Comfort Measures: Not Applicable - Core Measures Any of the following diagnoses?: none Exam - Constitutional Vitals: Temp Pulse Resp BP Pulse Ox 99.2 F 95 H 18 132/59 96 02/19/18 13:45 02/19/18 13:45 02/19/18 13:45 02/19/18 13:45 02/19/18 13:45 General appearance: Present: no acute distress, well-nourished - EENT Eyes: Present: PERRL, EOM intact - Neck Neck: Present: supple, normal ROM - Respiratory Respiratory effort: normal Respiratory: negative: rales, rhonchi, wheezing - Cardiovascular Rhythm: regular Heart Sounds: Present: S1 & S2 - Extremities Extremities: no ischemia, No edema - Abdominal General gastrointestinal: Present: soft, non-tender, non-distended, normal bowel sounds - Integumentary Integumentary: Present: clear, warm - Musculoskeletal Musculoskeletal: strength equal bilaterally - Psychiatric Psychiatric: appropriate mood/affect, cooperative - Neurologic Neurologic: CNII-XII intact, moves all extremities Plan Activity: no restrictions Diet: regular Additional Instructions: Hold Xeralto until 02/21/2018, may resume on 2017 if no bleeding episodes. Do not take aspirin. Do not take NSAIDs or other pain medications. Follow GI in 1 week. Smoking cessation counseling, advised to quit tobacco use. Quit cocaine use Follow up with: PRIMARY CAREMD [Primary Care Provider] - 3-5 Days ALTAGRACIA GALDAMEZ MD [Staff Physician] - 7 Days Prescriptions: Ferrous Sulfate [Feosol 325 MG tab] 325 mg PO BID #60 tablet Multivitamin Tab W-MINERAL [Multiple Vitamin/Mineral (Theragran M)] 1 each PO QDAY #30 tablet Pantoprazole [Protonix TAB] 40 mg PO QDAY #30 tablet
== END 2018-02-19 18:01 | disposition home or self-care (01) | DRG 377 ==
LOC: ED 16:55 → 4A 23:57 → 2B-ACE 02-16 16:12
PROVIDERS: ADMIT Internal Medicine; ATTEND Internal Medicine
PROC: 30233N1 Transfusion of Nonautologous Red Blood Cells into Peripheral Vein, Percutaneous Approach (ICD-10-PCS; principal; 2018-02-16)
PROC: 0DJD8ZZ Inspection of Lower Intestinal Tract, Via Natural or Artificial Opening Endoscopic (ICD-10-PCS; 2018-02-18)
PROC: 0DB78ZX Excision of Stomach, Pylorus, Via Natural or Artificial Opening Endoscopic, Diagnostic (ICD-10-PCS; 2018-02-18)
DX: K29.71 Gastritis, unspecified, with bleeding (principal); N17.0 Acute kidney failure with tubular necrosis; D62 Acute posthemorrhagic anemia; E87.5 Hyperkalemia; I48.0 Paroxysmal atrial fibrillation; Z88.8 Allergy status to other drugs, medicaments and biological substances; J44.9 Chronic obstructive pulmonary disease, unspecified; Z79.82 Long term (current) use of aspirin; F17.200 Nicotine dependence, unspecified, uncomplicated; I12.9 Hypertensive chronic kidney disease with stage 1 through stage 4 chronic kidney disease, or unspecified chronic kidney disease; E11.22 Type 2 diabetes mellitus with diabetic chronic kidney disease; N18.9 Chronic kidney disease, unspecified; Z82.49 Family history of ischemic heart disease and other diseases of the circulatory system; G40.909 Epilepsy, unspecified, not intractable, without status epilepticus; F31.9 Bipolar disorder, unspecified; Z91.19 Patient's noncompliance with other medical treatment and regimen; I95.9 Hypotension, unspecified; F20.9 Schizophrenia, unspecified; K44.9 Diaphragmatic hernia without obstruction or gangrene; K64.8 Other hemorrhoids; Z71.6 Tobacco abuse counseling; D64.9 Anemia, unspecified; T45.515A Adverse effect of anticoagulants, initial encounter; Y92.9 Unspecified place or not applicable
CPT/HCPCS: 36415; 70450; 76770; 80048; 80053; 81001; 82270; 82550; 82553; 83735; 83880; 84100; 84484; 85007; 85014; 85018; 85025; 85610; 86850; 86900; 86901; 86920; 88305; 88342; 93005; 93010; 96360; 96361; 99285; C9113; J2704; J3475; J7030; J7040; P9016

== ENCOUNTER 2022-06-11 13:13 | Inpatient (IN) | payer MEDICARE ==
[2022-06-11] MEDS: MELATONIN 5 MG TAB PO PRN (22:42)
[2022-06-11 23:23] LABS: Basophils % (Auto) 0.4 % (0.0-1.8); Hematocrit 45.1 % (30.3-42.9); Lymphocytes # (Auto) 1.5 K/mm3 (1.2-5.4); Lymphocytes % (Auto) 34.3 % (13.4-35.0); Mean Corpuscular HGB Conc 33 % (30-34); Mean Corpuscular Volume 87 fl (79-97); Monocytes # (Auto) 0.3 K/mm3 (0.0-0.8); Monocytes % (Auto) 7.8 % (0.0-7.3); Platelet Count 141 K/mm3 (140-440); Red Blood Count 5.18 M/mm3 (3.65-5.03); Red Cell Distribution Width 18.5 % (13.2-15.2)
[2022-06-11 23:36] LABS: Alanine Aminotransferase 12 units/L (7-56); BUN/Creatinine Ratio 21; Blood Urea Nitrogen 17 mg/dL (7-17); Calcium 8.9 mg/dL (8.4-10.2); Chol/HDL Ratio 2.98 %; HDL Cholesterol 74 mg/dL (40-59); Hemolysis Index 5; LDL Cholesterol,Direct 125 mg/dL (50-130)
--- NOTE | 2022-06-12 09:16 | History and Physical Report ---
GP History & Physical - History of Present Illness Date of admission: 06/11/22 Date of Examination: 06/12/22 Reason for Admission: Danger to self, Danger to others, Failure of Outpatient Treatment Chief Complaint: suicidal ideation/homicidal History of Present Illness: The patient is a 72 year old female with history of bipolar, schizophrenia and dementia who is admitted for stabilization. The patient presented to the ED with suicidal ideation with a plan to overdose on her meds. Patient resides with her daughter and her boyfriend which per note, triggered this current episode. The patient was seen today. She is calm, and cooperative. She reports having an argument with her daughter; she states " I don't like my daughter's boyfriend." The patient reports being followed by a psychiatrist and states she is compliant with psychotropic medications. The patient denies being depressed, denies suicidal/homicidal ideation and denies hallucinations. PAST PSYCHIATRIC HISTORY: Diagnoses: bipolar, schizophrenia, dementia Suicide attempts or Self-harm behavior: Denies Prior psychiatric hospitalizations: Denies Substance Abuse history: Denies Previous psychiatric medications tried: Unable to recall Outpatient treatment: Yes PAST MEDICAL HISTORY: Family Psychiatric History None reported or documented SOCIAL HISTORY Marital Status: Living Arrangements: Lives with daughter Employment Status: Retired Access to guns/weapons: Denies Education: 12th grade History of Abuse: Denies Legal History: Denies REVIEW OF SYSTEMS Constitutional: Negative for weight loss ENT: Negative for stridor Respiratory: Negative for cough or hemoptysis All other systems reviewed and are negative MENTAL STATUS General Appearance and Behavior: age appropriate, good eye contact, cooperative, calm, pleasant Cooperation: Cooperative Psychomotor Behavior: within normal limits Mood: Calm/ tired Affect and affective range: Congruent with stated mood Thought Process: goal oriented Thought Content: reality oriented Speech: Normal volume and Regular rate and rhythm Suicidal Ideation: Denies Homicidal Ideation: Denies HI Hallucinations:Denies Delusions: None elicited Impulse Control: Fair Insight and Judgment: Good Memory: Good Attention: Attentive Orientation: alert and oriented X4 Diagnosis: Bipolar Treatment Plan Patient will be admitted for inpatient psychiatric evaluation, medication adjustment and close monitoring The patient's behavior, mood, sleep and appetite will be closely monitored. Patient will be enrolled in individual and group therapeutic sessions and encouraged to attend. Patient will be provided with a safe and structured environment. Patient's physical health needs will be addressed by the Hospitalist. Hospitalist Consulted Labs including CBC, CMP, Lipid profile and Hemoglobin A1C ordered Social Assessment will be completed and the Medical Social Worker will work with patient and family to ensure a suitable and safe disposition Medication adjustment will be made as clinically indicated Usual Wellness [facility]/Preservation: -Continue home meds The patient agreed on the treatment plan, understood the risk, benefit, alternative treatment, potential consequence of no treatment, and gave informed consent. Legal Status: voluntary Reaction to Hospitalization: Accepting Medications and Allergies Medications and Allergies Allergies Allergy/AdvReac Type Severity Reaction Status Date / Time lamotrigine Allergy Unknown Unverified 06/11/22 18:41 Sulfa (Sulfonamide Allergy Unknown Unverified 06/11/22 18:41 Antibiotics) clindamycin AdvReac Unknown Verified 02/15/18 16:59 Home Medications Medication Instructions Recorded Confirmed Last Taken Type Quetiapine Fumarate [SEROquel] 2 tab PO QHS 11/05/17 06/11/22 02/15/18 History Albuterol Sulfate [Ventolin HFA] 2 puff IH Q4H PRN 02/16/18 06/11/22 02/15/18 History Lisinopril/Hydrochlorothiazide 1 tab PO QDAY 02/16/18 06/11/22 02/15/18 History [Zestoretic 10-12.5 mg] OXcarbazepine [Trileptal] 150 mg PO BID 02/16/18 06/11/22 02/15/18 History Venlafaxine HCl [Effexor Xr] 300 mg PO QAM 02/16/18 06/11/22 02/15/18 History Ferrous Sulfate [Feosol 325 MG tab] 325 mg PO BID #60 tablet 02/19/18 06/11/22 Unknown Rx Multivitamin Tab W-MINERAL 1 each PO QDAY #30 tablet 02/19/18 06/11/22 Unknown Rx [Multiple Vitamin/Mineral (Theragran M)] Pantoprazole [Protonix TAB] 40 mg PO QDAY #30 tablet 02/19/18 06/11/22 Unknown Rx Active Meds: Active Medications Melatonin (Melatonin 5 Mg Tab) 5 mg PO QHS PRN PRN Reason: Sleep Last Admin: 06/11/22 22:42 Dose: 5 mg Results - Results Labs/Vitals: Laboratory Last Values WBC 4.3 K/mm3 (4.5-11.0) L 06/11/22 22:48 RBC 5.18 M/mm3 (3.65-5.03) H 06/11/22 22:48 Hgb 15.0 gm/dl (10.1-14.3) H 06/11/22 22:48 Hct 45.1 % (30.3-42.9) H 06/11/22 22:48 MCV 87 fl (79-97) 06/11/22 22:48 MCH 29 pg (28-32) 06/11/22 22:48 MCHC 33 % (30-34) 06/11/22 22:48 RDW 18.5 % (13.2-15.2) H 06/11/22 22:48 Plt Count 141 K/mm3 (140-440) 06/11/22 22:48 Lymph % (Auto) 34.3 % (13.4-35.0) 06/11/22 22:48 [place] % (Auto) 7.8 % (0.0-7.3) H 06/11/22 22:48 Eos % (Auto) 1.0 % (0.0-4.3) 06/11/22 22:48 Baso % (Auto) 0.4 % (0.0-1.8) 06/11/22 22:48 Lymph # (Auto) 1.5 K/mm3 (1.2-5.4) 06/11/22 22:48 [place] # (Auto) 0.3 K/mm3 (0.0-0.8) 06/11/22 22:48 Eos # (Auto) 0.0 K/mm3 (0.0-0.4) 06/11/22 22:48 Baso # (Auto) 0.0 K/mm3 (0.0-0.1) 06/11/22 22:48 Seg Neutrophils % 56.5 % (40.0-70.0) 06/11/22 22:48 Seg Neutrophils # 2.4 K/mm3 (1.8-7.7) 06/11/22 22:48 Sodium 143 mmol/L (137-145) 06/11/22 22:48 Potassium 4.0 mmol/L (3.6-5.0) 06/11/22 22:48 Chloride 104.6 mmol/L (98-107) 06/11/22 22:48 Carbon Dioxide 26 mmol/L (22-30) 06/11/22 22:48 Anion Gap 16 mmol/L 06/11/22 22:48 BUN 17 mg/dL (7-17) 06/11/22 22:48 Creatinine 0.8 mg/dL (0.6-1.2) 06/11/22 22:48 Estimated GFR > 60 ml/min 06/11/22 22:48 BUN/Creatinine Ratio 21 % 06/11/22 22:48 Glucose 120 mg/dL (65-100) H 06/11/22 22:48 Hemoglobin A1c 6.3 % (4-6) H 06/11/22 22:48 Calcium 8.9 mg/dL (8.4-10.2) 06/11/22 22:48 Total Bilirubin 0.30 mg/dL (0.1-1.2) 06/11/22 22:48 AST 22 units/L (5-40) 06/11/22 22:48 ALT 12 units/L (7-56) 06/11/22 22:48 Alkaline Phosphatase 91 units/L (35-129) 06/11/22 22:48 Total Protein 7.2 g/dL (6.3-8.2) 06/11/22 22:48 Albumin 4.0 g/dL (3.9-5) 06/11/22 22:48 Albumin/Globulin Ratio 1.3 % 06/11/22 22:48 Triglycerides 102 mg/dL (2-149) 06/11/22 22:48 Cholesterol 221 mg/dL (50-199) H 06/11/22 22:48 LDL Cholesterol Direct 125 mg/dL (50-130) 06/11/22 22:48 HDL Cholesterol 74 mg/dL (40-59) H 06/11/22 22:48 Cholesterol/HDL Ratio 2.98 % 06/11/22 22:48 TSH 2.740 mlU/mL (0.270-4.200) 06/11/22 22:48 Last Vital Signs Temp 98.7 F 06/11/22 21:10 Pulse 87 06/11/22 21:10 Resp 17 06/11/22 21:10 BP 158/87 06/11/22 21:10 Pulse Ox 95 06/11/22 21:10 Physical Examination - Constitutional Vitals: Vital Signs Temp Pulse Resp BP Pulse Ox 98.7 F 87 17 158/87 95 06/11/22 21:10 06/11/22 21:10 06/11/22 21:10 06/11/22 21:10 06/11/22 21:10 Temperature -Last 24 Hours Temperature 98.7 F Mental Status Exam - Vital signs Last Vital Signs Temp 98.7 F 06/11/22 21:10 Pulse 87 06/11/22 21:10 Resp 17 06/11/22 21:10 BP 158/87 06/11/22 21:10 Pulse Ox 95 06/11/22 21:10 Physician Certification - Certification Statement Physician Certification Statement: This is an acknowledgement statement that RAGHAV ROSE is a 72 year old F who requires inpatient psychiatric admission for treatment which could reasonably be expected to improve the patient's condition for Estimated period of time patient will need to remain in the hospital: [ ] Plan for post-hospital care: [ ]
[2022-06-12] MEDS: OXcarbazepine 150 MG TAB PO SCH ×2 (09:58→21:23)
[2022-06-12] MEDS: FERROUS SULFATE 325 MG TAB PO SCH ×2 (09:58→21:23)
[2022-06-12] MEDS: MULTIVITAMINS,THER W-MINERALS TAB PO SCH (09:58)
[2022-06-12] MEDS: PANTOPRAZOLE 40 MG TAB PO SCH (09:59)
[2022-06-12] MEDS ORDERED: NON-FORMULARY EACH (Lisinopril/Hydrochlorothiazide [Zestoretic 10-12.5 Mg] 1 EACH Tablet) PO SCH (10:00)
[2022-06-12] MEDS ORDERED: ALBUTEROL 8.5 GM MDI INHALATION IH PRN (10:00)
[2022-06-12] MEDS ORDERED: NON-FORMULARY EACH (Venlafaxine Hcl [Effexor Xr] 150 MG Cap.Er.24h) PO SCH (10:00)
[2022-06-12] MEDS: hydroCHLOROthiazide 12.5 MG CAP PO SCH (10:05)
[2022-06-12] MEDS: LISINOPRIL 10 MG TAB PO SCH (10:09)
[2022-06-12] MEDS: VENLAFAXINE XR 75 MG CAP PO SCH (10:14)
--- NOTE | 2022-06-12 16:07 | Consultation ---
History of Present Illness - Reason for Consult Consult date: 06/12/22 medical management Requesting physician: GENE MCCAIN - History of Present Illness 72 YO Female with Vascular Dementia with Behavioral Disturbance, Cerebral Atherosclerosis, HTN, Bipolar Disorder, MDD admitted to [facility] for psychiatric stabilization. Consult placed by Dr. Mccain for medical management. Patient seen and evaluated in the recreation room. No reported nursing events. Patient denies fever, chills, chest pain, palpitation, productive cough, skin rash, recent contact, known exposure to COVID-19. No reported nursing events. Patient appears to be at baseline level of cognition and function. Past History Past Medical History: hypertension, other (see hpi) Past Surgical History: Other (tubal ligation) Social history: . denies: smoking, alcohol abuse Family history: hypertension Medications and Allergies Allergies Allergy/AdvReac Type Severity Reaction Status Date / Time lamotrigine Allergy Unknown Unverified 06/11/22 18:41 Sulfa (Sulfonamide Allergy Unknown Unverified 06/11/22 18:41 Antibiotics) clindamycin AdvReac Unknown Verified 02/15/18 16:59 Home Medications Medication Instructions Recorded Confirmed Last Taken Type Albuterol Sulfate [Ventolin HFA] 2 puff IH Q4H PRN 02/16/18 06/11/22 02/15/18 History Lisinopril/Hydrochlorothiazide 1 tab PO QDAY 02/16/18 06/11/22 02/15/18 History [Zestoretic 10-12.5 mg] Ferrous Sulfate [Feosol 325 MG tab] 325 mg PO BID #60 tablet 02/19/18 06/11/22 Unknown Rx Multivitamin Tab W-MINERAL 1 each PO QDAY #30 tablet 02/19/18 06/11/22 Unknown Rx [Multiple Vitamin/Mineral (Theragran M)] Pantoprazole [Protonix TAB] 40 mg PO QDAY #30 tablet 02/19/18 06/11/22 Unknown Rx Gabapentin [Neurontin] 300 mg PO BID 06/13/22 06/13/22 Unknown History Memantine [Namenda] 5 mg PO QDAY 06/13/22 06/13/22 Unknown History VALPROIC ACID Liq [DepaKENE Liq] 250 mg PO DAILY 06/13/22 06/13/22 Unknown History Venlafaxine HCl [Venlafaxine] 150 mg PO DAILY 06/13/22 06/13/22 Unknown History amLODIPine [Norvasc] 5 mg PO DAILY 06/13/22 06/13/22 Unknown History risperiDONE [RisperDAL] 2 mg PO DAILY 06/13/22 06/13/22 Unknown History Active Meds: Active Medications Albuterol (Albuterol 8.5 Gm Mdi Inhalation) 2 puff IH Q4H PRN PRN Reason: Shortness Of Breath Ferrous Sulfate (Ferrous Sulfate 325 Mg Tab) 325 mg PO BID [facility] Last Admin: 06/12/22 09:58 Dose: 325 mg Hydrochlorothiazide (Hydrochlorothiazide 12.5 Mg Cap) 12.5 mg PO QDAY [facility] Last Admin: 06/12/22 10:05 Dose: 12.5 mg Lisinopril (Lisinopril 10 Mg Tab) 10 mg PO QDAY [facility] Last Admin: 06/12/22 10:09 Dose: Not Given Melatonin (Melatonin 5 Mg Tab) 5 mg PO QHS PRN PRN Reason: Sleep Last Admin: 06/11/22 22:42 Dose: 5 mg Multivitamins/Minerals (Multivitamins,Ther W-Minerals Tab) 1 each PO QDAY [facility] Last Admin: 06/12/22 09:58 Dose: 1 each Oxcarbazepine (Oxcarbazepine 150 Mg Tab) 150 mg PO BID [facility] Last Admin: 06/12/22 09:58 Dose: 150 mg Pantoprazole Sodium (Pantoprazole 40 Mg Tab) 40 mg PO QDAY [facility] Last Admin: 06/12/22 09:59 Dose: 40 mg Quetiapine Fumarate (Quetiapine 200 Mg Tab) 600 mg PO QHS [facility] Venlafaxine HCl (Venlafaxine Xr 75 Mg Cap) 300 mg PO QAM [facility] Last Admin: 06/12/22 10:14 Dose: 300 mg Review of Systems Constitutional: no weight loss, no weight gain, no fever, no sweats Ears, nose, mouth and throat: no ear pain, no tinnitis, no nose pain, no nasal discharge Breasts: no change in shape, no mass Cardiovascular: no palpitations, no rapid/irregular heart beat, no lightheadedness, no shortness of breath Respiratory: no cough, no cough with sputum, no hemoptysis Gastrointestinal: no nausea, no vomiting, no constipation, no change in bowel habits, no hematemesis, no coffee ground emesis Genitourinary Female: no pelvic pain, no flank pain, no dysuria, no urinary frequency, no stress incontinence Rectal: no pain, no incontinence, no bleeding Musculoskeletal: no neck stiffness, no neck pain, no arm numbness/tingling, no shooting leg pain, no leg numbness/tingling Integumentary: no rash, no redness, no sores, no jaundice, no blisters Psychiatric: depression, irritability, sadness/tearfullness Endocrine: no cold intolerance, no heat intolerance, no polyphagia, no polyuria, no weight change Hematologic/Lymphatic: no easy bruising, no easy bleeding Allergic/Immunologic: no urticaria, no allergic rhinitis Exam - Constitutional Vitals: Temp Pulse Resp BP Pulse Ox 98.2 F 78 18 150/59 94 06/12/22 09:16 06/12/22 10:09 06/12/22 09:16 06/12/22 10:09 06/12/22 09:16 General appearance: Present: no acute distress, well-nourished - EENT Eyes: Present: PERRL ENT: clear oral mucosa, hearing decreased - Neck Neck: Present: supple, normal ROM - Respiratory Respiratory effort: normal Respiratory: bilateral: CTA - Cardiovascular Heart Sounds: Present: S1 & S2. Absent: rub, click - Extremities Extremities: pulses symmetrical, No edema Peripheral Pulses: within normal limits - Abdominal General gastrointestinal: Present: soft, non-tender, non-distended, normal bowel sounds Female genitourinary: Present: normal - Integumentary Integumentary: Present: clear, warm, dry - Musculoskeletal Musculoskeletal: gait normal, strength equal bilaterally - Psychiatric Psychiatric: appropriate mood/affect, intact judgment & insight - Neurologic Neurologic: CNII-XII intact, moves all extremities Results - Labs CBC & Chem 7: 06/11/22 22:48 06/11/22 22:48 Labs: Abnormal lab results 06/11/22 06/11/22 06/11/22 Range/Units 22:48 22:48 22:48 WBC 4.3 L (4.5-11.0) K/mm3 RBC 5.18 H (3.65-5.03) M/mm3 Hgb 15.0 H (10.1-14.3) gm/dl Hct 45.1 H (30.3-42.9) % RDW 18.5 H (13.2-15.2) % [place] % (Auto) 7.8 H (0.0-7.3) % Glucose 120 H (65-100) mg/dL Hemoglobin A1c 6.3 H (4-6) % Cholesterol 221 H (50-199) mg/dL HDL Cholesterol 74 H (40-59) mg/dL Assessment and Plan - Patient Problems (1) Vascular dementia of acute onset with behavioral disturbance Current Visit: Yes Status: Acute Plan to address problem: Verbal prompting, verbal redirection, benzodiazepine therapy as clinically indicated. (2) Cerebral atherosclerosis Current Visit: Yes Status: Acute Plan to address problem: Risk factor reduction, antiplatelet therapy as clinically indicated. (3) Hypertension Current Visit: Yes Status: Acute Qualifiers: Hypertension type: primary hypertension Qualified Code(s): I10 - Essential (primary) hypertension Plan to address problem: Monitor blood pressure every shift, continue medical management as clinically indicated. (4) Depression Current Visit: Yes Status: Acute Plan to address problem: Continue medical management, supportive care. (5) Bipolar 1 disorder Current Visit: Yes Status: Acute Plan to address problem: Continue current therapy, supportive care. (6) Preventative health care Current Visit: Yes Status: Acute Plan to address problem: Patient counseled regarding home safety precautions, supportive care outpatient follow-up with primary care physician for all age and risk factor appropriate screening test. +30 minutes. (7) Advance care planning Current Visit: Yes Status: Acute Plan to address problem: Disease education done, care plan discussed, diagnoses discussed, prognosis discussed, patient is full code, +30 minutes.
[2022-06-12] MEDS ORDERED: QUEtiapine 200 MG TAB PO SCH (22:00)
[2022-06-12] MEDS ORDERED: NON-FORMULARY EACH (Quetiapine Fumarate [Seroquel] 300 MG Tablet) PO SCH (22:00)
[2022-06-13] MEDS: hydroCHLOROthiazide 12.5 MG CAP PO SCH ×2 (08:29→10:00)
[2022-06-13] MEDS: VENLAFAXINE XR 75 MG CAP PO SCH ×2 (08:29→10:00)
[2022-06-13] MEDS: MULTIVITAMINS,THER W-MINERALS TAB PO SCH ×2 (08:29→10:00)
[2022-06-13] MEDS: LISINOPRIL 10 MG TAB PO SCH ×2 (08:30→10:00)
[2022-06-13] MEDS: OXcarbazepine 150 MG TAB PO SCH ×3 (08:30→21:23)
[2022-06-13] MEDS: FERROUS SULFATE 325 MG TAB PO SCH ×3 (08:30→21:23)
[2022-06-13] MEDS: PANTOPRAZOLE 40 MG TAB PO SCH ×2 (08:30→10:00)
--- NOTE | 2022-06-13 10:00 | Progress Note ---
Subjective Date of service: 06/13/22 Subjective Comment: 06/13: The patient was seen this morning. The patient states she is doing well but complained of " pain" however, she is not specific. The patient seem to be drowsy. REVIEW OF SYSTEMS Unable to assess MENTAL STATUS Unable to assess Diagnosis: Bipolar Treatment Plan Patient will be admitted for inpatient psychiatric evaluation, medication adjustment and close monitoring The patient's behavior, mood, sleep and appetite will be closely monitored. Patient will be enrolled in individual and group therapeutic sessions and encouraged to attend. Patient will be provided with a safe and structured environment. Patient's physical health needs will be addressed by the Hospitalist. Hospitalist Consulted Labs including CBC, CMP, Lipid profile and Hemoglobin A1C ordered Social Assessment will be completed and the Automation Sales Manager will work with patient and family to ensure a suitable and safe disposition Medication adjustment will be made as clinically indicated Usual Wellness [facility]/Preservation: -Continue home meds The patient agreed on the treatment plan, understood the risk, benefit, alternative treatment, potential consequence of no treatment, and gave informed consent. Legal Status: voluntary Reaction to Hospitalization: Accepting Medications and Allergies Allergies Allergy/AdvReac Type Severity Reaction Status Date / Time lamotrigine Allergy Unknown Unverified 06/11/22 18:41 Sulfa (Sulfonamide Allergy Unknown Unverified 06/11/22 18:41 Antibiotics) clindamycin AdvReac Unknown Verified 02/15/18 16:59 Home Medications Medication Instructions Recorded Confirmed Last Taken Type Albuterol Sulfate [Ventolin HFA] 2 puff IH Q4H PRN 02/16/18 06/11/22 02/15/18 History Lisinopril/Hydrochlorothiazide 1 tab PO QDAY 02/16/18 06/11/22 02/15/18 History [Zestoretic 10-12.5 mg] Ferrous Sulfate [Feosol 325 MG tab] 325 mg PO BID #60 tablet 02/19/18 06/11/22 Unknown Rx Multivitamin Tab W-MINERAL 1 each PO QDAY #30 tablet 02/19/18 06/11/22 Unknown Rx [Multiple Vitamin/Mineral (Theragran M)] Pantoprazole [Protonix TAB] 40 mg PO QDAY #30 tablet 02/19/18 06/11/22 Unknown Rx Gabapentin [Neurontin] 300 mg PO BID 06/13/22 06/13/22 Unknown History Memantine [Namenda] 5 mg PO QDAY 06/13/22 06/13/22 Unknown History VALPROIC ACID Liq [DepaKENE Liq] 250 mg PO DAILY 06/13/22 06/13/22 Unknown History Venlafaxine HCl [Venlafaxine] 150 mg PO DAILY 06/13/22 06/13/22 Unknown History amLODIPine [Norvasc] 5 mg PO DAILY 06/13/22 06/13/22 Unknown History risperiDONE [RisperDAL] 2 mg PO DAILY 06/13/22 06/13/22 Unknown History Active Meds: Active Medications Albuterol (Albuterol 8.5 Gm Mdi Inhalation) 2 puff IH Q4H PRN PRN Reason: Shortness Of Breath Ferrous Sulfate (Ferrous Sulfate 325 Mg Tab) [address] [facility] Last Admin: 06/13/22 08:30 Dose: 325 mg Hydrochlorothiazide (Hydrochlorothiazide 12.5 Mg Cap) 12.[address] [facility] Last Admin: 06/13/22 08:29 Dose: 12.5 mg Lisinopril (Lisinopril 10 Mg Tab) [address] [facility] Last Admin: 06/13/22 08:30 Dose: 10 mg Melatonin (Melatonin 5 Mg Tab) 5 mg PO QHS PRN PRN Reason: Sleep Last Admin: 06/11/22 22:42 Dose: 5 mg Multivitamins/Minerals (Multivitamins,Ther W-Minerals Tab) [address] [facility] Last Admin: 06/13/22 08:29 Dose: 1 each Oxcarbazepine (Oxcarbazepine 150 Mg Tab) [address] [facility] Last Admin: 06/13/22 08:30 Dose: 150 mg Pantoprazole Sodium (Pantoprazole 40 Mg Tab) [address] [facility] Last Admin: 06/13/22 08:30 Dose: 40 mg Venlafaxine HCl (Venlafaxine Xr 75 Mg Cap) [address] [facility] Last Admin: 06/13/22 08:29 Dose: 300 mg Results - Results Labs/Vitals: Laboratory Last Values WBC 4.3 K/mm3 (4.5-11.0) L 06/11/22 22:48 RBC 5.18 M/mm3 (3.65-5.03) H 06/11/22 22:48 Hgb 15.0 gm/dl (10.1-14.3) H 06/11/22 22:48 Hct 45.1 % (30.3-42.9) H 06/11/22 22:48 MCV 87 fl (79-97) 06/11/22 22:48 MCH 29 pg (28-32) 06/11/22 22:48 MCHC 33 % (30-34) 06/11/22 22:48 RDW 18.5 % (13.2-15.2) H 06/11/22 22:48 Plt Count 141 K/mm3 (140-440) 06/11/22 22:48 Lymph % (Auto) 34.3 % (13.4-35.0) 06/11/22 22:48 [place] % (Auto) 7.8 % (0.0-7.3) H 06/11/22 22:48 Eos % (Auto) 1.0 % (0.0-4.3) 06/11/22 22:48 Baso % (Auto) 0.4 % (0.0-1.8) 06/11/22 22:48 Lymph # (Auto) 1.5 K/mm3 (1.2-5.4) 06/11/22 22:48 [place] # (Auto) 0.3 K/mm3 (0.0-0.8) 06/11/22 22:48 Eos # (Auto) 0.0 K/mm3 (0.0-0.4) 06/11/22 22:48 Baso # (Auto) 0.0 K/mm3 (0.0-0.1) 06/11/22 22:48 Seg Neutrophils % 56.5 % (40.0-70.0) 06/11/22 22:48 Seg Neutrophils # 2.4 K/mm3 (1.8-7.7) 06/11/22 22:48 Sodium 143 mmol/L (137-145) 06/11/22 22:48 Potassium 4.0 mmol/L (3.6-5.0) 06/11/22 22:48 Chloride 104.6 mmol/L (98-107) 06/11/22 22:48 Carbon Dioxide 26 mmol/L (22-30) 06/11/22 22:48 Anion Gap 16 mmol/L 06/11/22 22:48 BUN 17 mg/dL (7-17) 06/11/22 22:48 Creatinine 0.8 mg/dL (0.6-1.2) 06/11/22 22:48 Estimated GFR > 60 ml/min 06/11/22 22:48 BUN/Creatinine Ratio 21 % 06/11/22 22:48 Glucose 120 mg/dL (65-100) H 06/11/22 22:48 Hemoglobin A1c 6.3 % (4-6) H 06/11/22 22:48 Calcium 8.9 mg/dL (8.4-10.2) 06/11/22 22:48 Total Bilirubin 0.30 mg/dL (0.1-1.2) 06/11/22 22:48 AST 22 units/L (5-40) 06/11/22 22:48 ALT 12 units/L (7-56) 06/11/22 22:48 Alkaline Phosphatase 91 units/L (35-129) 06/11/22 22:48 Total Protein 7.2 g/dL (6.3-8.2) 06/11/22 22:48 Albumin 4.0 g/dL (3.9-5) 06/11/22 22:48 Albumin/Globulin Ratio 1.3 % 06/11/22 22:48 Triglycerides 102 mg/dL (2-149) 06/11/22 22:48 Cholesterol 221 mg/dL (50-199) H 06/11/22 22:48 LDL Cholesterol Direct 125 mg/dL (50-130) 06/11/22 22:48 HDL Cholesterol 74 mg/dL (40-59) H 06/11/22 22:48 Cholesterol/HDL Ratio 2.98 % 06/11/22 22:48 TSH 2.740 mlU/mL (0.270-4.200) 06/11/22 22:48 Last Vital Signs Temp 98.4 F 06/13/22 07:37 Pulse 114 H 06/13/22 08:30 Resp 16 06/13/22 07:37 BP 145/69 06/13/22 08:30 Pulse Ox 98 06/13/22 07:37
--- NOTE | 2022-06-13 20:26 | Progress Note ---
Assessment and Plan - Patient Problems (1) Vascular dementia of acute onset with behavioral disturbance Current Visit: Yes Status: Acute Plan to address problem: Verbal prompting, verbal redirection, benzodiazepine therapy as clinically indicated. (2) Cerebral atherosclerosis Current Visit: Yes Status: Acute Plan to address problem: Risk factor reduction, antiplatelet therapy as clinically indicated. (3) Hypertension Current Visit: Yes Status: Acute Qualifiers: Hypertension type: primary hypertension Qualified Code(s): I10 - Essential (primary) hypertension Plan to address problem: Monitor blood pressure every shift, continue medical management as clinically indicated. (4) Depression Current Visit: Yes Status: Acute Plan to address problem: Continue medical management, supportive care. (5) Bipolar 1 disorder Current Visit: Yes Status: Acute Plan to address problem: Continue current therapy, supportive care. (6) Preventative health care Current Visit: Yes Status: Acute Plan to address problem: Patient counseled regarding home safety precautions, supportive care outpatient follow-up with primary care physician for all age and risk factor appropriate screening test. +30 minutes. (7) Advance care planning Current Visit: Yes Status: Acute Plan to address problem: Disease education done, care plan discussed, diagnoses discussed, prognosis discussed, patient is full code, +30 minutes. History Interval history: 72 YO Female with Vascular Dementia with Behavioral Disturbance, Cerebral Atherosclerosis, HTN, Bipolar Disorder, MDD admitted to [facility] for psychiatric stabilization. Consult placed by Dr. Adorno for medical management. Patient seen and evaluated in the recreation room. No reported nursing events. Patient appears to be at baseline level of cognition and function. Hospitalist Physical - Constitutional Vitals: Temp Pulse Resp BP Pulse Ox 98.4 F 114 H 16 145/69 98 06/13/22 07:37 06/13/22 08:30 06/13/22 07:37 06/13/22 08:30 06/13/22 07:37 General appearance: Present: no acute distress, well-nourished - EENT Eyes: Present: PERRL ENT: hearing decreased - Neck Neck: Present: supple - Respiratory Respiratory effort: normal Respiratory: bilateral: diminished - Cardiovascular Rhythm: regular Heart Sounds: Present: S1 & S2 - Abdominal General gastrointestinal: soft, non-tender, non-distended - Integumentary Integumentary: Present: clear, dry - Psychiatric Psychiatric: cooperative - Neurologic Neurologic: CNII-XII intact Results - Labs CBC & Chem 7: 06/11/22 22:48 06/11/22 22:48 Labs: Laboratory Last Values WBC 4.3 K/mm3 (4.5-11.0) L 06/11/22 22:48 RBC 5.18 M/mm3 (3.65-5.03) H 06/11/22 22:48 Hgb 15.0 gm/dl (10.1-14.3) H 06/11/22 22:48 Hct 45.1 % (30.3-42.9) H 06/11/22 22:48 MCV 87 fl (79-97) 06/11/22 22:48 MCH 29 pg (28-32) 06/11/22 22:48 MCHC 33 % (30-34) 06/11/22 22:48 RDW 18.5 % (13.2-15.2) H 06/11/22 22:48 Plt Count 141 K/mm3 (140-440) 06/11/22 22:48 Lymph % (Auto) 34.3 % (13.4-35.0) 06/11/22 22:48 [place] % (Auto) 7.8 % (0.0-7.3) H 06/11/22 22:48 Eos % (Auto) 1.0 % (0.0-4.3) 06/11/22 22:48 Baso % (Auto) 0.4 % (0.0-1.8) 06/11/22 22:48 Lymph # (Auto) 1.5 K/mm3 (1.2-5.4) 06/11/22 22:48 [place] # (Auto) 0.3 K/mm3 (0.0-0.8) 06/11/22 22:48 Eos # (Auto) 0.0 K/mm3 (0.0-0.4) 06/11/22 22:48 Baso # (Auto) 0.0 K/mm3 (0.0-0.1) 06/11/22 22:48 Seg Neutrophils % 56.5 % (40.0-70.0) 06/11/22 22:48 Seg Neutrophils # 2.4 K/mm3 (1.8-7.7) 06/11/22 22:48 Sodium 143 mmol/L (137-145) 06/11/22 22:48 Potassium 4.0 mmol/L (3.6-5.0) 06/11/22 22:48 Chloride 104.6 mmol/L (98-107) 06/11/22 22:48 Carbon Dioxide 26 mmol/L (22-30) 06/11/22 22:48 Anion Gap 16 mmol/L 06/11/22 22:48 BUN 17 mg/dL (7-17) 06/11/22 22:48 Creatinine 0.8 mg/dL (0.6-1.2) 06/11/22 22:48 Estimated GFR > 60 ml/min 06/11/22 22:48 BUN/Creatinine Ratio 21 % 06/11/22 22:48 Glucose 120 mg/dL (65-100) H 06/11/22 22:48 Hemoglobin A1c 6.3 % (4-6) H 06/11/22 22:48 Calcium 8.9 mg/dL (8.4-10.2) 06/11/22 22:48 Total Bilirubin 0.30 mg/dL (0.1-1.2) 06/11/22 22:48 AST 22 units/L (5-40) 06/11/22 22:48 ALT 12 units/L (7-56) 06/11/22 22:48 Alkaline Phosphatase 91 units/L (35-129) 06/11/22 22:48 Total Protein 7.2 g/dL (6.3-8.2) 06/11/22 22:48 Albumin 4.0 g/dL (3.9-5) 06/11/22 22:48 Albumin/Globulin Ratio 1.3 % 06/11/22 22:48 Triglycerides 102 mg/dL (2-149) 06/11/22 22:48 Cholesterol 221 mg/dL (50-199) H 06/11/22 22:48 LDL Cholesterol Direct 125 mg/dL (50-130) 06/11/22 22:48 HDL Cholesterol 74 mg/dL (40-59) H 06/11/22 22:48 Cholesterol/HDL Ratio 2.98 % 06/11/22 22:48 TSH 2.740 mlU/mL (0.270-4.200) 06/11/22 22:48 Navarro/IV: Voiding Method Toilet Active Medications - Current Medications Current Medications: Generic Name Dose Route Start Last Admin Trade Name Emekaq PRN Reason Stop Dose Admin Albuterol 2 puff 06/12/22 10:00 Albuterol 8.5 Gm Mdi Inhalation IH Q4H PRN Shortness Of Breath Ferrous Sulfate 325 mg 06/12/22 10:00 06/13/22 10:00 Ferrous Sulfate 325 Mg Tab PO Not Given BID [place] Hydrochlorothiazide 12.5 mg 06/12/22 10:00 06/13/22 10:00 Hydrochlorothiazide 12.5 Mg Cap PO Not Given [facility]DAY [facility] Lisinopril 10 mg 06/12/22 10:00 06/13/22 10:00 Lisinopril 10 Mg Tab PO Not Given QDAY [facility] Melatonin 5 mg 06/11/22 22:34 06/11/22 22:42 Melatonin 5 Mg Tab PO 5 mg QHS PRN Administration Sleep Multivitamins/Minerals 1 each 06/12/22 10:00 06/13/22 10:00 Multivitamins,Ther W-Minerals Tab PO Not Given QDAY [facility] Oxcarbazepine 150 mg 06/12/22 10:00 06/13/22 10:00 Oxcarbazepine 150 Mg Tab PO Not Given BID [facility] Pantoprazole Sodium 40 mg 06/12/22 10:00 06/13/22 10:00 Pantoprazole 40 Mg Tab PO Not Given QDAY [facility] Venlafaxine HCl 300 mg 06/12/22 10:00 06/13/22 10:00 Venlafaxine Xr 75 Mg Cap PO Not Given QAM [facility]
[2022-06-13] MEDS ORDERED: QUEtiapine 25 MG TAB PO SCH (22:00)
[2022-06-14] MEDS: hydroCHLOROthiazide 12.5 MG CAP PO SCH ×2 (08:34→10:30)
[2022-06-14] MEDS: FERROUS SULFATE 325 MG TAB PO SCH ×3 (08:34→21:33)
[2022-06-14] MEDS: MULTIVITAMINS,THER W-MINERALS TAB PO SCH ×2 (08:35→10:31)
[2022-06-14] MEDS: OXcarbazepine 150 MG TAB PO SCH ×3 (08:35→21:33)
[2022-06-14] MEDS: PANTOPRAZOLE 40 MG TAB PO SCH ×2 (08:35→10:31)
[2022-06-14] MEDS: LISINOPRIL 10 MG TAB PO SCH ×2 (08:35→10:31)
--- NOTE | 2022-06-14 08:55 | Progress Note ---
Subjective Date of service: 06/14/22 Subjective Comment: 06/14:The patient seen resting in bed. She states she feels better today. She reports sleep and appetite as good. The patient denies any current suicidal/homicidal ideation and denies hallucination. 06/13: The patient was seen this morning. The patient states she is doing well but complained of " pain" however, she is not specific. The patient seem to be drowsy. REVIEW OF SYSTEMS Constitutional: Negative for weight loss ENT: Negative for stridor Respiratory: Negative for cough or hemoptysis All other systems reviewed and are negative MENTAL STATUS General Appearance and Behavior: age appropriate, good eye contact, cooperative, calm, pleasant Cooperation: Cooperative Psychomotor Behavior: within normal limits Mood: Calm Affect and affective range: Congruent with stated mood Thought Process: goal oriented Thought Content: reality oriented Speech: Normal volume and Regular rate and rhythm Suicidal Ideation: Denies Homicidal Ideation: Denies HI Hallucinations:Denies Delusions: None elicited Impulse Control: Normal Insight and Judgment: Good Memory: Good Attention: Attentive Orientation: alert and oriented Diagnosis: Bipolar Treatment Plan Patient will be admitted for inpatient psychiatric evaluation, medication adjustment and close monitoring The patient's behavior, mood, sleep and appetite will be closely monitored. Patient will be enrolled in individual and group therapeutic sessions and encouraged to attend. Patient will be provided with a safe and structured environment. Patient's physical health needs will be addressed by the Hospitalist. Hospitalist Consulted Labs including CBC, CMP, Lipid profile and Hemoglobin A1C ordered Social Assessment will be completed and the [employer] Setter will work with patient and family to ensure a suitable and safe disposition Medication adjustment will be made as clinically indicated Usual Wellness Sikhism/Preservation: -Continue home meds The patient agreed on the treatment plan, understood the risk, benefit, alternative treatment, potential consequence of no treatment, and gave informed consent. Legal Status: voluntary Reaction to Hospitalization: Accepting Medications and Allergies Medications and Allergies Allergies Allergy/AdvReac Type Severity Reaction Status Date / Time lamotrigine Allergy Unknown Unverified 06/11/22 18:41 Sulfa (Sulfonamide Allergy Unknown Unverified 06/11/22 18:41 Antibiotics) clindamycin AdvReac Unknown Verified 02/15/18 16:59 Home Medications Medication Instructions Recorded Confirmed Last Taken Type Albuterol Sulfate [Ventolin HFA] 2 puff IH Q4H PRN 04/06/11/22 02/15/18 History Lisinopril/Hydrochlorothiazide 1 tab PO QDAY 02/16/18 06/11/22 02/15/18 History [Zestoretic 10-12.5 mg] Ferrous Sulfate [Feosol 325 MG tab] 325 mg PO BID #60 tablet 02/19/18 06/11/22 Unknown Rx Multivitamin Tab W-MINERAL 1 each PO QDAY #30 tablet 02/19/18 06/11/22 Unknown Rx [Multiple Vitamin/Mineral (Theragran M)] Pantoprazole [Protonix TAB] 40 mg PO QDAY #30 tablet 02/19/18 06/11/22 Unknown Rx Gabapentin [Neurontin] 300 mg PO BID 06/13/22 06/13/22 Unknown History Memantine [Namenda] 5 mg PO QDAY 06/13/22 06/13/22 Unknown History VALPROIC ACID Liq [DepaKENE Liq] 250 mg PO DAILY 06/13/22 06/13/22 Unknown History Venlafaxine HCl [Venlafaxine] 150 mg PO DAILY 06/13/22 06/13/22 Unknown History amLODIPine [Norvasc] 5 mg PO DAILY 06/13/22 06/13/22 Unknown History risperiDONE [RisperDAL] 2 mg PO DAILY 06/13/22 06/13/22 Unknown History Active Meds: Active Medications Albuterol (Albuterol 8.5 Gm Mdi Inhalation) 2 puff IH Q4H PRN PRN Reason: Shortness Of Breath Ferrous Sulfate (Ferrous Sulfate 325 Mg Tab) 325 mg PO BID [facility] Last Admin: 06/14/22 08:34 Dose: 325 mg Hydrochlorothiazide (Hydrochlorothiazide 12.5 Mg Cap) 12.5 mg PO QDAY [facility] Last Admin: 06/14/22 08:34 Dose: 12.5 mg Lisinopril (Lisinopril 10 Mg Tab) 10 mg PO QDAY [facility] Last Admin: 06/14/22 08:35 Dose: 10 mg Melatonin (Melatonin 5 Mg Tab) 5 mg PO QHS PRN PRN Reason: Sleep Last Admin: 06/11/22 22:42 Dose: 5 mg Multivitamins/Minerals (Multivitamins,Ther W-Minerals Tab) 1 each PO QDAY [facility] Last Admin: 06/14/22 08:35 Dose: 1 each Oxcarbazepine (Oxcarbazepine 150 Mg Tab) 150 mg PO BID [facility] Last Admin: 06/14/22 08:35 Dose: 150 mg Pantoprazole Sodium (Pantoprazole 40 Mg Tab) 40 mg PO QDAY [facility] Last Admin: 06/14/22 08:35 Dose: 40 mg Venlafaxine HCl (Venlafaxine Xr 75 Mg Cap) 300 mg PO QAM [facility] Last Admin: 06/13/22 10:00 Dose: Not Given Results - Results Labs/Vitals: Laboratory Last Values WBC 4.3 K/mm3 (4.5-11.0) L 06/11/22 22:48 RBC 5.18 M/mm3 (3.65-5.03) H 06/11/22 22:48 Hgb 15.0 gm/dl (10.1-14.3) H 06/11/22 22:48 Hct 45.1 % (30.3-42.9) H 06/11/22 22:48 MCV 87 fl (79-97) 06/11/22 22:48 MCH 29 pg (28-32) 06/11/22 22:48 MCHC 33 % (30-34) 06/11/22 22:48 RDW 18.5 % (13.2-15.2) H 06/11/22 22:48 Plt Count 141 K/mm3 (140-440) 06/11/22 22:48 Lymph % (Auto) 34.3 % (13.4-35.0) 06/11/22 22:48 [place] % (Auto) 7.8 % (0.0-7.3) H 06/11/22 22:48 Eos % (Auto) 1.0 % (0.0-4.3) 06/11/22 22:48 Baso % (Auto) 0.4 % (0.0-1.8) 06/11/22 22:48 Lymph # (Auto) 1.5 K/mm3 (1.2-5.4) 06/11/22 22:48 [place] # (Auto) 0.3 K/mm3 (0.0-0.8) 06/11/22 22:48 Eos # (Auto) 0.0 K/mm3 (0.0-0.4) 06/11/22 22:48 Baso # (Auto) 0.0 K/mm3 (0.0-0.1) 06/11/22 22:48 Seg Neutrophils % 56.5 % (40.0-70.0) 06/11/22 22:48 Seg Neutrophils # 2.4 K/mm3 (1.8-7.7) 06/11/22 22:48 Sodium 143 mmol/L (137-145) 06/11/22 22:48 Potassium 4.0 mmol/L (3.6-5.0) 06/11/22 22:48 Chloride 104.6 mmol/L (98-107) 06/11/22 22:48 Carbon Dioxide 26 mmol/L (22-30) 06/11/22 22:48 Anion Gap 16 mmol/L 06/11/22 22:48 BUN 17 mg/dL (7-17) 06/11/22 22:48 Creatinine 0.8 mg/dL (0.6-1.2) 06/11/22 22:48 Estimated GFR > 60 ml/min 06/11/22 22:48 BUN/Creatinine Ratio 21 % 06/11/22 22:48 Glucose 120 mg/dL (65-100) H 06/11/22 22:48 Hemoglobin A1c 6.3 % (4-6) H 06/11/22 22:48 Calcium 8.9 mg/dL (8.4-10.2) 06/11/22 22:48 Total Bilirubin 0.30 mg/dL (0.1-1.2) 06/11/22 22:48 AST 22 units/L (5-40) 06/11/22 22:48 ALT 12 units/L (7-56) 06/11/22 22:48 Alkaline Phosphatase 91 units/L (35-129) 06/11/22 22:48 Total Protein 7.2 g/dL (6.3-8.2) 06/11/22 22:48 Albumin 4.0 g/dL (3.9-5) 06/11/22 22:48 Albumin/Globulin Ratio 1.3 % 06/11/22 22:48 Triglycerides 102 mg/dL (2-149) 06/11/22 22:48 Cholesterol 221 mg/dL (50-199) H 06/11/22 22:48 LDL Cholesterol Direct 125 mg/dL (50-130) 06/11/22 22:48 HDL Cholesterol 74 mg/dL (40-59) H 06/11/22 22:48 Cholesterol/HDL Ratio 2.98 % 06/11/22 22:48 TSH 2.740 mlU/mL (0.270-4.200) 06/11/22 22:48 Last Vital Signs Temp 99.2 F 06/14/22 07:27 Pulse 85 06/14/22 08:35 Resp 16 06/14/22 07:27 BP 132/71 06/14/22 08:35 Pulse Ox 93 06/14/22 07:27
[2022-06-14] MEDS: VENLAFAXINE XR 75 MG CAP PO SCH (11:30)
[2022-06-14] MEDS ORDERED: ACETAMINOPHEN 325 MG TAB PO ONE (12:30)
--- NOTE | 2022-06-14 16:51 | Progress Note ---
Assessment and Plan Assessment and Plan - Patient Problems (1) Vascular dementia of acute onset with behavioral disturbance Current Visit: Yes Status: Acute Plan to address problem: Verbal prompting, verbal redirection, benzodiazepine therapy as clinically indicated. (2) Cerebral atherosclerosis Current Visit: Yes Status: Acute Plan to address problem: Risk factor reduction, antiplatelet therapy as clinically indicated. (3) Hypertension Current Visit: Yes Status: Acute Qualifiers: Hypertension type: primary hypertension Qualified Code(s): I10 - Essential (primary) hypertension Plan to address problem: Monitor blood pressure every shift, continue medical management as clinically indicated. (4) Depression Current Visit: Yes Status: Acute Plan to address problem: Continue medical management, supportive care. (5) Bipolar 1 disorder Current Visit: Yes Status: Acute Plan to address problem: Continue current therapy, supportive care. (6) Preventative health care Current Visit: Yes Status: Acute Plan to address problem: Patient counseled regarding home safety precautions, supportive care outpatient follow-up with primary care physician for all age and risk factor appropriate screening test. +30 minutes. (7) Advance care planning Current Visit: Yes Status: Acute Plan to address problem: Disease education done, care plan discussed, diagnoses discussed, prognosis discussed, patient is full code, +30 minutes. Subjective Date of service: 06/14/22 Principal diagnosis: Vascular dementia with behavioral disturbances Interval history: History Interval history: 72 YO Female with Vascular Dementia with Behavioral Disturbance, Cerebral Atherosclerosis, HTN, Bipolar Disorder, MDD admitted [facility] for psychiatric stabilization. Consult placed by Dr. Adorno for medical management. Patient seen and evaluated in the recreation room. No reported nursing events. Patient appears to be at baseline level of cognition and function. Objective - Constitutional Vitals: Vital Signs - 12hr 06/14/22 06/14/22 07:27 08:35 Temperature 99.2 F Pulse Rate 85 85 Respiratory 16 Rate Blood Pressure 132/71 132/71 O2 Sat by Pulse 93 Oximetry General appearance: Present: no acute distress, well-nourished - EENT Eyes: PERRL, EOM intact ENT: hearing intact, clear oral mucosa Ears: bilateral: normal - Neck Neck: supple, normal ROM - Respiratory Respiratory effort: normal Respiratory: bilateral: CTA - Breasts Breasts: normal - Cardiovascular Heart rate: 78 Rhythm: regular Heart Sounds: Present: S1 & S2. Absent: gallop, rub Extremities: pulses intact, No edema, normal color, Full ROM - Gastrointestinal General gastrointestinal: Present: soft, non-tender, non-distended, normal bowel sounds - Genitourinary Female genitourinary: normal - Integumentary Integumentary: clear, warm, dry - Musculoskeletal Musculoskeletal: 1, strength equal bilaterally - Neurologic Neurologic: moves all extremities - Psychiatric Psychiatric: memory intact, appropriate mood/affect, intact judgment & insight - Labs CBC & Chem 7: 06/11/22 22:48 06/11/22 22:48
--- NOTE | 2022-06-15 09:29 | Progress Note ---
Subjective - Reason for Consult Consult date: 06/15/22 Reason for consult: suicidal ideation - Chief Complaint Chief complaint: 06/15:The patient seen resting in bed. The patient is complaining of right leg pain. She continues to endorse depression , rates as 9/10 she states it is because of the pain. She reports sleep and appetite as good. The patient denies any current suicidal/homicidal ideation and denies hallucination. 06/14:The patient seen resting in bed. She states she feels better today. She reports sleep and appetite as good. The patient denies any current suicidal/homicidal ideation and denies hallucination. 06/13: The patient was seen this morning. The patient states she is doing well but complained of " pain" however, she is not specific. The patient seem to be drowsy. REVIEW OF SYSTEMS Constitutional: Negative for weight loss ENT: Negative for stridor Respiratory: Negative for cough or hemoptysis All other systems reviewed and are negative MENTAL STATUS General Appearance and Behavior: age appropriate, good eye contact, cooperative, calm, pleasant Cooperation: Cooperative Psychomotor Behavior: within normal limits Mood: Depressed Affect and affective range: Congruent with stated mood Thought Process: goal oriented Thought Content: reality oriented Speech: Normal volume and Regular rate and rhythm Suicidal Ideation: Denies Homicidal Ideation: Denies HI Hallucinations:Denies Delusions: None elicited Impulse Control: Normal Insight and Judgment: Good Memory: Good Attention: Attentive Orientation: alert and oriented Diagnosis: Bipolar Treatment Plan Patient will be admitted for inpatient psychiatric evaluation, medication adjustment and close monitoring The patient's behavior, mood, sleep and appetite will be closely monitored. Patient will be enrolled in individual and group therapeutic sessions and encouraged to attend. Patient will be provided with a safe and structured environment. Patient's physical health needs will be addressed by the Hospitalist. Hosp italist Consulted Labs including CBC, CMP, Lipid profile and Hemoglobin A1C ordered Social Assessment will be completed and the [employer] Directory Assistance Operator will work with patient and family to ensure a suitable and safe disposition Medication adjustment will be made as clinically indicated Usual Wellness Anglican/Preservation: -Continue home meds The patient agreed on the treatment plan, understood the risk, benefit, alternative treatment, potential consequence of no treatment, and gave informed consent. Legal Status: voluntary Reaction to Hospitalization: Accepting Medications and Allergies Mental Status Exam - Vital signs Last Vital Signs Temp 98.9 F 08/21/22 19:18 Pulse 72 06/14/22 19:18 Resp 18 06/14/22 19:18 BP 128/45 06/14/22 19:18 Pulse Ox 93 06/14/22 19:18
[2022-06-15] MEDS: PANTOPRAZOLE 40 MG TAB PO SCH (11:35)
[2022-06-15] MEDS: VENLAFAXINE XR 75 MG CAP PO SCH (11:35)
[2022-06-15] MEDS: MULTIVITAMINS,THER W-MINERALS TAB PO SCH (11:36)
[2022-06-15] MEDS: FERROUS SULFATE 325 MG TAB PO SCH ×2 (11:36→21:04)
[2022-06-15] MEDS: OXcarbazepine 150 MG TAB PO SCH ×2 (11:37→21:04)
[2022-06-15] MEDS: hydroCHLOROthiazide 12.5 MG CAP PO SCH (11:39)
[2022-06-15] MEDS: LISINOPRIL 10 MG TAB PO SCH (11:41)
[2022-06-15] MEDS: ACETAMINOPHEN 325 MG TAB PO PRN (20:37)
[2022-06-15] MEDS: MELATONIN 5 MG TAB PO PRN (20:38)
[2022-06-16] MEDS: ACETAMINOPHEN 325 MG TAB PO PRN ×3 (03:29→19:46)
--- NOTE | 2022-06-16 07:21 | Progress Note ---
Assessment and Plan Assessment and Plan - Patient Problems (1) Vascular dementia of acute onset with behavioral disturbance Current Visit: Yes Status: Acute Plan to address problem: Verbal prompting, verbal redirection, benzodiazepine therapy as clinically indicated. (2) Cerebral atherosclerosis Current Visit: Yes Status: Acute Plan to address problem: Risk factor reduction, antiplatelet therapy as clinically indicated. (3) Hypertension Current Visit: Yes Status: Acute Qualifiers: Hypertension type: primary hypertension Qualified Code(s): I10 - Essential (primary) hypertension Plan to address problem: Monitor blood pressure every shift, continue medical management as clinically indicated. (4) Depression Current Visit: Yes Status: Acute Plan to address problem: Continue medical management, supportive care. (5) Bipolar 1 disorder Current Visit: Yes Status: Acute Plan to address problem: Continue current therapy, supportive care. (6) Preventative health care Current Visit: Yes Status: Acute Plan to address problem: Patient counseled regarding home safety precautions, supportive care outpatient follow-up with primary care physician for all age and risk factor appropriate screening test. +30 minutes. (7) Advance care planning Current Visit: Yes Status: Acute Plan to address problem: Disease education done, care plan discussed, diagnoses discussed, prognosis discussed, patient is full code, +30 minutes. Subjective Date of service: 06/15/22 Principal diagnosis: Vascular dementia with behavioral disturbances Interval history: History Interval history: 72 YO Female with Vascular Dementia with Behavioral Disturbance, Cerebral Atherosclerosis, HTN, Bipolar Disorder, MDD admitted to [facility] for psychiatric stabilization. Consult placed by Dr. Adorno for medical management. Patient seen and evaluated in the recreation room. No reported nursing events. Patient appears to be at baseline level of cognition and function. Objective - Constitutional Vitals: Vital Signs - 12hr 06/15/22 06/15/22 06/16/22 19:57 20:37 03:29 Temperature 98.8 F Pulse Rate 74 Respiratory 17 18 18 Rate Blood Pressure 116/64 O2 Sat by Pulse 94 Oximetry General appearance: Present: no acute distress, well-nourished - EENT Eyes: PERRL, EOM intact ENT: hearing intact, clear oral mucosa Ears: bilateral: normal - Neck Neck: supple, normal ROM - Respiratory Respiratory effort: normal Respiratory: bilateral: CTA - Breasts Breasts: normal - Cardiovascular Heart rate: 78 Rhythm: regular Heart Sounds: Present: S1 & S2. Absent: gallop, rub Extremities: pulses intact, No edema, normal color, Full ROM - Gastrointestinal General gastrointestinal: Present: soft, non-tender, non-distended, normal bowel sounds - Genitourinary Female genitourinary: normal - Integumentary Integumentary: clear, warm, dry - Musculoskeletal Musculoskeletal: 1, strength equal bilaterally - Neurologic Neurologic: moves all extremities - Psychiatric Psychiatric: memory intact, appropriate mood/affect, intact judgment & insight - Labs CBC & Chem 7: 06/11/22 22:48 06/11/22 22:48
--- NOTE | 2022-06-16 09:28 | Progress Note ---
Subjective Date of service: 06/16/22 Principal diagnosis: Vascular dementia with behavioral disturbances Subjective Comment: 06/16: The patient seen resting in bed. She reports difficulty with maintaining sleep. She continues to endorse depression , rates as 7/10. The patient denies any current suicidal/homicidal ideation and denies hallucination. 06/15:The patient seen resting in bed. The patient is complaining of right leg pain. She continues to endorse depression , rates as 9/10 she states it is because of the pain. She reports sleep and appetite as good. The patient denies any current suicidal/homicidal ideation and denies hallucination. 06/14:The patient seen resting in bed. She states she feels better today. She reports sleep and appetite as good. The patient denies any current suicidal/homicidal ideation and denies hallucination. 06/13: The patient was seen this morning. The patient states she is doing well but complained of " pain" however, she is not specific. The patient seem to be drowsy. REVIEW OF SYSTEMS Constitutional: Negative for weight loss ENT: Negative for stridor Respiratory: Negative for cough or hemoptysis All other systems reviewed and are negative MENTAL STATUS General Appearance and Behavior: age appropriate, good eye contact, cooperative, calm, pleasant Cooperation: Cooperative Psychomotor Behavior: within normal limits Mood: Depressed Affect and affective range: Congruent with stated mood Thought Process: goal oriented Thought Content: reality oriented Speech: Normal volume and Regular rate and rhythm Suicidal Ideation: Denies Homicidal Ideation: Denies HI Hallucinations:Denies Delusions: None elicited Impulse Control: Normal Insight and Judgment: Good Memory: Good Attention: Attentive Orientation: alert and oriented Diagnosis: Bipolar Treatment Plan Patient will be admitted for inpatient psychiatric evaluation, medication adjustment and close monitoring The patient's behavior, mood, sleep and appetite will be closely monitored. Patient will be enrolled in individual and group therapeutic sessions and encouraged to attend. Patient will be provided with a safe and structured environment. Patient's physical health needs will be addressed by the Hospitalist. Hospitalist Consulted Labs including CBC, CMP, Lipid profile and Hemoglobin A1C ordered Social Assessment will be completed and the Nursery Hand will work with patient and family to ensure a suitable and safe disposition Medication adjustment will be made as clinically indicated Usual Wellness Faith/Preservation: -Continue home meds The patient agreed on the treatment plan, understood the risk, benefit, alternative treatment, potential consequence of no treatment, and gave informed consent. Legal Status: voluntary Reaction to Hospitalization: Accepting Medications and Allergies Medications and Allergies Allergies Allergy/AdvReac Type Severity Reaction Status Date / Time lamotrigine Allergy Unknown Unverified 06/11/22 18:41 Sulfa (Sulfonamide Allergy Unknown Unverified 06/11/22 18:41 Antibiotics) clindamycin AdvReac Unknown Verified 02/15/18 16:59 Home Medications Medication Instructions Recorded Confirmed Last Taken Type Albuterol Sulfate [Ventolin HFA] 2 puff IH Q4H PRN 02/16/18 06/11/22 02/15/18 History Lisinopril/Hydrochlorothiazide 1 tab PO QDAY 02/16/18 06/11/22 02/15/18 History [Zestoretic 10-12.5 mg] Ferrous Sulfate [Feosol 325 MG tab] 325 mg PO BID #60 tablet 02/19/18 06/11/22 Unknown Rx Multivitamin Tab W-MINERAL 1 each PO QDAY #30 tablet 02/19/18 06/11/22 Unknown Rx [Multiple Vitamin/Mineral (Theragran M)] Pantoprazole [Protonix TAB] 40 mg PO QDAY #30 tablet 02/19/18 06/11/22 Unknown Rx Gabapentin [Neurontin] 300 mg PO BID 06/13/22 06/13/22 Unknown History Memantine [Namenda] 5 mg PO QDAY 06/13/22 06/13/22 Unknown History VALPROIC ACID Liq [DepaKENE Liq] 250 mg PO DAILY 06/13/22 06/13/22 Unknown History Venlafaxine HCl [Venlafaxine] 150 mg PO DAILY 06/13/22 06/13/22 Unknown History amLODIPine [Norvasc] 5 mg PO DAILY 06/13/22 06/13/22 Unknown History risperiDONE [RisperDAL] 2 mg PO DAILY 06/13/22 06/13/22 Unknown History Active Meds: Active Medications Acetaminophen (Acetaminophen 325 Mg Tab) 650 mg PO Q6H PRN PRN Reason: Pain, Mild (1-3) Last Admin: 06/16/22 03:29 Dose: 650 mg Albuterol (Albuterol 8.5 Gm Mdi Inhalation) 2 puff IH Q4H PRN PRN Reason: Shortness Of Breath Ferrous Sulfate (Ferrous Sulfate 325 Mg Tab) 325 mg PO BID [facility] Last Admin: 06/15/22 21:04 Dose: 325 mg Hydrochlorothiazide (Hydrochlorothiazide 12.5 Mg Cap) 12.5 mg PO QDAY [facility] Last Admin: 06/15/22 11:39 Dose: Not Given Lisinopril (Lisinopril 10 Mg Tab) 10 mg PO QDAY [facility] Last Admin: 06/15/22 11:41 Dose: Not Given Melatonin (Melatonin 5 Mg Tab) 5 mg PO QHS PRN PRN Reason: Sleep Last Admin: 06/15/22 20:38 Dose: 5 mg Multivitamins/Minerals (Multivitamins,Ther W-Minerals Tab) 1 each PO QDAY [facility] Last Admin: 06/15/22 11:36 Dose: 1 each Oxcarbazepine (Oxcarbazepine 150 Mg Tab) 150 mg PO BID [facility] Last Admin: 06/15/22 21:04 Dose: 150 mg Pantoprazole Sodium (Pantoprazole 40 Mg Tab) 40 mg PO QDAY [facility] Last Admin: 06/15/22 11:35 Dose: 40 mg Venlafaxine HCl (Venlafaxine Xr 75 Mg Cap) 300 mg PO QAM [facility] Last Admin: 06/15/22 11:35 Dose: 300 mg Results - Results Labs/Vitals: Laboratory Last Values WBC 4.3 K/mm3 (4.5-11.0) L 06/11/22 22:48 RBC 5.18 M/mm3 (3.65-5.03) H 06/11/22 22:48 Hgb 15.0 gm/dl (10.1-14.3) H 06/11/22 22:48 Hct 45.1 % (30.3-42.9) H 06/11/22 22:48 MCV 87 fl (79-97) 06/11/22 22:48 MCH 29 pg (28-32) 06/11/22 22:48 MCHC 33 % (30-34) 06/11/22 22:48 RDW 18.5 % (13.2-15.2) H 06/11/22 22:48 Plt Count 141 K/mm3 (140-440) 06/11/22 22:48 Lymph % (Auto) 34.3 % (13.4-35.0) 06/11/22 22:48 Clarke % (Auto) 7.8 % (0.0-7.3) H 06/11/22 22:48 Eos % (Auto) 1.0 % (0.0-4.3) 06/11/22 22:48 Baso % (Auto) 0.4 % (0.0-1.8) 06/11/22 22:48 Lymph # (Auto) 1.5 K/mm3 (1.2-5.4) 06/11/22 22:48 Clarke # (Auto) 0.3 K/mm3 (0.0-0.8) 06/11/22 22:48 Eos # (Auto) 0.0 K/mm3 (0.0-0.4) 06/11/22 22:48 Baso # (Auto) 0.0 K/mm3 (0.0-0.1) 06/11/22 22:48 Seg Neutrophils % 56.5 % (40.0-70.0) 06/11/22 22:48 Seg Neutrophils # 2.4 K/mm3 (1.8-7.7) 06/11/22 22:48 Sodium 143 mmol/L (137-145) 06/11/22 22:48 Potassium 4.0 mmol/L (3.6-5.0) 06/11/22 22:48 Chloride 104.6 mmol/L (98-107) 06/11/22 22:48 Carbon Dioxide 26 mmol/L (22-30) 06/11/22 22:48 Anion Gap 16 mmol/L 06/11/22 22:48 BUN 17 mg/dL (7-17) 06/11/22 22:48 Creatinine 0.8 mg/dL (0.6-1.2) 06/11/22 22:48 Estimated GFR > 60 ml/min 06/11/22 22:48 BUN/Creatinine Ratio 21 % 06/11/22 22:48 Glucose 120 mg/dL (65-100) H 06/11/22 22:48 Hemoglobin A1c 6.3 % (4-6) H 06/11/22 22:48 Calcium 8.9 mg/dL (8.4-10.2) 06/11/22 22:48 Total Bilirubin 0.30 mg/dL (0.1-1.2) 06/11/22 22:48 AST 22 units/L (5-40) 06/11/22 22:48 ALT 12 units/L (7-56) 06/11/22 22:48 Alkaline Phosphatase 91 units/L (35-129) 06/11/22 22:48 Total Protein 7.2 g/dL (6.3-8.2) 06/11/22 22:48 Albumin 4.0 g/dL (3.9-5) 06/11/22 22:48 Albumin/Globulin Ratio 1.3 % 06/11/22 22:48 Triglycerides 102 mg/dL (2-149) 06/11/22 22:48 Cholesterol 221 mg/dL (50-199) H 06/11/22 22:48 LDL Cholesterol Direct 125 mg/dL (50-130) 06/11/22 22:48 HDL Cholesterol 74 mg/dL (40-59) H 06/11/22 22:48 Cholesterol/HDL Ratio 2.98 % 06/11/22 22:48 TSH 2.740 mlU/mL (0.270-4.200) 06/11/22 22:48 Last Vital Signs Temp 98.8 F 06/15/22 19:57 Pulse 74 06/15/22 19:57 Resp 18 06/16/22 03:29 BP 116/64 06/15/22 19:57 Pulse Ox 94 06/15/22 19:57
[2022-06-16] MEDS: FERROUS SULFATE 325 MG TAB PO SCH ×2 (10:38→21:06)
[2022-06-16] MEDS: LISINOPRIL 10 MG TAB PO SCH (10:39)
[2022-06-16] MEDS: MULTIVITAMINS,THER W-MINERALS TAB PO SCH (10:39)
[2022-06-16] MEDS: PANTOPRAZOLE 40 MG TAB PO SCH (10:39)
[2022-06-16] MEDS: VENLAFAXINE XR 75 MG CAP PO SCH (10:39)
[2022-06-16] MEDS: OXcarbazepine 150 MG TAB PO SCH ×2 (10:39→21:06)
[2022-06-16] MEDS: hydroCHLOROthiazide 12.5 MG CAP PO SCH (10:40)
--- NOTE | 2022-06-17 10:01 | Progress Note ---
Subjective Date of service: 06/17/22 Principal diagnosis: Vascular dementia with behavioral disturbances Subjective Comment: 06/17: The patient was seen today. She reports not having a good's not sleep. The patient is isolating and withdrawn. Denies SI HI AVH 06/16: The patient seen resting in bed. She reports difficulty with maintaining sleep. She continues to endorse depression , rates as 7/10. The patient denies any current suicidal/homicidal ideation and denies hallucination. 06/15:The patient seen resting in bed. The patient is complaining of right leg pain. She continues to endorse depression , rates as 9/10 she states it is bec ause of the pain. She reports sleep and appetite as good. The patient denies any current suicidal/homicidal ideation and denies hallucination. 06/14:The patient seen resting in bed. She states she feels better today. She reports sleep and appetite as good. The patient denies any current suicidal/homicidal ideation and denies hallucination. 06/13: The patient was seen this morning. The patient states she is doing well but complained of " pain" however, she is not specific. The patient seem to be drowsy. REVIEW OF SYSTEMS Constitutional: Negative for weight loss ENT: Negative for stridor Respiratory: Negative for cough or hemoptysis All other systems reviewed and are negative MENTAL STATUS General Appearance and Behavior: age appropriate, good eye contact, cooperative, calm, pleasant Cooperation: Cooperative Psychomotor Behavior: within normal limits Mood: Depressed Affect and affective range: Congruent with stated mood Thought Process: goal oriented Thought Content: reality oriented Speech: Normal volume and Regular rate and rhythm Suicidal Ideation: Denies Homicidal Ideation: Denies HI Hallucinations:Denies Delusions: None elicited Impulse Control: Normal Insight and Judgment: Good Memory: Good Attention: Attentive Orientation: alert and oriented Diagnosis: Bipolar Treatment Plan Patient will be admitted for inpatient psychiatric evaluation, medication adjustment and close monitoring The patient's behavior, mood, sleep and appetite will be closely monitored. Patient will be enrolled in individual and group therapeutic sessions and encouraged to attend. Patient will be provided with a safe and structured environment. Patient's physical health needs will be addressed by the Hospitalist. Hospitalist Consulted Labs including CBC, CMP, Lipid profile and Hemoglobin A1C ordered Social Assessment will be completed and the Neighborhood Worker will work with patient and family to ensure a suitable and safe disposition Medication adjustment will be made as clinically indicated Usual Wellness Hindu/Preservation: -Continue home meds The patient agreed on the treatment plan, understood the risk, benefit, alternative treatment, potential consequence of no treatment, and gave informed consent. Legal Status: voluntary Reaction to Hospitalization: Accepting Medications and Allergies Medications and Allergies Allergies Allergy/AdvReac Type Severity Reaction Status Date / Time lamotrigine Allergy Intermediate Rash Verified 06/16/22 21:05 Sulfa (Sulfonamide Allergy Intermediate Itching Verified 06/16/22 21:05 Antibiotics) clindamycin AdvReac Unknown Verified 02/15/18 16:59 Home Medications Medication Instructions Recorded Confirmed Last Taken Type Albuterol Sulfate [Ventolin HFA] 2 puff IH Q4H PRN 02/16/18 06/11/22 02/15/18 History Lisinopril/Hydrochlorothiazide 1 tab PO QDAY 02/16/18 06/11/22 02/15/18 History [Zestoretic 10-12.5 mg] Ferrous Sulfate [Feosol 325 MG tab] 325 mg PO BID #60 tablet 02/19/18 06/11/22 Unknown Rx Multivitamin Tab W-MINERAL 1 each PO QDAY #30 tablet 02/19/18 06/11/22 Unknown Rx [Multiple Vitamin/Mineral (Theragran M)] Pantoprazole [Protonix TAB] 40 mg PO QDAY #30 tablet 02/19/18 06/11/22 Unknown Rx Gabapentin [Neurontin] 300 mg PO BID 06/13/22 06/13/22 Unknown History Memantine [Namenda] 5 mg PO QDAY 06/13/22 06/13/22 Unknown History VALPROIC ACID Liq [DepaKENE Liq] 250 mg PO DAILY 06/13/22 06/13/22 Unknown History Venlafaxine HCl [Venlafaxine] 150 mg PO DAILY 06/13/22 06/13/22 Unknown History amLODIPine [Norvasc] 5 mg PO DAILY 06/13/22 06/13/22 Unknown History risperiDONE [RisperDAL] 2 mg PO DAILY 06/13/22 06/13/22 Unknown History Active Meds: Active Medications Acetaminophen (Acetaminophen 325 Mg Tab) 650 mg PO Q6H PRN PRN Reason: Pain, Mild (1-3) Last Admin: 06/16/22 19:46 Dose: 650 mg Albuterol (Albuterol 8.5 Gm Mdi Inhalation) 2 puff IH Q4H PRN PRN Reason: Shortness Of Breath Ferrous Sulfate (Ferrous Sulfate 325 Mg Tab) 325 mg PO BID [facility] Last Admin: 06/16/22 21:06 Dose: 325 mg Hydrochlorothiazide (Hydrochlorothiazide 12.5 Mg Cap) 12.5 mg PO QDAY [facility] Last Admin: 06/16/22 10:40 Dose: 12.5 mg Lisinopril (Lisinopril 10 Mg Tab) 10 mg PO QDAY [facility] Last Admin: 06/16/22 10:39 Dose: 10 mg Melatonin (Melatonin 5 Mg Tab) 5 mg PO QHS PRN PRN Reason: Sleep Last Admin: 06/15/22 20:38 Dose: 5 mg Multivitamins/Minerals (Multivitamins,Ther W-Minerals Tab) 1 each PO QDAY [facility] Last Admin: 06/16/22 10:39 Dose: 1 each Oxcarbazepine (Oxcarbazepine 150 Mg Tab) 150 mg PO BID [facility] Last Admin: 06/16/22 21:06 Dose: 150 mg Pantoprazole Sodium (Pantoprazole 40 Mg Tab) 40 mg PO QDAY [facility] Last Admin: 06/16/22 10:39 Dose: 40 mg Venlafaxine HCl ([facility] Xr 75 Mg Cap) [facility] [place] [facility] Admin: 06/16/22 10:39 Dose: 300 mg Results - Results Labs/Vitals: Laboratory Last Values WBC 4.3 K/mm3 (4.5-11.0) L 06/11/22 22:48 RBC 5.18 M/mm3 (3.65-5.03) H 06/11/22 22:48 Hgb 15.0 gm/dl (10.1-14.3) H 06/11/22 22:48 Hct 45.1 % (30.3-42.9) H 06/11/22 22:48 MCV 87 fl (79-97) 06/11/22 22:48 MCH 29 pg (28-32) 06/11/22 22:48 MCHC 33 % (30-34) 06/11/22 22:48 RDW 18.5 % (13.2-15.2) H 06/11/22 22:48 Plt Count 141 K/mm3 (140-440) 06/11/22 22:48 Lymph % (Auto) 34.3 % (13.4-35.0) 06/11/22 22:48 Wilkinson % (Auto) 7.8 % (0.0-7.3) H 06/11/22 22:48 Eos % (Auto) 1.0 % (0.0-4.3) 06/11/22 22:48 Baso % (Auto) 0.4 % (0.0-1.8) 06/11/22 22:48 Lymph # (Auto) 1.5 K/mm3 (1.2-5.4) 06/11/22 22:48 Wilkinson # (Auto) 0.3 K/mm3 (0.0-0.8) 06/11/22 22:48 Eos # (Auto) 0.0 K/mm3 (0.0-0.4) 06/11/22 22:48 Baso # (Auto) 0.0 K/mm3 (0.0-0.1) 06/11/22 22:48 Seg Neutrophils % 56.5 % (40.0-70.0) 06/11/22 22:48 Seg Neutrophils # 2.4 K/mm3 (1.8-7.7) 06/11/22 22:48 Sodium 143 mmol/L (137-145) 06/11/22 22:48 Potassium 4.0 mmol/L (3.6-5.0) 06/11/22 22:48 Chloride 104.6 mmol/L (98-107) 06/11/22 22:48 Carbon Dioxide 26 mmol/L (22-30) 06/11/22 22:48 Anion Gap 16 mmol/L 06/11/22 22:48 BUN 17 mg/dL (7-17) 06/11/22 22:48 Creatinine 0.8 mg/dL (0.6-1.2) 06/11/22 22:48 Estimated GFR > 60 ml/min 06/11/22 22:48 BUN/Creatinine Ratio 21 % 06/11/22 22:48 Glucose 120 mg/dL (65-100) H 06/11/22 22:48 Hemoglobin A1c 6.3 % (4-6) H 06/11/22 22:48 Calcium 8.9 mg/dL (8.4-10.2) 06/11/22 22:48 Total Bilirubin 0.30 mg/dL (0.1-1.2) 06/11/22 22:48 AST 22 units/L (5-40) 06/11/22 22:48 ALT 12 units/L (7-56) 06/11/22 22:48 Alkaline Phosphatase 91 units/L (35-129) 06/11/22 22:48 Total Protein 7.2 g/dL (6.3-8.2) 06/11/22 22:48 Albumin 4.0 g/dL (3.9-5) 06/11/22 22:48 Albumin/Globulin Ratio 1.3 % 06/11/22 22:48 Triglycerides 102 mg/dL (2-149) 06/11/22 22:48 Cholesterol 221 mg/dL (50-199) H 06/11/22 22:48 LDL Cholesterol Direct 125 mg/dL (50-130) 06/11/22 22:48 HDL Cholesterol 74 mg/dL (40-59) H 06/11/22 22:48 Cholesterol/HDL Ratio 2.98 % 06/11/22 22:48 TSH 2.740 mlU/mL (0.270-4.200) 06/11/22 22:48 Last Vital Signs Temp 99.0 F 06/16/22 19:00 Pulse 54 L 06/17/22 08:14 Resp 18 06/17/22 08:14 BP 126/57 06/16/22 19:00 Pulse Ox 94 06/17/22 08:14
[2022-06-17] MEDS: MULTIVITAMINS,THER W-MINERALS TAB PO SCH (10:25)
[2022-06-17] MEDS: OXcarbazepine 150 MG TAB PO SCH ×2 (10:25→21:12)
[2022-06-17] MEDS: PANTOPRAZOLE 40 MG TAB PO SCH (10:25)
[2022-06-17] MEDS: ACETAMINOPHEN 325 MG TAB PO PRN ×2 (10:25→19:22)
[2022-06-17] MEDS: FERROUS SULFATE 325 MG TAB PO SCH ×2 (10:25→21:12)
[2022-06-17] MEDS: hydroCHLOROthiazide 12.5 MG CAP PO SCH (10:27)
[2022-06-17] MEDS: LISINOPRIL 10 MG TAB PO SCH (10:32)
[2022-06-17] MEDS: DIVALPROEX DR 125 MG TAB PO SCH ×2 (11:51→21:12)
[2022-06-17] MEDS: VENLAFAXINE 75 MG TAB PO SCH ×2 (13:07→21:12)
--- NOTE | 2022-06-17 19:10 | Progress Note ---
Assessment and Plan Assessment and Plan - Patient Problems (1) Vascular dementia of acute onset with behavioral disturbance Current Visit: Yes Status: Acute Plan to address problem: Verbal prompting, verbal redirection, benzodiazepine therapy as clinically indicated. (2) Cerebral atherosclerosis Current Visit: Yes Status: Acute Plan to address problem: Risk factor reduction, antiplatelet therapy as clinically indicated. (3) Hypertension Current Visit: Yes Status: Acute Qualifiers: Hypertension type: primary hypertension Qualified Code(s): I10 - Essential (primary) hypertension Plan to address problem: Monitor blood pressure every shift, continue medical management as clinically indicated. (4) Depression Current Visit: Yes Status: Acute Plan to address problem: Continue medical management, supportive care. (5) Bipolar 1 disorder Current Visit: Yes Status: Acute Plan to address problem: Continue current therapy, supportive care. (6) Preventative health care Current Visit: Yes Status: Acute Plan to address problem: Patient counseled regarding home safety precautions, supportive care outpatient follow-up with primary care physician for all age and risk factor appropriate screening test. +30 minutes. (7) Advance care planning Current Visit: Yes Status: Acute Plan to address problem: Disease education done, care plan discussed, diagnoses discussed, prognosis discussed, patient is full code, +30 minutes. Subjective Date of service: 06/17/22 Principal diagnosis: Vascular dementia with behavioral disturbances Interval history: History Interval history: 72 YO Female with Vascular Dementia with Behavioral Disturbance, Cerebral Atherosclerosis, HTN, Bipolar Disorder, MDD admitted to [facility] for psychiatric stabilization. Consult placed by Dr. Adorno for medical management. Patient seen and evaluated in the recreation room. No reported nursing events. Patient appears to be at baseline level of cognition and function. Objective - Constitutional Vitals: Vital Signs - 12hr 06/17/22 06/17/22 08:14 10:32 Pulse Rate 54 L 99 H Respiratory 18 Rate Blood Pressure 140/56 O2 Sat by Pulse 94 Oximetry General appearance: Present: no acute distress, well-nourished - EENT Eyes: PERRL, EOM intact ENT: hearing intact, clear oral mucosa Ears: bilateral: normal - Neck Neck: supple, normal ROM - Respiratory Respiratory effort: normal Respiratory: bilateral: CTA - Breasts Breasts: normal - Cardiovascular Heart rate: 78 Rhythm: regular Heart Sounds: Present: S1 & S2. Absent: gallop, rub Extremities: pulses intact, No edema, normal color, Full ROM - Gastrointestinal General gastrointestinal: Present: soft, non-tender, non-distended, normal bowel sounds - Genitourinary Female genitourinary: normal - Integumentary Integumentary: clear, warm, dry - Musculoskeletal Musculoskeletal: 1, strength equal bilaterally - Neurologic Neurologic: moves all extremities - Psychiatric Psychiatric: memory intact, appropriate mood/affect, intact judgment & insight - Labs CBC & Chem 7: 06/11/22 22:48 06/11/22 22:48
[2022-06-17] MEDS: traZODone 50 MG TAB PO PRN (21:12)
[2022-06-18] MEDS: MELATONIN 5 MG TAB PO PRN (01:07)
[2022-06-18] MEDS: ACETAMINOPHEN 325 MG TAB PO PRN ×2 (01:07→11:46)
--- NOTE | 2022-06-18 09:11 | Progress Note ---
Subjective Date of service: 06/18/22 Principal diagnosis: Vascular dementia with behavioral disturbances Subjective Comment: 06/18: The was seen today. She is isolating and continues to endorse depression " I don't feel like doing anything." The patient denies any current suicidal/homicidal ideation and denies hallucination. 06/17: The patient was seen today. She reports not having a good's not sleep. The patient is isolating and withdrawn. Denies SI HI AVH 06/16: The patient seen resting in bed. She reports difficulty with maintaining sleep. She continues to endorse depression , rates as 7/10. The patient denies any current suicidal/homicidal ideation and denies hallucination. 06/15:The patient seen resting in bed. The patient is complaining of right leg pain. She continues to endorse depression , rates as 9/10 she states it is because of the pain. She reports sleep and appetite as good. The patient denies any current suicidal/homicidal ideation and denies hallucination. 06/14:The patient seen resting in bed. She states she feels better today. She reports sleep and appetite as good. The patient denies any current suic idal/homicidal ideation and denies hallucination. 06/13: The patient was seen this morning. The patient states she is doing well but complained of " pain" however, she is not specific. The patient seem to be drowsy. REVIEW OF SYSTEMS Constitutional: Negative for weight loss ENT: Negative for stridor Respiratory: Negative for cough or hemoptysis All other systems reviewed and are negative MENTAL STATUS General Appearance and Behavior: age appropriate, good eye contact, cooperative, calm, pleasant Cooperation: Cooperative Psychomotor Behavior: within normal limits Mood: Depressed Affect and affective range: Congruent with stated mood Thought Process: goal oriented Thought Content: reality oriented Speech: Normal volume and Regular rate and rhythm Suicidal Ideation: Denies Homicidal Ideation: Denies HI Hallucinations:Denies Delusions: None elicited Impulse Control: Normal Insight and Judgment: Good Memory: Good Attention: Attentive Orientation: alert and oriented Diagnosis: Bipolar Treatment Plan Patient will be admitted for inpatient psychiatric evaluation, medication adjustment and close monitoring The patient's behavior, mood, sleep and appetite will be closely monitored. Patient will be enrolled in individual and group therapeutic sessions and encouraged to attend. Patient will be provided with a safe and structured environment. Patient's physical health needs will be addressed by the Hospitalist. Hospitalist Consulted Labs including CBC, CMP, Lipid profile and Hemoglobin A1C ordered Social Assessment will be completed and the Culinary Specialist will work with patient and family to ensure a suitable and safe disposition Medication adjustment will be made as clinically indicated Usual Wellness Muslim/Preservation: -Continue home meds The patient agreed on the treatment plan, understood the risk, benefit, alternative treatment, potential consequence of no treatment, and gave informed consent. Legal Status: voluntary Reaction to Hospitalization: Accepting Medications and Allergies Medications and Allergies Allergies Allergy/AdvReac Type Severity Reaction Status Date / Time lamotrigine Allergy Intermediate Rash Verified 06/16/22 21:05 Sulfa (Sulfonamide Allergy Intermediate Itching Verified 06/16/22 21:05 Antibiotics) clindamycin AdvReac Unknown Verified 02/15/18 16:59 Home Medications Medication Instructions Recorded Confirmed Last Taken Type Albuterol Sulfate [Ventolin HFA] 2 puff IH Q4H PRN 02/16/18 06/11/22 02/15/18 History Lisinopril/Hydrochlorothiazide 1 tab PO QDAY 02/16/18 06/11/22 02/15/18 History [Zestoretic 10-12.5 mg] Ferrous Sulfate [Feosol 325 MG tab] 325 mg PO BID #60 tablet 02/19/18 06/11/22 Unknown Rx Multivitamin Tab W-MINERAL 1 each PO QDAY #30 tablet 02/19/18 06/11/22 Unknown Rx [Multiple Vitamin/Mineral (Theragran M)] Pantoprazole [Protonix TAB] 40 mg PO QDAY #30 tablet 02/19/18 06/11/22 Unknown Rx Gabapentin [Neurontin] 300 mg PO BID 06/13/22 06/13/22 Unknown History Memantine [Namenda] 5 mg PO QDAY 06/13/22 06/13/22 Unknown History VALPROIC ACID Liq [DepaKENE Liq] 250 mg PO DAILY 06/13/22 06/13/22 Unknown History Venlafaxine HCl [Venlafaxine] 150 mg PO DAILY 06/13/22 06/13/22 Unknown History amLODIPine [Norvasc] 5 mg PO DAILY 06/13/22 06/13/22 Unknown History risperiDONE [RisperDAL] 2 mg PO DAILY 06/13/22 06/13/22 Unknown History Active Meds: Active Medications Acetaminophen (Acetaminophen 325 Mg Tab) 650 mg PO Q6H PRN PRN Reason: Pain, Mild (1-3) Last Admin: 06/18/22 01:07 Dose: 650 mg Albuterol (Albuterol 8.5 Gm Mdi Inhalation) 2 puff IH Q4H PRN PRN Reason: Shortness Of Breath Divalproex Sodium (Divalproex Dr 125 Mg Tab) 125 mg PO BID [facility] Last Admin: 06/17/22 21:12 Dose: 125 mg Ferrous Sulfate (Ferrous Sulfate 325 Mg Tab) 325 mg PO BID [facility] Last Admin: 06/17/22 21:12 Dose: 325 mg Hydrochlorothiazide (Hydrochlorothiazide 12.5 Mg Cap) 12.5 mg PO QDAY [facility] Last Admin: 06/17/22 10:27 Dose: 12.5 mg Lisinopril (Lisinopril 10 Mg Tab) 10 mg PO QDAY [facility] Last Admin: 06/17/22 10:32 Dose: 10 mg Melatonin (Melatonin 5 Mg Tab) 5 mg PO QHS PRN PRN Reason: Sleep Last Admin: 06/18/22 01:07 Dose: 5 mg Multivitamins/Minerals (Multivitamins,Ther W-Minerals Tab) 1 each PO QDAY [facility] Last Admin: 06/17/22 10:25 Dose: 1 each Oxcarbazepine (Oxcarbazepine 150 Mg Tab) 150 mg PO BID [facility] Last Admin: 06/17/22 21:12 Dose: 150 mg Pantoprazole Sodium (Pantoprazole 40 Mg Tab) 40 mg PO QDAY [facility] Last Admin: 06/17/22 10:25 Dose: 40 mg Trazodone HCl (Trazodone 50 Mg Tab) 50 mg PO QHS PRN PRN Reason: Insomnia Last Admin: 06/17/22 21:12 Dose: 50 mg Venlafaxine HCl (Venlafaxine 75 Mg Tab) 75 mg PO BID [facility] Last Admin: 06/17/22 21:12 Dose: 75 mg Venlafaxine HCl (Venlafaxine Xr 75 Mg Cap) 150 mg PO QDAY [facility] Results - Results Labs/Vitals: Laboratory Last Values WBC 4.3 K/mm3 (4.5-11.0) L 06/11/22 22:48 RBC 5.18 M/mm3 (3.65-5.03) H 06/11/22 22:48 Hgb 15.0 gm/dl (10.1-14.3) H 06/11/22 22:48 Hct 45.1 % (30.3-42.9) H 06/11/22 22:48 MCV 87 fl (79-97) 06/11/22 22:48 MCH 29 pg (28-32) 06/11/22 22:48 MCHC 33 % (30-34) 06/11/22 22:48 RDW 18.5 % (13.2-15.2) H 06/11/22 22:48 Plt Count 141 K/mm3 (140-440) 06/11/22 22:48 Lymph % (Auto) 34.3 % (13.4-35.0) 06/11/22 22:48 [place] % (Auto) 7.8 % (0.0-7.3) H 06/11/22 22:48 Eos % (Auto) 1.0 % (0.0-4.3) 06/11/22 22:48 Baso % (Auto) 0.4 % (0.0-1.8) 06/11/22 22:48 Lymph # (Auto) 1.5 K/mm3 (1.2-5.4) 06/11/22 22:48 [place] # (Auto) 0.3 K/mm3 (0.0-0.8) 06/11/22 22:48 Eos # (Auto) 0.0 K/mm3 (0.0-0.4) 06/11/22 22:48 Baso # (Auto) 0.0 K/mm3 (0.0-0.1) 06/11/22 22:48 Seg Neutrophils % 56.5 % (40.0-70.0) 06/11/22 22:48 Seg Neutrophils # 2.4 K/mm3 (1.8-7.7) 06/11/22 22:48 Sodium 143 mmol/L (137-145) 06/11/22 22:48 Potassium 4.0 mmol/L (3.6-5.0) 06/11/22 22:48 Chloride 104.6 mmol/L (98-107) 06/11/22 22:48 Carbon Dioxide 26 mmol/L (22-30) 06/11/22 22:48 Anion Gap 16 mmol/L 06/11/22 22:48 BUN 17 mg/dL (7-17) 06/11/22 22:48 Creatinine 0.8 mg/dL (0.6-1.2) 06/11/22 22:48 Estimated GFR > 60 ml/min 06/11/22 22:48 BUN/Creatinine Ratio 21 % 06/11/22 22:48 Glucose 120 mg/dL (65-100) H 06/11/22 22:48 Hemoglobin A1c 6.3 % (4-6) H 06/11/22 22:48 Calcium 8.9 mg/dL (8.4-10.2) 06/11/22 22:48 Total Bilirubin 0.30 mg/dL (0.1-1.2) 06/11/22 22:48 AST 22 units/L (5-40) 06/11/22 22:48 ALT 12 units/L (7-56) 06/11/22 22:48 Alkaline Phosphatase 91 units/L (35-129) 06/11/22 22:48 Total Protein 7.2 g/dL (6.3-8.2) 06/11/22 22:48 Albumin 4.0 g/dL (3.9-5) 06/11/22 22:48 Albumin/Globulin Ratio 1.3 % 06/11/22 22:48 Triglycerides 102 mg/dL (2-149) 06/11/22 22:48 Cholesterol 221 mg/dL (50-199) H 06/11/22 22:48 LDL Cholesterol Direct 125 mg/dL (50-130) 06/11/22 22:48 HDL Cholesterol 74 mg/dL (40-59) H 06/11/22 22:48 Cholesterol/HDL Ratio 2.98 % 06/11/22 22:48 TSH 2.740 mlU/mL (0.270-4.200) 06/11/22 22:48 Last Vital Signs Temp 99.2 F 06/17/22 19:27 Pulse 66 06/17/22 19:27 Resp 20 06/18/22 01:07 BP 124/65 06/17/22 19:27 Pulse Ox 98 06/17/22 19:27
[2022-06-18] MEDS: OXcarbazepine 150 MG TAB PO SCH ×2 (09:27→21:14)
[2022-06-18] MEDS: FERROUS SULFATE 325 MG TAB PO SCH ×2 (09:28→21:15)
[2022-06-18] MEDS: LISINOPRIL 10 MG TAB PO SCH (09:28)
[2022-06-18] MEDS: hydroCHLOROthiazide 12.5 MG CAP PO SCH (09:28)
[2022-06-18] MEDS: VENLAFAXINE 75 MG TAB PO SCH ×2 (09:29→21:13)
[2022-06-18] MEDS: MULTIVITAMINS,THER W-MINERALS TAB PO SCH (09:29)
[2022-06-18] MEDS: PANTOPRAZOLE 40 MG TAB PO SCH (09:29)
[2022-06-18] MEDS: DIVALPROEX DR 125 MG TAB PO SCH ×2 (09:30→21:15)
[2022-06-18] MEDS ORDERED: VENLAFAXINE XR 75 MG CAP PO SCH (10:00)
[2022-06-18] MEDS ORDERED: oxyCODONE /ACETAMINOPHEN 5-325MG TAB PO PRN (17:22)
[2022-06-19] MEDS: traZODone 50 MG TAB PO PRN (01:00)
[2022-06-19 08:04] VITALS: BP 126/62
--- NOTE | 2022-06-19 09:19 | Progress Note ---
Subjective Date of service: 06/19/22 Principal diagnosis: Vascular dementia with behavioral disturbances Subjective Comment: The patient was seen today. She is eating breakfast. She says she's not doing good because she is tired. She says she didn't sleep too well. She denies SI/HI or hallucinations. 06/18: The was seen today. She is isolating and continues to endorse depression " I don't feel like doing anything." The patient denies any current suicidal/homicidal ideation and denies hallucination. 06/17: The patient was seen today. She reports not having a good's not sleep. The patient is isolating and withdrawn. Denies SI HI AVH 06/16: The patient seen resting in bed. She reports difficulty with maintaining sleep. She continues to endorse depression , rates as 7/10. The patient denies any current suicidal/homicidal ideation and denies hallucination. 06/15:The patient seen resting in bed. The patient is complaining of right leg pain. She continues to endorse depression , rates as 9/10 she states it is because of the pain. She reports sleep and appetite as good. The patient denies any current suicidal/homicidal ideation and denies hallucination. 06/14:The patient seen resting in bed. She states she feels better today. She reports sleep and appetite as good. The patient denies any current suicidal/homicidal ideation and denies hallucination. 06/13: The patient was seen this morning. The patient states she is doing well but complained of " pain" however, she is not specific. The patient seem to be drowsy. REVIEW OF SYSTEMS Constitutional: Negative for weight loss ENT: Negative for stridor Respiratory: Negative for cough or hemoptysis All other systems reviewed and are negative MENTAL STATUS General Appearance and Behavior: age appropriate, good eye contact, cooperative, calm, pleasant Cooperation: Cooperative Psychomotor Behavior: within normal limits Mood: Depressed Affect and affective range: Congruent with stated mood Thought Process: goal oriented Thought Content: reality oriented Speech: Normal volume and Regular rate and rhythm Suicidal Ideation: Denies Homicidal Ideation: Denies HI Hallucinations:Denies Delusions: None elicited Impulse Control: Normal Insight and Judgment: Good Memory: Good Attention: Attentive Orientation: alert and oriented Diagnosis: Bipolar Treatment Plan Patient will be admitted for inpatient psychiatric evaluation, medication adjustment and close monitoring The patient's behavior, mood, sleep and appetite will be closely monitored. Patient will be enrolled in individual and group therapeutic sessions and encouraged to attend. Patient will be provided with a safe and structured environment. Patient's physical health needs will be addressed by the Hospitalist. Hospitalist Consulted Labs including CBC, CMP, Lipid profile and Hemoglobin A1C ordered Social Assessment will be completed and the Meat Carver will work with patient and family to ensure a suitable and safe disposition Medication adjustment will be made as clinically indicated Usual Wellness Restorationism/Preservation: -Increase Melatonin 10mg po qhs The patient agreed on the treatment plan, understood the risk, benefit, alternative treatment, potential consequence of no treatment, and gave informed consent. Medications and Allergies Allergies Allergy/AdvReac Type Severity Reaction Status Date / Time lamotrigine Allergy Intermediate Rash Verified 06/16/22 21:05 Sulfa (Sulfonamide Allergy Intermediate Itching Verified 06/16/22 21:05 Antibiotics) clindamycin AdvReac Unknown Verified 02/15/18 16:59 Home Medications Medication Instructions Recorded Confirmed Last Taken Type Albuterol Sulfate [Ventolin HFA] 2 puff IH Q4H PRN 02/16/18 06/11/22 02/15/18 History Lisinopril/Hydrochlorothiazide 1 tab PO QDAY 02/16/18 06/11/22 02/15/18 History [Zestoretic 10-12.5 mg] Ferrous Sulfate [Feosol 325 MG tab] 325 mg PO BID #60 tablet 02/19/18 06/11/22 Unknown Rx Multivitamin Tab W-MINERAL 1 each PO QDAY #30 tablet 02/19/18 06/11/22 Unknown Rx [Multiple Vitamin/Mineral (Theragran M)] Pantoprazole [Protonix TAB] 40 mg PO QDAY #30 tablet 02/19/18 06/11/22 Unknown Rx Gabapentin [Neurontin] 300 mg PO BID 06/13/22 06/13/22 Unknown History Memantine [Namenda] 5 mg PO QDAY 06/13/22 06/13/22 Unknown History VALPROIC ACID Liq [DepaKENE Liq] 250 mg PO DAILY 06/13/22 06/13/22 Unknown History Venlafaxine HCl [Venlafaxine] 150 mg PO DAILY 06/13/22 06/13/22 Unknown History amLODIPine [Norvasc] 5 mg PO DAILY 06/13/22 06/13/22 Unknown History risperiDONE [RisperDAL] 2 mg PO DAILY 06/13/22 06/13/22 Unknown History Active Meds: Active Medications Acetaminophen (Acetaminophen 325 Mg Tab) 650 mg PO Q6H PRN PRN Reason: Pain, Mild (1-3) Last Admin: 06/18/22 11:46 Dose: 650 mg Albuterol (Albuterol 8.5 Gm Mdi Inhalation) 2 puff IH Q4H PRN PRN Reason: Shortness Of Breath Divalproex Sodium (Divalproex Dr 125 Mg Tab) 125 mg PO BID [facility] Last Admin: 06/18/22 21:15 Dose: 125 mg Ferrous Sulfate (Ferrous Sulfate 325 Mg Tab) 325 mg PO BID [facility] Last Admin: 06/18/22 21:15 Dose: 325 mg Hydrochlorothiazide (Hydrochlorothiazide 12.5 Mg Cap) 12.5 mg PO QDAY [facility] Last Admin: 06/18/22 09:28 Dose: 12.5 mg Lisinopril (Lisinopril 10 Mg Tab) 10 mg PO QDAY [facility] Last Admin: 06/18/22 09:28 Dose: 10 mg Melatonin (Melatonin 5 Mg Tab) 5 mg PO QHS PRN PRN Reason: Sleep Last Admin: 06/18/22 01:07 Dose: 5 mg Multivitamins/Minerals (Multivitamins,Ther W-Minerals Tab) 1 each PO QDAY [facility] Last Admin: 06/18/22 09:29 Dose: 1 each Oxcarbazepine (Oxcarbazepine 150 Mg Tab) 150 mg PO BID [facility] Last Admin: 06/18/22 21:14 Dose: 150 mg Oxycodone/Acetaminophen (Oxycodone /Acetaminophen 5-325mg Tab) 1 tab PO Q12H PRN PRN Reason: Pain, Moderate (4-6) Last Admin: 06/18/22 21:13 Dose: 1 tab Pantoprazole Sodium (Pantoprazole 40 Mg Tab) 40 mg PO QDAY [facility] Last Admin: 06/18/22 09:29 Dose: 40 mg Trazodone HCl (Trazodone 50 Mg Tab) 50 mg PO QHS PRN PRN Reason: Insomnia Last Admin: 06/19/22 01:00 Dose: 50 mg Venlafaxine HCl (Venlafaxine Xr 75 Mg Cap) 150 mg PO QDAY [facility] Results - Results Labs/Vitals: Laboratory Last Values WBC 4.3 K/mm3 (4.5-11.0) L 06/11/22 22:48 RBC 5.18 M/mm3 (3.65-5.03) H 06/11/22 22:48 Hgb 15.0 gm/dl (10.1-14.3) H 06/11/22 22:48 Hct 45.1 % (30.3-42.9) H 06/11/22 22:48 MCV 87 fl (79-97) 06/11/22 22:48 MCH 29 pg (28-32) 06/11/22 22:48 MCHC 33 % (30-34) 06/11/22 22:48 RDW 18.5 % (13.2-15.2) H 06/11/22 22:48 Plt Count 141 K/mm3 (140-440) 06/11/22 22:48 Lymph % (Auto) 34.3 % (13.4-35.0) 06/11/22 22:48 [place] % (Auto) 7.8 % (0.0-7.3) H 06/11/22 22:48 Eos % (Auto) 1.0 % (0.0-4.3) 06/11/22 22:48 Baso % (Auto) 0.4 % (0.0-1.8) 06/11/22 22:48 Lymph # (Auto) 1.5 K/mm3 (1.2-5.4) 06/11/22 22:48 [place] # (Auto) 0.3 K/mm3 (0.0-0.8) 06/11/22 22:48 Eos # (Auto) 0.0 K/mm3 (0.0-0.4) 06/11/22 22:48 Baso # (Auto) 0.0 K/mm3 (0.0-0.1) 06/11/22 22:48 Seg Neutrophils % 56.5 % (40.0-70.0) 06/11/22 22:48 Seg Neutrophils # 2.4 K/mm3 (1.8-7.7) 06/11/22 22:48 Sodium 143 mmol/L (137-145) 06/11/22 22:48 Potassium 4.0 mmol/L (3.6-5.0) 06/11/22 22:48 Chloride 104.6 mmol/L (98-107) 06/11/22 22:48 Carbon Dioxide 26 mmol/L (22-30) 06/11/22 22:48 Anion Gap 16 mmol/L 06/11/22 22:48 BUN 17 mg/dL (7-17) 06/11/22 22:48 Creatinine 0.8 mg/dL (0.6-1.2) 06/11/22 22:48 Estimated GFR > 60 ml/min 06/11/22 22:48 BUN/Creatinine Ratio 21 % 06/11/22 22:48 Glucose 120 mg/dL (65-100) H 06/11/22 22:48 Hemoglobin A1c 6.3 % (4-6) H 06/11/22 22:48 Calcium 8.9 mg/dL (8.4-10.2) 06/11/22 22:48 Total Bilirubin 0.30 mg/dL (0.1-1.2) 06/11/22 22:48 AST 22 units/L (5-40) 06/11/22 22:48 ALT 12 units/L (7-56) 06/11/22 22:48 Alkaline Phosphatase 91 units/L (35-129) 06/11/22 22:48 Total Protein 7.2 g/dL (6.3-8.2) 06/11/22 22:48 Albumin 4.0 g/dL (3.9-5) 06/11/22 22:48 Albumin/Globulin Ratio 1.3 % 06/11/22 22:48 Triglycerides 102 mg/dL (2-149) 06/11/22 22:48 Cholesterol 221 mg/dL (50-199) H 06/11/22 22:48 LDL Cholesterol Direct 125 mg/dL (50-130) 06/11/22 22:48 HDL Cholesterol 74 mg/dL (40-59) H 06/11/22 22:48 Cholesterol/HDL Ratio 2.98 % 06/11/22 22:48 TSH 2.740 mlU/mL (0.270-4.200) 06/11/22 22:48 Last Vital Signs Temp 99.5 F 06/19/22 07:36 Pulse 81 06/19/22 07:36 Resp 16 06/19/22 07:36 BP 126/62 08/26/22 07:36 Pulse Ox 95 06/19/22 07:36
--- NOTE | 2022-06-19 09:45 | Progress Note ---
Assessment and Plan Assessment and Plan - Patient Problems (1) Vascular dementia of acute onset with behavioral disturbance Current Visit: Yes Status: Acute Plan to address problem: Verbal prompting, verbal redirection, benzodiazepine therapy as clinically indicated. (2) Cerebral atherosclerosis Current Visit: Yes Status: Acute Plan to address problem: Risk factor reduction, antiplatelet therapy as clinically indicated. (3) Hypertension Current Visit: Yes Status: Acute Qualifiers: Hypertension type: primary hypertension Qualified Code(s): I10 - Essential (primary) hypertension Plan to address problem: Monitor blood pressure every shift, continue medical management as clinically indicated. (4) Depression Current Visit: Yes Status: Acute Plan to address problem: Continue medical management, supportive care. (5) Bipolar 1 disorder Current Visit: Yes Status: Acute Plan to address problem: Continue current therapy, supportive care. (6) Preventative health care Current Visit: Yes Status: Acute Plan to address problem: Patient counseled regarding home safety precautions, supportive care outpatient follow-up with primary care physician for all age and risk factor appropriate screening test. +30 minutes. (7) Advance care planning Current Visit: Yes Status: Acute Plan to address problem: Disease education done, care plan discussed, diagnoses discussed, prognosis discussed, patient is full code, +30 minutes. Subjective Date of service: 06/18/22 Principal diagnosis: Vascular dementia with behavioral disturbances Interval history: History Interval history: 72 YO Female with Vascular Dementia with Behavioral Disturbance, Cerebral Atherosclerosis, HTN, Bipolar Disorder, MDD admitted to [facility] for psychiatric stabilization. Consult placed by Dr. Adorno for medical management. Patient seen and evaluated in the recreation room. No reported nursing events. Patient appears to be at baseline level of cognition and function. Objective - Constitutional Vitals: Vital Signs - 12hr 06/19/22 07:36 Temperature 99.5 F Pulse Rate 81 Respiratory 16 Rate Blood Pressure 126/62 O2 Sat by Pulse 95 Oximetry General appearance: Present: no acute distress, well-nourished - EENT Eyes: PERRL, EOM intact ENT: hearing intact, clear oral mucosa Ears: bilateral: normal - Neck Neck: supple, normal ROM - Respiratory Respiratory effort: normal Respiratory: bilateral: CTA - Breasts Breasts: normal - Cardiovascular Heart rate: 78 Rhythm: regular Heart Sounds: Present: S1 & S2. Absent: gallop, rub Extremities: pulses intact, No edema, normal color, Full ROM - Gastrointestinal General gastrointestinal: Present: soft, non-tender, non-distended, normal bowel sounds - Genitourinary Female genitourinary: normal - Integumentary Integumentary: clear, warm, dry - Musculoskeletal Musculoskeletal: 1, strength equal bilaterally - Neurologic Neurologic: moves all extremities - Psychiatric Psychiatric: memory intact, appropriate mood/affect, intact judgment & insight - Labs CBC & Chem 7: 06/11/22 22:48 06/11/22 22:48
[2022-06-19] MEDS ORDERED: MELATONIN 5 MG TAB PO PRN (10:00)
[2022-06-19] MEDS ORDERED: VENLAFAXINE XR 75 MG CAP PO SCH (10:00)
[2022-06-19] MEDS: MULTIVITAMINS,THER W-MINERALS TAB PO SCH (10:09)
[2022-06-19] MEDS: PANTOPRAZOLE 40 MG TAB PO SCH (10:10)
[2022-06-19] MEDS: FERROUS SULFATE 325 MG TAB PO SCH (10:10)
[2022-06-19] MEDS: DIVALPROEX DR 125 MG TAB PO SCH (10:10)
[2022-06-19] MEDS: hydroCHLOROthiazide 12.5 MG CAP PO SCH (10:10)
[2022-06-19] MEDS: LISINOPRIL 10 MG TAB PO SCH (10:10)
[2022-06-19] MEDS: OXcarbazepine 150 MG TAB PO SCH (10:11)
== END 2022-06-19 17:25 | disposition home health service (06) | DRG 885 ==
LOC: UNDOADMIN 13:13 → 3A 13:13 → 5A 22:31
PROVIDERS: ADMIT Psychiatry & Neurology Psychiatry; ATTEND Psychiatry & Neurology Psychiatry
DX: F31.9 Bipolar disorder, unspecified (principal); F01.51 Vascular dementia, unspecified severity, with behavioral disturbance; R45.851 Suicidal ideations; F20.9 Schizophrenia, unspecified; I67.2 Cerebral atherosclerosis; Z98.51 Tubal ligation status; Z79.899 Other long term (current) drug therapy; Z82.49 Family history of ischemic heart disease and other diseases of the circulatory system; Z88.2 Allergy status to sulfonamides; Z88.8 Allergy status to other drugs, medicaments and biological substances
CPT/HCPCS: 36415; 80053; 80061; 83036; 84443; 85025; G0378